=== PATIENT | female | born 1945 | race Caucasian/White ===

== ENCOUNTER 2020-03-26 12:42 | Emergency (ER) | payer OTHER ==
--- OUTSIDE RECORDS SUMMARY | 2020-03-26 12:45 | XMS REPORT | Continuity of Care Document ---
:1945 Author Organization [facility] t Address [address] Morales [address] [place] [address] Care Team Providers Name Role Phone Lawrence LEE, A Attending Clinician Doctor Unassigned, Name Attending Clinician Unavailable Only, Test Attending Clinician Unavailable Pob, Lab Main Attending Clinician Unavailable Lawrence LEE, A Admitting Clinician Payers Payer Name Policy Type Policy Number Effective Date Expiration Date S ource Problems This patient has no known problems. Allergies, Adverse Reactions, Alerts This patient has no known allergies or adverse reactions. Medications This patient has no known medications. Procedures This patient has no known procedures. Encounters Start End Encounter Admission Attending Care Care Encounter Source Date/Time Date/Time Type Type Clinicians Facility Department ID 2019-11-24 2019-11-24 [facility] Lawrence [facility] [id number] 09:50:00 13:50:00 Encounter Barney Thomas [id number] [place] 4.2.7.2.686 Surgical [phone] [place] 071 2019-11-24 2019-11-24 Orders Doctor DOLAN [id number] 00:00:00 00:00:00 Only Unassigned, [place] 350.1.13.10 [facility] 4.2.7.2.686 [id number] [id number] 2019-11-23 2019-11-23 Laboratory Only, [facility] [id number] 09:30:39 09:45:39 Only Test [place] [id number] [place] 4.2.7.2.686 [place] [id number] 353 2019-11-17 2019-11-17 Supervisor Pile Driving Monet, [facility] [id number] 11:59:38 12:14:38 Visit Lab Main [place] [id number] [place] 4.2.7.2.686 Profess [id number] [address] 2019-10-20 2019-10-20 [facility] [id number] 08:07:29 11:20:00 Encounter Barney ySlvia ChoKathleen 350.1.13.10 [place] 4.2.7.2.[address] [place] [id number] [place] 020 2019-10-19 2019-10-19 Laboratory Only, [facility] [id number] 09:57:46 10:12:46 Only Test [place] [id number] [place] 4.2.7.2.686 [place] [id number] 353 Results This patient has no known results.
--- NOTE | 2020-03-26 14:33 | ER ---
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 Ebola Screen: Patient negative for fever greater than or equal to 101.5 degrees Fahrenheit, and additional compatible Ebola Virus Disease symptoms Patient denies exposure to infectious person. Patient denies travel to an Ebola-affected area in the 21 days before illness onset. No symptoms or risks identified at this time. Initial Sepsis Screen: Does the patient meet any 2 criteria? No. Patient's initial sepsis screen is negative. Does the patient have a suspected source of infection? No. Patient's initial sepsis screen is negative. Risk Assessment: Do you want to hurt yourself or someone else? Patient reports no desire to harm self or others. Onset of symptoms was March 25, 2020. 13:25 Method Of Arrival: Ambulatory iw 13:25 Acuity: KIM 3 iw 13:28 Coronavirus screen: nausea, vomiting. Client presents with at least one sign or symptom iw that may indicate coronavirus-19. Standard/surgical mask placed on the client. Provider contacted for isolation considerations. Historical: - Allergies: 13:30 No Known Allergies; iw - Home Meds: 13:30 Diazepam Oral [Active]; iw - PMHx: 13:30 Hypertension; Hyperlipidemia; Anxiety; iw - PSHx: 13:30 Hysterectomy; iw - Immunization history:: Adult Immunizations up to date. - Social history:: Smoking status: Patient denies any tobacco usage or history of. Screenin:08 Abuse screen: Denies threats or abuse. Nutritional screening: No deficits noted. tw2 Tuberculosis screening: No symptoms or risk factors identified. Fall Risk None identified. Assessment: 14:07 Reassessment: provider at bedside at this time. tw2 14:25 General: Appears in no apparent distress. slender, well groomed, Behavior is calm, tw2 cooperative, appropriate for age. Pain: Denies pain. Neuro: Level of Consciousness is awake, alert, obeys commands, Oriented to person, place, time, situation. Cardiovascular: Heart tones S1 S2 Patient's skin is warm and dry. Respiratory: Airway is patent Respiratory effort is even, unlabored, Respiratory pattern is regular, symmetrical, Breath sounds are clear bilaterally. GI: No signs and/or symptoms were reported involving the gastrointestinal system. Abdomen is flat, Bowel sounds present X 4 quads. : No signs and/or symptoms were reported regarding the genitourinary system. EENT: No signs and/or symptoms were reported regarding the EENT system. Derm: No signs and/or symptoms reported regarding the dermatologic system. Musculoskeletal: Range of motion: intact in all extremities. 14:27 Reassessment: pt states "yes i just want the ekg done today and to be discharged, i tw2 have an appointment with dr. douglas office tomorrow for blood work", provider notified. Vital Signs: 13:25 BP 114 / 71; Pulse 80; Resp 16; Temp 97.6; Pulse Ox 100% on R/A; Weight 72.57 kg; iw Height 5 ft. 6 in. (167.64 cm); Pain 0/10; 14:38 BP 102 / 65; Pulse 73; Resp 17; Pulse Ox 99% on R/A; tw2 13:25 Body Mass Index 25.82 (72.57 kg, 167.64 cm) iw ED Course: 12:44 Patient arrived in ED. bg2 13:28 Triage completed. iw 13:30 Arm band placed on. iw 14:03 Anibal Araya PA is PHCP. jmm 14:03 Satya Alejo MD is Attending Physician. jmm 14:04 Anibal Araya PA is PHCP. jmm 14:04 Satya Alejo MD is Attending Physician. jmm 14:04 Bed in low position. Call light in reach. Pulse ox on. NIBP on. tw2 14:07 Romana Roper, COLLETTE is Primary Nurse. tw2 14:38 No provider procedures requiring assistance completed. Patient did not have IV access tw2 during this emergency room visit. Administered Medications: No medications were administered Outcome: 14:33 Discharge ordered by . shiela 14:40 Discharged to home ambulatory. tw2 14:40 Condition: stable 14:40 Discharge instructions given to patient, Instructed on discharge instructions, follow up and referral plans. Demonstrated understanding of instructions, follow-up care. 14:40 Patient left the ED. tw2 Signatures: Anibal Araya PA PA jmm Williams, Irene, RN RN Reva Dumas [facility] Romana Roper RN RN tw2 Corrections: (The following items were deleted from the chart) 13:28 13:25 Chief complaint: Patient states: vomited last night, and about an hour got very iw nauseated , denies abd pain, no fever or diarrhea, is feeling light headed and confused, didn't turn down the right road to come to hospital, is feeling light dizziness , denies headache iw 13:29 13:25 Chief complaint: Patient states: vomited last night, and about an hour got very iw nauseated , denies abd pain, no fever or diarrhea, is feeling light headed and confused, didn't turn down the right road to come to hospital, is feeling light dizziness , denies headache, is also having tingling in her hands iw 13:31 13:25 BP 114 / 71; Pulse 80bpm; Resp 16bpm; Pulse Ox 100% RA; Temp 97.6F; iw iw
--- NOTE | 2020-03-26 14:33 | EDPHYS ---
Physician Documentation [facility] Name: Mia Salinas Age: 74 yrs Sex: Female : 1945 Arrival Date: 03/26/2020 Time: 12:44 Bed 2 Private MD: ED Physician Satya Alejo HPI: 03/26 14:10 This 74 yrs old Female presents to ER via Ambulatory with complaints of jmm Confused, upset stomache. 14:10 The patient has experienced near-syncope. Onset: The symptoms/episode began/occurred jmm acutely, yesterday. Duration: The patient has had multiple episodes. Associated injury: The patient did not suffer any apparent associated injury. Associated signs and symptoms: Pertinent positives: confusion, Pertinent negatives: chest pain. This is a 74 year old female with a history of anxiety, htn, hlp that presents to the ED with complaints of near syncope on two occassions, one yesterday and one today while using the restroom. Patient states she became acutely weak and sweaty. Denies chest pain on shortness of breath. Denies cough. Patient had some concerns she may be covid positive. . Historical: - Allergies: 13:30 No Known Allergies; iw - Home Meds: 13:30 Diazepam Oral [Active]; iw - PMHx: 13:30 Hypertension; Hyperlipidemia; Anxiety; iw - PSHx: 13:30 Hysterectomy; iw - Immunization history:: Adult Immunizations up to date. - Social history:: Smoking status: Patient denies any tobacco usage or history of. ROS: 14:10 Constitutional: Positive for fatigue. jmm 14:10 Respiratory: Negative for shortness of breath. 14:10 Abdomen/GI: Negative for nausea, vomiting. 14:10 Neuro: Positive for near syncope. 14:10 All other systems are negative. Exam: 14:10 Constitutional: This is a well developed, well nourished patient who is awake, alert, jmm and in no acute distress. Head/Face: atraumatic. Eyes: EOMI, no conjunctival erythema appreciated ENT: Moist Mucus Membranes Neck: Trachea midline, Supple Chest/axilla: Normal chest wall appearance and motion. Cardiovascular: Regular rate and rhythm. No edema appreciated Respiratory: Normal respirations, no respiratory distress appreciated Abdomen/GI: Non distended, soft Back: Normal ROM Skin: General appearance color normal MS/ Extremity: Moves all extremities, no obvious deformities appreciated, no edema noted to the lower extremities Neuro: Awake and alert, normal gait Psych: Behavior is normal, Mood is normal, Patient is cooperative and pleasant Vital Signs: 13:25 BP 114 / 71; Pulse 80; Resp 16; Temp 97.6; Pulse Ox 100% on R/A; Weight 72.57 kg; iw Height 5 ft. 6 in. (167.64 cm); Pain 0/10; 14:38 BP 102 / 65; Pulse 73; Resp 17; Pulse Ox 99% on R/A; tw2 13:25 Body Mass Index 25.82 (72.57 kg, 167.64 cm) iw MDM: 14:10 Patient medically screened. [facility] 14:32 Data reviewed: vital signs, nurses notes. Data reviewed: EKG. Counseling: I had a m detailed discussion with the patient and/or guardian regarding: the historical points, exam findings, and any diagnostic results supporting the discharge/admit diagnosis, the need for outpatient follow up, to return to the emergency department if symptoms worsen or persist or if there are any questions or concerns that arise at home. Refusal of service: The patient/guardian displays adequate decision making capability and despite a detailed discussion of alternatives, benefits, risks, and consequences refuses: CT Scan, all lab tests. 03/26 14:10 Order name: EKG - Nurse/Tech; Complete Time: 14:26 [facility] Administered Medications: No medications were administered Disposition: 15:42 Co-signature as Attending Physician, Satya Alejo MD. rn Disposition: 03/26/20 14:33 Discharged to Home. Impression: Syncope and collapse. - Condition is Stable. - Discharge Instructions: Syncope. - Medication Reconciliation Form, Thank You Letter, Antibiotic Education, Prescription Opioid Use form. - Follow up: Private Physician; When: 2 - 3 days; Reason: Recheck today's complaints, Continuance of care, Re-evaluation by your physician. Signatures: Anibal Araya PA PA Ritika Cox, RN COLLETTE Satya Alejo MD MD rn Wise, Tara, RN RN tw2 Corrections: (The following items were deleted from the chart) 14:40 14:33 03/26/2020 14:33 Discharged to Home. Impression: Syncope and collapse. Condition tw2 is Stable. Forms are Medication Reconciliation Form, Thank You Letter, Antibiotic Education, Prescription Opioid Use. Follow up: Private Physician; When: 2 - 3 days; Reason: Recheck today's complaints, Continuance of care, Re-evaluation by your physician. shiela
[2020-03-26 17:34] VITALS: TEMP 97.6
[2020-03-26 17:35] VITALS: BP 102/65; O2SAT 99
== END 2020-03-26 14:40 | disposition home or self-care (01) ==
LOC: ER 12:42
DX: R55 Syncope and collapse (principal); R41.0 Disorientation, unspecified; I10 Essential (primary) hypertension; E78.5 Hyperlipidemia, unspecified; F41.9 Anxiety disorder, unspecified
CPT/HCPCS: 93005; 99283

== ENCOUNTER 2020-04-08 13:33 | Emergency (ER) | payer SELFPAY ==
--- OUTSIDE RECORDS SUMMARY | 2020-04-08 13:36 | XMS REPORT | Continuity of Care Document ---
:1945 Author Organization [facility] t Address [address] Morales [address] [place] [address] Care Team Providers Name Role Phone Lawrence [...] Type Clinicians Facility Department ID 2019-11-24 2019-11-24 [facility] Lawrence [facility] [id number] 09:50:00 13:50:00 Encounter Barney Thomas [id number] [place] 4.2.7.2.686 Surgical [id number] [place] 071 2019-11-24 2019-11-24 Orders Doctor DOLAN [id number] 00:00:00 00:00:00 Only Unassigned, [place] 350.1.13.10 [facility] 4.2.7.2.686 [id number] 2019-11-23 2019-11-23 Laboratory Only, [facility] 1.2.840.114 [id number] 09:30:39 09:45:39 Only Test [place] 350.1.13.10 [place] 4.2.7.2.686 [place] [id number] 353 2019-11-17 2019-11-17 Tonal Regulator Monet, [facility] 1.2.840.114 [id number] 11:59:38 12:14:38 Visit Lab Main [place] 350.1.13.10 [place] 4.2.7.2.686 Profess [phone] [address] 2019-10-20 2019-10-20 [facility] [id number] 08:07:29 11:20:00 Encounter Barney Sylvia [place] 350.1.13.10 [place] 4.2.7.2.686 [facility] [id number] [place] 020 2019-10-19 2019-10-19 Laboratory Only, [facility] 1.2.840.114 [id number] 09:57:46 10:12:46 Only Test [place] [id number] [place] 4.2.7.2.686 [place] [id number] 353 Results This patient has no known results.
--- NOTE | 2020-04-08 16:43 | ER ---
Nurse's Notes [facility] Name: Mia Salinas Age: 74 yrs Sex: Female : 1945 Arrival Date: 04/08/2020 Time: 13:34 Bed Waiting Private MD: Oumar Mahan Diagnosis: Presentation: 04/08 14:37 Chief complaint: Patient states: Bilateral hands and bilateral feet tingling and nausea jl7 since 1100 today, denies chest pain, reports difficulty breathing when he picked her up. Coronavirus screen: Client denies travel out of the [place] in the last 14 days. At this time, the client does not indicate any symptoms associated with coronavirus-19. Ebola Screen: No symptoms or risks identified at this time. Initial Sepsis Screen: Does the patient meet any 2 criteria? No. Patient's initial sepsis screen is negative. Does the patient have a suspected source of infection? No. Patient's initial sepsis screen is negative. Risk Assessment: Do you want to hurt yourself or someone else? Patient reports no desire to harm self or others. Onset of symptoms was April 08, 2020 at 11:00. Care prior to arrival: None. 14:37 Method Of Arrival: Wheelchair jl7 14:37 Acuity: KIM 3 jl7 Triage Assessment: 14:41 General: Appears in no apparent distress. uncomfortable, Behavior is cooperative, jl7 anxious. Pain: Denies pain. Respiratory: Reports Airway is patent Respiratory effort is even, unlabored, Respiratory pattern is regular, symmetrical, Onset: The symptoms/episode began/occurred today, the patient has mild shortness of breath. Historical: - Allergies: 14:41 Morphine; jl7 - PMHx: 14:41 Anxiety; Hyperlipidemia; Hypertension; jl7 - PSHx: 14:41 Hysterectomy; jl7 - Immunization history:: Adult Immunizations up to date. - Social history:: Smoking status: Patient denies any tobacco usage or history of. Vital Signs: 14:37 BP 100 / 63; Pulse 82; Resp 19; Temp 98.1; Pulse Ox 99% ; Weight 72.57 kg; Height 5 ft. jl7 6 in. (167.64 cm); Pain 0/10; 14:37 Body Mass Index 25.82 (72.57 kg, 167.64 cm) jl7 ED Course: 13:34 Patient arrived in ED. ag5 13:36 Oumar Mahan MD is Private Physician. ag5 14:40 Triage completed. jl7 14:41 Arm band placed on right wrist. jl7 16:41 Renetta Tenorio, RN is Primary Nurse. zb 16:43 Modesto Renteria MD is Attending Physician. aa5 Administered Medications: No medications were administered Outcome: 16:43 Patient left the ED. aa5 Signatures: Saba Cornelius, RN RN aa5 Marissa Rubin RN RN jl7 [place] ag5 Renetta Tenorio, COLLETTE RN zb
[2020-04-12 17:25] VITALS: BP 100/63; TEMP 98.1; O2SAT 99
== END 2020-04-08 16:43 | disposition left against medical advice (07) ==
LOC: ER 13:33
DX: Z53.21 Procedure and treatment not carried out due to patient leaving prior to being seen by health care provider (principal)
CPT/HCPCS: 99281

== ENCOUNTER 2020-05-29 09:42 | Emergency (ER) | payer OTHER ==
--- OUTSIDE RECORDS SUMMARY | 2020-05-29 10:17 | XMS REPORT | Continuity of Care Document ---
:1945 Author Organization [facility] t Address [address] Morales [address] [place] [address] Care Team Providers Name Role Phone Tyler MURDOCK, Ayaka Attending Clinician Unavailable Lab, Fam Pob I Attending Clinician Unavailable Doctor Unassigned, Name Attending Clinician Unavailable Lawrence LEE, A Attending Clinician Only, Test Attending Clinician Unavailable Pob, Lab [...] Date/Time Type Type Clinicians Facility Department ID 2020-05-27 2020-05-27 Nurse MAGDALENO [place] [id number] [id number] 00:00:00 00:00:00 Triage Whitney VARELA [id number] [facility] 4.2.7.2.686 [id number] [id number] 2020-05-25 2020-05-25 Laboratory Lab, [facility] 1.2.840.114 [id number] 18:25:25 18:45:25 Only Fam Pob I Health 350.1.13.10 [place] 4.2.7.2.686 Professio [phone] nal [address] 2020-05-25 2020-05-25 Letter Doctor MAGDALENO 1.2.840.114 [id number] 00:00:00 00:00:00 (Out) Unassigned, [place] 350.1.13.10 [place] [facility] 4.2.7.2.686 [id number] 2019-11-24 2019-11-24 [facility] [id number] 09:50:00 13:50:00 Encounter Barney Thomas 350.1.13.10 [place] 4.2.7.2.686 Surgical [id number] [place] [address] 2019-11-24 2019-11-24 Orders Doctor MAGDALENO [id number] [id number] 00:00:00 00:00:00 Only Unassigned, [place] 350.1.13.10 [place] [facility] 4.2.7.2.686 [id number] 009 2019-11-23 2019-11-23 Laboratory Only, [facility] 1.2.840.114 [id number] 09:30:39 09:45:39 Only Test [place] 350.1.13.10 [place] 4.2.7.2.686 [place] [id number] 353 2019-11-17 2019-11-17 Rn First Assistant Monet, [facility] 1.2.840.114 [id number] 11:59:38 12:14:38 Visit Lab Main [place] 350.1.13.10 [place] 4.2.7.2.686 Professio [phone] [facility] 2019-10-20 2019-10-20 [facility] [id number] 08:07:29 11:20:00 Encounter Barney [place] 350.1.13.10 [place] 4.2.7.2.686 Surgical [id number] [place] 020 2019-10-19 2019-10-19 Laboratory Only, [facility] 1.2.840.114 [id number] 09:57:46 10:12:46 Only Test [place] 350.1.13.10 [place] 4.2.7.2.686 [place] [id number] 353 Results This patient has no known results.
--- OUTSIDE RECORDS SUMMARY | 2020-05-29 10:17 | XMS REPORT | Summary of Care ---
:1945 Author Organization [facility] [employer] [facility] Address [address] [place] [address] Care Team Providers Name Role Phone Dilan Mahan Primary Care Provider Reason for Visit Reason Comments LAB covid Encounter Details Date Type Department Care Team Description 05/25/2020 Laboratory Only [facility] Family Kimberli Loja odalys J, COSTUME SPECIALIST [address] [place] [address] Exposure to Medicine - [facility], Adc Fam Pob I SARS-associated [address] [facility] coronaviru s ([address] Dx) [place] [address] Allergies Active Allergy Reactions Severity Noted Date Comments Morphine Hallucinations 10/18/2019 documented as of this encounter (statuses as of 05/25/2020) Medications Medication Sig Dispensed Refills Start Date End Date Status zolpidem 10 mg tablet Take 10 mg by 0 Active mouth at bedtime as needed for Insomnia. ramipril (ALTACE) 5 mg Take 5 mg by 0 Active capsule mouth 2 (two) times daily. rosuvastatin (CRESTOR) Take 10 mg by 0 Active 10 mg tablet mouth at bedtime. levomefolate-algal oil Take 1 capsule 0 Active (DEPLIN, ALGAL OIL,) by mouth daily. 15-90.314 mg Cap levothyroxine 50 mcg Take 0.05 mg by 0 Active tablet mouth every morning. oxybutynin chloride 5 mg Take 5 mg by 0 Active tablet mouth daily. FLUoxetine (PROZAC) 20 Take 20 mg by 0 Active mg capsule mouth 3 (three) times daily. raloxifene (EVISTA) 60 Take 60 mg by 0 Active mg tablet mouth daily. alendronate 70 mg tablet Take 70 mg by 0 Active mouth weekly. levocetirizine (XYZAL) 5 Take 5 mg by 0 Active mg tablet mouth every evening. documented as of this encounter (statuses as of 05/25/2020) Active Problems Not on filedocumented as of this encounter (statuses as of 05/25/2020) Social History Tobacco Use Types Packs/Day Years Used Date Never Smoker Smokeless Tobacco: Never Used Sex Assigned at Date Recorded Not on file documented as of this encounter Last Filed Vital Signs Not on filedocumented in this encounter Nursing Notes Prerna Rico RN - 05/25/2020 7:00 PM CSTMia Salinas is a 74 year old female here for COVID Screening with a Nasopharyngeal Swab All droplet and contact precautions taken with appropriate PPE worn while interacting with patient. ? Goggles ? N95 Mask ? Gloves ? Gown RR 17 Pulse Ox 95% Patient educated on plan of care for visit, swabbing technique, risks and benefits of test and length of time to receive results. Verbal consent obtained to perform test. CDC Fact Sheet for Patients nCoV Diagnostic Panel dated 07/11/2019 and Factsheet What to Do if Sick with COVID 19 06/21/19 provided. Patient swabbed per appropriate nasopharyngeal technique, and patient tolerated well. Patient was discharged from the testing clinic in stable condition. Prerna Rico RN 05/25/2020 6:31 PM documented in this encounter Plan of Treatment Name Type Priority Associated Diagnoses Date/Ti me COVID-19 (MOLECULAR LAB Routine Exposure to 05/25/19 21 6:27 PM TERMITE CONTROL SERVICER TESTING SARS-associated NUCLEIC ACID coronavirus AMPLIFICATION) Name Type Priority Associated Diagnoses Order S chedule COVID-19 (MOLECULAR LAB Routine Exposure to Expected : 05/25/2020, TESTING SARS-associated Expires: 022 NUCLEIC ACID coronavirus AMPLIFICATION) Health Maintenance Due Date Last Done Comments HEPATITIS C (HCV) SCREEN 1945 SARS-CoV-2 (COVID-19) Vaccine (1 of 2) 1963 DTaP,Tdap,and Td Vaccines (1 - Tdap) 12/13/1966 Breast Cancer Screening (MAMMOGRAM) 1987 COLON CANCER SCREENING ANNUAL FIT/FOBT 12/13/1997 COLON CANCER SCREENING FIT DNA EVERY 3 YEARS 12/13/1997 COLON CANCER SCREENING SIGMOIDOSCOPY EVERY 5 YEARS 12/13/1997 COLONOSCOPY 12/13/1997 Colorectal Cancer Screening 12/13/1997 Zoster Recombinant Vaccine (SHINGRIX) (1 of 2) 12/13/1997 Medicare Wellness Visit 12/13/2012 Osteoporosis Screening 12/13/2012 PNEUMOCOCCAL VACCINES 65+ (1 of 1 - PPSV23) 12/13/2012 INFLUENZA VACCINE (#1) 2019 Depression Screening 11/23/2020 11/24/2019 documented as of this encounter Implants Implanted Type Area Bowling Teacher Device Shelf Model / Identifier Expiration Date Ser ial / Lot Lens, [place] #[id number] - [id number] LENS Right: [place] 02/26/2024 [id number] / Implanted: Qty: 1 on 10/20/2019 by Barney Bray MD at [facility] Eye 1 [id number] / N/A Lens, [place] #[id number] - [id number] LENS Left: Eye [place] 01/26/2024 [id number] / Implanted: Qty: 1 on 11/24/2019 by Barney Bray MD at [facility] [id number] / N/A documented as of this encounter Results Not on filedocumented in this encounter Visit Diagnoses Diagnosis Exposure to SARS-associated coronavirus - Primary documented in this encounter Additional Health Concerns Infection Onset Date Last Indicated Resolved Time COVID-19 Rule Out 05/25/2020 05/25/2020 documented as of this encounter Insurance Payer Benefit Plan Subscriber ID Effective Phone Address Typ e / Group Dates AETNA - AETNA [id number] 2019-Pre[address] Me dicare Adv [place] [id number] [place] [address] documented as of this encounter
--- OUTSIDE RECORDS SUMMARY | 2020-05-29 10:18 | XMS REPORT | Summary of Care ---
:1945 Author Organization [facility] Address [address] [place] [id number] Care Team Providers Name Role Phone Dilan Mahan Primary Care Provider Reason for Visit Reason Onset Date Comments Shortness of Breath 05/27/2020 Diarrhea 05/27/2020 Abdominal Pain 05/27/2020 Encounter Details Date Type Department Care Team Description 05/27/2020 Nurse Triage [facility] Whitney Scott RN Shortness of Breath; [address] [place] [address] Diarrhea; A bdominal [place] [id number] Allergies Active Allergy Reactions Severity Noted Date Comments Morphine Hallucinations 10/18/2019 documented as of this encounter (statuses as of 05/27/2020) Medications Medication Sig Dispensed Refills Start Date [...] as of this encounter (statuses as of 05/27/2020) Active Problems Not on filedocumented as of this encounter (statuses as of 05/27/2020) Social History Tobacco Use Types Packs/Day Years Used Date Never Smoker Smokeless Tobacco: Never Used Sex Assigned at Date Recorded Not on file documented as of this encounter Last Filed Vital Signs Not on filedocumented in this encounter Miscellaneous Notes Telephone Encounter - Whitney Scott RN - 05/27/2020 11:37 AM SENIOR APPLICATIONS ARCHITECT Reason for Disposition MILD difficulty breathing (e.g., minimal/no SOB at rest, SOB with walking, pulse <100) Protocols used: CORONAVIRUS (COVID-19) - DIAGNOSED OR [id number] OR APPLICATIONS ARCHITECT Telephone Encounter - Whitney Scott RN - 05/27/2020 11:37 AM CSTNurse's Note: "breathing problem" per patient. 1138 "I am having problems breathing. My feet are tingling. My stomach is killing me. I'm trying to drink water. Is there any way they can deliver oxygen and pulse oximeter." Patient informed oxygen delivery would require an order from physician. Patient stated she tried to contact her PCP but he's unavailable right now. After assessment and triage, patient advised to be taken to the ER for immediate evaluation. Patient states she's not going to the ER because it's overcrowded and she'll just call her niece to come over. Adult Triage Assessment Last Clinic Visit: 11/24/2019 for cataract surgery Primary Symptom: difficulty breathing Onset / Duration: today a few minutes ago Location / Description: at rest Pain / Severity: stomach, 9/10, constant Associated Symptoms: diarrhea x 1 today Fever / Method: doesn't know but sweating Hydration: no changes to usual self Treatment so far: none Effect on ADL's: when asked about any changes to activity level patient states "I don't know, I haven't gotten up" LMP: n/a Pre-existing condition / Immunocompromised: COVID +, cataract surgery [facility] Access Center Whitney Scott, MSN, RN-BC OR APPLICATIONS ARCHITECT Telephone Encounter - Whitney Scott RN - 05/27/2020 11:37 AM CSTRegarding: Trouble breathing, Covid positive, diarrhea. ----- Message from Cherie Rio sent at 05/27/2020 11:32 AM SENIOR APPLICATIONS ARCHITECT ----- Mia Salinas is a 74 year old female who is stating she is having trouble breathing that just started. Patient Covid is positive and has diarrhea. OR APPLICATIONS ARCHITECT documented in this encounter Plan of Treatment Health Maintenance Due Date Last Done Comments [...] of this encounter Implants Implanted Type Area Biodiesel Processing Technician Device Shelf Model / Identifier Expiration Date Ser ial / Lot Lens, Montez #[id number] - [id number] LENS Right: Montez 02/26/2024 [id number] / Implanted: Qty: 1 on 10/20/2019 by Barney Bray MD at [facility] Eye [id number] / N/A Lens, Montez #[id number] - [id number] LENS Left: Eye Montez 01/26/2024 [id number] / Implanted: Qty: 1 on 11/24/2019 by Barney Bray MD at [facility] [id number] / N/A documented as of this encounter Results Not on filedocumented in this encounter Additional Health Concerns Infection Onset Date Last Indicated Resolved Time COVID-19 Confirmed 05/25/2020 05/25/2020 documented as of this encounter Insurance Payer Benefit Plan Subscriber ID Effective Phone Address Typ e / Group Dates AETNA - AETNA [id number] 2019-Prese [address] Me dicare Adv [place]NAGED MEDICARE [place]V [place] [id number] [place] [address] documented as of this encounter
--- OUTSIDE RECORDS SUMMARY | 2020-05-29 10:18 | XMS REPORT | Summary of Care ---
:1945 Author Organization [facility] - Health Address [address] [place] [address] Care Team Providers Name Role Phone Oanhanjana Dilan Primary Care Provider Encounter Details Date Type Department Care Team Description 05/25/2020 Letter (Out) [facility] Burst[employer]it Message s Doctor Unassigned, No [address] [facility] [place] [phone] [place] [address] [place] [address] Allergies Active Allergy Reactions Severity Noted Date [...] Signs Not on filedocumented in this encounter Plan of Treatment Date Type Specialty Care Team Description 05/25/2020 Laboratory Only Family Medicine Daniela Loja, FIRE PROTECTION INSPECTOR [address] [place] [address] [phone] Exposure to Lab, Adc Fam Pob I SARS-associated coronavirus (Pr imary Dx) Health Maintenance Due Date Last Done Comments [...] of this encounter Implants Implanted Type Area Pipe Smoker Machine Operator Device Shelf Model / Identifier Expiration Date Ser ial / Lot Lens, Montez #[id number] - [id number] LENS Right: Montez 02/26/2024 SN60WF / Implanted: Qty: 1 on 10/20/2019 by Barney Bray MD at [facility] Eye 1 [id number] / N/A Lens, Montez #[id number] - [id number] LENS Left: Eye Montez 01/26/2024 [id number] / Implanted: Qty: 1 on 11/24/2019 by Barney Bray MD at [facility] [id number] / N/A documented as of this encounter Results Not on filedocumented in this encounter Additional Health Concerns Infection Onset Date Last Indicated Resolved Time COVID-19 Rule Out 05/25/2020 05/25/2020 documented as of this encounter Insurance Payer Benefit Plan Subscriber ID Effective Phone Address Typ e / Group Dates AETNA - AETNA [id number] 2019-Isidro P Michele BOX Me dicare Adv MANAGED MEDICARE ADV [place] [id number] [place] [address] documented as of this encounter
[2020-05-29] MEDS ORDERED: MEPERIDINE HCL 25 MG/ML SYR ONE (11:49)
[2020-05-29] MEDS ORDERED: ONDANSETRON 4 MG/2 ML VIAL ONE (11:49)
[2020-05-29] MEDS ORDERED: MAGNES/ALUMIN/SIMET 30ML UCUP ONE (11:49)
[2020-05-29] MEDS ORDERED: LIDOCAINE VISCOUS 2% SOLN 15 ML UDC ONE (11:49)
[2020-05-29] MEDS ORDERED: NA CHLORIDE 0.9% 1,000 ML ONE (11:49)
[2020-05-29] MEDS ORDERED: FAMOTIDINE 20 MG/2 ML VIAL IV ONE (11:50)
[2020-05-29 12:01] LABS: Absolute Lymphocytes (CBC) 1.7 K/uL (0.7-4.9); Basophils % 0.7 % (0-1.3); Hematocrit 42.8 % (36.0-45.0); Lymphocytes % 20.8 % (15.3-44.8); MPV 8.4 fL (7.6-11.3); RBC Red Blood Cell Count 4.68 M/uL (3.86-4.86)
[2020-05-29 12:57] LABS: Albumin 3.8 g/dL (3.4-5.0); Bilirubin Direct 0.2 mg/dL (0-0.2); Potassium 3.4 mmol/L (3.5-5.1); Protein, Total 7.7 g/dL (6.4-8.2)
--- NOTE | 2020-05-29 12:58 | RAD REPORT ---
EXAM DESCRIPTION: CT - Abdomen Pelvis W Contrast - 05/29/2020 12:16 pm CLINICAL HISTORY: Abdominal pain COMPARISON: none. TECHNIQUE: Computed axial tomography of the abdomen pelvis was obtained. 100 cc Isovue-300 was admin istered intravenously. Oral contrast was not requested which limits evaluation of bowel. All CT scans are performed using dose optimization technique as appropriate and may include automated exposure control or mA/KV adjustment according to patient size. FINDINGS: A gastric band is present. The esophagus is not dilated A 12 millimeter left adrenal nodule. Right adrenal gland are unremarkable The liver, spleen, pancreas, adrenals and left kidney unremarkable. Small right renal cyst. There is no evidence of diverticulitis. Hysterectomy Borderline dilatation of the gallbladder IMPRESSION: 12 millimeter left adrenal nodule nonspecific but probably an adenoma. This can be monit ored on subsequent imaging. Gastric band present. Esophagus is not dilated Borderline dilatation of the gallbladder
--- NOTE | 2020-05-29 13:09 | EDPHYS ---
Physician Documentation [facility] Name: Mia Salinas Age: 74 yrs Sex: Female : 1945 Arrival Date: 05/29/2020 Time: 09:44 Bed 3 Private MD: Oumar Mahan ED Physician Erin Whalen HPI: 05/29 11:20 This 74 yrs old Female presents to ER via Wheelchair with complaints of ma2 COVID+, Lap Band Problem. 11:20 The patient presents with abdominal pain in the epigastric area. Onset: The ma2 symptoms/episode began/occurred gradually, 3 day(s) ago. Associated signs and symptoms: Pertinent negatives: blood in stools, chest pain, diarrhea, dysuria, fever. Severity of pain: At its worst the pain was moderate in the emergency department the pain is unchanged. The patient has not experienced similar symptoms in the past. Historical: - Allergies: 10:54 Morphine; ca1 - PMHx: 10:54 Anxiety; Hyperlipidemia; Hypertension; ca1 - PSHx: 10:54 Hysterectomy; lap Band; ca1 - Immunization history:: Pneumococcal vaccine is up to date, Flu vaccine is up to date. - Social history:: Smoking status: Patient denies any tobacco usage or history of. Patient/guardian denies using alcohol, street drugs, The patient lives with family. - Family history:: not pertinent. ROS: 11:20 Constitutional: Negative for fever, chills, and weight loss. ma2 11:20 All other systems are negative. Exam: 11:20 Constitutional: This is a well developed, well nourished patient who is awake, alert, ma2 and in no acute distress. Neck: Trachea midline, no thyromegaly or masses palpated, and no cervical lymphadenopathy. Supple, full range of motion without nuchal rigidity, or vertebral point tenderness. No Meningismus. Chest/axilla: Normal chest wall appearance and motion. Nontender with no deformity. No lesions are appreciated. Cardiovascular: Regular rate and rhythm with a normal S1 and S2. No gallops, murmurs, or rubs. Normal PMI, no JVD. No pulse deficits. Respiratory: Lungs have equal breath sounds bilaterally, clear to auscultation and percussion. No rales, rhonchi or wheezes noted. No increased work of breathing, no retractions or nasal flaring. Abdomen/GI: Soft, non-tender, abdominal band is felt under skin and non tender, with normal bowel sounds. No distension or tympany. No guarding or rebound. No evidence of tenderness throughout. Back: No spinal tenderness. No costovertebral tenderness. Full range of motion. Skin: Warm, dry with normal turgor. Normal color with no rashes, no lesions, and no evidence of cellulitis. MS/ Extremity: Pulses equal, no cyanosis. Neurovascular intact. Full, normal range of motion. Neuro: Awake and alert, GCS 15, oriented to person, place, time, and situation. Cranial nerves II-XII grossly intact. Motor strength 5/5 in all extremities. Sensory grossly intact. Cerebellar exam normal. Normal gait. Vital Signs: 10:51 BP 111 / 84; Pulse 75; Resp 16 S; Temp 97.1(TE); Pulse Ox 100% on R/A; Weight 68.04 kg ca1 (R); Height 5 ft. 6 in. (167.64 cm) (R); Pain 10/10; 12:03 BP 106 / 78; Pulse 79; Resp 15; Pulse Ox 100% ; Pain 4/10; jl7 14:00 BP 131 / 86; Pulse 77; Resp 18 S; Pulse Ox 100% on R/A; aa5 10:51 Body Mass Index 24.21 (68.04 kg, 167.64 cm) ca1 MDM: 11:01 Patient medically screened. [facility] 11:20 Differential diagnosis: diverticulitis, gastritis, gastroesophageal reflux disease, ma2 Hepatitis. 13:08 Data reviewed: vital signs, nurses notes. Counseling: I had a detailed discussion with [facility] the patient and/or guardian regarding: the historical points, exam findings, and any diagnostic results supporting the discharge/admit diagnosis, the presence of at least one elevated blood pressure reading (>120/80) during this emergency department visit, the need for outpatient follow up. Response to treatment: the patient's symptoms have markedly improved after treatment. 05/29 11:19 Order name: Basic Metabolic Panel [facility] 05/29 11:19 Order name: CBC with Diff; Complete Time: 12:58 [facility] 05/29 11:19 Order name: Hepatic Function [facility] 05/29 11:19 Order name: Lipase [facility] 05/29 12:44 Order name: CREATININE WHOLE BLOOD; Complete Time: 12:58 EDMS 05/29 13:24 Order name: Urine Dipstick--Ancillary (enter results) bd 05/29 11:19 Order name: IV Saline Lock; Complete Time: 11:54 ia2 05/29 11:19 Order name: CT Abd/Pelvis - IV Contrast Only; Complete Time: 13:04 ma2 05/29 11:19 Order name: NPO; Complete Time: 11:26 ia2 05/29 11:19 Order name: Urine Dipstick-Ancillary (obtain specimen); Complete Time: 13:18 ma2 Administered Medications: 11:43 Drug: NS 0.9% 1000 ml Route: IV; Rate: 1000 ml; Site: right antecubital; jl7 11:45 Drug: Pepcid 20 mg Route: IVP; Site: right antecubital; jl7 12:03 Follow up: Response: No adverse reaction jl7 11:46 Drug: Demerol 25 mg Route: IVP; Site: right antecubital; jl7 12:03 Follow up: Response: No adverse reaction; Pain is decreased jl7 11:47 Drug: Zofran (Ondansetron) 4 mg Route: IVP; Site: right antecubital; jl7 12:04 Follow up: Response: No adverse reaction jl7 13:56 Drug: Klor-Con Effervescent Tablet 50 mEq Route: PO; aa5 14:27 Not Given (Patient Refused): GI Cocktail without - (Maalox Suspension 30 ml, aa5 Lidocaine Liquid 2 % 15 ml) PO once Disposition: 05/29/20 13:08 Discharged to Home. Impression: Hypokalemia, Upper abdominal pain, unspecified. - Condition is Stable. - Discharge Instructions: Abdominal Pain, Adult. - Prescriptions for Zofran 4 mg Oral Tablet - take 1 tablet by ORAL route every 12 hours As needed; 20 tablet. Pepcid 20 mg Oral Tablet - take 1 tablet by ORAL route once daily for 10 days; 10 tablet. Potassium Chloride 10 mEq Oral Tablet - take 1 tablet by ORAL route every 12 hours; 30 tablet. - Medication Reconciliation Form, Thank You Letter, Antibiotic Education, Prescription Opioid Use form. - Follow up: Private Physician; When: Tomorrow; Reason: If symptoms return. Signatures: Dispatcher [employer] EDNV Saba Cornelius RN RN aa5 Marissa Rubin RN RN jl7 Erin Whalen MD MD ma2 Elisabet Beth RN RN ca1 Corrections: (The following items were deleted from the chart) 14:28 13:08 05/29/2020 13:08 Discharged to Home. Impression: Hypokalemia; Upper abdominal aa5 pain, unspecified. Condition is Stable. Prescriptions for Zofran 4 mg Oral Tablet - take 1 tablet by ORAL route every 12 hours As needed; 20 tablet, Pepcid 20 mg Oral Tablet - take 1 tablet by ORAL route once daily for 10 days; 10 tablet. and Forms are Medication Reconciliation Form, Thank You Letter, Antibiotic Education, Prescription Opioid Use. Follow up: Private Physician; When: Tomorrow; Reason: If symptoms return. ma2
--- NOTE | 2020-05-29 13:09 | ER ---
Nurse's Notes [facility] Name: Mia Salinas Age: 74 yrs Sex: Female : 1945 Arrival Date: 05/29/2020 Time: 09:44 Bed 3 Private MD: Oumar Mahan Diagnosis: Hypokalemia;Upper abdominal pain, unspecified Presentation: 05/29 10:51 Chief complaint: Patient states: Got a lap band 15 years ago. It's blocked, I can't ca1 throw up, I defecated on myself, I can't drink any water. Reports severe abdominal pain all over. All these started last week. Coronavirus screen: Client reports previous positive COVID test result. Date of collection: May 25, 2020. Ebola Screen: Patient negative for fever greater than or equal to 101.5 degrees Fahrenheit, and additional compatible Ebola Virus Disease symptoms Patient denies exposure to infectious person. Patient denies travel to an Ebola-affected area in the 21 days before illness onset. No symptoms or risks identified at this time. Initial Sepsis Screen: Does the patient meet any 2 criteria? No. Patient's initial sepsis screen is negative. Does the patient have a suspected source of infection? No. Patient's initial sepsis screen is negative. Risk Assessment: Do you want to hurt yourself or someone else? Patient reports no desire to harm self or others. Onset of symptoms was May 29, 2020. 10:51 Acuity: KIM 2 ca1 10:51 Method Of Arrival: Wheelchair ca1 Historical: - Allergies: 10:54 Morphine; ca1 - PMHx: 10:54 Anxiety; Hyperlipidemia; Hypertension; ca1 - PSHx: 10:54 Hysterectomy; lap Band; ca1 - Immunization history:: Pneumococcal vaccine is up to date, Flu vaccine is up to date. - Social history:: Smoking status: Patient denies any tobacco usage or history of. Patient/guardian denies using alcohol, street drugs, The patient lives with family. - Family history:: not pertinent. Screenin:03 Abuse screen: Denies threats or abuse. Denies injuries from another. Nutritional jl7 screening: No deficits noted. Tuberculosis screening: No symptoms or risk factors identified. Fall Risk IV access (20 points). Total Lockett Fall Scale indicates No Risk (0-24 pts). Assessment: 11:10 General: Appears in no apparent distress. uncomfortable, Behavior is cooperative, jl7 anxious. Pain: Complains of pain in abdomen diffusely Pain currently is 10 out of 10 on a pain scale. Neuro: Level of Consciousness is awake, alert, obeys commands, Oriented to person, place, time, situation. Cardiovascular: Patient's skin is warm and dry. Respiratory: Airway is patent Respiratory effort is even, unlabored, Respiratory pattern is regular, symmetrical. GI: Abdomen is round non-distended, Bowel sounds present X 4 quads. Abd is soft and non tender X 4 quads. Abdomen is tender to palpation in umbilical area. : Reports Unable to void due to inability to drink water. Derm: Skin is pink, warm \T\ dry. 13:56 Reassessment: Awaiting Dr. Whalen to speak to pt before d/c home. . aa5 14:25 Reassessment: Patient is alert, oriented x 3, equal unlabored respirations, skin aa5 warm/dry/pink. Patient states feeling better. Patient states symptoms have improved. Vital Signs: 10:51 BP 111 / 84; Pulse 75; Resp 16 S; Temp 97.1(TE); Pulse Ox 100% on R/A; Weight 68.04 kg ca1 (R); Height 5 ft. 6 in. (167.64 cm) (R); Pain 10/10; 12:03 BP 106 / 78; Pulse 79; Resp 15; Pulse Ox 100% ; Pain 4/10; jl7 14:00 BP 131 / 86; Pulse 77; Resp 18 S; Pulse Ox 100% on R/A; aa5 10:51 Body Mass Index 24.21 (68.04 kg, 167.64 cm) ca1 ED Course: 09:44 Patient arrived in ED. ag5 09:45 Oumar Mahan MD is Private Physician. ag5 10:54 Triage completed. ca1 10:54 Arm band placed on right wrist. ca1 10:56 Marissa Rubin RN is Primary Nurse. jl7 11:01 Erin Whalen MD is Attending Physician. ma2 11:40 Initial lab(s) drawn, by ED staff, sent to lab. Inserted saline lock: 20 gauge in right jl7 antecubital area, using aseptic technique. ,using aseptic technique. inserted by COLLETTE Gonzalez Traveler. 12:03 Patient has correct armband on for positive identification. Bed in low position. Call jl7 light in reach. Side rails up X2. Pulse ox on. NIBP on. Warm blanket given. 12:17 CT Abd/Pelvis - IV Contrast Only In Process Unspecified. EDMS 14:18 IV discontinued, Pressure dressing applied. 5 14:25 No provider procedures requiring assistance completed. aa5 Administered Medications: 11:43 Drug: NS 0.9% 1000 ml Route: IV; Rate: 1000 ml; Site: right antecubital; jl7 11:45 Drug: Pepcid 20 mg Route: IVP; Site: right antecubital; jl7 12:03 Follow up: Response: No adverse reaction jl7 11:46 Drug: Demerol 25 mg Route: IVP; Site: right antecubital; jl7 12:03 Follow up: Response: No adverse reaction; Pain is decreased jl7 11:47 Drug: Zofran (Ondansetron) 4 mg Route: IVP; Site: right antecubital; jl7 12:04 Follow up: Response: No adverse reaction jl7 13:56 Drug: Klor-Con Effervescent Tablet 50 mEq Route: PO; aa5 14:27 Not Given (Patient Refused): GI Cocktail without - (Maalox Suspension 30 ml, aa5 Lidocaine Liquid 2 % 15 ml) PO once Outcome: 13:08 Discharge ordered by . ma2 14:25 Discharged to home ambulatory, with family. aa5 14:25 Condition: improved 14:25 Discharge instructions given to patient, Instructed on discharge instructions, follow up and referral plans. medication usage, Demonstrated understanding of instructions, follow-up care, medications, Prescriptions given X 3. 14:28 Patient left the ED. aa5 Signatures: Dispatcher [employer] EDMS Saba Cornelius RN RN aa5 Tonya Schulte Marissa Walker RN RN jl7 Erin Whalen MD MD ma2 Elisabet Beth RN RN ca1 Shaw Sanchez ag5
[2020-05-29 13:37] LABS: Bilirubin Total 0.7 mg/dL (0.2-1.0)
[2020-05-29] MEDS ORDERED: POTASSIUM 25 MEQ EFFERV TAB ONE (13:50)
[2020-05-29 14:01] LABS: Urine Blood NEGATIVE (NEG); Urine Glucose NEGATIVE (NEG); Urine Protein NEGATIVE (NEG); Urine Specific Gravity <1.005 (1.005-1.030)
[2020-05-29 17:55] VITALS: TEMP 97.1; O2SAT 100
[2020-05-29 17:57] VITALS: BP 131/86
== END 2020-05-29 14:28 | disposition home or self-care (01) ==
LOC: ER 09:42
DX: R10.13 Epigastric pain (principal); E87.6 Hypokalemia; U07.1 COVID-19; Z88.6 Allergy status to analgesic agent; Z98.84 Bariatric surgery status
CPT/HCPCS: 85025; 80048; 36415; 82565; 80076; 81003; 83690; 74177; Q9967; J2175; J7030; J2405; 96374; 96375; 99284

== ENCOUNTER 2021-05-02 04:23 | Emergency (ER) | payer OTHER ==
--- OUTSIDE RECORDS SUMMARY | 2021-05-02 04:26 | XMS REPORT | Continuity of Care Document ---
:1945 Author Organization [facility] t Address [address] [place] [address] Care Team Providers Name Role Phone Sylvia BRAVO Attending Clinician Unavailable Mavis Huynh Attending Clinician Unavailable BRENDA Attending Clinician Unavailable [employer], J Attending Clinician Tyler RN, D Attending Clinician Unavailable Dilan LOJA Attending Clinician Unavailable Lab, Fam Pob I Attending Clinician Unavailable Doctor Unassigned, Name Attending Clinician Unavailable Lawrence LEE, Sylvia Attending Clinician Only, Test Attending Clinician Unavailable Pob, Lab Main Attending Clinician Unavailable Sylvia BRAVO Admitting Clinician Unavailable Mavis Huynh Admitting Clinician Unavailable Physician, Primary or Family Admitting Clinician Unavailralf Bravo MD, A Admitting Clinician Payers Payer Name Policy Type Policy Number Effective Date Expiration Date S jalyn [employer] MED[employer]ARE ADV [id number] 2019 00:00:00 Problems This patient has no known problems. Allergies, Adverse Reactions, Alerts Allergy Allergy Status Severity Reaction(s) Onset Inactive Treating Comm ents Source Name Type Date Date Clinician MORPHINE DRUG Active Hallucinates 2019-0 Un svetlana INGREDI 10-17 ity of 00:00: [address] Morphine Propensi Active Hallucinatio 2019-0 Univers ty to ns 6-22 ity of adverse 00:00: [place] reaction 00 Medical s Branch NO KNOWN Drug Active Univers ALLERGIE Class ity of [facility] [place] [facility] [place] Social History Social Habit Start Date Stop Date Quantity Comments Source Sex Assigned At [facility] Medical Branch Exposure to [facility] sure [facility] SARS-CoV-2 (event) Medica l Branch Tobacco use and 2019-11-25 2019-11-25 Never used [facility] exposure 00:00:00 00:00:00 Medical Branch Smoking Status Start Date Stop Date Source Never smoker [facility] Medications Ordered Filled Start Stop Current Ordering Indication Dosage Frequency Signature Comments Components Source Medication Medication Date Date Medication? Clinician (SIG) Name Name zolpidem 10 2019- Yes 10mg Take 10 mg Univers mg tablet - by mouth ity of 18:58: at bedtime [place] [address] as needed Medical for Branch Insomnia. ramipril 2020-0 Yes 5mg Take 5 mg Univ ers (ALTACE) 5 7- by mouth 2 ity of mg capsule 18:58: (two) [place] 33 times Medical daily. Branch rosuvastati 2019-0 Yes 10mg Take 10 mg Univers n (CRESTOR) 7- by mouth ity of 10 mg 18:58: at [place] tablet 33 bedtime. Medical Branch levomefolat 2019-0 Yes 1{capsu Take 1 U nivers e-algal oil - le} capsule by it y of (DEPLIN, 18:58: mouth [place] ALGAL OIL,) 33 daily. Medica l 15-90.314 Branch mg Cap levothyroxi 2019-0 Yes .05mg Take 0.05 Univers ne 50 mcg 7-29 mg by ity of tablet 18:58: mouth [place] 33 every Medical morning. Branch oxybutynin 2019-0 Yes 5mg Take 5 mg Un svetlana chloride 5 7-29 by mouth ity o f mg tablet 18:58: daily. [place] [address] Medical Branch FLUoxetine 2019-0 Yes 20mg Take 20 mg U nivers (PROZAC) 20 7-29 by mouth 3 it y of mg capsule 18:58: (three) [place] times Medical daily. Branch raloxifene 2019-0 Yes 60mg Take 60 mg U nivers (EVISTA) 60 7- by mouth ity of mg tablet 18:58: daily. [place] [address] Medical Branch alendronate 2020-0 Yes 70mg Take 70 mg Univers 70 mg 7-29 by mouth ity of tablet 18:58: weekly. [place] [address] Medical Branch levocetiriz 2020-0 Yes 5mg Take 5 mg U nivers ine (XYZAL) 7-29 by mouth ity of 5 mg tablet 18:58: every [place] [address] evening. Medical Branch zolpidem 10 2020-0 Yes 10mg Take 10 mg Univers mg tablet 7-29 by mouth ity of 18:58: at bedtime [place] [address] as needed Medical for Branch Insomnia. ramipril 2020-0 Yes 5mg Take 5 mg Univ ers (ALTACE) 5 7-29 by mouth 2 ity of mg capsule 18:58: (two) [place] 33 times Medical daily. Branch rosuvastati 2020-0 Yes 10mg Take 10 mg Univers n (CRESTOR) 7- by mouth ity of 10 mg 18:58: at [place] [facility] 33 bedtime. Medical Branch levomefolat 2020-0 Yes 1{capsu Take 1 U nivers e-algal oil 11-23 le} capsule by it y of (DEPLIN, 18:58: mouth [place] ALGAL OIL,) 33 daily. Medica l 15-90.314 Branch mg Cap levothyroxi 2020-0 Yes .05mg Take 0.05 Univers ne 50 mcg 7-29 mg by ity of tablet 18:58: mouth [place] every Medical morning. Branch oxybutynin 2020-0 Yes 5mg Take 5 mg Un svetlana chloride 5 7- by mouth ity o f mg tablet 18:58: daily. [place] [address] Medical Branch FLUoxetine 2020-0 Yes 20mg Take 20 mg U nivers (PROZAC) 20 7-29 by mouth 3 it y of mg capsule 18:58: (three) [place] 33 times Medical daily. Branch raloxifene 2020-0 Yes 60mg Take 60 mg U nivers (EVISTA) 60 7-29 by mouth ity of mg tablet 18:58: daily. [place] [address] Medical Branch alendronate 2020-0 Yes 70mg Take 70 mg Univers 70 mg 7-29 by mouth ity of tablet 18:58: weekly. [place] [address] Medical Branch levocetiriz 2020-0 Yes 5mg Take 5 mg U nivers ine (XYZAL) 7-29 by mouth ity of 5 mg tablet 18:58: every [place] 33 evening. Medical Branch zolpidem 10 2020-0 Yes 10mg Take 10 mg Univers mg tablet 7-29 by mouth ity of 18:58: at bedtime [place] [address] as needed Medical for Branch Insomnia. ramipril 2020-0 Yes 5mg Take 5 mg Univ ers (ALTACE) 5 7-29 by mouth 2 ity of mg capsule 18:58: (two) [place] 33 times Medical daily. Branch rosuvastati 2020-0 Yes 10mg Take 10 mg Univers n (CRESTOR) 7-29 by mouth ity of 10 mg 18:58: at [place] tablet 33 bedtime. Medical Branch levomefolat 2020-0 Yes 1{capsu Take 1 U nivers e-algal oil 11-23 le} capsule by it y of (DEPLIN, 18:58: mouth [place] ALGAL OIL,) 33 daily. Medica l 15.314 Branch mg Cap levothyroxi 2020-0 Yes .05mg Take 0.05 Univers ne 50 mcg 7-29 mg by ity of tablet 18:58: mouth [place] 33 every Medical morning. Branch oxybutynin 2020-0 Yes 5mg Take 5 mg Un svetlana chloride 5 7-29 by mouth ity o f mg tablet 18:58: daily. [place] [address] Medical Branch FLUoxetine 2020-0 Yes 20mg Take 20 mg U nivers (PROZAC) 20 7-29 by mouth 3 it y of mg capsule 18:58: (three) [place] 33 times Medical daily. Branch raloxifene 2020-0 Yes 60mg Take 60 mg U nivers (EVISTA) 60 7-29 by mouth ity of mg tablet 18:58: daily. [place] [address] Medical Branch alendronate 2020-0 Yes 70mg Take 70 mg Univers 70 mg 7-29 by mouth ity of tablet 18:58: weekly. [place] [address] Medical Branch levocetiriz 2020-0 Yes 5mg Take 5 mg U nivers ine (XYZAL) 7-29 by mouth ity of 5 mg tablet 18:58: every [place] 33 evening. Medical Branch zolpidem 10 2020-0 Yes 10mg Take 10 mg Univers mg tablet 7-29 by mouth ity of 18:58: at bedtime [place] [address] as needed Medical for Branch Insomnia. ramipril 2020-0 Yes 5mg Take 5 mg Univ ers (ALTACE) 5 7-29 by mouth 2 ity of mg capsule 18:58: (two) [place] 33 times Medical daily. Branch rosuvastati 2020-0 Yes 10mg Take 10 mg Univers n (CRESTOR) 7-29 by mouth ity of 10 mg 18:58: at [place] tablet 33 bedtime. Medical Branch levomefolat 2020-0 Yes 1{capsu Take 1 U nivers e-algal oil 7- le} capsule by it y of (DEPLIN, 18:58: mouth [place] ALGAL OIL,) 33 daily. Medica l 15-.314 Branch mg Cap levothyroxi 2020-0 Yes .05mg Take 0.05 Univers ne 50 mcg 7-29 mg by ity of tablet 18:58: mouth [place] 33 every Medical morning. Branch oxybutynin 2020-0 Yes 5mg Take 5 mg Un svetlana chloride 5 7-29 by mouth ity o f mg tablet 18:58: daily. [place] [address] Medical Branch FLUoxetine 2020-0 Yes 20mg Take 20 mg U nivers (PROZAC) 20 7-29 by mouth 3 it y of mg capsule 18:58: (three) [place] 33 times Medical daily. Branch raloxifene 2020-0 Yes 60mg Take 60 mg U nivers (EVISTA) 60 7-29 by mouth ity of mg tablet 18:58: daily. [place] [address] Medical Branch alendronate 2020-0 Yes 70mg Take 70 mg Univers 70 mg 7-29 by mouth ity of tablet 18:58: weekly. [place] [address] Medical Branch levocetiriz 2020-0 Yes 5mg Take 5 mg U nivers ine (XYZAL) 7-29 by mouth ity of 5 mg tablet 18:58: every [place] [address] evening. Medical Branch zolpidem 10 2020-0 Yes 10mg Take 10 mg Univers mg tablet 7-29 by mouth ity of 18:58: at bedtime [place] [address] as needed Medical for Branch Insomnia. ramipril 2020-0 Yes 5mg Take 5 mg Univ ers (ALTACE) 5 7-29 by mouth 2 ity of mg capsule 18:58: (two) [place] 33 times Medical daily. Branch rosuvastati 2020-0 Yes 10mg Take 10 mg Univers n (CRESTOR) 7-29 by mouth ity of 10 mg 18:58: at [place] tablet 33 bedtime. Medical Branch levomefolat 2020-0 Yes 1{capsu Take 1 U nivers e-algal oil 7-29 le} capsule by it y of (DEPLIN, 18:58: mouth [place] ALGAL OIL,) 33 daily. Medica l .314 Branch mg Cap levothyroxi 2020-0 Yes .05mg Take 0.05 Univers ne 50 mcg 7-29 mg by ity of tablet 18:58: mouth [place] 33 every Medical morning. Branch oxybutynin 2020-0 Yes 5mg Take 5 mg Un svetlana chloride 5 7-29 by mouth ity o f mg tablet 18:58: daily. [place] [address] Medical Branch FLUoxetine 2020-0 Yes 20mg Take 20 mg U nivers (PROZAC) 20 7-29 by mouth 3 it y of mg capsule 18:58: (three) [place] 33 times Medical daily. Branch raloxifene 2020-0 Yes 60mg Take 60 mg U nivers (EVISTA) 60 7-29 by mouth ity of mg tablet 18:58: daily. [place] [address] Medical Branch alendronate 2020-0 Yes 70mg Take 70 mg Univers 70 mg 7-29 by mouth ity of tablet 18:58: weekly. [place] [address] Medical Branch levocetiriz 2020-0 Yes 5mg Take 5 mg U nivers ine (XYZAL) 7-29 by mouth ity of 5 mg tablet 18:58: every [place] evening. Medical Branch zolpidem 10 2020-0 Yes 10mg Take 10 mg Univers mg tablet 7-29 by mouth ity of 18:58: at bedtime [place] [address] as needed Medical for Branch Insomnia. ramipril 2020-0 Yes 5mg Take 5 mg Univ ers (ALTACE) 5 7-29 by mouth 2 ity of mg capsule 18:58: (two) [place] 33 times Medical daily. Branch rosuvastati 2020-0 Yes 10mg Take 10 mg Univers n (CRESTOR) 7-29 by mouth ity of 10 mg 18:58: at [place] tablet 33 bedtime. Medical Branch levomefolat 2020-0 Yes 1{capsu Take 1 U nivers e-algal oil 7-29 le} capsule by it y of (DEPLIN, 18:58: mouth [place] ALGAL OIL,) 33 daily. Medica l 15.314 Branch mg Cap levothyroxi 2020-0 Yes .05mg Take 0.05 Univers ne 50 mcg 7-29 mg by ity of tablet 18:58: mouth [place] [address] every Medical morning. Branch oxybutynin 2020-0 Yes 5mg Take 5 mg Un svetlana chloride 5 11-23 by mouth ity o f mg tablet 18:58: daily. [place] [address] Medical Branch FLUoxetine 2020-0 Yes 20mg Take 20 mg U nivers (PROZAC) 20 11-23 by mouth 3 it y of mg capsule 18:58: (three) [place] 33 times Medical daily. Branch raloxifene 2020-0 Yes 60mg Take 60 mg U nivers (EVISTA) 60 11-23 by mouth ity of mg tablet 18:58: daily. [address] Branch alendronate 2020-0 Yes 70mg Take 70 mg Univers 70 mg 11-23 by mouth ity of tablet 18:58: weekly. [address] Branch levocetiriz 2020-0 Yes 5mg Take 5 mg U nivers ine (XYZAL) 11-23 by mouth ity of 5 mg tablet 18:58: every [place] [address] evening. Medical Branch lactated 2020-0 Yes 1000[facility]-23 mL/hr, ity of infusion 18:45: 1,000 mL, [place] 1,000 [place] 00 IV Medical Infusion, Branch CONTINUOUS , Starting Fri11/24/19 at 1345, Until Discontinu ed, Routine, PACU sodium 2020-0 Yes PRN, Univers chloride 11-23 Starting ity of (NS) 18:04: Fri [place] injection 11/24/19 at Medi kike 1304, Branch Until Discontinu ed, Routine, Intra-op neomycin-po 2020-0 Yes PRN, [facility] l[facility] 11-23 Starting ity of amethasone 18:04: Fri [place] (MAXITROL) 11/24/19 at Med ical 3.5 1304, [place] mg/g-10,000 Until unit/g-0.1 Discontinu % ed, ophthalmic Routine, ointment Intra-op water for 2019-0 Yes PRN, Univers irrigation 11-23 Starting ity o f irrigation 17:58: Fri [place] solution 11/24/19 at Medic al 1258, Branch Until Discontinu ed, Routine, Intra-op Hyaluronida 2020-0 Yes PRN, Univer s se, Human 11-23 Starting ity of Recomb. 16:57: Fri (HYLENEX) 11/24/19 at [facility] kike injection 1157, Branch Until Discontinu ed, Routine, Intra-op gentamicin 2020-0 Yes PRN, Univers injection 11-23 Starting ity of 16:56: Fri11/24/19 at [facility] 1156, Branch Until Discontinu ed, MAKENNA, Intra-op eye block 2020-0 Yes PRN, Univers syringe 11 11-23 Starting ity o f mL 16:55: Fri11/24/19 at [facility] 1155, Branch Until Discontinu ed, Intra-op EPINEPHrine 2020-0 Yes PRN, Univer s 1:1,000 (1 11-23 Starting ity o f mg/mL) 16:54: Fri (ADRENALIN) 11/24/19 at Ak dical injection 1154, Branch Until Discontinu ed, Routine, Intra-op DUOVISC 2020-0 Yes PRN, Univers (DUOVISC 11-23 Starting ity of VISCO 16:54: Fri ELASTIC) 3 11/24/19 at [facility] ical %-4 %(0.5 115, Branch mL) 1 % Until (0.55 mL) Discontinu intraocular ed, injection Routine, Intra-op dexamethaso 2020-0 Yes PRN, Univer s ne 11-23 Starting ity of (DECADRON 16:54: Fri PHOSPHATE) 11/24/19 at [facility] ical injection 1154, Branch Until Discontinu ed, Routine, Intra-op ceFAZolin 2020-0 Yes PRN, Univers (ANCEF) 11-23 Starting ity of injection 16:54: Fri11/24/19 at [facility] 1154, Branch Until Discontinu ed, MAKENNA, Intra-op carbachoL 2020-0 Yes PRN, Univers (MIOSTAT) 11-23 Starting ity of 0.01 % 16:54: Fri intraocular 11/24/19 at Ak dical injection 1154, Branch Until Discontinu ed, Routine, Intra-op balanced 2020-0 Yes PRN, Univers salt irrig 11-23 Starting ity o f soln comb1 16:53: Fri (BSS PLUS) 11/24/19 at [facility] ical ophthalmic 1153, Branch solution Until 500 mL bag Discontinu ed, Routine, Intra-op mydriatic 2020-0 2020- No .5mL 0.5 mL, Univ ers #5 11-23 Left Eye, ity of ophthalmic 15:15: 15:26 ONCE, 1 Bharat as solution 00 :00 dose, Fri Medica l 0.5 mL 11/24/19 at Branch syringe 1015, Routine lactated 2020-0 2020- No 1000mL at 20 Unive rs ringers IV 11-23 07-29 mL/hr, ity of infusion 15:15: 15:26 1,000 mL, Bharat as 1,000 mL 00 :00 IV Medical Infusion, Branch ONCE, 1 dose, 11/24/19 at 1015, Routine, DSU Pre-op zolpidem 10 2019-0 Yes 10mg Take 10 mg Univers mg tablet 7-27 by mouth ity of 22:38: at bedtime [place] 50 as needed Medical for Branch Insomnia. ramipril 2020-0 Yes 5mg Take 5 mg Univ ers (ALTACE) 5 7-27 by mouth 2 ity of mg capsule 22:38: (two) [place] 50 times Medical daily. Branch rosuvastati 2019-0 Yes 10mg Take 10 mg Univers n (CRESTOR) 7-27 by mouth ity of 10 mg 22:38: at [place] tablet 50 bedtime. Medical Branch levomefolat 2019-0 Yes 1{capsu Take 1 U nivers e-algal oil 7- le} capsule by it y of (DEPLIN, 22:38: mouth [place] ALGAL OIL,) 50 daily. Medica l 15-.314 Branch mg Cap levothyroxi 2019-0 Yes .05mg Take 0.05 Univers ne 50 mcg 7-27 mg by ity of tablet 22:38: mouth [place] 50 every Medical morning. Branch oxybutynin 2019-0 Yes 5mg Take 5 mg Un svetlana chloride 5 7-27 by mouth ity o f mg tablet 22:38: daily. [place] [address] Medical Branch FLUoxetine 2019-0 Yes 20mg Take 20 mg U nivers (PROZAC) 20 7-27 by mouth 3 it y of mg capsule 22:38: (three) [place] 50 times Medical daily. Branch raloxifene 2019-0 Yes 60mg Take 60 mg U nivers (EVISTA) 60 7-27 by mouth ity of mg tablet 22:38: daily. [place] [address] Medical Branch alendronate 2020-0 Yes 70mg Take 70 mg Univers 70 mg 7-27 by mouth ity of tablet 22:38: weekly. [place] [address] Medical Branch levocetiriz 2020-0 Yes 5mg Take 5 mg U nivers ine (XYZAL) 7-27 by mouth ity of 5 mg tablet 22:38: every [place] 50 evening. Medical Branch zolpidem 10 2020-0 Yes 10mg Take 10 mg Univers mg tablet 6-25 by mouth ity of 14:43: at bedtime [place] 08 as needed Medical for Branch Insomnia. ramipril 2020-0 Yes 5mg Take 5 mg Univ ers (ALTACE) 5 6-25 by mouth 2 ity of mg capsule 14:43: (two) [place] 08 times Medical daily. Branch rosuvastati 2020-0 Yes 10mg Take 10 mg Univers n (CRESTOR) 6-25 by mouth ity of 10 mg 14:43: at [place] tablet 08 bedtime. Medical Branch levomefolat 2020-0 Yes 1{capsu Take 1 U nivers e-algal oil 6-25 le} capsule by it y of (DEPLIN, 14:43: mouth [place] ALGAL OIL,) 08 daily. Medica l 15-90.314 Branch mg Cap levothyroxi 2020-0 Yes .05mg Take 0.05 Univers ne 50 mcg 6-25 mg by ity of tablet 14:43: mouth [place] 08 every Medical morning. Branch oxybutynin 2020-0 Yes 5mg Take 5 mg Un svetlana chloride 5 6-25 by mouth ity o f mg tablet 14:43: daily. [place] [address] Medical Branch FLUoxetine 2020-0 Yes 20mg Take 20 mg U nivers (PROZAC) 20 6-25 by mouth 3 it y of mg capsule 14:43: (three) [place] 08 times Medical daily. Branch raloxifene 2020-0 Yes 60mg Take 60 mg U nivers (EVISTA) 60 6-25 by mouth ity of mg tablet 14:43: daily. [place] [address] Medical Branch alendronate 2020-0 Yes 70mg Take 70 mg Univers 70 mg 6-25 by mouth ity of tablet 14:43: weekly. [place] [address] Medical Branch levocetiriz 2020-0 Yes 5mg Take 5 mg U nivers ine (XYZAL) 6-25 by mouth ity of 5 mg tablet 14:43: every [place] 08 evening. Medical Branch zolpidem 10 2020-0 Yes 10mg Take 10 mg Univers mg tablet 6-25 by mouth ity of 14:43: at bedtime [place] 08 as needed Medical for Branch Insomnia. ramipril 2020-0 Yes 5mg Take 5 mg Univ ers (ALTACE) 5 6-25 by mouth 2 ity of mg capsule 14:43: (two) [place] 08 times Medical daily. Branch rosuvastati 2020-0 Yes 10mg Take 10 mg Univers n (CRESTOR) 6-25 by mouth ity of 10 mg 14:43: at [place] tablet 08 bedtime. Medical Branch levomefolat 2020-0 Yes 1{capsu Take 1 U nivers e-algal oil 6-25 le} capsule by it y of (DEPLIN, 14:43: mouth [place] ALGAL OIL,) 08 daily. Medica l 15-90.314 Branch mg Cap levothyroxi 2020-0 Yes .05mg Take 0.05 Univers ne 50 mcg 6-25 mg by ity of tablet 14:43: mouth [place] 08 every Medical morning. Branch oxybutynin 2020-0 Yes 5mg Take 5 mg Un svetlana chloride 5 6-25 by mouth ity o f mg tablet 14:43: daily. [place] [address] Medical Branch FLUoxetine 2020-0 Yes 20mg Take 20 mg U nivers (PROZAC) 20 6-25 by mouth 3 it y of mg capsule 14:43: (three) [place] 08 times Medical daily. Branch raloxifene 2020-0 Yes 60mg Take 60 mg U nivers (EVISTA) 60 6-25 by mouth ity of mg tablet 14:43: daily. [place] [address] Medical Branch alendronate 2020-0 Yes 70mg Take 70 mg Univers 70 mg 6-25 by mouth ity of tablet 14:43: weekly. [place] [address] Medical Branch levocetiriz 2020-0 Yes 5mg Take 5 mg U nivers ine (XYZAL) 6-25 by mouth ity of 5 mg tablet 14:43: every [place] 08 evening. Medical Branch lactated 2020-0 Yes 1000mL at 75 Univer s ringers IV 6-24 mL/hr, ity of infusion 15:45: 1,000 mL, [place] 1,000 mL 00 IV Medical Infusion, Branch CONTINUOUS , Starting Fri10/20/19 at 1045, Until Discontinu ed, Routine, PACU lactated 2020-0 Yes 1000mL at 50 Univer s ringers IV 6-24 mL/hr, ity of infusion 14:30: 1,000 mL, [place] 1,000 mL 00 IV Medical Infusion, Branch CONTINUOUS , Starting Fri10/20/19 at 0930, Until Discontinu ed, Routine, DSU Pre-op water for 2020-0 Yes PRN, Univers irrigation -24 Starting ity o f irrigation 13:36: Fri [place] solution 10/20/19 at Medic al 0836, Branch Until Discontinu ed, Routine, Intra-op sodium 2020-0 Yes PRN, Univers chloride 10-19 Starting ity of (NS) 13:35: Fri [place] injection 10/20/19 at [facility] 08, Branch Until Discontinu ed, Routine, Intra-op neomycin-po 2020-0 Yes PRN, Univ s lymyxin-dex 10-19 Starting ity of amethasone 13:35: Fri [place] (MAXITROL) 10/20/19 at [facility] ical 3.5 08, [place] mg/g-10,000 Until unit/g-0.1 Discontinu % ed, ophthalmic Routine, ointment Intra-op Hyaluronida 2020-0 Yes PRN, Univ s se, Human 10-19 Starting ity of Recomb. 13:35: Fri [place] (HYLENEX) 10/20/19 at [facility] injection 08, Branch Until Discontinu ed, Routine, Intra-op gentamicin 2020-0 Yes PRN, Univers injection 10-19 Starting ity of 13:35: Fri10/20/19 at [place] [address], Branch Until Discontinu ed, MAKENNA, Intra-op eye block 2020-0 Yes PRN, Univers syringe 11 10-19 Starting ity o f mL 13:35: Fri [place] 10/20/19 at [place] [address], Branch Until Discontinu ed, Intra-op EPINEPHrine 2020-0 Yes PRN, Univer s 1:1,000 (1 10-19 Starting ity o f mg/mL) 13:34: Fri [place] (ADRENALIN) 10/20/19 at Ak dical injection 0834, Branch Until Discontinu ed, Routine, Intra-op DUOVISC 2020-0 Yes PRN, Univers (DUOVISC 10-19 Starting ity of VISCO 13:34: Wed [place] ELASTIC) 3 00 10/20/19 at [facility] ical %-4 %(0.5 0834, Branch mL) 1 % Until (0.55 mL) Discontinu intraocular ed, injection Routine, Intra-op dexamethaso 2020-0 Yes PRN, Univer s ne 10-19 Starting ity of (DECADRON 13:33: Wed [place] PHOSPHATE) 00 10/20/19 at [facility] ical injection 0833, [place] Until Discontinu ed, Routine, Intra-op ceFAZolin 2020-0 Yes PRN, Univers (ANCEF) 10-19 Starting ity of injection 13:33: Wed [place] 00 10/20/19 at [facility] 0833, [place] Until Discontinu ed, MAKENNA, Intra-op carbachoL 2020-0 Yes PRN, Univers (MIOSTAT) 10-19 Starting ity of 0.01 % 13:33: Wed [place] intraocular 00 10/20/19 at Ak dical injection 0833, [place] Until Discontinu ed, Routine, Intra-op balanced 2020-0 Yes PRN, Univers salt irrig 10-19 Starting ity o f soln comb1 13:32: Wed [place] (BSS PLUS) 00 10/20/19 at [facility] ica ophthalmic 0832, [place] solution Until 500 mL bag Discontinu ed, Routine, Intra-op mydriatic 2020-0 2020- No .5mL 0.5 mL, Univ ers #5 10-19 Right Eye, ity of ophthalmic 13:30: 13:22 ONCE, 1 Bharat as solution 00 :00 dose, Fri Medica l 0.5 mL 10/20/19 at [place] syringe 0830, Routine alendronate 2020-0 Yes 70mg Take 70 mg Univers 70 mg 6-22 by mouth ity of tablet 15:58: weekly. [place] 10 Medical Branch levocetiriz 2020-0 Yes 5mg Take 5 mg U nivers ine (XYZAL) 6-22 by mouth ity of 5 mg tablet 15:58: every [place] 10 evening. Medical Branch ramipril 2020-0 Yes 5mg Take 5 mg Univ ers (ALTACE) 5 -22 by mouth 2 ity of mg capsule 15:58: (two) [place] 09 times Medical daily. Branch rosuvastati 2020-0 Yes 10mg Take 10 mg Univers n (CRESTOR) 6-22 by mouth ity of 10 mg 15:58: at [place] tablet 09 bedtime. Medical Branch levomefolat 2019- Yes 1{capsu Take 1 U nivers e-algal oil 6- le} capsule by it y of (DEPLIN, 15:58: mouth [place] ALGAL OIL,) 09 daily. Medica l 15-90.314 Branch mg Cap levothyroxi 2019- Yes .05mg Take 0.05 Univers ne 50 mcg 6-22 mg by ity of tablet 15:58: mouth [place] 09 every Medical morning. Branch oxybutynin Yes 5mg Take 5 mg Un svetlana chloride 5 6-22 by mouth ity o f mg tablet 15:58: daily. [place] [address] Medical Branch FLUoxetine 2019- Yes 20mg Take 20 mg U nivers (PROZAC) 20 6-22 by mouth 3 it y of mg capsule 15:58: (three) [place] 09 times Medical daily. Branch raloxifene Yes 60mg Take 60 mg U nivers (EVISTA) 60 6-22 by mouth ity of mg tablet 15:58: daily. [address] Branch zolpidem 10 Yes 10mg Take 10 mg Univers mg tablet 6-22 by mouth ity of 15:58: at bedtime [place] 08 as needed Medical for Branch Insomnia. Vital Signs Vital Name Observation Time Observation Value Comments Source Systolic blood 2019-11-24 18:35:00 136 mm[Hg] Univer sity of pressure [facility] Diastolic blood 2019-11-24 18:35:00 67 mm[Hg] Unive [facility] Heart rate 2019-11-24 18:35:00 71 /min [facility] Respiratory rate 2019-11-24 18:35:00 19 /min [facility] Oxygen saturation in 2019-11-24 18:35:00 98 /min [facility] Arterial blood by [facility] Pulse oximetry Branch Body temperature 2019-11-24 18:25:00 36.17 Bere [facility] Body height 2019-11-22 22:30:00 167.6 cm [facility] Body weight 2019-11-22 22:30:00 72.576 kg [facility] BMI 2019-11-22 22:30:00 25.82 kg/m2 [facility] [place] [facility] Systolic blood 2019-11-24 18:35:00 136 mm[Hg] Univer sity of pressure [place] [facility] Diastolic blood 2019-11-24 18:35:00 67 mm[Hg] Unive rsity of pressure [place] [facility] Heart rate 2019-11-24 18:35:00 71 /min [facility] [place] [facility] Respiratory rate 2019-11-24 18:35:00 19 /min [facility] [place] [facility] Oxygen saturation in 2019-11-24 18:35:00 98 /min University of Arterial blood by [facility] kike Pulse oximetry Branch Body temperature 2019-11-24 18:25:00 36.17 Bere [facility] [place] [facility] Body height 2019-11-22 22:30:00 167.6 cm [facility] [place] [facility] Body weight 2019-11-22 22:30:00 72.576 kg [facility] [place] [facility] BMI 2019-11-22 22:30:00 25.82 kg/m2 [facility] Systolic blood 2019-10-20 15:41:00 121 mm[Hg] [facility] Diastolic blood 2019-10-20 15:41:00 66 mm[Hg] [facility] Body temperature 2019-10-20 15:41:00 37.06 Bere [facility] Respiratory rate 2019-10-20 15:41:00 20 /min [facility] Oxygen saturation in 2019-10-20 15:41:00 100 /min [facility] Arterial blood by [facility] kike Pulse oximetry Branch Heart rate 2019-10-20 15:22:00 66 /min [facility] Body height 2019-10-18 15:45:00 167.6 cm [facility] Body weight 2019-10-18 15:45:00 72.576 kg [facility] BMI 2019-10-18 15:45:00 25.82 kg/m2 [facility] Systolic blood 2019-10-20 15:41:00 121 mm[Hg] [facility] Diastolic blood 2019-10-20 15:41:00 66 mm[Hg] [facility] [place] Body temperature 2019-10-20 15:41:00 37.06 [facility] [address] [place] Respiratory rate 2019-10-20 15:41:00 20 /min [facility] Oxygen saturation in 2019-10-20 15:41:00 100 /min [facility] Arterial blood by [facility] Pulse oximetry Branch Heart rate 2019-10-20 15:22:00 66 /min [facility] Body height 2019-10-18 15:45:00 167.6 cm [facility] [address] [place] Body weight 2019-10-18 15:45:00 72.576 kg [facility] BMI 2019-10-18 15:45:00 25.82 kg/m2 [facility] Procedures Procedure Date / Time Performing Source Performed Clinician DAY SURGERY - [facility] 2019-11-24 [facility] 05:01:00 [facility] CONSENT/REFUSAL FOR DIAGNOSIS 2019-11-23 [facility] AND TREATMENT 14:30:27 [facility] ASSIGNMENT OF BENEFITS 2019-11-23 Doctor Unassigned, [facility] 14:29:17 [facility] CONSENT/REFUSAL FOR DIAGNOSIS 2019-11-17 [facility] 16:52:25 [facility] ASSIGNMENT OF BENEFITS 2019-11-17 Doctor Unassigned, [facility] 16:51:57 [facility] CONSENT/REFUSAL FOR DIAGNOSIS 2019-11-17 [facility] 16:51:24 [facility] ASSIGNMENT OF BENEFITS 2019-11-17 Doctor Unassigned, [facility] 16:50:57 [facility] PHYSICIAN ORDERS 2019-11-17 Doctor Unassigned, [facility] 05:01:00 [facility] PHACOEMULSIFICATION OF 2019-10-20 Barney Bravo [facility] CATARACT WITH INTRAOCULAR 14:58:00 Medica l Branch LENS IMPLANT PATIENT QUESTIONNAIRE 2019-10-20 Doctor Unassigned, [facility] 05:01:00 [facility] DAY SURGERY - [facility] 2019-10-20 [facility] 05:01:00 [facility] COVID-19 (ID NOW RAPID 2019-10-19 Barney Bravo [facility] TESTING) 15:10:00 Medical Branch NOTICE OF BILLING PRACTICES 2019-10-15 Doctor Unassigned, [facility] FOR MEDICARE PATIENTS 17:37:32 [facility] PATIENT FINANCIAL POLICY 2019-10-15 [facility] 17:05:49 [facility] NO SHOW OR MISSED APPOINTMENT 2019-10-15 [facility] POLICY ACKNOWLEDGEMENT 17:05:23 [facility] ranch NOTICE OF PRIVACY PRACTICES 2019-10-15 Doctor Unassigned, [facility] 17:05:08 [facility] CONSENT/REFUSAL FOR DIAGNOSIS 2019-10-15 [facility] 17:04:51 [facility] CONSENT/REFUSAL FOR DIAGNOSIS 2019-10-15 Doctor [facility] 17:04:33 [facility] ASSIGNMENT OF BENEFITS 2019-10-15 Doctor Unassigned, [facility] 17:04:18 [facility] ASSIGNMENT OF BENEFITS 2019-10-15 Doctor Unassigned, [facility] 17:04:02 [facility] Encounters Start End Encounter Admission Attending Care Care Encounter Source Date/Time Date/Time Type Type Clinicians Facility Department ID 2021-02-23 Outpatient Nabeel BRAVO [facility] STEPHY [id number] Univers 07:58:51 BARNEY laura [facility] 2021-02-23 Outpatient Nabeel BRAVO [facility] STEPHY [id number] Univers 01:51:41 BARNEY laura [facility] 2021-03-28 2021-03-28 Outpatient ZOLTAN Kiser [facility] [id number] [facility] 12:00:00 12:00:00 Yady [id number] [facility] 2020-06-20 2020-06-[address] [facility] [id number] Univers 14:30:00 14:30:00 YAMIL [id number] tana grijalva [facility] 2020-06-20 2020-06-[address] [facility] [id number] Univers 14:30:00 14:30:00 YAMIL grijalva [facility] 2020-05-30 2020-05-30 [facility] [id number] Univers 00:00:00 00:00:00 Vanda Thomas [id number] [facility] [place] [phone] Ak dical nal 044 [facility] 2020-05-27 2020-05-27 MAGDALENO Myrick [id number] 00:00:00 00:00:00 Triage Whitney VARELA [id number] [facility] 4.2.7.2.686 [id number] 2020-05-27 2020-05-27 MAGDALENO Myrick [id number] Univers 00:00:00 00:00:00 Triage Whitney VARELA [id number] i ty [facility] 4.2.7.2.686 Bharat as [phone] [address] 2020-05-26 2020-05-[address] [facility] [id number] Univers 10:20:00 10:20:00 [id number] ity [facility] 2020-05-26 2020-05-[address] [facility] [id number] Univers 10:20:00 10:20[facility] 2020-05-25 [facility] [id number] Univers 19:00:00 19:00:00 VANDA fajardo o f [facility] 2020-05-25 2020-05-[address] [facility] [id number] Univers 19:00:00 19:00:00 [id number] ity [facility] 2020-05-25 2020-05-25 Laboratory Lab, Adc Fam Pob I [facility] [id number] Univers 18:25:25 18:45:25 Only Vanda Loja [facility] [id number] [facility]y of [place] 4.2.7.2.686 Bharat as Professio [phone] Ak dicri nal [address] [place] [address] Office [address] 2020-05-25 2020-05-25 Laboratory Lab, [facility] [id number] 18:25:25 18:45:25 Only Fam Pob I Health 350.1.13.10 [place] 4.2.7.2.686 Professio [phone] nal 044 [address] [facility] 2020-05-25 2020-05-25 Letter Doctor MAGDALENO 1.2.840.114 [id number] Univers 00:00:00 00:00:00 (Out) Unassigned, NICHOLE [id number] [facility] 4.2.7.2.686 Bahrat as [phone] [facility] [address] 2020-05-25 2020-05-25 Letter Doctor MAGDALENO [id number] 00:00:00 00:00:00 (Out) Unassigned, NICHOLE [id number] [facility] 4.2.7.2.686 [id number] [facility] 2020-01-07 2020-01-07 Outpatient CLARISSE Huynh [facility] [id number] [facility] 12:00:00 12:00:00 Yady [id number] [facility] 2019-11-24 2019-11-24 [facility] [id number] [facility] 09:50:00 13:50:00 Encounter Barney Thomas [id number] [facility] [id number] Med ica[address] 2019-11-24 2019-11-24 [facility] [id number] 09:50:00 13:50:00 Encounter Barney Thomas [id number] [place] 4.2.7.2.686 Surgical [phone] [place] [address] 2019-11-24 2019-11-24 Orders Doctor DOLAN 1.2.840.114 [id number] Univers 00:00:00 00:00:00 Only Unassigned, NICHOLE 350.1.13.10 [facility] [place] [facility] 4.2.7.2.686 Bharat as [phone] [facility] 009 Branch 2019-11-24 2019-11-24 Orders Doctor MAGDALENO 1.2.840.114 [id number] 00:00:00 00:00:00 Only UnassignedNICHOLE 350.1.13.10 [place] [facility] 4.2.7.2.686 [id number] [facility] 2019-11-23 2019-11-[address] [facility] [id number] Univers 10:00:00 10:00:00 [id number] ity [facility] 2019-11-23 2019-11-23 [facility] [id number] [facility] 10:00:00 10:00:00 BARNEY ity [facility] 2019-11-23 2019-11-23 Laboratory Only, [facility] Test [facility] 1.2.840. 114 [id number] Univers 09:30:39 09:45:39 Only Barney Bravo 350.1.13.1 0 [facility] [place] 4.2.7.2.686 [facility] [phone] [address] 2019-11-23 2019-11-23 Laboratory Only, [facility] 1.2.840.114 [id number] 09:30:39 09:45:39 Only Test William [id number] [place] 4.2.7.2.686 [place] [phone] [facility] 2019-11-17 2019-11-[address] [facility] [id number] Univers 12:15:00 12:15:00 [id number] ity [facility] 2019-11-17 2019-11-[address] [facility] [id number] Univers 12:15:00 12:15:00 ity of [facility] 2019-11-17 2019-11-17 Resource Recovery Specialist Chelsey Healy Lab Main [facility] 1.2.8 40.114 [id number] Univers 11:59:38 12:14:38 Visit Barney Bravo 350.1.13.1 0 [facility] 4.2.7.2.686 [facility] [phone] Ak dic[address] 2019-11-17 2019-11-17 Resource Recovery Specialist Chelsey Healy [facility] 1.2.840.114 [id number] 11:59:38 12:14:38 Visit Lab Main William [id number] [place] 4.2.7.2.686 Professio [phone] [address] 2019-10-20 2019-10-20 [facility] [id number] [facility] 08:07:29 11:20:00 Encounter Barney Thomas [id number] [facility] 4.2.7.2.686 [facility] Surgical [phone] Med ical [address] 2019-10-20 2019-10-20 [facility] [id number] 08:07:29 11:20:00 Encounter Barney Thomas [id number] [place] 4.2.7.2.686 Surgical [id number] [place] [address] 2019-10-19 2019-10-[address] [facility] [id number] Univers 10:15:00 10:15:[address] [place] [address] 2019-10-19 2019-10-19 [facility] [id number] Univers 10:15:00 10:15:00 [facility] 2019-10-19 2019-10-19 Laboratory Only, [facility] Test [facility] 1.2.840. 114 [id number] Univers 09:57:46 10:12:46 Only Barney Bravo 350.1.13.1 0 [facility] [place] 4.2.7.2.686 [facility] [phone] [address] 2019-10-19 2019-10-19 Laboratory Only, [facility] 1.2.840.114 [id number] 09:57:46 10:12:46 Only Test [place] [id number] [place] 4.2.7.2.686 [place] [id number] [facility] 2019-10-15 2019-10-15 [facility] [id number] Univers 12:00:00 12:00:00 [facility] Results Test Description Test Time Test Comments Results Result Comments Source COVID-19 (ID NOW RAPID TESTING) 2019-10-19 15:39:00 Test Item Value Reference Range Interpretation Comme nts SARS-CoV-2 Rapid ID NOW (test code Not Detected Not Detected = 65340-0) BELEN (test code = BELEN) ID NOW COVID-19 Assay is an isothermal nucleic acid amplification test intended for the qualitative detection of nucleic acid from SARS-CoV-2 viral RNA in nasopharyngeal (IT INSTRUCTOR) specimens. It is used under Emergency Use Authorization (EUA) by FDA. The limit of detection (LOD) of the assay is 125 Genome Equivalents/mL. A positive result is indicative of the presence of SARS-CoV-2 RNA. ?Clinical correlation with patient history and other diagnostic information is necessary to determine patient infection status. A negative (Not Detected) result does not preclude SARS-CoV-2 infection. In patients with clinical symptoms and other tests that are consistent with SARS-CoV-2 infection, negative results should be treated as presumptive negative and a new specimen should be tested with alternative PCR molecular test. Invalid: Please collect a new specimen for repeat patient testing if clinically indicated. Lab Interpretation (test code = Normal 08284-2) [facility]
[2021-05-02] MEDS ORDERED: ACETAMINOPHEN 500 MG TAB ONE (05:22)
--- NOTE | 2021-05-02 07:50 | RAD REPORT ---
EXAM DESCRIPTION: RAD - Chest Single View - 05/02/2021 5:36 am CLINICAL HISTORY: Blunt chest trauma;Rib Pain - Right COMPARISON: CHEST PA AND LAT 2 VIEW dated 04/01/2010; Ribs Right dated 05/02/2021 FINDINGS: Lines: None. Lungs: No evidence of edema or pneumonia. Pleural: No significant pleural effusions or pneumothorax. Cardiac: The heart size is within normal limits. Bones: No acute fractures. Other: IMPRESSION: No acute cardiopulmonary disease.
--- NOTE | 2021-05-02 08:27 | RAD REPORT ---
EXAM DESCRIPTION: RAD - Ribs Right - 05/02/2021 5:59 am CLINICAL HISTORY: trauma COMPARISON: Chest Single View dated 05/02/2021 FINDINGS: Gastric banding. Chronic appearing right third, fourth, and sixth rib fractures. . No acut e displaced rib fractures are identified. No pneumothorax . IMPRESSION: Chronic appearing right third, fourth, and sixth rib fractures. No acute displaced rib f ractures identified. Note that nondisplaced or minimally displaced rib fractures may not be apparent on initial radiography until the healing process begins.
--- NOTE | 2021-05-02 08:31 | EDPHYS ---
Physician Documentation [facility] Name: Mia Richard Age: 75 yrs Sex: Female : 1945 Arrival Date: 05/02/2021 Time: 04:27 Bed 13 Private MD: ED Physician Gurdeep Hunt HPI: 05/02 05:11 This 75 yrs old Female presents to ER via Ambulatory with complaints of Fall Injury. mh7 05:11 Details of fall: The patient fell from an upright position, while walking. Onset: The mh7 symptoms/episode began/occurred 3 day(s) ago. Associated injuries: The patient sustained injury to the chest, specifically the right lateral anterior chest, contusion, pain with movement, tenderness. Severity of symptoms: At their worst the symptoms were moderate, 2 day(s) ago, in the emergency department the symptoms have improved, moderately. Patient states that she tripped and fell in her backyard injuring her right lower chest area. She denies any symptoms prior to falling including headache, chest pain, abdominal pain, shortness of breath, fever, cough, nausea, vomiting, dizziness, numbness/tingling, or weakness.. Historical: - Allergies: 04:47 Morphine; tw5 - Home Meds: 04:47 lxyal 5mg [Active]; Altace 5 mg Oral tab [Active]; rosuvastatin 20 mg oral cpSP 1 cap tw5 once daily [Active]; Deplin (algal oil) 15-90.314 mg oral cap [Active]; oxbutynin 10 mg [Active]; Myrbetriq 25 mg oral Tb24 1 tab once daily [Active]; Prozac 20 mg Oral cap 1 cap once daily [Active]; - Immunization history: Last tetanus immunization: unknown. - Social history:: Smoking status: Patient denies any tobacco usage or history of. ROS: 05:11 Constitutional: Negative for fever, chills, and weight loss, Eyes: Negative for injury, mh7 pain, redness, and discharge, ENT: Negative for injury, pain, and discharge, Neck: Negative for injury, pain, and swelling, Respiratory: Negative for shortness of breath, cough, wheezing, and pleuritic chest pain, Abdomen/GI: Negative for abdominal pain, nausea, vomiting, diarrhea, and constipation, Back: Negative for injury and pain, : Negative for injury, bleeding, discharge, and swelling, MS/Extremity: Negative for injury and deformity, Skin: Negative for injury, rash, and discoloration, Neuro: Negative for headache, weakness, numbness, tingling, and seizure, Psych: Negative for depression, anxiety, suicide ideation, homicidal ideation, and hallucinations, Allergy/Immunology: Negative for hives, rash, and allergies, Endocrine: Negative for neck swelling, polydipsia, polyuria, polyphagia, and marked weight changes, Hematologic/Lymphatic: Negative for swollen nodes, abnormal bleeding, and unusual bruising. Exam: 05:11 Constitutional: This is a well developed, well nourished patient who is awake, alert, mh7 and in no acute distress. Head/Face: Normocephalic, atraumatic. Eyes: Pupils equal round and reactive to light, extra-ocular motions intact. Lids and lashes normal. Conjunctiva and sclera are non-icteric and not injected. Cornea within normal limits. Periorbital areas with no swelling, redness, or edema. Neck: Trachea midline, no thyromegaly or masses palpated, and no cervical lymphadenopathy. Supple, full range of motion without nuchal rigidity, or vertebral point tenderness. No Meningismus. 05:11 Cardiovascular: Regular rate and rhythm with a normal S1 and S2. No gallops, murmurs, or rubs. Normal PMI, no JVD. No pulse deficits. Respiratory: Lungs have equal breath sounds bilaterally, clear to auscultation and percussion. No rales, rhonchi or wheezes noted. No increased work of breathing, no retractions or nasal flaring. Abdomen/GI: Soft, non-tender, with normal bowel sounds. No distension or tympany. No guarding or rebound. No evidence of tenderness throughout. Back: No spinal tenderness. No costovertebral tenderness. Full range of motion. Skin: Warm, dry with normal turgor. Normal color with no rashes, no lesions, and no evidence of cellulitis. MS/ Extremity: Pulses equal, no cyanosis. Neurovascular intact. Full, normal range of motion. Neuro: Awake and alert, GCS 15, oriented to person, place, time, and situation. Cranial nerves II-XII grossly intact. Motor strength 5/5 in all extremities. Sensory grossly intact. Cerebellar exam normal. Normal gait. Psych: Awake, alert, with orientation to person, place and time. Behavior, mood, and affect are within normal limits. 05:11 Chest/axilla: Inspection: normal, Palpation: tenderness, that is moderate, of the right lateral anterior chest, that totally reproduces the patient's complaints, Axilla: are normal, Lymph nodes: lymphadenopathy is not appreciated. Vital Signs: 04:45 BP 119 / 67; Pulse 75; Resp 14; Temp 97.8; Pulse Ox 98% on R/A; Weight 63.5 kg; Height tw5 5 ft. 6 in. (167.64 cm); Pain 10/10; 06:04 BP 131 / 81; Pulse 66; Resp 16; Pulse Ox 98% ; ic1 07:45 BP 133 / 78; Pulse 71; Resp 18; Pulse Ox 97% on R/A; jg9 04:45 Body Mass Index 22.60 (63.50 kg, 167.64 cm) tw5 [place] Coma Score: 04:45 Eye Response: spontaneous(4). Verbal Response: oriented(5). Motor Response: obeys tw5 commands(6). Total: 15. Trauma Score (Adult): 04:45 Eye Response: spontaneous(1); Verbal Response: oriented(1); Motor Response: obeys tw5 commands(2); Systolic BP: > 89 mm Hg(4); Respiratory Rate: 10 to 29 per min(4); Tanna Score: 15; Trauma Score: 12 MDM: 07:01 Patient medically screened. kb 08:29 Data reviewed: vital signs, nurses notes. Data interpreted: Pulse oximetry: on room air kb is 98 %. Interpretation: normal. Counseling: I had a detailed discussion with the patient and/or guardian regarding: the historical points, exam findings, and any diagnostic results supporting the discharge/admit diagnosis, radiology results, the need for outpatient follow up, a family practitioner, to return to the emergency department if symptoms worsen or persist or if there are any questions or concerns that arise at home. 05/02 05:10 Order name: Ribs Right XRAY; Complete Time: 08:28 mh7 05/02 05:10 Order name: Chest Single View XRAY; Complete Time: 07:51 mh7 Administered Medications: 05:23 Drug: Tylenol 1000 mg Route: PO; ic1 07:00 Follow up: Response: No adverse reaction jg9 Disposition Summary: 05/02/21 08:30 Discharge Ordered Location: Home kb Condition: Stable kb Diagnosis - Fall on same level from slipping, tripping and stumbling without subsequent kb striking against object - Chest pain, unspecified - chest wall pain kb Followup: kb - With: Emergency Department - When: As needed - Reason: Worsening of condition Followup: kb - With: Private Physician - When: 2 - 3 days - Reason: Recheck today's complaints, Continuance of care, Re-evaluation by your physician Discharge Instructions: - Discharge Summary Sheet kb - Rib Fracture, [id number] kb Forms: - Medication Reconciliation Form kb - Thank You Letter kb - Antibiotic Education kb - Prescription Opioid Use kb Signatures: Dispatcher [employer] EDFrancine Galarza, ROLL PICKER-C ROLL PICKER-Gurdeep Callahan MD MD [facility] Aggie Ortiz [facility] Angle Ramirez RN RN ic1 Renetta Umaña jg9 Corrections: (The following items were deleted from the chart) 04:50 04:47 PMHx: Hypertension; 04:50 04:47 PMHx: Hyperlipidemia; 04:50 04:47 PMHx: Anxiety;
--- NOTE | 2021-05-02 08:31 | ER ---
Nurse's Notes [facility] Name: Mia Richard Age: 75 yrs Sex: Female : 1945 Arrival Date: 05/02/2021 Time: 04:27 Bed 13 Private MD: Diagnosis: Fall on same level from slipping, tripping and stumbling without subsequent striking against object;Chest pain, unspecified-chest wall pain Presentation: 05/02 04:44 Chief complaint: Patient states: " I fell Friday, I think I have some cracked ribs.". tw5 Care prior to arrival: None. Mechanism of Injury: Fall from standing position. Trauma event details: Injury occurred in the [facility], Injury occurred: at home. Injury occurred: April 29, 2020 Injury occurred at: 11:00. 04:44 Acuity: KIM 3 tw5 04:44 Method Of Arrival: Ambulatory tw5 04:47 Coronavirus screen: Vaccine status: Patient reports receiving the 2nd dose of the covid tw5 vaccine. moderna. Ebola Screen: Patient negative for fever greater than or equal to 101.5 degrees Fahrenheit, and additional compatible Ebola Virus Disease symptoms Patient denies exposure to infectious person. Patient denies travel to an Ebola-affected area in the 21 days before illness onset. Initial Sepsis Screen: Does the patient meet any 2 criteria? No. Patient's initial sepsis screen is negative. Does the patient have a suspected source of infection? No. Patient's initial sepsis screen is negative. Risk Assessment: Do you want to hurt yourself or someone else? Patient reports no desire to harm self or others. Onset of symptoms was April 29, 2021. Trauma Activation: Not Applicable Physician: ED Physician; Name: ; Notified At: ; Arrived At: Physician: General Surgeon; Name: ; Notified At: ; Arrived At: Physician: Radiology; Name: ; Notified At: ; Arrived At: Physician: Respiratory; Name: ; Notified At: ; Arrived At: Physician: Lab; Name: ; Notified At: ; Arrived At: Historical: - Allergies: 04:47 Morphine; tw5 - Home Meds: 04:47 lxyal 5mg [Active]; Altace 5 mg Oral tab [Active]; rosuvastatin 20 mg oral cpSP 1 cap tw5 once daily [Active]; Deplin (algal oil) 15-90.314 mg oral cap [Active]; oxbutynin 10 mg [Active]; Myrbetriq 25 mg oral Tb24 1 tab once daily [Active]; Prozac 20 mg Oral cap 1 cap once daily [Active]; - Immunization history: Last tetanus immunization: unknown. - Social history:: Smoking status: Patient denies any tobacco usage or history of. Screenin:47 Abuse screen: Denies threats or abuse. Denies injuries from another. Tuberculosis tw5 screening: No symptoms or risk factors identified. 08:30 Fall Risk Fall in past 12 months (25 points). jg9 08:30 Nutritional screening: No deficits noted. jg9 Primary Survey: 04:45 NO uncontrolled hemorrhage observed. A: The patient is alert. Airway: patent. tw5 Breathing/Chest: Respiratory pattern: regular, Respiratory effort: spontaneous. Circulation: Skin color: pink. Disability Alert. Exposure/Environment: There is no evidence of uncontrolled external bleeding. Reassessment Airway Airway Breathing/Chest Respiratory pattern Regular Circulation Color [place] Disability Alert. Secondary Survey: 04:59 HEENT: No deficits noted. Gastrointestinal: No deficits noted. : No deficits noted. ic1 Musculoskeletal: Reports pain in abdomen since Fall on Friday . Pt reports tripping while in her front yard and falling. States she landed on her R elbow. Denies pos LOC or hitting her head. Pt not on any blood thinners. C/o R side rib pain. Denies pain in other areas. AAOx4. GCS 15. Amb w steady gait. Assessment: 04:44 General: Appears uncomfortable, Behavior is calm, cooperative, appropriate for age. tw5 Pain: Complains of pain in right lateral anterior chest Pain currently is 10 out of 10 on a pain scale. 06:07 Reassessment: Patient appears in no apparent distress at this time. Patient states ic1 feeling better. Vital Signs: 04:45 BP 119 / 67; Pulse 75; Resp 14; Temp 97.8; Pulse Ox 98% on R/A; Weight 63.5 kg; Height tw5 5 ft. 6 in. (167.64 cm); Pain 10/10; 06:04 BP 131 / 81; Pulse 66; Resp 16; Pulse Ox 98% ; ic1 07:45 BP 133 / 78; Pulse 71; Resp 18; Pulse Ox 97% on R/A; jg9 04:45 Body Mass Index 22.60 (63.50 kg, 167.64 cm) tw5 Warthen Coma Score: 04:45 Eye Response: spontaneous(4). Verbal Response: oriented(5). Motor Response: obeys tw5 commands(6). Total: 15. Trauma Score (Adult): 04:45 Eye Response: spontaneous(1); Verbal Response: oriented(1); Motor Response: obeys tw5 commands(2); Systolic BP: > 89 mm Hg(4); Respiratory Rate: 10 to 29 per min(4); Warthen Score: 15; Trauma Score: 12 ED Course: 04:27 Patient arrived in ED. 04:45 Triage completed. tw5 04:47 Patient has correct armband on for positive identification. tw5 04:47 Arm band placed on left wrist. tw5 05:03 Gurdeep Hunt MD is Attending Physician. [facility] 05:36 Chest Single View XRAY In Process Unspecified. EDMS 06:00 Ribs Right XRAY In Process Unspecified. EDMS 06:52 Patient maintains SpO2 saturation greater than 95% on room air. ic1 06:53 Thermoregulation: warm blanket given to patient. ic1 07:00 Francine Montoya FNP-C [facility]. kb 07:24 Leonie Reardon, RN is Primary Nurse. cb5 08:48 No provider procedures requiring assistance completed. jg9 08:49 Patient did not have IV access during this emergency room visit. jg9 Administered Medications: 05:23 Drug: Tylenol 1000 mg Route: PO; ic1 07:00 Follow up: Response: No adverse reaction jg9 Intake: 04:45 PO: 0ml; Total: 0ml. tw5 Output: 04:45 Urine: 0ml; Total: 0ml. tw5 Outcome: 08:30 Discharge ordered by . kb 08:30 Patient's length of stay was not longer than 2 hours. jg9 08:30 [place] [facility] [place] 08:30 Condition: stable 08:50 Patient left the ED. j9 Signatures: Dispatcher [employer] EDKY Francine Montoya FNP-C LINUX ADMINISTRATOR-CkGurdeep Padgett MD MD [facility] Miguelina Coto Angel Aggie Leeroy Renetta jg9 Angle Ramirez RN RN ic1 Leonie Reardon RN RN cb5 Corrections: (The following items were deleted from the chart) 04:50 04:47 PMHx: Hypertension; 04:50 04:47 PMHx: Hyperlipidemia; 04:50 04:47 PMHx: Anxiety;
[2021-05-02 09:01] VITALS: TEMP 97.8
[2021-05-02 09:04] VITALS: BP 133/78; O2SAT 97
== END 2021-05-02 08:50 | disposition home or self-care (01) ==
LOC: ER 04:23
DX: R07.89 Other chest pain (principal); W01.0XXA Fall on same level from slipping, tripping and stumbling without subsequent striking against object, initial encounter; Y93.9 Activity, unspecified; Y92.9 Unspecified place or not applicable; Z88.6 Allergy status to analgesic agent
CPT/HCPCS: 71045; 99285

== ENCOUNTER 2022-04-26 11:54 | Emergency (ER) | payer OTHER ==
--- OUTSIDE RECORDS SUMMARY | 2022-04-26 11:57 | XMS REPORT | Continuity of Care Document ---
:1945 Author Organization [facility] t Address [address] [place] [address] Care Team Providers Name Role Phone Torres Layo Diamond Attending Clinician Unavailable BARNEY BRAVO Attending Clinician Unavailable Yady Huynh Attending Clinician Unavailable YAMIL GUTIERREZ Attending Clinician Unavailable Vanda Golden Attending Clinician Tyler MURDOCK, Whitney Marley Attending Clinician Unavailable VANDA LOJA Attending Clinician Unavailable Lab, Adc Fam Pob I Attending Clinician Unavailable Doctor Unassigned, [place] Attending Clinician Unavailable Barney Bravo MD Attending Clinician Only, Adc Test Attending Clinician Unavailable Pob, Adc Lab Main Attending Clinician Unavailable BARNEY BRAVO Admitting Clinician Unavailable Yady Huynh Admitting Clinician Unavailable Physician, No Primary or Family Admitting Clinician UnavailBarney Velarde MD Admitting Clinician Payers Payer Name Policy Type Policy Number Effective Date Expiration Date S jalyn [employer] MED[employer]ARE ADV [id number] 2019 00:00:00 Problems This patient has no known problems. Allergies, Adverse Reactions, Alerts Allergy Allergy Status Severity Reaction(s) Onset Inactive Treating Comm ents Source Name Type Date Date Clinician MORPHINE DRUG Active Hallucinates 2020-0 Un svetlana INGREDI 6- ity of 00:00: [place] 00 Medical Branch Morphine Propensi Active Hallucinatio 2019-0 Univers ty to ns 6- ity of adverse 00:00: [place] reaction 00 Medical s Branch NO KNOWN Drug Active Univers ALLERGIE Class ity of S [place] [facility] [place] Social History Social Habit Start Date Stop Date Quantity Comments Source Sex Assigned At [facility] Medical Branch Exposure to Not sure [facility] SARS-CoV-2 (event) Medica l Branch Tobacco use and 2019-11-25 2019-11-25 Never used [facility] exposure 00:00:00 00:00:00 Medical Branch Smoking Status Start Date Stop Date Source Never smoker [facility] Medications Ordered Filled Start Stop Current Ordering Indication Dosage Frequency Signature Comments Components Source Medication Medication Date Date Medication? Clinician (SIG) Name Name zolpidem 10 2019-0 Yes 10mg Take 10 mg Univers mg tablet 7-29 by mouth ity of 18:58: at bedtime [place] as needed Medical for Branch Insomnia. ramipril 2020-0 Yes 5mg Take 5 mg Univ ers (ALTACE) 5 7-29 by mouth 2 ity of mg capsule 18:58: (two) [place] 33 times Medical daily. Branch rosuvastati 2019-0 [...] ity o f mg tablet 18:58: daily. [place] [address] Medical Branch FLUoxetine 2019-0 Yes 20mg Take 20 mg U nivers (PROZAC) 20 7-29 by mouth 3 it y of mg capsule 18:58: (three[place] Medical daily. Branch raloxifene 2019-0 Yes 60mg Take 60 mg U nivers (EVISTA) 60 7-29 by mouth ity of mg tablet 18:58: daily. [place] [address] Medical Branch alendronate 2020-0 Yes 70mg Take 70 mg Univers 70 mg 7-29 by mouth ity of tablet 18:58: weekly. [place] [address] Medical Branch levocetiriz 2020-0 Yes 5mg Take 5 mg U nivers ine (XYZAL) 7- by mouth ity of 5 mg tablet 18:58: every [place] [address] evening. Medical Branch zolpidem 10 2020-0 Yes 10mg Take 10 mg Univers mg tablet 7-29 by mouth ity of 18:58: at bedtime [place] [address] as needed Medical for Branch Insomnia. ramipril 2020-0 Yes 5mg Take 5 mg Univ ers (ALTACE) 5 7- by mouth 2 ity of mg capsule 18:58: (two) [place] [address] times Medical daily. Branch rosuvastati 2020-0 Yes 10mg Take 10 mg Univers n (CRESTOR) 7- by mouth ity of 10 mg 18:58: at [place] [address] bedtime. Medical Branch levomefolat 2020-0 Yes 1{capsu Take 1 U nivers e-algal oil 11-23 le} capsule by it y of (DEPLIN, 18:58: mouth [place] ALGAL OIL,) 33 daily. Medica l 15-90.314 Branch mg Cap levothyroxi 2020-0 Yes .05mg Take 0.05 Univers ne 50 mcg 7-29 mg by ity of tablet 18:58: mouth [place] [address] every Medical morning. Branch oxybutynin 2020-0 Yes 5mg Take 5 mg Un svetlana chloride 5 7-29 by mouth ity o f mg tablet 18:58: daily. [place] [address] Medical Branch FLUoxetine 2020-0 Yes 20mg Take 20 mg U nivers (PROZAC) 20 7-29 by mouth 3 it y of mg capsule 18:58: [facility]three[facility] Medical daily. Branch raloxifene 2020-0 Yes 60mg Take 60 mg U nivers (EVISTA) 60 7-29 by mouth ity of mg tablet 18:58: daily. [place] [address] Medical Branch alendronate 2020-0 Yes 70mg Take 70 mg Univers 70 mg 7-29 by mouth ity of tablet 18:58: weekly. [place] [address] Medical Branch levocetiriz 2020-0 Yes 5mg Take 5 mg U nivers ine (XYZAL) 7-29 by mouth ity of 5 mg tablet 18:58: every [place] [address] evening. Medical Branch zolpidem 10 2020-0 Yes 10mg Take 10 mg Univers mg tablet 7-29 by mouth ity of 18:58: at bedtime [place] [address] as needed Medical for Branch Insomnia. ramipril 2020-0 Yes 5mg Take 5 mg Univ ers (ALTACE) 5 7- by mouth 2 ity of mg capsule 18:58: (two) [place] times Medical daily. Branch rosuvastati 2020-0 Yes 10mg Take 10 mg Univers n (CRESTOR) 7-29 by mouth ity of 10 mg 18:58: at [place] [facility] bedtime. Medical Branch levomefolat 2020-0 Yes 1{capsu Take 1 U nivers e-algal oil 11-23 le} capsule by it y of (DEPLIN, 18:58: mouth [place] ALGAL OIL,) 33 daily. Medica l .314 Branch mg Cap levothyroxi 2019-0 Yes .05mg Take 0.05 Univers ne 50 mcg 7-29 mg by ity of tablet 18:58: mouth [place] every Medical morning. Branch oxybutynin 2020-0 Yes 5mg Take 5 mg Un svetlana chloride 5 7-29 by mouth ity o f mg tablet 18:58: daily. [place] [address] Medical Branch FLUoxetine 2020-0 Yes 20mg Take 20 mg U nivers (PROZAC) 20 7-29 by mouth 3 it y of mg capsule 18:58: (three) [facility] daily. Branch raloxifene 2020-0 Yes 60mg Take 60 mg U nivers (EVISTA) 60 7-29 by mouth ity of mg tablet 18:58: daily. [place] [address] Medical Branch alendronate 2020-0 Yes 70mg Take 70 mg Univers 70 mg 7-29 by mouth ity of tablet 18:58: weekly. [place] [address] Medical Branch levocetiriz 2020-0 Yes 5mg Take 5 mg U nivers ine (XYZAL) 7-29 by mouth ity of 5 mg tablet 18:58: every [place] [address] evening. Medical Branch zolpidem 10 2020-0 Yes 10mg Take 10 mg Univers mg tablet 7-29 by mouth ity of 18:58: at bedtime [place] [address] as needed Medical for Branch Insomnia. ramipril [...] 1{capsu Take 1 U nivers e-algal oil 7 le} capsule by it y of (DEPLIN, [...] ity o f mg tablet 18:58: daily. [place] [address] Medical Branch FLUoxetine 2020-0 Yes 20mg Take 20 mg U nivers (PROZAC) 20 7-29 by mouth 3 it y of mg capsule 18:58: (three[place] Medical daily. Branch raloxifene 2020-0 Yes 60mg Take 60 mg U nivers (EVISTA) 60 7-29 by mouth ity of mg tablet 18:58: daily. [place] [address] Medical Branch alendronate 2020-0 Yes 70mg Take 70 mg Univers 70 mg 7-29 by mouth ity of tablet 18:58: weekly. [place] [address] Medical Branch levocetiriz 2020-0 Yes 5mg Take 5 mg U nivers ine (XYZAL) 7-29 by mouth ity of 5 mg tablet 18:58: every [place] evening. Medical Branch zolpidem 10 2020-0 Yes 10mg Take 10 mg Univers mg tablet 7-29 by mouth ity of 18:58: at bedtime [place] as needed Medical for Branch Insomnia. ramipril 2020-0 Yes 5mg Take 5 mg Univ ers (ALTACE) 5 7-29 by mouth 2 ity of mg capsule 18:58: (two) [place] [address] times Medical daily. Branch rosuvastati 2020-0 Yes [...] ity o f mg tablet 18:58: daily. [place] [address] Medical Branch FLUoxetine 2020-0 Yes 20mg Take 20 mg U nivers (PROZAC) 20 7-29 by mouth 3 it y of mg capsule 18:58: (three) [place] Medical daily. Branch raloxifene 2020-0 Yes 60mg Take 60 mg U nivers (EVISTA) 60 7-29 by mouth ity of mg tablet 18:58: daily. [place] [address] Medical Branch alendronate 2020-0 Yes 70mg Take 70 mg Univers 70 mg 7-29 by mouth ity of tablet 18:58: weekly. [place] [address] Medical Branch levocetiriz 2020-0 Yes 5mg Take 5 mg U nivers ine (XYZAL) 7-29 by mouth ity of 5 mg tablet 18:58: every [place] 33 evening. Medical Branch zolpidem 10 2020-0 Yes 10mg Take 10 mg Univers mg tablet 7-29 by mouth ity of 18:58: at bedtime [place] as needed Medical for Branch Insomnia. ramipril [...] mg by ity of tablet 18:58: mouth [place] 33 every Medical morning. Branch oxybutynin 2020-0 Yes 5mg Take 5 mg Un svetlana chloride 5 7-29 by mouth ity o f mg tablet 18:58: daily. [place] [address] Medical Branch FLUoxetine 2020-0 Yes 20mg Take 20 mg U nivers (PROZAC) 20 7 by mouth 3 it y of mg capsule 18:58: (three) [place] times Medical daily. Branch raloxifene 2020-0 Yes 60mg Take 60 mg U nivers (EVISTA) 60 7 by mouth ity of mg tablet 18:58: daily. [place] [address] Medical Branch alendronate 2020-0 Yes 70mg Take 70 mg Univers 70 mg 7- by mouth ity of tablet 18:58: weekly. [address] Branch levocetiriz 2020-0 Yes 5mg Take 5 mg U nivers ine (XYZAL) 11-23 by mouth ity of 5 mg tablet 18:58: every [place] [address] evening. Medical Branch lactated 2020-0 Yes [facility]- [facility]/hr, ity of infusion 18:45: 1,000 [place] 1[place]000 [place] 00 IV Medical Infusion, Branch CONTINUOUS , Starting Fri11/24/19 at 1345, Until Discontinu ed, Routine, PACU sodium 2020-0 Yes PRN, Univers chloride 11-23 Starting ity of (NS) 18:04: Fri [place] injection 11/24/19 at [facility] kike 1304, Branch Until Discontinu ed, Routine, Intra-op neomycin-po 2020-0 Yes PRN, [facility] l[facility]-dex 11-23 Starting ity of amethasone 18:04: Fri [place] (MAXITROL) 11/24/19 at Med ical 3.5 1304, [place] mg/g-10,000 Until unit/g-0.1 Discontinu % ed, ophthalmic Routine, ointment Intra-op water for 2020-0 Yes PRN, Univers irrigation 11-23 Starting ity o f irrigation 17:58: Fri [place] solution 11/24/19 at Medic al 1258, Branch Until Discontinu ed, Routine, Intra-op Hyaluronida 2020-0 Yes PRN, Univer s se, Human 11-23 Starting ity of Recomb. 16:57: Fri (HYLENEX) 11/24/19 at [facility] kike injection 1157, Branch Until Discontinu ed, Routine, Intra-op gentamicin 2020-0 Yes PRN, Univers injection 11-23 Starting ity of 16:56: Fri11/24/19 at [facility] 1156, Branch Until Discontinu ed, MAKENNA, Intra-op eye block 2020-0 Yes PRN, Univers syringe 11 11-23 Starting ity o f mL 16:55: Fri11/24/19 at [facility] 1155, Branch Until Discontinu ed, Intra-op EPINEPHrine 2020-0 Yes PRN, Univer s 1:1,000 (1 11-23 Starting ity o f mg/mL) 16:54: Fri (ADRENALIN) 11/24/19 at [place] dical injection 1154, Branch Until Discontinu ed, Routine, Intra-op DUOVISC 2020-0 Yes PRN, Univers (DUOVISC 11-23 Starting ity of VISCO 16:54: Fri ELASTIC) 3 11/24/19 at [facility] ical %-4 %(0.5 1154, Branch mL) 1 % Until (0.55 mL) Discontinu intraocular ed, injection Routine, Intra-op dexamethaso 2020-0 Yes PRN, Univer s ne 11-23 Starting ity of (DECADRON 16:54: Fri [place] PHOSPHATE) 11/24/19 at [facility] ical injection 1154, Branch Until Discontinu ed, Routine, Intra-op ceFAZolin 2020-0 Yes PRN, Univers (ANCEF) 11-23 Starting ity of injection 16:54: Fri11/24/19 at Medical 1154, Branch Until Discontinu ed, MAKENNA, Intra-op carbachoL 2020-0 Yes PRN, Univers (MIOSTAT) 11-23 Starting ity of 0.01 % 16:54: Wed [place] intraocular 00 11/24/19 at [place] dical injection 1154, Branch Until Discontinu ed, Routine, Intra-op balanced 2020-0 Yes PRN, Univers salt irrig 11-23 Starting ity o f soln comb1 16:53: Wed [place] (BSS PLUS) 00 11/24/19 at [facility] ical ophthalmic 1153, Branch solution Until 500 mL bag Discontinu ed, Routine, Intra-op mydriatic 2019-0 2020- No .5mL 0.5 mL, Univ ers #5 11-23 Left Eye, ity of ophthalmic 15:15: 15:26 ONCE, 1 Bharat as solution 00 :00 dose, Wed Medica l 0.5 mL 11/24/19 at Branch syringe 1015, Routine lactated 2020-0 2020- No 1000mL at 20 Unive rs ringers IV 11-23 mL/hr, ity of infusion 15:15: 15:26 1,000 mL, Bharat as 1,000 mL 00 :00 IV Medical Infusion, Branch ONCE, 1 dose, Fri11/24/19 at 1015, Routine, DSU Pre-op zolpidem 10 2020-0 Yes 10mg Take 10 mg Univers mg tablet 7-27 by mouth ity of 22:38: at bedtime [place] 50 as needed Medical for Branch Insomnia. ramipril 2020-0 Yes 5mg Take 5 mg Univ ers (ALTACE) 5 7-27 by mouth 2 ity of mg capsule 22:38: (two) [place] 50 times Medical daily. Branch rosuvastati 2020-0 Yes 10mg Take 10 mg Univers n (CRESTOR) 7-27 by mouth ity of 10 mg 22:38: at [place] tablet 50 bedtime. Medical Branch levomefolat 2020-0 Yes 1{capsu Take 1 U nivers e-algal oil 7-27 le} capsule by it y of (DEPLIN, 22:38: mouth [place] ALGAL OIL,) 50 daily. Medica l 15-90.314 Branch mg Cap levothyroxi 2020-0 Yes .05mg Take 0.05 Univers ne 50 mcg 7-27 mg by ity of tablet 22:38: mouth [place] 50 every Medical morning. Branch oxybutynin 2020-0 Yes 5mg Take 5 mg Un svetlana chloride 5 7-27 by mouth ity o f mg tablet 22:38: daily. [place] 50 Medical Branch FLUoxetine 2020-0 Yes 20mg Take 20 mg U nivers (PROZAC) 20 7-27 by mouth 3 it y of mg capsule 22:38: (three) [place] 50 times Medical daily. Branch raloxifene 2020-0 Yes 60mg Take 60 mg U nivers (EVISTA) 60 7-27 by mouth ity of mg tablet 22:38: daily. [place] [address] Medical Branch alendronate 2020-0 Yes 70mg Take 70 mg Univers 70 mg 7-27 by mouth ity of tablet 22:38: weekly. [place] [address] Medical Branch levocetiriz 2020-0 Yes 5mg Take 5 mg U nivers ine (XYZAL) 7-27 by mouth ity of 5 mg tablet 22:38: every [place] [address] evening. Medical Branch zolpidem 10 2020-0 Yes 10mg Take 10 mg Univers mg tablet 6-25 by mouth ity of 14:43: at bedtime [place] 08 as needed Medical for Branch Insomnia. ramipril 2020-0 Yes 5mg Take 5 mg Univ ers (ALTACE) 5 6-25 by mouth 2 ity of mg capsule 14:43: (two) [place] 08 times Medical daily. Branch rosuvastati 2020-0 [...] ity o f mg tablet 14:43: daily. [place] [address] Medical Branch FLUoxetine 2020-0 Yes 20mg Take 20 mg U nivers (PROZAC) 20 6-25 by mouth 3 it y of mg capsule 14:43: (three) [place] 08 times Medical daily. Branch raloxifene 2020-0 Yes 60mg Take 60 mg U nivers (EVISTA) 60 6-25 by mouth ity of mg tablet 14:43: daily. [place] [address] Medical Branch alendronate 2020-0 Yes 70mg Take 70 mg Univers 70 mg 6-25 by mouth ity of tablet 14:43: weekly. [place] [facility] Branch levocetiriz 2020-0 Yes 5mg Take 5 mg U nivers ine (XYZAL) 6-25 by mouth ity of 5 mg tablet 14:43: every 08 evening. Medical Branch zolpidem 10 2020-0 Yes 10mg Take 10 mg Univers mg tablet 6-25 by mouth ity of 14:43: at bedtime 08 as needed Medical for Branch Insomnia. ramipril 2020-0 Yes 5mg Take 5 mg Univ ers (ALTACE) 5 6-25 by mouth 2 ity of mg capsule 14:43: (two) [place] 08 times Medical daily. Branch rosuvastati 2020-0 Yes 10mg Take 10 mg Univers n (CRESTOR) 6-25 by mouth ity of 10 mg 14:43: at [place] [facility] bedtime. Medical Branch levomefolat 2020-0 Yes 1{capsu Take 1 U nivers e-algal oil 6-25 le} capsule by it y of (DEPLIN, 14:43: mouth [place] ALGAL OIL,) 08 daily. Medica l 15-.314 Branch mg Cap levothyroxi 2020-0 Yes .05mg Take 0.05 Univers ne 50 mcg 6-25 mg by ity of tablet 14:43: mouth [place] 08 every Medical morning. Branch oxybutynin 2020-0 Yes 5mg Take 5 mg Un svetlana chloride 5 6-25 by mouth ity o f mg tablet 14:43: daily. Medical Branch FLUoxetine 2020-0 Yes 20mg Take 20 mg U nivers (PROZAC) 20 6-25 by mouth 3 it y of mg capsule 14:43: (three) [place] 08 times Medical daily. Branch raloxifene 2020-0 Yes 60mg Take 60 mg U nivers (EVISTA) 60 6-25 by mouth ity of mg tablet 14:43: daily. Medical Branch alendronate 2020-0 Yes 70mg Take 70 mg Univers 70 mg 6-25 by mouth ity of tablet 14:43: weekly. Medical Branch levocetiriz 2020-0 Yes 5mg Take 5 mg U nivers ine (XYZAL) 6-25 by mouth ity of 5 mg tablet 14:43: every [place] 08 evening. Medical Branch lactated 2020-0 Yes [...] water for 2020-0 Yes PRN, Univers irrigation 10-19 Starting ity o f irrigation 13:36: Fri [place] solution 10/20/19 at [facility] 08, [place] Until Discontinu ed, Routine, Intra-op sodium 2020-0 Yes PRN, Univers chloride 10-19 Starting ity of (NS) 13:35: Fri [place] injection 10/20/19 at [place] [address], [place] Until Discontinu ed, Routine, Intra-op neomycin-po 2020-0 Yes PRN, Univ s lymyxin-dex 10-19 Starting ity of amethasone 13:35: Fri (MAXITROL) 10/20/19 at [facility] ical [address] [place] [address] mg/g-10,000 Until unit/g-0.1 Discontinu % ed, ophthalmic Routine, ointment Intra-op Hyaluronida 2020-0 Yes PRN, Univ s se, Human 24 Starting ity of Recomb. 13:35: Fri (HYLENEX) 10/20/19 at [facility] injection [facility], [place] Until Discontinu ed, Routine, Intra-op gentamicin 2020-0 Yes PRN, Univers injection 10-19 Starting ity of 13:35: Fri [place] 10/20/19 at [place] [address], [place] Until Discontinu ed, MAKENNA, Intra-op eye block 2020-0 Yes PRN, Univers syringe 11 10-19 Starting ity o f mL 13:35: Fri [place] 10/20/19 at [place] [address], [place] Until Discontinu ed, Intra-op EPINEPHrine 2020-0 Yes PRN, Univer s 1:1,000 (1 10-19 Starting ity o f mg/mL) 13:34: Fri (ADRENALIN) 00 10/20/19 at Mn dical injection 0834, [place] Until Discontinu ed, Routine, Intra-op DUOVISC 2020-0 Yes PRN, Univers (DUOVISC 10-19 Starting ity of VISCO 13:34: Fri ELASTIC) 3 00 10/20/19 at [facility] ica %-4 %(0.5 0834, Branch mL) 1 % Until (0.55 mL) Discontinu intraocular ed, injection Routine, Intra-op dexamethaso 2020-0 Yes PRN, Univer s ne 10-19 Starting ity of (DECADRON 13:33: Fri PHOSPHATE) 00 10/20/19 at [facility] ical injection 0833, [place] Until Discontinu ed, Routine, Intra-op ceFAZolin 2020-0 Yes PRN, Univers (ANCEF) 10-19 Starting ity of injection 13:33: Fri 00 10/20/19 at [facility] 0833, [place] Until Discontinu ed, MAKENNA, Intra-op carbachoL 2020-0 Yes PRN, Univers (MIOSTAT) 10-19 Starting ity of 0.01 % 13:33: Fri intraocular 00 10/20/19 at Mn dical injection 0833, [place] Until Discontinu ed, Routine, Intra-op balanced 2020-0 Yes PRN, Univers salt irrig 10-19 Starting ity o f soln comb1 13:32: Fri (BSS PLUS) 00 10/20/19 at [facility] ophthalmic 0832, [place] solution Until 500 mL bag Discontinu ed, Routine, Intra-op mydriatic 2020-0 2020- No .5mL 0.5 mL, [facility] ers #5 10-19 Right Eye, ity of ophthalmic 13:30: 13:22 ONCE, 1 [place]har[place] as solution 00 :00 dose, Fri Medica l 0.5 mL 10/20/19 at [place] syringe 0830, Routine alendronate 2020-0 Yes 70mg Take 70 mg Univers 70 mg 10-17 by mouth ity of tablet 15:58: weekly. [place] 10 Medical Branch levocetiriz 2020-0 Yes 5mg Take 5 mg U nivers ine (XYZAL) 10-17 by mouth ity of 5 mg tablet 15:58: every [place] 10 evening. Medical Branch ramipril 2020-0 Yes 5mg Take 5 mg [facility] ers (ALTACE) 5 6-22 by mouth 2 ity of mg capsule 15:58: (two) [place] 09 times Medical daily. Branch rosuvastati 2019-0 Yes 10mg Take 10 mg Univers n (CRESTOR) 6-22 by mouth ity of 10 mg 15:58: at [place] tablet 09 bedtime. Medical Branch levomefolat 2019-0 Yes 1{capsu Take 1 U nivers e-algal oil 6-22 le} capsule by it y of (DEPLIN, 15:58: mouth [place] ALGAL OIL,) 09 daily. Medica l .314 Branch mg Cap levothyroxi Yes .05mg Take 0.05 Univers ne 50 mcg 6-22 mg by ity of tablet 15:58: mouth [place] 09 every Medical morning. Branch oxybutynin Yes 5mg Take 5 mg Un svetlana chloride 5 6-22 by mouth ity o f mg tablet 15:58: daily. [place] [address] Medical Branch FLUoxetine Yes 20mg Take 20 mg U nivers (PROZAC) 20 6-22 by mouth 3 it y of mg capsule 15:58: (three) [place] 09 times Medical daily. Branch raloxifene Yes 60mg Take 60 mg U nivers (EVISTA) 60 6-22 by mouth ity of mg tablet 15:58: daily. [place] [address] Medical Branch zolpidem 10 Yes 10mg Take 10 mg Univers mg tablet 6-22 by mouth ity of 15:58: at bedtime 08 as needed Medical for Branch Insomnia. Vital Signs Vital Name Observation Time Observation Value Comments Source Systolic blood 2019-11-24 18:35:00 136 mm[Hg] Univer sity of pressure [facility] Diastolic blood 2019-11-24 18:35:00 67 mm[Hg] [facility] Heart rate 2019-11-24 18:35:00 71 /min [facility] Respiratory rate 2019-11-24 18:35:00 19 /min [facility] Oxygen saturation in 2019-11-24 18:35:00 98 /min [facility] Arterial blood by [facility] Pulse oximetry Branch Body temperature 2019-11-24 18:25:00 36.17 Bere [facility] Body height 2019-11-22 22:30:00 167.6 cm [facility] [place] [facility] Body weight 2019-11-22 22:30:00 72.576 kg [facility] [place] [facility] BMI 2019-11-22 22:30:00 25.82 kg/m2 [facility] [place] [facility] Systolic blood 2019-11-24 18:35:00 136 mm[Hg] Univer sity of pressure [place] [facility] Diastolic blood 2019-11-24 18:35:00 67 mm[Hg] Unive rsity of pressure [place] [facility] Heart rate 2019-11-24 18:35:00 71 /min [facility] [place] [facility] Respiratory rate 2019-11-24 18:35:00 19 /min Univ ersity of [place] [facility] Oxygen saturation in 2019-11-24 18:35:00 98 /min University of Arterial blood by [facility] kike Pulse oximetry Branch Body temperature 2019-11-24 18:25:00 36.17 Bere Univ ersity of [place] [facility] Body height 2019-11-22 22:30:00 167.6 cm [facility] [place] [facility] Body weight 2019-11-22 22:30:00 72.576 kg [facility] [place] [facility] BMI 2019-11-22 22:30:00 25.82 kg/m2 [facility] [place] [facility] Systolic blood 2019-10-20 15:41:00 121 mm[Hg] Univer sity of pressure [place] [facility] Diastolic blood 2019-10-20 15:41:00 66 mm[Hg] Unive rsity of pressure [place] [facility] Body temperature 2019-10-20 15:41:00 37.06 Bere Univ ersity of [place] [facility] Respiratory rate 2019-10-20 15:41:00 20 /min Univ ersity of [place] [facility] Oxygen saturation in 2019-10-20 15:41:00 100 /min University of Arterial blood by [place] [email or web address] kike Pulse oximetry Branch Heart rate 2019-10-20 15:22:00 66 /min [facility] [place] [facility] Body height 2019-10-18 15:45:00 167.6 cm [facility] [place] [facility] Body weight 2019-10-18 15:45:00 72.576 kg [facility] [place] [facility] BMI 2019-10-18 15:45:00 25.82 kg/m2 [facility] [place] [facility] Systolic blood 2019-10-20 15:41:00 121 mm[Hg] Univer sity of pressure [facility] Diastolic blood 2019-10-20 15:41:00 66 mm[Hg] Unive rsity of pressure [facility] Body temperature 2019-10-20 15:41:00 37.06 Bere [facility] 2019-10-20 15:41:00 20 /min [facility] in 2019-10-20 15:41:00 100 /min [facility] Arterial blood by [facility] Pulse oximetry Branch Heart rate 2019-10-20 15:22:00 66 /min [facility] Body height 2019-10-18 15:45:00 167.6 cm [facility] Body weight 2019-10-18 15:45:00 72.576 kg [facility] BMI 2019-10-18 15:45:00 25.82 kg/m2 [facility] Procedures Procedure Date / Time Performing Source Performed Clinician DAY SURGERY - [facility] 2019-11-24 Doctor Unassigned, [facility] 05:01:00 [facility] [facility] CONSENT/REFUSAL FOR DIAGNOSIS 2019-11-23 Doctor Unassigned, [facility] AND TREATMENT 14:30:27 [facility] ASSIGNMENT OF BENEFITS 2019-11-23 Doctor Unassigned, [facility] 14:29:17 [place] CONSENT/REFUSAL FOR DIAGNOSIS 2019-11-17 Doctor Unassigned, [facility] AND TREATMENT 16:52:25 [facility] ASSIGNMENT OF BENEFITS 2019-11-17 Doctor Unassigned, [facility] 16:51:57 [facility] CONSENT/REFUSAL FOR DIAGNOSIS 2019-11-17 Doctor Unassigned, [facility] AND TREATMENT 16:51:24 [facility] ASSIGNMENT OF BENEFITS 2019-11-17 Doctor Unassigned, [facility] 16:50:57 [facility] PHYSICIAN ORDERS 2019-11-17 Doctor Unassigned, [facility] 05:01:00 [facility] PHACOEMULSIFICATION OF 2019-10-[address] [facility] CATARACT WITH INTRAOCULAR 14:58:00 Medica l [place] LENS IMPLANT PATIENT QUESTIONNAIRE 2019-10-20 Doctor Unassigned, [facility] 05:01:00 [facility] DAY SURGERY - ADC 2019-10-20 Doctor Unassigned, [facility] 05:01:00 [facility] COVID-19 (ID NOW RAPID 2019-10-[address] [facility] TESTING) 15:10:00 Medical Branch NOTICE OF BILLING PRACTICES 2019-10-15 Doctor Unassigned, [facility] FOR MEDICARE PATIENTS 17:37:32 [facility] PATIENT FINANCIAL POLICY 2019-10-15 Doctor Unassigned, [facility] 17:05:49 [facility] NO SHOW OR MISSED APPOINTMENT 2019-10-15 Doctor Unassigned, [facility] POLICY ACKNOWLEDGEMENT 17:05:23 [facility] ranch NOTICE OF PRIVACY PRACTICES 2019-10-15 Doctor Unassigned, [facility] 17:05:08 [facility] CONSENT/REFUSAL FOR DIAGNOSIS 2019-10-15 Doctor Unassigned, [facility] AND TREATMENT 17:04:51 [facility] CONSENT/REFUSAL FOR DIAGNOSIS 2019-10-15 Doctor Unassigned, [facility] AND TREATMENT 17:04:33 [facility] ASSIGNMENT OF BENEFITS 2019-10-15 Doctor Unassigned, [facility] 17:04:18 [facility] ASSIGNMENT OF BENEFITS 2019-10-15 Doctor Unassigned, [facility] 17:04:02 [facility] Encounters Start End Encounter Admission Attending Care Care Encounter Source Date/Time Date/Time Type Type Clinicians Facility Department ID 2022-04-12 Outpatient Macdonald, [facility]LMLC [facility] [id number] Common 09:08:02 [facility] [id number] [facility] 2022-01-31 Outpatient Macdonald, STLMLC [facility] [id number] Common 11:26:02 Layo [facility] 2022-01-25 Outpatient Macdonald, STLMLC [facility] [id number] Common 09:46:01 Layo [facility] 2021-08-22 [facility] [id number] Common 10:19:02 Layo [facility] 2021-05-31 [facility] Common 09:49:01 Layo [facility] 2021-05-23 Outpatient Macdonald, STLMLC [facility] Common 14:11:54 Layo [facility] 2021-05-23 Outpatient Macdonald, [facility] Common 13:55:47 Layo [facility] 2021-05-23 Outpatient Macdonald, [facility] Common 13:20:25 Layo [id number] [facility] 2021-05-23 Outpatient Macdonald, [facility] Common 13:19:55 Layo [address]71 [facility] 2021-05-23 Outpatient Macdonald, STLC [facility] Common 13:19:14 Layo [id number] [facility] 2021-05-23 [facility] Common 12:41:44 Layo [id number] [facility] 2021-05-23 [facility] Common 12:31:34 Layo [address]114 [facility] 2021-02-23 Outpatient Nabeel BRAVO [facility] STEPHY [id number] Univers 07:58:51 BARNEY [facility] 2021-02-23 Outpatient Nabeel BRAVO [facility] [id number] Univers 01:51:41 BARNEY [facility] 2022-04-01 2022-04-01 Outpatient ZOLTAN Kiser [id number] [facility] 12:00:00 12:00:00 Yady 22 [facility] [place] 2021-03-28 2021-03-28 Outpatient ZOLTAN Kiser [id number] [facility] 12:00:00 12:00:00 Yady 52 [facility] [place] 2020-06-20 2020-06-20 Outpatient Nabeel GUTIERREZ [facility] [id number] [facility] 14:30:00 14:30:00 YAMIL grijalva [facility] 2020-05-30 2020-05-30 [facility]phone [facility] [id number] Univers 00:00:00 00:00:00 Vanda Thomas [id number] ity [facility] [place]2.7.2.[place] [phone] [place] dic[address] 2020-05-27 2020-05-27 MAGDALENO Myrick [id number] [facility] 00:00:00 00:00:00 Triage Whitney REILLYY [id number] i [facility] 4.2.7.2.686 Bharat as [phone] [address] 2020-05-27 2020-05-27 MAGDALENO Myrick [id number] 00:00:00 00:00:00 Triage Whitney VARELA [id number] [facility] 4.2.7.2.686 [id number] [facility] 2020-05-26 2020-05-26 Outpatient R [facility] [id number] Univers 10:20:00 10:20:00 ity of [facility] 2020-05-25 2020-05-25 Outpatient R FREEDOM [facility] [id number] Univers 19:00:00 19:00:00 VANDA itlaura o f [facility] 2020-05-25 2020-05-25 Laboratory Lab, [facility] [id number]. [id number] Univers 18:25:25 18:45:25 Only Vanda Loja [facility] [id number] ity of [place] 4.2.7.2.686 Bharat as Professio [phone] [address] Office [facility] 2020-05-25 2020-05-25 Laboratory Lab, [facility] [id number] 18:25:25 18:45:25 Only Fam [facility] 350.1.13.10 [place] 4.2.7.2.686 Professio [phone] nal [facility] Office Building One 2020-05-25 2020-05-25 Letter Doctor MAGDALENO [id number] Univers 00:00:00 00:00:00 (Out) Unassigned, NICHOLE [id number] ity of [facility] 4.2.7.2.686 Bharat as [id number] [facility] 044 Branch 2020-05-25 2020-05-25 Letter Doctor MAGDALENO [id number] 00:00:00 00:00:00 (Out) Unassigned, NICHOLE [id number] [facility] 4.2.7.2.686 [id number] 2020-01-07 2020-01-07 Outpatient CLARISSE Huynh [facility] [id number] [facility] 12:00:00 12:00:[address] [place] [address] 2019-11-24 2019-11-24 [facility] [id number] Univers 09:50:00 13:50:00 Encounter Barney Thomas [id number] ity [place].2.[place] [phone] [facility] 071 Branch 2019-11-24 2019-11-24 [facility] [id number] 09:50:00 13:50:00 Encounter Barney Thomas [id number] [place] 4.2.7.2.686 Surgical [id number] [place] [address] 2019-11-24 2019-11-24 Orders Doctor DOLAN [id number] Univers 00:00:00 00:00:00 Only Unassigned, NICHOLE [id number] ity of [facility] 4.2.7.2.686 Bharat as [id number] [facility] 009 Branch 2019-11-24 2019-11-24 Orders Doctor DOLAN 1.2.840.114 [id number] 00:00:00 00:00:00 Only Unassigned, N[place]LE 350.1.13.10 [facility] 4.2.7.2.686 [id number] 2019-11-23 2019-11-23 Outpatient Nabeel [facility] [id number] Univers 10:00:00 10:00:00 BARNEY ity of [facility] 2019-11-23 2019-11-23 Laboratory Only, [facility] Test [facility] 1.2.840. 114 [id number] Univers 09:30:39 09:45:39 Only Barney Bravo 350.1.13.1 0 ity of [place]2.7.2.[place] [phone] [address] 2019-11-23 2019-11-23 Laboratory Only, [facility] 1.2.840.114 [id number] 09:30:39 09:45:39 Only Test [place] 350.1.13.10 [place] 4.2.7.2.686 [place] [id number] [facility] 2019-11-17 2019-11-17 Outpatient R [facility] [id number] Univers 12:15:00 12:15:00 ity of [facility] 2019-11-17 2019-11-17 Physiotherapy Practice Manager [place], [facility] Lab Main [facility] [id number] Univers 11:59:38 12:14:38 Visit Barney Bravo 350.1.13.1 0 ity of [place].7.2.[place] [phone] Mn dical [address] 2019-11-17 2019-11-17 Physiotherapy Practice Manager [place], [facility] 1.2.840.114 [id number] 11:59:38 12:14:38 Visit Lab Main [place] 350.1.13.10 [place] 4.2.7.2.686 Professio [id number] [address] 2019-10-20 2019-10-20 [facility] [id number] Univers 08:07:29 11:20:00 Encounter Barney Ward [place] [id number] ity of [place]2.7.2.[place] [phone] [address] 2019-10-20 2019-10-20 [facility] [id number] 08:07:29 11:20:00 Encounter Barney Ward [place] 350.1.13.10 [place] 4.2.7.2.686 [facility] [id number] [place] 020 2019-10-19 2019-10-19 [facility] [id number] [facility] 10:15:00 10:15:00 BARNEY [facility] 2019-10-19 2019-10-19 Laboratory Only, [facility] Test [facility] 1.2.840. [id number] [facility] 09:57:46 10:12:46 Only Barney Bravo 350.1.13.[address] [facility] 4.2.7.2.686 [facility] [id number] [address] 2019-10-19 2019-10-19 Laboratory Only, [facility] 1.2.840.114 [id number] 09:57:46 10:12:46 Only Test William 350.1.13.10 [place] 4.2.7.2.686 [place] [id number] [facility] 2019-10-15 2019-10-15 Outpatient Nabeel BRAVO [facility] [id number] [facility] 12:00:00 12:00:00 [facility] Results Test Description Test Time Test Comments Results Result Comments Source COVID-19 (ID NOW RAPID TESTING) 2019-10-19 15:39:00 Test Item Value Reference Range Interpretation Comme nts SARS-CoV-2 Rapid ID NOW (test code Not Detected Not Detected = 91062-8) BELEN (test code = BELEN) ID NOW COVID-19 Assay is an isothermal nucleic acid amplification test intended for the qualitative detection of nucleic acid from SARS-CoV-2 viral RNA in nasopharyngeal (MEDICAL DOSIMETRIST) specimens. It is used under Emergency Use [...] indicated. Lab Interpretation (test code = Normal 41777-0) [facility]
--- NOTE | 2022-04-26 12:48 | ER ---
Nurse's Notes [facility] Name: Mia Mayer Age: 76 yrs Sex: Female : 1945 Arrival Date: 04/26/2022 Time: 11:55 Bed DIS1 Private MD: Layo Macdonald Diagnosis: Multiple fractures of ribs Presentation: 04/26 12:26 Chief complaint: Patient states: pt fell on Friday, she slipped in bathtub and has 3 iw broken ribs, she was seen at urgent care and they prescribed her pain medicine but it isn;t helping , is here for pain control , is taking diclofenac, tramadol, diazepam. Coronavirus screen: At this time, the client does not indicate any symptoms associated with coronavirus-19. Ebola Screen: Patient negative for fever greater than or equal to 101.5 degrees Fahrenheit, and additional compatible Ebola Virus Disease symptoms Patient denies exposure to infectious person. Patient denies travel to an Ebola-affected area in the 21 days before illness onset. No symptoms or risks identified at this time. Onset of symptoms was April 22, 2022. 12:26 Method Of Arrival: Ambulatory iw 12:26 Acuity: KIM 4 iw Historical: - Allergies: 12:27 Morphine; iw - Home Meds: 12:27 Altace 5 mg Oral tab [Active]; Deplin (algal oil) 15-90.314 mg Oral cap [Active]; lxyal iw 5mg [Active]; Myrbetriq 25 mg Oral Tb24 1 tab once daily [Active]; oxbutynin 10 mg [Active]; Prozac 20 mg Oral cap 1 cap once daily [Active]; rosuvastatin 20 mg Oral cpSP 1 cap once daily [Active]; ED Course: 11:55 Patient arrived in ED. mr 11:55 Layo Macdonald, is Private Physician. mr 12:27 Triage completed. iw 12:30 Francine Montoya FNP-C is PHCP. kb 12:30 Satya Alejo MD is Attending Physician. kb 12:51 Ritika Romeo, COLLETTE is Primary Nurse. iw Administered Medications: No medications were administered Outcome: 12:48 Discharge ordered by . kb 12:53 Patient left the ED. iw Signatures: Francine Montoya FNP-C FNP-Karey Anderson Homa mr Ousmane, Ritika, RN RN iw
--- NOTE | 2022-04-26 12:48 | EDPHYS ---
Physician Documentation [facility] Name: Mia Mayer Age: 76 yrs Sex: Female : 1945 Arrival Date: 04/26/2022 Time: 11:55 Bed DIS1 Private MD: Layo Macdonald ED Physician Satya Alejo HPI: 04/26 17:50 This 76 yrs old Female presents to ER via Ambulatory with complaints of Fall Injury. kb 17:50 Details of fall: The patient fell from an upright position, while standing. Onset: The kb symptoms/episode began/occurred 3 day(s) ago. Associated injuries: The patient sustained injury to the chest, pain with breathing, pain with movement. Severity of symptoms: At their worst the symptoms were moderate, in the emergency department the symptoms are unchanged. The patient has not experienced similar symptoms in the past. The patient has been recently seen by a physician:. Pt reports she fell a few days ago, had CT scan at a different ER and was diagnosed with three rib fractures. Pt was prescribed tramadol and valium but reports those are not working. Came here for stronger pain medication. Pt informed that we could not prescribe anything stronger, but I would gladly give her something to treat her pain here. Pt states she has to drive so she cannot take anything here. States she will go home and follow up with PCP. Historical: - Allergies: 12:27 Morphine; iw - Home Meds: 12:27 Altace 5 mg Oral tab [Active]; Deplin (algal oil) 15-90.314 mg Oral cap [Active]; lxyal iw 5mg [Active]; Myrbetriq 25 mg Oral Tb24 1 tab once daily [Active]; oxbutynin 10 mg [Active]; Prozac 20 mg Oral cap 1 cap once daily [Active]; rosuvastatin 20 mg Oral cpSP 1 cap once daily [Active]; ROS: 17:52 Constitutional: Negative for fever, chills, and weight loss. kb 17:52 Cardiovascular: Positive for rib pain. 17:52 All other systems are negative. Exam: 17:52 Constitutional: This is a well developed, well nourished patient who is awake, alert, kb and in no acute distress. Head/Face: Normocephalic, atraumatic. ENT: Moist Mucous membranes Cardiovascular: Regular rate and rhythm with a normal S1 and S2. No gallops, murmurs, or rubs. No pulse deficits. Respiratory: Respirations even and unlabored. No increased work of breathing. Talking in full sentences Abdomen/GI: Soft, non-tender. No distention Skin: Warm, dry with normal turgor. Normal color. MS/ Extremity: Pulses equal, no cyanosis. Neurovascular intact. Full, normal range of motion. Neuro: Awake and alert, GCS 15, oriented to person, place, time, and situation. Moves all extremities. Normal gait. Psych: Awake, alert, with orientation to person, place and time. Behavior, mood, and affect are within normal limits. MDM: 12:30 Patient medically screened. kb 17:50 Data reviewed: vital signs, nurses notes. Data interpreted: Pulse oximetry: on room air kb is 100 %. Interpretation: normal. Counseling: I had a detailed discussion with the patient and/or guardian regarding: the historical points, exam findings, and any diagnostic results supporting the discharge/admit diagnosis, the need for outpatient follow up, a family practitioner, to return to the emergency department if symptoms worsen or persist or if there are any questions or concerns that arise at home. Administered Medications: No medications were administered Disposition: 18:42 Co-signature as Attending Physician, Satya Alejo MD. rn Disposition Summary: 04/26/22 12:48 Discharge Ordered Location: Home kb Condition: Stable kb Diagnosis - Multiple fractures of ribs kb Followup: kb - With: Emergency Department - When: As needed - Reason: Worsening of condition Followup: kb - With: Private Physician - When: 2 - 3 days - Reason: Recheck today's complaints, Continuance of care, Re-evaluation by your physician Discharge Instructions: - Discharge Summary Sheet kb - Rib Fracture, [id number] kb Forms: - Medication Reconciliation Form kb - Thank You Letter kb - Antibiotic Education kb - Prescription Opioid Use kb Signatures: Francine Montoya FNP-C FNP-Ritika Cast RN Satya Che MD MD rn
== END 2022-04-26 12:53 | disposition home or self-care (01) ==
LOC: ER 11:54
DX: S22.49XA Multiple fractures of ribs, unspecified side, initial encounter for closed fracture (principal)
CPT/HCPCS: 99281

== ENCOUNTER 2022-10-09 10:25 | Emergency (ER) | payer OTHER ==
--- OUTSIDE RECORDS SUMMARY | 2022-10-09 10:38 | XMS REPORT | Continuity of Care Document ---
:1945 Author Organization [facility] t Address [address] [place] [address] [place] [address] Care Team Providers Name Role Phone Torres Layo Diamond Attending Clinician Unavailable BARNEY BRAVO Attending Clinician Unavailable Yady Huynh Attending Clinician Unavailable YAMIL GUTIERREZ Attending Clinician Unavailable Vanda Golden Attending Clinician Tyler MURDOCK, Whitney Marley Attending Clinician Unavailable VANDA LOJA Attending Clinician Unavailable Lab, Adc Fam Pob I Attending Clinician Unavailable Doctor Unassigned, Wann Attending Clinician Unavailable Barney Bravo MD Attending Clinician Only, Adc Test Attending Clinician Unavailable Pob, Adc Lab Main Attending Clinician Unavailable BARNEY BRAVO Admitting Clinician Unavailable Yady Huynh Admitting Clinician Unavailable Physician, No Primary or Family Admitting Clinician UnavailBarney Velarde MD Admitting Clinician Payers Payer Name Policy Type Policy Number Effective Date Expiration Date S jalyn [employer] MEDICARE ADV [id number] 2019 00:00:00 Problems This patient has no [...] Active Univers [facility]ERGIE Class ity of [facility] [place] [facility] [place] Social History Social Habit Start Date Stop Date Quantity Comments Source Sex Assigned At [facility] Medical Branch Exposure to Not sure [facility] SARS-CoV-2 (event) Medica l Branch Tobacco use and 2019-11-25 2019-11-25 Never used [facility] exposure 00:00:00 00:00:00 Medical Branch Smoking Status Start Date Stop Date Source Never smoker [facility] Medications Ordered Filled Start Stop Current [...] ity o f mg tablet 18:58: daily. [place] [address] Medical Branch FLUoxetine 2019-0 Yes 20mg Take 20 mg U nivers (PROZAC) 20 7-29 by mouth 3 [place] of mg capsule 18:58: [place]three[place] daily. Branch raloxifene 2019-0 Yes 60mg Take 60 mg U nivers (EVISTA) 60 7-29 by mouth ity of mg tablet 18:58: daily. [place] [address] Medical Branch alendronate 2020-0 Yes 70mg Take 70 mg Univers 70 mg 7-29 by mouth ity of tablet 18:58: weekly. [place] [address] Medical Branch levocetiriz 2020-0 Yes 5mg Take 5 mg U nivers ine (XYZAL) 7- by mouth ity of 5 mg tablet 18:58: every [place] [address] evening. Medical Branch zolpidem 10 2020-0 Yes 10mg Take 10 mg Univers mg tablet 7-29 by mouth ity of 18:58: at bedtime [place] [address] as needed Medical for Branch Insomnia. ramipril 2020-0 Yes 5mg Take 5 mg Univ ers (ALTACE) 5 7- by mouth 2 ity of mg capsule 18:58: (two) [place] [address] times Medical daily. Branch rosuvastati 2020-0 Yes 10mg Take 10 mg Univers n (CRESTOR) 7- by mouth ity of 10 mg 18:58: at [place] [address] bedtime. Medical Branch levomefolat 2020-0 Yes 1{capsu Take 1 U nivers e-algal oil 11-23 le} capsule by it y of (DEPLIN, 18:58: mouth [place] ALGAL OIL,) 33 daily. Medica l [id number] Branch mg Cap levothyroxi 2020-0 Yes .05mg Take 0.05 Univers ne 50 mcg 7-29 mg by ity of tablet 18:58: mouth [place] [address] every Medical morning. Branch oxybutynin 2020-0 Yes 5mg Take 5 mg Un svetlana chloride 5 7-29 by mouth ity o f mg tablet 18:58: daily. [place] [address] Medical Branch FLUoxetine 2020-0 Yes 20mg Take 20 mg U nivers (PROZAC) 20 7-29 by mouth 3 it y of mg capsule 18:58: (three) [facility] Medical daily. Branch raloxifene 2020-0 Yes 60mg Take 60 mg U nivers (EVISTA) 60 7-29 by mouth ity of mg tablet 18:58: daily. [place] [address] Medical Branch alendronate 2020-0 Yes 70mg Take 70 mg Univers 70 mg 7-29 by mouth ity of tablet 18:58: weekly. [place] [address] Medical Branch levocetiriz 2020-0 Yes 5mg Take 5 mg U nivers ine (XYZAL) 7-29 by mouth ity of 5 mg tablet 18:58: every [place] [address] evening. Medical Branch zolpidem 10 2020-0 Yes 10mg Take 10 mg Univers mg tablet 7-29 by mouth ity of 18:58: at bedtime [place] [address] as needed Medical for Branch Insomnia. ramipril 2020-0 Yes 5mg Take 5 mg Univ ers (ALTACE) 5 7- by mouth 2 ity of mg capsule 18:58: (two) [place] times Medical daily. Branch rosuvastati 2020-0 Yes 10mg Take 10 mg Univers n (CRESTOR) 7-29 by mouth ity of 10 mg 18:58: at [place] [facility] 33 bedtime. Medical Branch levomefolat 2020-0 Yes [...] ity o f mg tablet 18:58: daily. [place] [address] Medical Branch FLUoxetine 2020-0 Yes 20mg Take 20 mg U nivers (PROZAC) 20 7-29 by mouth 3 it y of mg capsule 18:58: (three) [facility] Medical daily. Branch raloxifene 2020-0 Yes 60mg Take 60 mg U nivers (EVISTA) 60 7-29 by mouth ity of mg tablet 18:58: daily. [place] [address] Medical Branch alendronate 2020-0 Yes 70mg Take 70 mg Univers 70 mg 7-29 by mouth ity of tablet 18:58: weekly. [place] [address] Medical Branch levocetiriz 2020-0 Yes 5mg Take 5 mg U nivers ine (XYZAL) 7-29 by mouth ity of 5 mg tablet 18:58: every [place] [address] evening. Medical Branch zolpidem 10 2020-0 Yes 10mg Take 10 mg Univers mg tablet 7-29 by mouth ity of 18:58: at bedtime [place] [address] as needed Medical for Branch Insomnia. ramipril [...] ity o f mg tablet 18:58: daily. [place] [address] Medical Branch FLUoxetine 2020-0 Yes 20mg Take 20 mg U nivers (PROZAC) 20 7-29 by mouth 3 it y of mg capsule 18:58: (three[place] Medical daily. Branch raloxifene 2020-0 Yes 60mg Take 60 mg U nivers (EVISTA) 60 7-29 by mouth ity of mg tablet 18:58: daily. [place] [address] Medical Branch alendronate 2020-0 Yes 70mg Take 70 mg Univers 70 mg 7-29 by mouth ity of tablet 18:58: weekly. [place] [address] Medical Branch levocetiriz 2020-0 Yes 5mg Take [...] 2 ity of mg capsule 18:58: (two) [place] [address] times Medical daily. Branch rosuvastati 2020-0 Yes [...] ity o f mg tablet 18:58: daily. [place] [address] Medical Branch FLUoxetine 2020-0 Yes 20mg Take 20 mg U nivers (PROZAC) 20 7-29 by mouth 3 it y of mg capsule 18:58: (three) [place] Medical daily. Branch raloxifene 2020-0 Yes 60mg Take 60 mg U nivers (EVISTA) 60 7-29 by mouth ity of mg tablet 18:58: daily. [place] [address] Medical Branch alendronate 2020-0 Yes 70mg Take 70 mg Univers 70 mg 7-29 by mouth ity of tablet 18:58: weekly. [place] [address] Medical Branch levocetiriz 2020-0 Yes 5mg Take [...] mg by ity of tablet 18:58: mouth [place] 33 every Medical morning. Branch oxybutynin 2020-0 Yes 5mg Take 5 mg Un svetlana chloride 5 7-29 by mouth ity o f mg tablet 18:58: daily. [place] [address] Medical Branch FLUoxetine 2020-0 Yes 20mg Take 20 mg U nivers (PROZAC) 20 7 by mouth 3 it y of mg capsule 18:58: (three) [place] Medical daily. Branch raloxifene 2020-0 Yes 60mg Take 60 mg U nivers (EVISTA) 60 7 by mouth ity of mg tablet 18:58: daily. [place] [address] Medical Branch alendronate 2020-0 Yes 70mg Take 70 mg Univers 70 mg 7- by mouth ity of tablet 18:58: weekly. [address] Branch levocetiriz 2020-0 Yes 5mg Take 5 mg U nivers ine (XYZAL) 11-23 by mouth ity of 5 mg tablet 18:58: every [place] [address] evening. Medical Branch lactated 2020-0 Yes 1000[facility]- mL/hr, ity of infusion 18:45: 1,000 [place], [place] 1[place]000 [place] 00 IV Medical Infusion, Branch CONTINUOUS , Starting Fri11/24/19 at 1345, Until Discontinu ed, Routine, PACU sodium 2020-0 Yes PRN, Univers chloride 11-23 Starting ity of (NS) 18:04: Fri [place] injection 11/24/19 at [facility] kike 1304, Branch Until Discontinu ed, Routine, Intra-op neomycin-po 2020-0 Yes PRN, [facility] lymyxin-dex 11-23 Starting ity of amethasone 18:04: Fri [place] (MAXITROL) 11/24/19 at Med ical 3.5 1304, [place] mg/g-10,000 Until unit/g-0.1 Discontinu % ed, ophthalmic Routine, ointment Intra-op water for 2020-0 Yes PRN, Univers irrigation 11-23 Starting ity o f irrigation 17:58: Fri [place] solution 11/24/19 at Medic al 1258, Branch Until Discontinu ed, Routine, Intra-op Hyaluronida 2020-0 Yes PRN, Univer s se, Human 11-23 Starting ity of Recomb. 16:57: Fri (HYLENEX) 11/24/19 at [facility] kike injection 1157, Branch Until Discontinu ed, Routine, Intra-op gentamicin 2020-0 Yes PRN, Univers injection 11-23 Starting ity of 16:56: Fri11/24/19 at [facility] 1156, Branch Until Discontinu ed, MAKENNA, Intra-op eye block 2020-0 Yes PRN, Univers syringe 11 11-23 Starting ity o f mL 16:55: Fri11/24/19 at [facility] 1155, Branch Until Discontinu ed, Intra-op EPINEPHrine 2020-0 Yes PRN, Univer s 1:1,000 (1 11-23 Starting ity o f mg/mL) 16:54: Fri (ADRENALIN) 11/24/19 at [place] dical injection 1154, Branch Until Discontinu ed, Routine, Intra-op DUOVISC 2020-0 Yes PRN, Univers (DUOVISC 11-23 Starting ity of VISCO 16:54: Fri ELASTIC) 3 11/24/19 at [facility] ical %-4 %(0.5 1154, Branch mL) 1 % Until (0.55 mL) Discontinu intraocular ed, injection Routine, Intra-op dexamethaso 2020-0 Yes PRN, Univer s ne 11-23 Starting ity of (DECADRON 16:54: Fri [place] PHOSPHATE) 11/24/19 at [facility] ical injection 1154, Branch Until Discontinu ed, Routine, Intra-op ceFAZolin 2020-0 Yes PRN, Univers (ANCEF) 11-23 Starting ity of injection 16:54: Fri11/24/19 at Medical 1154, Branch Until Discontinu ed, MAKENNA, Intra-op carbachoL 2020-0 Yes PRN, Univers (MIOSTAT) 11-23 Starting ity of 0.01 % 16:54: Wed [place] intraocular 00 11/24/19 at Vt dical injection 1154, Branch Until Discontinu ed, Routine, Intra-op balanced 2020-0 Yes PRN, Univers salt irrig 11-23 Starting ity o f soln comb1 16:53: Wed [place] (BSS PLUS) 00 11/24/19 at [facility] ical ophthalmic 1153, Branch solution [...] mouth ity of mg tablet 22:38: daily. [place] [address] Medical Branch alendronate 2020-0 Yes 70mg Take 70 mg Univers 70 mg 7-27 by mouth ity of tablet 22:38: weekly. [place] [address] Medical Branch levocetiriz 2020-0 Yes 5mg Take 5 mg U nivers ine (XYZAL) 7-27 by mouth ity of 5 mg tablet 22:38: every [place] [address] evening. Medical Branch zolpidem 10 2020-0 Yes 10mg Take 10 mg Univers mg tablet 6-25 by mouth ity of 14:43: at bedtime [place] 08 as needed Medical for Branch Insomnia. ramipril 2020-0 Yes 5mg Take 5 mg Univ ers (ALTACE) 5 6-25 by mouth 2 ity of mg capsule 14:43: (two) [place] 08 times Medical daily. Branch rosuvastati 2020-0 [...] ity o f mg tablet 14:43: daily. [place] [address] Medical Branch FLUoxetine 2020-0 Yes 20mg Take 20 mg U nivers (PROZAC) 20 6-25 by mouth 3 it y of mg capsule 14:43: (three) [place] times Medical daily. Branch raloxifene 2020-0 Yes 60mg Take 60 mg U nivers (EVISTA) 60 6-25 by mouth ity of mg tablet 14:43: daily. [place] [address] Medical Branch alendronate 2020-0 Yes 70mg Take 70 mg Univers 70 mg 6-25 by mouth ity of tablet 14:43: weekly. [place] [facility] Branch levocetiriz 2020-0 Yes 5mg Take [...] ity of 10 mg 14:43: at [place] [facility] 08 bedtime. Medical Branch levomefolat 2020-0 Yes [...] ity of 5 mg tablet 14:43: every [place] 08 evening. Medical Branch lactated 2020-0 Yes [...] Starting ity o f irrigation 13:36: Fri [place] solution 10/20/19 at [facility] 08, [place] Until Discontinu ed, Routine, Intra-op sodium 2020-0 Yes PRN, Univers chloride 10-19 Starting ity of (NS) 13:35: Fri [place] injection 10/20/19 at [place] [address], [place] Until Discontinu ed, Routine, Intra-op neomycin-po 2020-0 Yes PRN, Univ s lymyxin-dex 10-19 Starting ity of amethasone 13:35: Fri (MAXITROL) 10/20/19 at [facility] ical [address] [place] [address] mg/g-10,000 Until unit/g-0.1 Discontinu % ed, ophthalmic Routine, ointment Intra-op Hyaluronida 2020-0 Yes PRN, Univ s se, Human 24 Starting ity of Recomb. 13:35: Fri (HYLENEX) 10/20/19 at [facility] injection [facility], [place] Until Discontinu ed, Routine, Intra-op gentamicin 2020-0 Yes PRN, Univers injection 10-19 Starting ity of 13:35: Fri [place] 10/20/19 at [place] [address], [place] Until Discontinu ed, MAKENNA, Intra-op eye block 2020-0 Yes PRN, Univers syringe 11 10-19 Starting ity o f mL 13:35: Fri [place] 10/20/19 at [place] [address], [place] Until Discontinu ed, Intra-op EPINEPHrine 2020-0 Yes PRN, Univer s 1:1,000 (1 10-19 Starting ity o f mg/mL) 13:34: Fri (ADRENALIN) 00 10/20/19 at Vt dical injection 0834, [place] Until Discontinu ed, Routine, Intra-op DUOVISC 2020-0 Yes PRN, Univers (DUOVISC 10-19 Starting ity of VISCO 13:34: Fri ELASTIC) 3 00 10/20/19 at [facility] ica %-4 %(0.5 0834, Branch mL) 1 % Until (0.55 mL) Discontinu intraocular ed, injection Routine, Intra-op dexamethaso 2020-0 Yes PRN, Univer s ne 10-19 Starting ity of (DECADRON 13:33: Fri PHOSPHATE) 00 10/20/19 at [facility] ical injection 0833, [place] Until Discontinu ed, Routine, Intra-op ceFAZolin 2020-0 Yes PRN, Univers (ANCEF) 10-19 Starting ity of injection 13:33: Fri 00 10/20/19 at [facility] 0833, [place] Until Discontinu ed, MAKENNA, Intra-op carbachoL 2020-0 Yes PRN, Univers (MIOSTAT) 10-19 Starting ity of 0.01 % 13:33: Fri intraocular 00 10/20/19 at [place] dical injection 0833, [place] Until Discontinu ed, Routine, Intra-op balanced 2020-0 Yes PRN, Univers salt irrig 10-19 Starting ity o f soln comb1 13:32: Fri (BSS PLUS) 00 10/20/19 at [facility] ophthalmic 0832, [place] solution Until 500 mL bag Discontinu ed, Routine, Intra-op mydriatic 2020-0 2020- No .5mL 0.5 mL, [facility] ers #5 10-19 Right Eye, ity of ophthalmic 13:30: 13:22 ONCE, 1 Bharat as solution 00 :00 dose, Fri Medica l 0.5 mL 10/20/19 at [place] syringe 0830, Routine alendronate 2020-0 Yes 70mg Take 70 mg Univers 70 mg 10-17 by mouth ity of tablet 15:58: weekly. [place] 10 Medical Branch levocetiriz 2020-0 Yes 5mg Take 5 mg U nivers ine (XYZAL) 10-17 by mouth ity of 5 mg tablet 15:58: every [place] 10 evening. Medical Branch ramipril 2020-0 Yes 5mg Take 5 mg [facility] ers (ALTACE) 5 6-22 by mouth 2 [...] ity o f mg tablet 15:58: daily. [place] [address] Medical Branch FLUoxetine Yes 20mg Take 20 mg U nivers (PROZAC) 20 6-22 by mouth 3 it y of mg capsule 15:58: (three) [place] times Medical daily. Branch raloxifene Yes 60mg Take 60 mg U nivers (EVISTA) 60 6-22 by mouth ity of mg tablet 15:58: daily. [place] [address] Medical Branch zolpidem 10 Yes 10mg Take 10 mg Univers mg tablet 6-22 by mouth ity of 15:58: at bedtime 08 as needed Medical for Branch Insomnia. Vital Signs Vital Name Observation Time Observation Value Comments Source Systolic blood 2019-11-24 18:35:00 136 mm[Hg] Univer sity of pressure [facility] Diastolic blood 2019-11-24 18:35:00 67 mm[Hg] [facility] Heart rate 2019-11-24 18:35:00 71 /min [facility] Respiratory rate 2019-11-24 18:35:00 19 /min [facility] Oxygen saturation in 2019-11-24 18:35:00 98 /min [facility] Arterial blood by [facility] Pulse oximetry Branch Body temperature 2019-11-24 18:25:00 36.17 Bere [facility] Body height 2019-11-22 22:30:00 167.6 cm [facility] [place] [facility] Body weight 2019-11-22 22:30:00 72.576 kg [facility] [place] [facility] BMI 2019-11-22 22:30:00 25.82 kg/m2 [facility] [place] [facility] Systolic blood 2019-11-24 18:35:00 136 mm[Hg] Univer sity of pressure [place] [facility] Diastolic blood 2019-11-24 18:35:00 67 mm[Hg] Unive rsity of pressure [place] [facility] Heart rate 2019-11-24 18:35:00 71 /min [facility] [place] [facility] Respiratory rate 2019-11-24 18:35:00 19 /min Univ ersity of [place] [facility] Oxygen saturation in 2019-11-24 18:35:00 98 /min University of Arterial blood by [facility] kike Pulse oximetry Branch Body temperature 2019-11-24 18:25:00 36.17 Bere Univ ersity [facility] [place] [facility] Body height 2019-11-22 22:30:00 167.6 cm [facility] [place] [facility] Body weight 2019-11-22 22:30:00 72.576 kg [facility] [place] [facility] BMI 2019-11-22 22:30:00 25.82 kg/m2 [facility] [place] [facility] Systolic blood 2019-10-20 15:41:00 121 mm[Hg] Univer sity of pressure [place] [facility] Diastolic blood 2019-10-20 15:41:00 66 mm[Hg] Unive rsity of pressure [place] [facility] Body temperature 2019-10-20 15:41:00 37.06 Bere Univ ersity of [place] [facility] Respiratory rate 2019-10-20 15:41:00 20 /min Univ ersity of [place] [facility] Oxygen saturation in 2019-10-20 15:41:00 100 /min University of Arterial blood by [place] [facility] kike Pulse oximetry Branch Heart rate 2019-10-20 15:22:00 66 /min [facility] [place] [facility] Body height 2019-10-18 15:45:00 167.6 cm [facility] [place] [facility] Body weight 2019-10-18 15:45:00 72.576 kg [facility] [place] [facility] BMI 2019-10-18 15:45:00 25.82 kg/m2 [facility] [place] [facility] Systolic blood 2019-10-20 15:41:00 121 mm[Hg] Univer sity of pressure [facility] Diastolic blood 2019-10-20 15:41:00 66 mm[Hg] Unive rsity of pressure [facility] Body temperature 2019-10-20 15:41:00 37.06 Bere [facility] rate 2019-10-20 15:41:00 20 /min [facility] Oxygen saturation in 2019-10-20 15:41:00 100 /min [facility] Arterial blood by [facility] Pulse oximetry Branch Heart rate 2019-10-20 15:22:00 66 /min [facility] Body height 2019-10-18 15:45:00 167.6 cm [facility] Body weight 2019-10-18 15:45:00 72.576 kg [facility] BMI 2019-10-18 15:45:00 25.82 kg/m2 [facility] Procedures Procedure Date / Time Performing Source Performed Clinician DAY SURGERY - [facility] 2019-11-24 Doctor Unassigned, [facility] 05:01:00 [place] [facility] CONSENT/REFUSAL FOR DIAGNOSIS 2019-11-23 Doctor Unassigned, [facility] AND TREATMENT 14:30:27 [place] [facility] ASSIGNMENT OF BENEFITS 2019-11-23 Doctor Unassigned, [facility] 14:29:17 [place] [facility] CONSENT/REFUSAL FOR DIAGNOSIS 2019-11-17 Doctor Unassigned, [facility] AND TREATMENT 16:52:25 [place] [facility] ASSIGNMENT OF BENEFITS 2019-11-17 Doctor Unassigned, [facility] 16:51:57 [place] [facility] CONSENT/REFUSAL FOR DIAGNOSIS 2019-11-17 Doctor Unassigned, [facility] AND TREATMENT 16:51:24 [place] [facility] ASSIGNMENT OF BENEFITS 2019-11-17 Doctor Unassigned, [facility] 16:50:57 [place] [facility] PHYSICIAN ORDERS 2019-11-17 Doctor Unassigned, [facility] 05:01:00 [place] [facility] PHACOEMULSIFICATION OF 2019-10-20 Barney Bravo [facility] CATARACT WITH INTRAOCULAR 14:58:00 Medica l [place] LENS IMPLANT PATIENT QUESTIONNAIRE 2019-10-20 Doctor Unassigned, [facility] 05:01:00 [place] [facility] DAY SURGERY - [facility] 2019-10-20 Doctor Unassigned, [facility] 05:01:00 [place] [facility] COVID-19 (ID NOW RAPID 2019-10-19 Barney Bravo [facility] TESTING) 15:10:00 Medical Branch NOTICE OF BILLING PRACTICES 2019-10-15 Doctor Unassigned, [facility] FOR MEDICARE PATIENTS 17:37:32 [place] Medical Br anch [facility] PATIENT FINANCIAL POLICY 2019-10-15 Doctor Unassigned, [facility] 17:05:49 [place] [facility] NO SHOW OR MISSED APPOINTMENT 2019-10-15 Doctor Unassigned, [facility] POLICY ACKNOWLEDGEMENT 17:05:23 [facility] Medical B ranch NOTICE OF PRIVACY PRACTICES 2019-10-15 Doctor Unassigned, [facility] 17:05:08 [place] [facility] CONSENT/REFUSAL FOR DIAGNOSIS 2019-10-15 Doctor Unassigned, [facility] AND TREATMENT 17:04:51 [place] [facility] CONSENT/REFUSAL FOR DIAGNOSIS 2019-10-15 Doctor Unassigned, [facility] AND TREATMENT 17:04:33 [place] [facility] ASSIGNMENT OF BENEFITS 2019-10-15 Doctor Unassigned, [facility] 17:04:18 [place] [facility] ASSIGNMENT OF BENEFITS 2019-10-15 Doctor Unassigned, [facility] 17:04:02 [place] [facility] Encounters Start End Encounter Admission Attending Care Care Encounter Source Date/Time Date/Time Type Type Clinicians Facility Department ID 2022-05-08 Outpatient Macdonald, STLMLC [facility] [id number] Common 10:57:02 [facility] [address] [facility] 2022-04-12 Outpatient Macdonald, STLMLC [facility] [id number] Common 09:08:02 [facility] [address] [facility] 2022-01-31 [facility] [id number] Common 11:26:02 Layo [facility] 2022-01-25 [facility]onald[facility] [id number] Common 09:46:01 [facility] 2021-08-22 [facility] 10:19:02 [facility] 2021-05-31 Outpatient Macdonald, STLMLC [facility] [id number] Common 09:49:01 [facility] 2021-05-23 Outpatient Macdonald, STLMLC [facility] [id number] Common 14:11:54 [facility] 2021-05-23 [facility]onald[facility] [id number] Common 13:55:47 [facility] 2021-05-23 Outpatient Macdonald, [facility] [id number] Common 13:20:25 Layo [id number] [facility] 2021-05-23 Outpatient Macdonald, [facility] Common 13:19:55 Layo [id number] [facility] 2021-05-23 Outpatient Macdonald, STLC [facility] Common 13:19:14 Layo [address] [facility] 2021-05-23 Outpatient Macdonald, STLC [facility] Common 12:41:44 Layo [address] [facility] 2021-05-23 [facility] Common 12:31:34 Layo [id number] [facility] 2021-02-23 [facility] [id number] Univers 07:58:51 BARNEY [facility] 2021-02-23 Outpatient Nabeel BRAVO [facility] [id number] Univers 01:51:41 BARNEY [facility] 2022-04-01 2022-04-01 Outpatient ZOLTAN Kiser [id number] [facility] 12:00:00 12:00:00 Yady 22 [facility] 2021-03-28 2021-03-28 Outpatient ZOLTAN Kiser [id number] [facility] 12:00:00 12:00:00 Yady 52 [facility] 2020-06-20 2020-06-20 Outpatient Nabeel GUTIERREZ [facility] [id number] Univers 14:30:00 14:30:00 YAMIL grijalva [facility] 2020-05-30 2020-05-30 Telephone Freedom [facility] [id number] Univers 00:00:00 00:00:00 Vanda Thomas [id number] ity [place] [id number] [place] Profess[place] [phone] [address] 2020-05-27 2020-05-27 Nurse MAGDALENO Scott [id number] Univers 00:00:00 00:00:00 Triage Whitney Marley NICHOLE [id number] i ty [facility] [id number] Bharat as [phone] [address] 2020-05-27 2020-05-27 MAGDALENO Myrick [id number] 00:00:00 00:00:00 Triage Whitney Marley NICHOLE [id number] [facility] [id number] [facility] 2020-05-26 2020-05-26 Outpatient R [facility] [id number] Univers 10:20:00 10:20:00 ity of [facility] 2020-05-25 2020-05-25 Outpatient R FREEDOM [facility] [id number] Univers 19:00:00 19:00:00 VANDA grijalva [facility] 2020-05-25 2020-05-25 Laboratory Lab, [facility] Fam [facility] I [facility] [id number] Univers 18:25:25 18:45:25 Only Vanda [facility] [id number] ity of [place] [id number] Bharat as Professio [phone] [address] 2020-05-25 2020-05-25 Laboratory Lab, [facility] [id number] 18:25:25 18:45:25 Only Rob [facility] [id number] [place] 4.2.7.2.686 Professio [phone] [facility] 044 Office [address] One 2020-05-25 2020-05-25 Letter Doctor MAGDALENO [id number] Univers 00:00:00 00:00:00 (Out) Unassigned, NICHOLE 350.1.13.10 [facility] [place] [facility] 4.2.7.2.686 Bharat as [phone] [facility] 044 [place] 2020-05-25 2020-05-25 Letter Doctor MAGDALENO [id number] 00:00:00 00:00:00 (Out) Unassigned, [place] 350.1.13.10 [facility] 4.2.7.2.686 [phone] [facility] 2020-01-07 2020-01-07 Outpatient CLARISSE Huynh [facility] [id number] [facility] 12:00:00 12:00:[address] [place] [address] 2019-11-24 2019-11-24 [facility] [id number] [facility] 09:50:00 13:50:00 Encounter Barney Thomas [id number] ity [place].2.[place] [id number] [address] 2019-11-24 2019-11-24 [facility] [id number] 09:50:00 13:50:00 Encounter Barney Thomas 350.1.13.10 [place] 4.2.7.2.686 Surgical [id number] [place] [address] 2019-11-24 2019-11-24 Orders Doctor MAGDALENO 1.2.840.114 [id number] Univers 00:00:00 00:00:00 Only Unassigned, NICHOLE 350.1.13.10 [facility] [place] [facility] 4.2.7.2.686 Bharat as [phone] [facility] 009 [place] 2019-11-24 2019-11-24 Orders Doctor DOLAN 1.2.840.114 [id number] 00:00:00 00:00:00 Only Unassigned, [place] 350.1.13.10 [place] 4.2.7.2.686 [id number] 2019-11-23 2019-11-23 [facility] [id number] Univers 10:00:00 10:00:00 BARNEY ity [facility] 2019-11-23 2019-11-23 Laboratory Only, [facility] Test [facility] 1.2.840. 114 [id number] Univers 09:30:39 09:45:39 Only Barney Bravo [place] 350.1.13.1 0 [place] [id number] [address] 2019-11-23 2019-11-23 Laboratory Only, [facility] 1.2.840.114 [id number] 09:30:39 09:45:39 Only Test [place] 350.1.13.10 [place] 4.2.7.2.686 [place] [id number] [facility] 2019-11-17 2019-11-17 Outpatient R [facility] [id number] Univers 12:15:00 12:15:00 ity [facility] 2019-11-17 2019-11-17 Senior Systems Analyst [place], [facility] Lab Main [facility] 1.2.8 40.114 [id number] Univers 11:59:38 12:14:38 Visit Barney Bravo [place] 350.1.13.1 0 [place]2.[place].2.[place] [phone] Vt dical [address] 2019-11-17 2019-11-17 Senior Systems Analyst [place], [facility] 1.2.840.114 [id number] 11:59:38 12:14:38 Visit Lab Main [place] 350.1.13.10 [place] 4.2.7.2.686 Professio [id number] [address] 2019-10-20 2019-10-20 [facility] [id number] Univers 08:07:29 11:20:00 Encounter Barney Sylvia [place] 350.1.13.10 it[place].2.[place] [id number] [address] 2019-10-20 2019-10-20 [facility] [id number] 08:07:29 11:20:00 Encounter Barney Thomas 350.1.13.10 [place] 4.2.7.2.686 [facility] [phone] [place] 020 2019-10-19 2019-10-19 Outpatient Nabeel BRAVO [facility] [id number] Univers 10:15:00 10:15:00 [facility] 2019-10-19 2019-10-19 Laboratory Only, [facility] Test [facility] 1.2.840. 114 [id number] [facility] 09:57:46 10:12:46 Only Barney Bravo 350.1.13.1 0 [facility] 4.2.7.2.686 [facility] [id number] [address] 2019-10-19 2019-10-19 Laboratory Only, [facility] 1.2.840.114 [id number] 09:57:46 10:12:46 Only Test [place] 350.1.13.10 [place] 4.2.7.2.686 [place] [id number] [facility] 2019-10-15 2019-10-15 Outpatient Nabeel BRAVO [facility] [id number] [facility] 12:00:00 12:00:00 [facility] Results Test Description Test Time Test Comments Results Result Comments Source COVID-19 (ID NOW RAPID TESTING) 2019-10-19 15:39:00 Test Item Value Reference Range Interpretation Comme nts SARS-CoV-2 Rapid ID NOW (test code Not Detected Not Detected = 16893-1) BELEN (test code = BELEN) ID NOW COVID-19 Assay is an isothermal nucleic acid amplification test intended for the qualitative detection of nucleic acid from SARS-CoV-2 viral RNA in nasopharyngeal (PUBLICITY PERSON) specimens. It is used under Emergency Use [...] indicated. Lab Interpretation (test code = Normal 90394-9) [facility]
[2022-10-09 11:15] LABS: Absolute Lymphocytes (CBC) 1.3 K/uL (0.7-4.9); Hematocrit 39.7 % (36.0-45.0); Lymphocytes % 16.8 % (15.3-44.8); MCV 94.2 fL (80-100); MPV 7.4 fL (7.6-11.3); RBC Red Blood Cell Count 4.21 M/uL (3.86-4.86)
[2022-10-09 11:16] LABS: Protime INR 0.94
--- NOTE | 2022-10-09 11:21 | RAD REPORT ---
EXAM DESCRIPTION: Samia Single View10/09/2022 11:02 am CLINICAL HISTORY: Dizziness COMPARISON: 2021 FINDINGS: The lungs appear clear of acute infiltrate. The heart is normal size IMPRESSION: No acute abnormalities displayed
[2022-10-09 11:32] LABS: Albumin 3.4 g/dL (3.4-5.0); Bilirubin Direct 0.1 mg/dL (0-0.2); Bilirubin Indirect, Calculated 0.4 mg/dL (0.2-0.8); Bilirubin Total 0.5 mg/dL (0.2-1.0); Potassium 3.6 mEq/L (3.5-5.1); Protein, Total 6.6 g/dL (6.4-8.2); Troponin High Sensitivity 7.2 pg/mL (<58.9)
--- NOTE | 2022-10-09 12:09 | RAD REPORT ---
EXAM DESCRIPTION: CT - Head Brain Wo Cont - 10/09/2022 12:00 pm CLINICAL HISTORY: Dizziness COMPARISON: None TECHNIQUE: Computed axial tomography of the head was obtained. IV contrast was not requested. All CT scans are performed using dose optimization technique as appropriate and may include automated exposure control or mA/KV adjustment according to patient size. FINDINGS: An intracranial bleed is not seen The ventricles are normal in caliber No extra-axial fluid collection is noted. No significant hypodensity within the brain is seen Fluid within the sinuses/ mastoids is not seen. IMPRESSION: No acute intracranial abnormality is seen If patient's symptoms persist MRI of the brain would be recommended
--- NOTE | 2022-10-09 12:12 | RAD REPORT ---
EXAM DESCRIPTION: Janiya Angio10/09/2022 12:03 pm CLINICAL HISTORY: Dizziness COMPARISON: None TECHNIQUE: 100 cc Isovue 370 was administered intravenously. 3D MIP reconstruction performed All CT scans are performed using dose optimization technique as appropriate and may include automated exposure control or mA/KV adjustment according to patient size. FINDINGS: Mild plaque within the carotid bulb and internal carotid arteries bilaterally Common and external carotid arteries unremarkable The vertebral arteries are codominant. No significant stenosis seen. No dissection noted IMPRESSION: Mild plaque within the carotid bulb and internal carotid arteries bilaterally NASCET criteria used. Mild 0-49% stenosis Moderate 50-69% stenosis Severe 70-99% stenosis
--- NOTE | 2022-10-09 12:14 | RAD REPORT ---
EXAM DESCRIPTION: CTHead angio10/09/2022 12:03 pm CLINICAL HISTORY: Slurred speech COMPARISON: None TECHNIQUE: 100 cc Isovue [address] angiogram of the head was obtained. 3D MIPS reconstruction performed. All CT scans are performed using dose optimization technique as appropriate and may include automated exposure control or mA/KV adjustment according to patient size. FINDINGS: The basilar, anterior cerebral, middle cerebral and posterior cerebral arteries do not dem onstrate a large vessel occlusion origin posterior cerebral arteries An aneurysm is not seen A significant stenosis is not noted. IMPRESSION: No significant abnormality is displayed
--- NOTE | 2022-10-09 12:21 | EDPHYS ---
Physician Documentation [facility] Name: Mia Mayer Age: 76 yrs Sex: Female : 1945 Arrival Date: 10/09/2022 Time: 10:25 Bed 14 Private MD: ED Physician Lola Macdonald HPI: 10/09 10:36 This 76 yrs old Female presents to ER via Ambulatory with complaints of Dizziness. snw 10:36 The patient presents with lightheadedness, a sense of confusion, sense of spinning. snw Onset: The symptoms/episode began/occurred 1 week(s) ago, and became worse this morning, and became persistent. Context: occurred while the patient was getting up in the night to urinate. just prior to the episode the patient experienced lightheadedness. Associated signs and symptoms: Pertinent positives:. Patient's baseline: Neuro: alert and fully oriented, Motor: no deficits, Ambulation: walks without assistance, Speech: normal, The patient has a previous history of vertigo. The patient has experienced similar episodes in the past. appt with PCP, Dr. Macdonald, scheduled for tomorrow. Labs 6mo ago and again last week. Historical: - Allergies: 10:31 Morphine; db - Immunization history:: Adult Immunizations unknown, Client reports receiving the 2nd dose of the Covid vaccine. - Social history:: Smoking status: Patient denies any tobacco usage or history of. ROS: 10:35 Eyes: Negative for injury, pain, redness, and discharge, ENT: Negative for injury, snw pain, and discharge, Neck: Negative for injury, pain, and swelling. 10:35 Respiratory: Negative for shortness of breath, cough, wheezing, and pleuritic chest pain, Abdomen/GI: Negative for abdominal pain, nausea, vomiting, diarrhea, and constipation, Back: Negative for injury and pain, : Negative for injury, bleeding, discharge, and swelling, MS/Extremity: Negative for injury and deformity, Skin: Negative for injury, rash, and discoloration, Psych: Negative for depression, anxiety, suicide ideation, homicidal ideation, and hallucinations. 10:35 Constitutional: Positive for malaise. 10:35 Cardiovascular: Positive for broke out in a sweat today taking the trash out. 10:35 Neuro: Positive for "confusion" over the past week, awoke this am with some vertigo. Pt states three vertiginous mornings this week. Exam: 10:34 Constitutional: This is a well developed, well nourished patient who is awake, alert, snw and in no acute distress. Head/Face: Normocephalic, atraumatic. Eyes: Pupils equal round and reactive to light, extra-ocular motions intact. Lids and lashes normal. Conjunctiva and sclera are non-icteric and not injected. Cornea within normal limits. Periorbital areas with no swelling, redness, or edema. ENT: Nares patent. No nasal discharge, no septal abnormalities noted. Tympanic membranes are normal and external auditory canals are clear. Oropharynx with no redness, swelling, or masses, exudates, or evidence of obstruction, uvula midline. Mucous membranes moist. Neck: Trachea midline, no thyromegaly or masses palpated, and no cervical lymphadenopathy. Supple, full range of motion without nuchal rigidity, or vertebral point tenderness. No Meningismus. Chest/axilla: Normal chest wall appearance and motion. Nontender with no deformity. No lesions are appreciated. Cardiovascular: Regular rate and rhythm with a normal S1 and S2. No gallops, murmurs, or rubs. Normal PMI, no JVD. No pulse deficits. Respiratory: Lungs have equal breath sounds bilaterally, clear to auscultation and percussion. No rales, rhonchi or wheezes noted. No increased work of breathing, no retractions or nasal flaring. Abdomen/GI: Soft, non-tender, with normal bowel sounds. No distension or tympany. No guarding or rebound. No evidence of tenderness throughout. Back: No spinal tenderness. No costovertebral tenderness. Full range of motion. Skin: Warm, dry with normal turgor. Normal color with no rashes, no lesions, and no evidence of cellulitis. MS/ Extremity: Pulses equal, no cyanosis. Neurovascular intact. Full, normal range of motion. Neuro: Awake and alert, GCS 15, oriented to person, place, time, and situation. Cranial nerves II-XII grossly intact. Motor strength 5/5 in all extremities. Sensory grossly intact. Cerebellar exam normal. Normal gait. Psych: Awake, alert, with orientation to person, place and time. Behavior, mood, and affect are within normal limits. Vital Signs: 10:29 BP 108 / 80; Pulse 73; Resp 18; Temp 98.3; Pulse Ox 99% ; Weight 69.4 kg; Height 5 ft. db 6 in. ; 11:00 BP 146 / 75; Pulse 71; Resp 18; Pulse Ox 100% on R/A; db 11:30 BP 149 / 80; Pulse 71; Resp 16 S; Pulse Ox 99% ; db 12:30 BP 151 / 79; Pulse 67; Resp 16; Pulse Ox 100% on R/A; db 10:29 Body Mass Index 24.69 (69.40 kg, 167.64 cm) db MDM: 10:29 Patient medically screened. snw 12:17 Differential diagnosis: cardiac arrhythmia, generalized weakness. Data reviewed: vital snw signs, nurses notes. Counseling: I had a detailed discussion with the patient and/or guardian regarding: the historical points, exam findings, and any diagnostic results supporting the discharge/admit diagnosis, the presence of at least one elevated blood pressure reading (>120/80) during this emergency department visit, lab results, radiology results, the need for outpatient follow up, for definitive care, to return to the emergency department if symptoms worsen or persist or if there are any questions or concerns that arise at home. Special discussion: Based on the history and exam findings, there is no indication for further emergent testing or inpatient evaluation. I discussed with the patient/guardian the need to see the primary care provider for further evaluation of the symptoms. 10/09 10:32 Order name: Basic Metabolic Panel; Complete Time: 11:35 snw 10/09 10:32 Order name: CBC with Diff; Complete Time: 11:35 w 10/09 10:32 Order name: LFT's; Complete Time: 11:35 snw 10/09 10:32 Order name: Magnesium; Complete Time: 11:35 snw 10/09 10:32 Order name: NT PRO-BNP; Complete Time: 11:35 snw 10/09 10:32 Order name: PT-INR; Complete Time: 11:35 snw 10/09 10:32 Order name: Troponin HS; Complete Time: 11:35 snw 10/09 10:32 Order name: XRAY Chest (1 view); Complete Time: 11:35 snw 10/09 10:32 Order name: CT Head Brain wo Cont; Complete Time: 12:16 snw 10/09 10:32 Order name: CT Head Angio; Complete Time: 12:16 snw 10/09 10:32 Order name: CT Neck Angio; Complete Time: 12:16 snw 10/09 10:32 Order name: EKG; Complete Time: 10:32 snw 10/09 10:32 Order name: Cardiac monitoring; Complete Time: 12:41 snw 10/09 10:32 Order name: EKG - Nurse/Tech; Complete Time: 12:41 snw 10/09 10:32 Order name: IV Saline Lock; Complete Time: 12:41 snw 10/09 10:32 Order name: Labs collected and sent; Complete Time: 12:41 snw 10/09 10:32 Order name: O2 Per Protocol; Complete Time: 12:41 snw 10/09 10:32 Order name: O2 Sat Monitoring; Complete Time: 12:41 snw EC:50 Rate is 67 beats/min. Rhythm is regular. QRS [place] is Normal. QRS interval is normal. QT snw interval is normal. Clinical impression: Normal ECG. Administered Medications: 12:35 Drug: Meclizine PO 50 mg Route: PO; db 13:11 Follow up: Response: No adverse reaction db Disposition Summary: 10/09/22 12:20 Discharge Ordered Location: Home snw Condition: Stable snw Diagnosis - Dizziness and giddiness snw - Other peripheral vertigo snw Followup: snw - With: Emergency Department - When: As needed - Reason: Worsening of condition Followup: snw - With: Private Physician - When: 2 - 3 days - Reason: Recheck today's complaints, Continuance of care, Re-evaluation by your physician Discharge Instructions: - Discharge Summary Sheet snw - Dizziness snw - Vertigo snw - How to Perform the Janna Maneuver snw Forms: - Medication Reconciliation Form snw - Thank You Letter snw - Antibiotic Education snw - Prescription Opioid Use snw Prescriptions: - Meclizine 25 mg Oral Tablet - take 1 tablet by ORAL route every 8 hours As needed; 30 tablet; Refills: 0, snw Product Selection Permitted Signatures: Dispatcher [employer] Jodie Elise, ALIZA-C XRAY TECH-Csnw Maxine Heredia RN RN db
--- NOTE | 2022-10-09 12:21 | ER ---
Nurse's Notes [facility] Name: Mia Mayer Age: 76 yrs Sex: Female : 1945 Arrival Date: 10/09/2022 Time: 10:25 Bed 14 Private MD: Diagnosis: Dizziness and giddiness;Other peripheral vertigo Presentation: 10/09 10:29 Chief complaint: Patient states: complains of dizziness started this AM. Coronavirus db screen: Vaccine status: Patient reports receiving the 2nd dose of the covid vaccine. Client denies travel out of the [place] in the last 14 days. At this time, the client does not indicate any symptoms associated with coronavirus-19. Ebola Screen: Patient negative for fever greater than or equal to 101.5 degrees Fahrenheit, and additional compatible Ebola Virus Disease symptoms Patient denies exposure to infectious person. Patient denies travel to an Ebola-affected area in the 21 days before illness onset. No symptoms or risks identified at this time. Initial Sepsis Screen: Does the patient meet any 2 criteria? No. Patient's initial sepsis screen is negative. Does the patient have a suspected source of infection? No. Patient's initial sepsis screen is negative. Risk Assessment: Do you want to hurt yourself or someone else? Patient reports no desire to harm self or others. Onset of symptoms was October 09, 2022. 10:29 Method Of Arrival: Ambulatory db 10:29 Acuity: KIM 2 db Triage Assessment: 10:31 General: Appears in no apparent distress. comfortable, Behavior is calm, cooperative. db Pain: Denies pain. Historical: - Allergies: 10:31 Morphine; db - Immunization history:: Adult Immunizations unknown, Client reports receiving the 2nd dose of the Covid vaccine. - Social history:: Smoking status: Patient denies any tobacco usage or history of. Screenin:00 [facility] ED Fall Risk Assessment (Adult) History of falling in the last 3 months, db including since admission No falls in past 3 months (0 pts) Confusion or Disorientation No (0 pts) Intoxicated or Sedated No (0 pts) Impaired Gait No (0 pts) Mobility Assist Device Used No (0 pt) Altered Elimination No (0 pt) Score/Fall Risk Level 0 - 2 = Low Risk Oriented to surroundings, Maintained a safe environment. Abuse screen: Denies threats or abuse. Denies injuries from another. Nutritional screening: No deficits noted. Tuberculosis screening: No symptoms or risk factors identified. Assessment: 11:08 Reassessment: Patient appears in no apparent distress at this time. Patient and/or db family updated on plan of care and expected duration. Pain level reassessed. Patient is alert, oriented x 3, equal unlabored respirations, skin warm/dry/pink. dizziness. General: Appears in no apparent distress. comfortable, Behavior is calm, cooperative. 12:07 Reassessment: patient returned to room from CT. db 12:07 Reassessment: Patient appears in no apparent distress at this time. Patient and/or db family updated on plan of care and expected duration. Pain level reassessed. Patient is alert, oriented x 3, equal unlabored respirations, skin warm/dry/pink. 12:40 Reassessment: Patient appears in no apparent distress at this time. Patient and/or db family updated on plan of care and expected duration. Pain level reassessed. Patient is alert, oriented x 3, equal unlabored respirations, skin warm/dry/pink. General: Appears in no apparent distress. comfortable. Vital Signs: 10:29 BP 108 / 80; Pulse 73; Resp 18; Temp 98.3; Pulse Ox 99% ; Weight 69.4 kg; Height 5 ft. db 6 in. ; 11:00 BP 146 / 75; Pulse 71; Resp 18; Pulse Ox 100% on R/A; db 11:30 BP 149 / 80; Pulse 71; Resp 16 S; Pulse Ox 99% ; db 12:30 BP 151 / 79; Pulse 67; Resp 16; Pulse Ox 100% on R/A; db 10:29 Body Mass Index 24.69 (69.40 kg, 167.64 cm) db ED Course: 10:27 Patient arrived in ED. db 10:27 Lola Macdonald MD is Attending Physician. sp3 10:29 Jodie Troy FNP-C [facility]. snw 10:31 Triage completed. db 10:31 Arm band placed on Patient placed in an exam room. db 10:40 aMxine Heredia, COLLETTE is Primary Nurse. db 11:03 Inserted saline lock: 20 gauge in right antecubital area, using aseptic technique. db Blood collected. 11:04 XRAY Chest (1 view) In Process Unspecified. EDMS 12:02 CT Head Brain wo Cont In Process Unspecified. EDMS 12:04 CT Head Angio In Process Unspecified. EDMS 12:04 CT Neck Angio In Process Unspecified. EDMS 12:30 IV discontinued, intact, bleeding controlled, No redness/swelling at site. db 13:13 Patient has correct armband on for positive identification. Bed in low position. Call db light in reach. Side rails up X 1. Client placed on continuous cardiac and pulse oximetry monitoring. NIBP monitoring applied. Warm blanket given. 13:13 No provider procedures requiring assistance completed. db Administered Medications: 12:35 Drug: Meclizine PO 50 mg Route: PO; db 13:11 Follow up: Response: No adverse reaction db Medication: 13:13 VIS not applicable for this client. db Outcome: 12:20 Discharge ordered by . snw 12:30 Discharged to home ambulatory. db 12:30 Condition: stable 12:45 Discharge instructions given to patient, Instructed on discharge instructions, follow db up and referral plans. Prescriptions given X 1. 13:14 Patient left the ED. db Signatures: Dispatcher [employer] EDJodie Singh, CUSTOMER SERVICE CASHIER-C CUSTOMER SERVICE CASHIER-Csnw Lola Macdonald MD MD sp3 Maxine Heredia, RN RN db
[2022-10-09] MEDS ORDERED: MECLIZINE HCL 12.5 MG TAB ONE (12:43)
[2022-10-09 13:29] VITALS: TEMP 98.3
[2022-10-09 13:41] VITALS: BP 151/79; O2SAT 100
--- NOTE | 2022-10-10 13:57 | EKG ---
Test Date: 2022-10-09 Test Time: 10:48:27 Hands Assembler: TESSA MEASUREMENT RESULTS: Intervals: Rate: 67 IL: 156 QRSD: 82 QT: 392 QTc: 414 [place]: P: 49 IL: 156 QRS: 47 T: 59 INTERPRETIVE STATEMENTS: Normal sinus rhythm Normal ECG No previous ECG available for comparison Electronically Signed On 10-10-22 13:55:24 CDT by Lucian Reyes
== END 2022-10-09 13:14 | disposition home or self-care (01) ==
LOC: ER 10:25
DX: H81.399 Other peripheral vertigo, unspecified ear (principal); Z88.5 Allergy status to narcotic agent
CPT/HCPCS: 93005; 85025; 80048; 36415; 83735; 85610; 80076; 84484; 83880; 70450; 70496; 70498; 71045; 99284; Q9967; J8597

== ENCOUNTER 2023-03-10 07:19 | Emergency (ER) | payer OTHER ==
--- OUTSIDE RECORDS SUMMARY | 2023-03-10 07:23 | XMS REPORT | Continuity of Care Document ---
:1945 Author Organization [facility] t Address [address] [place] [address] [place] [id number] Care Team Providers Name Role Phone Torres Layo Diamond Attending Clinician Unavailable BARNEY BRAVO Attending Clinician Unavailable Yady Huynh Attending Clinician Unavailable YAMIL GUTIERREZ Attending Clinician Unavailable Vanda Golden Attending Clinician Whitney Scott RN Attending Clinician Unavailable VANDA LOJA Attending Clinician Unavailable Lab, Adc Fam Pob I Attending Clinician Unavailable Doctor Unassigned, [place] Attending Clinician Unavailable Barney Bravo MD Attending Clinician Only, Adc Test Attending Clinician Unavailable Pob, Adc Lab Main Attending Clinician Unavailable BARNEY BRAVO Admitting Clinician Unavailable Yady Huynh Admitting Clinician Unavailable Physician, No Primary or Family Admitting Clinician Barney Jones MD Admitting Clinician Payers Payer Name Policy Type Policy Number Effective Date Expiration Date S jalyn [employer] MEDICARE ADV [id number] 2019 00:00:00 Problems This patient has no known problems. Allergies, Adverse Reactions, Alerts Allergy Allergy Status Severity Reaction(s) Onset Inactive Treating Comm ents Source Name Type Date Date Clinician MORPHINE DRUG Active Hallucinates 2019-0 Un svetlana INGREDI 6- ity of 00:00: [place] 00 Medical Branch Morphine Propensi Active Hallucinatio 2019-0 Univers ty to ns 6- ity of adverse 00:00: [place] reaction 00 Medical s Branch NO KNOWN Drug Active Univers ALLERGIE Class ity of S [facility] Social History Social Habit Start Date Stop Date Quantity Comments Source Sex Assigned At [facility] Medical Branch Exposure to [facility] sure [facility] SARS-CoV-2 (event) Medica l Branch Tobacco use and 2019-11-25 2019-11-25 Never used [facility] exposure 00:00:00 00:00:00 Medical Branch Smoking Status Start Date Stop Date Source Never smoker [facility] Medications Ordered Filled Start Stop Current Ordering Indication Dosage Frequency Signature Comments Components Source Medication Medication Date Date Medication? Clinician (SIG) Name Name zolpidem 10 2019- Yes 10mg Take 10 mg Univers mg tablet 7-29 by mouth ity of 18:58: at bedtime [place] [address] as needed Medical for Branch Insomnia. ramipril 2019-0 Yes 5mg Take 5 mg Univ ers (ALTACE) 5 7-29 by mouth 2 ity of mg capsule 18:58: (two) [place] [address] times Medical daily. Branch rosuvastati 2019-0 Yes [...] ity o f mg tablet 18:58: daily. [place] [address] Medical Branch FLUoxetine 2019-0 Yes 20mg Take 20 mg U nivers (PROZAC) 20 7-29 by mouth 3 [place] of mg capsule 18:58: (three[place] daily. Branch raloxifene 2020-0 Yes 60mg Take 60 mg U nivers (EVISTA) 60 7- by mouth ity of mg tablet 18:58: daily. [place] [address] Medical Branch alendronate 2020-0 Yes 70mg Take 70 mg Univers 70 mg 7-29 by mouth ity of tablet 18:58: weekly. [place] [address] Medical Branch levocetiriz 2020-0 Yes 5mg Take 5 mg U nivers ine (XYZAL) 7- by mouth ity of 5 mg tablet 18:58: every [place] [address] evening. Medical Branch zolpidem 10 2020-0 Yes 10mg Take 10 mg Univers mg tablet 7- by mouth ity of 18:58: at bedtime [place] [address] as needed Medical for Branch Insomnia. ramipril 2020-0 Yes 5mg Take 5 mg Univ ers (ALTACE) 5 - by mouth 2 ity of mg capsule 18:58: (two) [place] [address] times Medical daily. Branch rosuvastati 2020-0 Yes 10mg Take 10 mg Univers n (CRESTOR) 11-23 by mouth ity of 10 mg 18:58: [...] ity o f mg tablet 18:58: daily. [place] [address] Medical Branch FLUoxetine 2020-0 Yes 20mg Take 20 mg U nivers (PROZAC) 20 7-29 by mouth 3 it y of mg capsule 18:58: (three[place] Medical daily. Branch raloxifene 2020-0 Yes 60mg Take 60 mg U nivers (EVISTA) 60 7-29 by mouth ity of mg tablet 18:58: daily. [place] [address] Medical Branch alendronate 2020-0 Yes 70mg Take 70 mg Univers 70 mg 7-29 by mouth ity of tablet 18:58: weekly. [place] [address] Medical Branch levocetiriz 2020-0 Yes 5mg Take 5 mg U nivers ine (XYZAL) 7-29 by mouth ity of 5 mg tablet 18:58: every [place] evening. Medical Branch zolpidem 10 2020-0 Yes 10mg Take 10 mg Univers mg tablet 7-29 by mouth ity of 18:58: at bedtime [place] [address] as needed Medical for Branch Insomnia. ramipril [...] [place] ALGAL OIL,) 33 daily. Medica l -.314 Branch mg Cap levothyroxi 2020-0 Yes .05mg Take 0.05 Univers ne 50 mcg 7-29 mg by ity of tablet 18:58: mouth [place] every Medical morning. Branch oxybutynin 2020-0 Yes 5mg Take 5 mg Un svetlana chloride 5 7- by mouth ity o f mg tablet 18:58: daily. [place] [address] Medical Branch FLUoxetine 2020-0 Yes 20mg Take 20 mg U nivers (PROZAC) 20 7-29 by mouth 3 it y of mg capsule 18:58: (three) [place] times Medical daily. Branch raloxifene 2020-0 Yes 60mg Take 60 mg U nivers (EVISTA) 60 7-29 by mouth ity of mg tablet 18:58: daily. [place] [address] Medical Branch alendronate 2020-0 Yes 70mg Take 70 mg Univers 70 mg 7-29 by mouth ity of tablet 18:58: weekly. [place] [address] Medical Branch levocetiriz 2020-0 Yes 5mg Take 5 mg U nivers ine (XYZAL) 7-29 by mouth ity of 5 mg tablet 18:58: every [place] 33 evening. Medical Branch zolpidem 10 2019-0 Yes 10mg Take 10 mg Univers mg tablet 7-29 by mouth ity of 18:58: at bedtime [place] [address] as needed Medical for Branch Insomnia. ramipril [...] ity o f mg tablet 18:58: daily. [place] [address] Medical Branch FLUoxetine 2020-0 Yes 20mg Take 20 mg U nivers (PROZAC) 20 7-29 by mouth 3 it y of mg capsule 18:58: (three) [place] times Medical daily. Branch raloxifene 2019-0 Yes 60mg Take 60 mg U nivers (EVISTA) 60 7-29 by mouth ity of mg tablet 18:58: daily. [place] [address] Medical Branch alendronate 2020-0 Yes 70mg Take 70 mg Univers 70 mg 7-29 by mouth ity of tablet 18:58: weekly. [place] [address] Medical Branch levocetiriz 2020-0 Yes 5mg Take 5 mg U nivers ine (XYZAL) 7-29 by mouth ity of 5 mg tablet 18:58: every [place] evening. Medical Branch zolpidem 10 2019-0 Yes 10mg Take 10 mg Univers mg tablet 7-29 by mouth ity of 18:58: at bedtime [place] [address] as needed Medical for Branch Insomnia. ramipril [...] ity o f mg tablet 18:58: daily. [place] [address] Medical Branch FLUoxetine 2020-0 Yes 20mg Take 20 mg U nivers (PROZAC) 20 7-29 by mouth 3 it y of mg capsule 18:58: (three) [place] times Medical daily. Branch raloxifene 2020-0 Yes 60mg Take 60 mg U nivers (EVISTA) 60 7-29 by mouth ity of mg tablet 18:58: daily. [place] [address] Medical Branch alendronate 2020-0 Yes 70mg Take 70 mg Univers 70 mg 7-29 by mouth ity of tablet 18:58: weekly. [place] [address] Medical Branch levocetiriz 2020-0 Yes 5mg Take 5 mg U nivers ine (XYZAL) 7-29 by mouth ity of 5 mg tablet 18:58: every [place] [address] evening. Medical Branch zolpidem 10 2020-0 Yes 10mg Take 10 mg Univers mg tablet 7-29 by mouth ity of 18:58: at bedtime [place] [address] as needed Medical for Branch Insomnia. ramipril [...] ity o f mg tablet 18:58: daily. [address] Branch FLUoxetine 2020-0 Yes 20mg Take 20 mg U nivers (PROZAC) 20 7- by mouth 3 it y of mg capsule 18:58: (three) [place] times Medical daily. Branch raloxifene 2020-0 Yes 60mg Take 60 mg U nivers (EVISTA) 60 7- by mouth ity of mg tablet 18:58: daily. [address] Branch alendronate 2020-0 Yes 70mg Take 70 mg Univers 70 mg 7- by mouth ity of tablet 18:58: weekly. [address] Branch levocetiriz 2020-0 Yes 5mg Take 5 mg U nivers ine (XYZAL) 11-23 by mouth ity of 5 mg tablet 18:58: every [place] [address] evening. Medical Branch lactated 2020-0 Yes 1000mL at 75 Univer s ringers IV 7-29 mL/hr, ity of infusion 18:45: 1,000 [place], [place] 1[place]000 [place] 00 IV Medical Infusion, Branch CONTINUOUS , Starting Fri11/24/19 at 1345, Until Discontinu ed, Routine, PACU sodium 2020-0 Yes PRN, Univers chloride 11-23 Starting ity of (NS) 18:04: Fri [place] injection 11/24/19 at Medi kike 1304, Branch Until Discontinu ed, Routine, Intra-op neomycin-po 2020-0 Yes PRN, Univer s lymyxin-dex 11-23 Starting ity of amethasone 18:04: Fri [place] (MAXITROL) 11/24/19 at Med ical 3.5 1304, Branch mg/g-10,000 Until unit/g-0.1 Discontinu % ed, ophthalmic Routine, ointment Intra-op water for 2020-0 Yes PRN, Univers irrigation 11-23 Starting ity o f irrigation 17:58: Fri solution 11/24/19 at Medic al 1258, Branch Until Discontinu ed, Routine, Intra-op Hyaluronida 2020-0 Yes PRN, Univer s se, Human 11-23 Starting ity of Recomb. 16:57: Fri (HYLENEX) 11/24/19 at [facility] kike injection 1157, Branch Until Discontinu ed, Routine, Intra-op gentamicin 2020-0 Yes PRN, Univers injection 11-23 Starting ity of 16:56: Fri11/24/19 at [facility] 1156, Branch Until Discontinu ed, MAKENNA, Intra-op eye block 2020-0 Yes PRN, Univers syringe 11 11-23 Starting ity o f mL 16:55: Fri11/24/19 at [facility] 1155, Branch Until Discontinu ed, Intra-op EPINEPHrine 2020-0 Yes PRN, Univer s 1:1,000 (1 11-23 Starting ity o f mg/mL) 16:54: Fri (ADRENALIN) 11/24/19 at [place] injection 1154, Branch Until Discontinu ed, Routine, Intra-op DUOVISC 2020-0 Yes PRN, Univers (DUOVISC 11-23 Starting ity of VISCO 16:54: Fri ELASTIC) 3 11/24/19 at [facility] ical %-4 %(0.5 1154, Branch mL) 1 % Until (0.55 mL) Discontinu intraocular ed, injection Routine, Intra-op dexamethaso 2020-0 Yes PRN, Univer s ne 11-23 Starting ity of (DECADRON 16:54: Fri PHOSPHATE) 11/24/19 at [facility] ical injection 1154, Branch Until Discontinu ed, Routine, Intra-op ceFAZolin 2020-0 Yes PRN, Univers (ANCEF) 11-23 Starting ity of injection 16:54: Fri11/24/19 at [facility] 1154, Branch Until Discontinu ed, MAKENNA, Intra-op carbachoL 2020-0 Yes PRN, Univers (MIOSTAT) 11-23 Starting ity of 0.01 % 16:54: Fri intraocular 00 11/24/19 at [place] injection 1154, Branch Until Discontinu ed, Routine, Intra-op balanced 2020-0 Yes PRN, Univers salt irrig 11-23 Starting ity o f soln comb1 16:53: Wed [place] (BSS PLUS) 00 11/24/19 at [facility] ica ophthalmic 1153, Branch solution Until 500 mL bag Discontinu ed, Routine, Intra-op mydriatic 2019-0 2020- No .5mL 0.5 mL, Univ ers #5 11-23 Left Eye, ity of ophthalmic 15:15: 15:26 ONCE, 1 Bharat as solution 00 :00 dose, Wed Medica l 0.5 mL 11/24/19 at [place] syringe 1015, Routine lactated 2020-0 2020- No 1000mL at 20 Unive rs ringers IV 11-23 mL/hr, ity of infusion 15:15: 15:26 1,000 mL, Bharat as 1,000 mL 00 :00 IV Medical Infusion, [place] ONCE, 1 dose, Fri11/24/19 at 1015, Routine, [...] mouth ity of mg tablet 22:38: daily. [place] [address] Medical Branch alendronate 2020-0 Yes 70mg Take 70 mg Univers 70 mg 7-27 by mouth ity of tablet 22:38: weekly. [place] [address] Medical Branch levocetiriz 2020-0 Yes 5mg Take 5 mg U nivers ine (XYZAL) 7-27 by mouth ity of 5 mg tablet 22:38: every [place] 50 evening. Medical Branch zolpidem 10 2020-0 [...] ity o f mg tablet 14:43: daily. [place] [address] Medical Branch FLUoxetine 2020-0 Yes 20mg Take 20 mg U nivers (PROZAC) 20 6-25 by mouth 3 it y of mg capsule 14:43: (three) [place] times Medical daily. Branch raloxifene 2020-0 Yes 60mg Take 60 mg U nivers (EVISTA) 60 6-25 by mouth ity of mg tablet 14:43: daily. [place] [address] Medical Branch alendronate 2020-0 Yes 70mg Take [...] ity o f mg tablet 14:43: daily. [place] [address] Medical Branch FLUoxetine 2020-0 Yes 20mg Take 20 mg U nivers (PROZAC) 20 6-25 by mouth 3 it y of mg capsule 14:43: (three) [place] 08 times Medical daily. Branch raloxifene 2020-0 Yes 60mg Take 60 mg U nivers (EVISTA) 60 6-25 by mouth ity of mg tablet 14:43: daily. [place] [address] Medical Branch alendronate 2020-0 Yes 70mg Take 70 mg Univers 70 mg 6-25 by mouth ity of tablet 14:43: weekly. Medical Branch levocetiriz 2020-0 Yes 5mg Take 5 mg U nivers ine (XYZAL) 6-25 by mouth ity of 5 mg tablet 14:43: every [place] 08 evening. [facility] lactated 2020-0 Yes 1000mL at 75 Univer [...] Starting ity o f irrigation 13:36: Fri solution 10/20/[address] Until Discontinu ed, Routine, Intra-op sodium 2020-0 Yes PRN, Univers chloride 10-19 Starting ity of (NS) 13:35: Fri injection 10/20/[address] Until Discontinu ed, Routine, Intra-op neomycin-po 2020-0 Yes PRN, [facility] s lymyxin-dex 10-19 Starting ity of amethasone 13:35: Fri (MAXITROL) 10/20/19 at [facility] ical [address] [place] [address] mg/g-10,000 Until unit/g-0.1 Discontinu % ed, ophthalmic Routine, ointment Intra-op Hyaluronida 2020-0 Yes PRN, Univ s se, Human 10-19 Starting ity of Recomb. 13:35: Fri (HYLENEX) 10/20/19 at [facility] injection [address] [place] [address] Until Discontinu ed, Routine, Intra-op gentamicin 2020-0 Yes PRN, Univers injection 10-19 Starting ity of 13:35: Fri [place] 10/20/[address] Until Discontinu ed, MAKENNA, Intra-op eye block 2020-0 Yes PRN, Univers syringe 11 10-19 Starting ity o f mL 13:35: Fri10/20/[address] Until Discontinu ed, Intra-op EPINEPHrine 2020-0 Yes PRN, Univer s 1:1,000 (1 10-19 Starting ity o f mg/mL) 13:34: Fri (ADRENALIN) 10/20/19 at [place] dical injection 0834, [place] Until Discontinu ed, Routine, Intra-op DUOVISC 2020-0 Yes PRN, Univers (DUOVISC 10-19 Starting ity of VISCO 13:34: Fri ELASTIC) 3 10/20/19 at [facility] %-4 %(0.5 0834, [place] mL) 1 % Until (0.55 mL) Discontinu intraocular ed, injection Routine, Intra-op dexamethaso 2020-0 Yes PRN, Univer s ne 10-19 Starting ity of (DECADRON 13:33: Fri PHOSPHATE) 10/20/19 at [facility] ical injection 0833[facility] Until Discontinu ed, Routine, Intra-op ceFAZolin 2020-0 Yes PRN, Univers (ANCEF) 10-19 Starting ity of injection 13:33: Fri [place] 10/20/[address] Until Discontinu ed, MAKENNA, Intra-op carbachoL 2020-0 Yes PRN, Univers (MIOSTAT) 10-19 Starting ity of 0.01 % 13:33: Fri intraocular 00 10/20/19 at [place] dical injection 0833[facility] Until Discontinu ed, Routine, Intra-op balanced 2020-0 Yes PRN, Univers salt irrig 10-19 Starting ity o f soln comb1 13:32: Fri (BSS PLUS) 10/20/19 at [facility] ica ophthalmic 0832, [place] solution Until 500 mL bag Discontinu ed, Routine, Intra-op mydriatic 2020-0 2020- No .5mL 0.5 mL, [facility] ers #5 10-19 Right Eye, ity of ophthalmic 13:30: 13:22 ONCE, 1 Bharat as solution 00 :00 dose, Fri Medica l 0.5 mL 10/20/19 at [place] syringe 0830, Routine alendronate 2020-0 Yes 70mg Take 70 mg Univers 70 mg 10-17 by mouth ity of tablet 15:58: weekly. [address] levocetiriz 2020-0 Yes 5mg Take 5 mg U nivers ine (XYZAL) 10-17 by mouth ity of 5 mg tablet 15:58: every [place] 10 evening. Medical Branch ramipril 2020-0 Yes 5mg Take 5 mg Univ ers (ALTACE) 5 6-22 by mouth 2 ity of mg capsule 15:58: (two) [place] 09 times Medical daily. Branch rosuvastati 2020-0 Yes 10mg Take 10 mg Univers n (CRESTOR) 6-22 by mouth ity of 10 mg 15:58: at [place] tablet 09 bedtime. Medical Branch levomefolat 2020-0 Yes 1{capsu Take 1 U nivers e-algal oil 6-22 le} capsule by it y of (DEPLIN, 15:58: mouth [place] ALGAL OIL,) 09 daily. Medica l .314 Branch mg Cap levothyroxi 2019-0 Yes .05mg Take 0.05 Univers ne 50 mcg 6-22 mg by ity of tablet 15:58: mouth [place] 09 every Medical morning. Branch oxybutynin 2019-0 Yes 5mg Take 5 mg Un svetlana chloride 5 6-22 by mouth ity o f mg tablet 15:58: daily. [place] [address] Medical Branch FLUoxetine 2019-0 Yes 20mg Take 20 mg U nivers (PROZAC) 20 6-22 by mouth 3 it y of mg capsule 15:58: (three) [place] 09 times Medical daily. Branch raloxifene 2019-0 Yes 60mg Take 60 mg U nivers (EVISTA) 60 6-22 by mouth ity of mg tablet 15:58: daily. [place] [address] Medical Branch zolpidem 10 2019- Yes 10mg Take 10 mg Univers mg tablet 6-22 by mouth ity of 15:58: at bedtime [place] 08 as needed Medical for Branch Insomnia. Vital Signs Vital Name Observation Time Observation Value Comments Source Systolic blood 2019-11-24 18:35:00 136 mm[Hg] Univer sity of pressure [facility] Diastolic blood 2019-11-24 18:35:00 67 mm[Hg] Unive rsity of pressure [facility] Heart rate 2019-11-24 18:35:00 71 /min Universi ty of [facility] Respiratory rate 2019-11-24 18:35:00 19 /min Univ ersity of [facility] Oxygen saturation in 2019-11-24 18:35:00 98 /min [facility] Arterial blood by [facility] Pulse oximetry Branch Body temperature 2019-11-24 18:25:00 36.17 Bere Univ ersity of [place] [facility] Body height 2019-11-22 22:30:00 167.6 cm Universi ty of [place] [facility] Body weight 2019-11-22 22:30:00 72.576 kg Universi ty of [place] [facility] BMI 2019-11-22 22:30:00 25.82 kg/m2 [facility]i ty of [place] [facility] Systolic blood 2019-11-24 18:35:00 136 mm[Hg] Univer sity of pressure [place] [facility] Diastolic blood 2019-11-24 18:35:00 67 mm[Hg] Unive rsity of pressure [place] [facility] Heart rate 2019-11-24 18:35:00 71 /min Universi ty of [place] [facility] Respiratory rate 2019-11-24 18:35:00 19 /min Univ ersity of [place] [facility] Oxygen saturation in 2019-11-24 18:35:00 98 /min University of Arterial blood by [place] [employer] k[facility] Pulse oximetry Branch Body temperature 2019-11-24 18:25:00 36.17 Bere Univ ersity of [place] [facility] Body height 2019-11-22 22:30:00 167.6 cm Universi ty of [place] [facility] Body weight 2019-11-22 22:30:00 72.576 kg Universi ty of [place] [facility] BMI 2019-11-22 22:30:00 25.82 kg/m2 [facility]i ty [facility] [place] [facility] Systolic blood 2019-10-20 15:41:00 121 mm[Hg] Univer sity of pressure [place] [facility] Diastolic blood 2019-10-20 15:41:00 66 mm[Hg] Unive rsity of pressure [place] [facility] Body temperature 2019-10-20 15:41:00 37.06 Bere Univ ersity of [place] [facility] Respiratory rate 2019-10-20 15:41:00 20 /min Univ ersity of [place] [facility] Oxygen saturation in 2019-10-20 15:41:00 100 /min University of Arterial blood by [place] [employer] [facility] Pulse oximetry Branch Heart rate 2019-10-20 15:22:00 66 /min [facility]i ty of [place] [facility] Body height 2019-10-18 15:45:00 167.6 cm [facility]i ty of [place] [facility] Body weight 2019-10-18 15:45:00 72.576 kg Universi ty of [place] [facility] BMI 2019-10-18 15:45:00 25.82 kg/m2 [facility] Systolic blood 2019-10-20 15:41:00 121 mm[Hg] Univer sity of pressure [facility] Diastolic blood 2019-10-20 15:41:00 66 mm[Hg] Unive rsity of pressure [facility] Body temperature 2019-10-20 15:41:00 37.06 Bere [facility] 2019-10-20 15:41:00 20 /min [facility] Oxygen saturation in 2019-10-20 15:41:00 100 /min [facility] Arterial blood by [facility] Pulse oximetry Branch Heart rate 2019-10-20 15:22:00 66 /min [facility] Body height 2019-10-18 15:45:00 167.6 cm [facility] Body weight 2019-10-18 15:45:00 72.576 kg [facility] BMI 2019-10-18 15:45:00 25.82 kg/m2 [facility] Procedures Procedure Date / Time Performing Source Performed Clinician DAY SURGERY - ADC 2019-11-24 [facility] 05:01:00 [place] [facility] CONSENT/REFUSAL FOR DIAGNOSIS 2019-11-23 Doctor [facility]igned[facility] AND TREATMENT 14:30:27 [place] [facility] ASSIGNMENT OF BENEFITS 2019-11-23 Doctor Unassigned, [facility] 14:29:17 [place] [facility] CONSENT/REFUSAL FOR DIAGNOSIS 2019-11-17 Doctor Unassigned, [facility] AND TREATMENT 16:52:25 [place] [facility] ASSIGNMENT OF BENEFITS 2019-11-17 Doctor Unassigned, [facility] 16:51:57 [place] [facility] CONSENT/REFUSAL FOR DIAGNOSIS 2019-11-17 Doctor Unassigned[facility] AND TREATMENT 16:51:24 [place] [facility] ASSIGNMENT OF BENEFITS 2019-11-17 Doctor Unassigned, [facility] 16:50:57 [place] [facility] PHYSICIAN ORDERS 2019-11-17 Doctor Unassigned, [facility] 05:01:00 [place] [facility] PHACOEMULSIFICATION OF 2019-10-20 Barney Bravo [facility] CATARACT WITH INTRAOCULAR 14:58:00 Medica l Branch LENS IMPLANT PATIENT QUESTIONNAIRE 2019-10-20 Doctor Unassigned, [facility] 05:01:00 [place] [facility] DAY SURGERY - ADC 2019-10-20 [facility] 05:01:00 [place] [facility] COVID-19 (ID NOW RAPID 2019-10-19 Barney Bravo [facility] TESTING) 15:10:00 Medical Branch NOTICE OF BILLING PRACTICES 2019-10-15 Doctor Unassigned, [facility] FOR MEDICARE PATIENTS 17:37:32 [place] [facility] Br anch [facility] PATIENT FINANCIAL POLICY 2019-10-15 Doctor Un[facility] 17:05:49 [place] [facility] NO SHOW OR MISSED APPOINTMENT 2019-10-15 Doctor Unassigned, [facility] POLICY ACKNOWLEDGEMENT 17:05:23 [place] Medical B ranch NOTICE OF PRIVACY PRACTICES 2019-10-15 Doctor Unassigned, [facility] 17:05:08 [place] [facility] CONSENT/REFUSAL FOR DIAGNOSIS 2019-10-15 Doctor Unassigned, [facility] AND TREATMENT 17:04:51 [place] [facility] CONSENT/REFUSAL FOR DIAGNOSIS 2019-10-15 Doctor [facility]assigned[facility] AND [facility]ATMENT 17:04:33 [place] [facility] ASSIGNMENT OF BENEFITS 2019-10-15 Doctor Unassigned, [facility] 17:04:18 [place] [facility] ASSIGNMENT OF BENEFITS 2019-10-15 Doctor Unassigned, [facility] 17:04:02 [place] [facility] Encounters Start End Encounter Admission Attending Care Care Encounter Source Date/Time Date/Time Type Type Clinicians Facility Department ID 2023-01-12 Outpatient Macdonald, [facility] [id number] Common 15:10:00 [place] [id number] [facility] 2023-01-08 Outpatient Macdonald, [facility] [id number] Common 12:15:00 [place] [id number] [facility] 2022-12-06 Outpatient Macdonald, [facility] [id number] Common 11:05:00 [place] [id number] [facility] 2022-05-08 Outpatient Macdonald, [facility] [id number] Common 10:57:02 [place] [id number] [facility] 2022-04-12 Outpatient Macdonald, [facility] [id number] Common 09:08:02 Layo [facility] 2022-01-31 Outpatient Macdonald, [facility] [id number] Common 11:26:02 Layo [facility] 2022-01-25 Outpatient Macdonald, [facility] [id number] Common 09:46:01 Layo [facility] 2021-08-22 Outpatient Macdonald, [facility] [id number] Common 10:19:02 Layo [facility] 2021-05-31 Outpatient Macdonald, [facility] Common 09:49:01 Layo [facility] 2021-05-23 Outpatient Macdonald, [facility] Common 14:11:54 [place] [id number] [facility] 2021-05-23 Outpatient Macdonald, [facility] Common 13:55:47 [place] [id number] [facility] 2021-05-23 Outpatient Macdonald, [facility] Common 13:20:25 [place] [id number] [facility] 2021-05-23 Outpatient Macdonald, [facility] [id number] Common 13:19:55 [place] [id number] [facility] 2021-05-23 Outpatient Macdonald, [facility] Common 13:19:14 [place] [id number] [facility] 2021-05-23 Outpatient Macdonald, [facility] [id number] Common 12:41:44 [place] 27443 [facility] 2021-05-23 Outpatient Macdonald, [facility] [id number] Common 12:31:34 [place] 55154 [facility] 2021-02-23 Outpatient MERCED LAWRENCE STEPHY [id number] Univers 07:58:51 BARNEY [facility] 2021-02-23 Outpatient R LAWRENCE [facility] STEPHY [id number] Univers 01:51:41 BARNEY laura [facility] 2022-04-01 2022-04-01 Outpatient CLARISSE Huynh [facility] [id number] [facility] 12:00:00 12:00:00 Yady 22 [facility] 2021-03-28 2021-03-28 Outpatient CLARISSE Huynh [facility] [id number] [facility] 12:00:00 12:00:00 Yady 52 [facility] 2020-06-20 2020-06-20 Outpatient R BRENDA [facility] [id number] Univers 14:30:00 14:30:00 YAMIL grijalva [facility] 2020-05-30 2020-05-30 Telephone [facility] [id number] [facility] 00:00:00 00:00:00 Vanda Thomas [id number] [facility] [place] [phone] Ar dical [address] 2020-05-27 2020-05-27 MAGDALENO Myrick [id number] [facility] 00:00:00 00:00:00 Triage Whitney VARELA [id number] i [facility] [id number] [place]har[place] as [phone] [address] 2020-05-27 2020-05-27 MAGDALENO Myrick 1.2.840.114 [id number] 00:00:00 00:00:00 Triage Whitney VARELA 350.1.13.10 [facility] 4.2.7.2.686 [id number] 2020-05-26 2020-05-26 Outpatient R [facility] [id number] Univers 10:20:00 10:20:00 [facility] 2020-05-25 2020-05-25 [facility] [id number] Univers 19:00:00 19:00:00 VANDA grijalva [facility] 2020-05-25 2020-05-25 Laboratory Lab, [facility] Fam Pob I [facility] 1.2. [id number] Univers 18:25:25 18:45:25 Only Vanda [facility] [id number] [facility] [place] 4.2.7.2.686 Bharat as Professio [phone] Ar dical [address] Office Building One 2020-05-25 2020-05-25 Laboratory Lab, [facility] 1.2.840.114 [id number] 18:25:25 18:45:25 Only Fam Pob I Health 350.1.13.10 [place] 4.2.7.2.686 Professio [phone] [place] [address] Office [facility] One 2020-05-25 2020-05-25 Letter Doctor MAGDALENO 1.2.840.114 [id number] [facility] 00:00:00 00:00:00 (Out) Unassigned, NICHOLE 350.1.13.10 [place] [facility] 4.2.7.2.686 Bharat as [phone] [address] 2020-05-25 2020-05-25 Letter Doctor MAGDALENO 1.2.840.114 [id number] 00:00:00 00:00:00 (Out) Unassigned, [place] 350.1.13.10 [place] [facility] 4.2.7.2.686 [id number] [facility] 2020-01-07 2020-01-07 Outpatient CLARISSE Huynh, [facility] [id number] [facility] 12:00:00 12:00:[address] [place] [address] 2019-11-24 2019-11-24 [facility] [id number] Univers 09:50:00 13:50:00 Encounter Barney Thomas [id number] [facility] [place].2.[place] [phone] [facility] [address] 2019-11-24 2019-11-24 [facility] [id number] 09:50:00 13:50:00 Encounter Barney Thomas 350.1.13.10 [place] 4.2.7.2.686 Surgical [phone] [place] 071 2019-11-24 2019-11-24 Orders Doctor MAGDALENO 1.2.840.114 [id number] Univers 00:00:00 00:00:00 Only Unassigned, NICHOLE 350.1.13.10 [place] [facility] 4.2.7.2.686 Bharat as [phone] [address] 2019-11-24 2019-11-24 Orders Doctor MAGDALENO 1.2.840.114 [id number] 00:00:00 00:00:00 Only Unassigned, [place] 350.1.13.10 [place] [facility] 4.2.7.2.686 [id number] [id number] 2019-11-23 2019-11-23 [facility]patient [facility] [id number] Univers 10:00:00 10:00:00 BARNEY ity [facility] 2019-11-23 2019-11-23 Laboratory Only, [facility] Test [facility] 1.2.840. 114 [id number] Univers 09:30:39 09:45:39 Only Barney Bravo 350.1.13.1 0 [facility]2.7.2.[place] [phone] [address] 2019-11-23 2019-11-23 Laboratory Only, [facility] 1.2.840.114 [id number] 09:30:39 09:45:39 Only Test [place] 350.1.13.10 [place] 4.2.7.2.686 [place] [id number] 353 2019-11-17 2019-11-17 Outpatient R [facility] [id number] Univers 12:15:00 12:15:00 ity [facility] 2019-11-17 2019-11-17 Caustic Preparer Monet, [facility] Lab Main [facility] [id number] [id number] Univers 11:59:38 12:14:38 Visit Barney Bravo 350.1.13.1 0 [facility]2.7.2.[place] [facility] [phone] [address] 2019-11-17 2019-11-17 Caustic Preparer Monet, [facility] 1.2.840.114 [id number] 11:59:38 12:14:38 Visit Lab Main William 350.1.13.10 [place] 4.2.7.2.686 Professio [phone] [address] 2019-10-20 2019-10-20 [facility] [id number] [facility] 08:07:29 11:20:00 Encounter Barney Thomas 350.1.13.10 [facility] [place] 4.2.7.2.686 [facility] [phone] [address] 2019-10-20 2019-10-20 [facility] [id number] 08:07:29 11:20:00 Encounter Barney Thomas 350.1.13.10 [place] 4.2.7.2.686 Surgical [phone] [place] [address] 2019-10-19 2019-10-19 Outpatient [facility] [id number] [facility] 10:15:00 10:15:00 BARNEY [facility] 2019-10-19 2019-10-19 Laboratory Only, [facility] Test [facility] 1.2.840. 114 [id number] [facility] 09:57:46 10:12:46 Only Barney Bravo 350.1.13.1 0 [facility] [place] 4.2.7.2.686 [facility] [phone] [address] 2019-10-19 2019-10-19 Laboratory Only, [facility] 1.2.840.114 [id number] 09:57:46 10:12:46 Only Test [place] 350.1.13.10 [place] 4.2.7.2.686 [place] [phone] [facility] 2019-10-15 2019-10-15 Outpatient R [facility] [id number] Univers 12:00:00 12:00:00 [facility] Results Test Description Test Time Test Comments Results Result Comments Source COVID-19 (ID NOW RAPID TESTING) 2019-10-19 15:39:00 Test Item Value Reference Range Interpretation Comme nts SARS-CoV-2 Rapid ID NOW (test code Not Detected Not Detected = 71477-2) BELNE (test code = BELEN) ID NOW COVID-19 Assay is an isothermal nucleic acid amplification test intended for the qualitative detection of nucleic acid from SARS-CoV-2 viral RNA in nasopharyngeal (RN PERIOPERATIVE) specimens. It is used under Emergency Use [...] indicated. Lab Interpretation (test code = Normal 25506-4) [facility]
[2023-03-10] MEDS ORDERED: HYDROCODONE/APAP 5/325 MG TAB ONE (07:55)
[2023-03-10] MEDS ORDERED: DIAZEPAM 5 MG TABLET ONE (07:55)
[2023-03-10] MEDS ORDERED: KETOROLAC 30 MG/ML INJ ONE (09:00)
--- NOTE | 2023-03-10 09:05 | RAD REPORT ---
EXAM DESCRIPTION: RAD - Lumbar Spine 3 Views - 03/10/2023 8:29 am CLINICAL HISTORY: PAIN COMPARISON: Sacroiliac Jts 3/+ Views dated 07/10/2018; Lumbar Spine 3 Views dated 07/10/2018; SACROILI AC JTS 3 VIE dated 09/21/2014 TECHNIQUE: Lumbar spine, 3 views. FINDINGS: Lumbar vertebral bodies are normal in height and alignment. No fracture or acute bony proc ess seen. Multilevel degenerative changes including mild endplate spurring and up to moderate lower l umbar facet arthropathy. Mild disc height loss at L5-S1. No other significant findings. IMPRESSION: Multilevel stable degenerative changes, without acute osseous abnormality.
[2023-03-10 10:02] LABS: Specific Gravity 1.009 (1.005-1.030); Urine Bacteria None Seen /HPF (<20); Urine Bilirubin NEGATIVE (Negative); Urine Blood Negative (Negative); Urine Clarity Clear (Clear); Urine Color Light-Yellow (Yellow); Urine Glucose NEGATIVE (Negative); Urine Protein NEGATIVE (Negative); Urine RBC <5 /HPF (None Seen); Urine Urobilinogen Normal (Normal)
--- NOTE | 2023-03-10 10:24 | EDPHYS ---
Physician Documentation [facility] Name: Mia Mayer Age: 77 yrs Sex: Female : 1945 Arrival Date: 03/10/2023 Time: 07:19 Bed 6 Private MD: Layo Macdonald ED Physician Ronnie Freire HPI: 03/10 07:39 This 77 yrs old Female presents to ER via Wheelchair with complaints of Low Back Pain. ms3 07:39 77-year-old female with past medical history of hypertension, hypercholesterolemia, ms3 hypothyroidism, depression presents to the emergency department for right-sided low back pain status post falling at [facility] after tripping over a case of water. Patient states she fell on and the pain has gradually become worse. Patient has tried ice, heat, Advil, Tylenol, meloxicam without relief. Patient's pain is currently 9/10 and located on her right lower back. Historical: - Allergies: 07:34 Morphine; mb9 - Home Meds: 07:34 Altace 10 mg oral capsule [Active]; rosuvastatin 40 mg oral tablet [Active]; lxyal 5mg mb9 [Active]; Myrbetriq 25 mg Oral Tb24 1 tab once daily [Active]; Prozac 20 mg Oral cap 1 cap once daily [Active]; oxbutynin 5 mg [Active]; Deplin (algal oil) 15-90.314 mg Oral cap [Active]; levothyroxine 50 mcg oral capsule [Active]; - PMHx: 07:34 Hypertensive disorder; Hypercholesterolemia; Hypothyroidism; Depressive disorder; mb9 - PSHx: 07:34 Toe surgery; mb9 - Immunization history:: Adult Immunizations up to date. - Social history:: Smoking status: Patient denies any tobacco usage or history of. ROS: 07:39 Constitutional: Negative for fever, and chills. Neck: Negative for injury, pain, and ms3 swelling, Cardiovascular: Negative for chest pain, and palpitations. Respiratory: Negative for shortness of breath, cough, wheezing, and pleuritic chest pain, Abdomen/GI: Negative for abdominal pain, nausea, vomiting, diarrhea, and constipation, 07:39 MS/extremity: Positive for pain, 07:39 All other systems are negative, Exam: 07:39 Constitutional: This is a well developed, well nourished patient who is awake, alert, ms3 and in no acute distress. Head/Face: Normocephalic, atraumatic. Neck: Trachea midline, no cervical lymphadenopathy. Supple, full range of motion without nuchal rigidity, or vertebral point tenderness. No Meningismus. Chest/axilla: Normal chest wall appearance and motion. Nontender with no deformity. Cardiovascular: Regular rate and rhythm with a normal S1 and S2. No gallops, murmurs, or rubs. Normal PMI, no JVD. No pulse deficits. Respiratory: Lungs have equal breath sounds bilaterally, clear to auscultation and percussion. No rales, rhonchi or wheezes noted. No increased work of breathing, no retractions or nasal flaring. Abdomen/GI: Soft, non-tender, with normal bowel sounds. No distension or tympany. No guarding or rebound. No evidence of tenderness throughout. 07:39 Back: pain, that is mild, ROM is normal spinal alignment noted, CVA tenderness, is absent, vertebral tenderness, is not appreciated, muscle spasm, is appreciated in the right low back, Vital Signs: 07:31 BP 151 / 96; Pulse 78; Resp 18; Temp 98; Pulse Ox 100% on R/A; Weight 70.31 kg; Height mb9 5 ft. 6 in. ; Pain 10/10; 08:07 BP 133 / 77; Pulse 81; Resp 16; Pulse Ox 98% on R/A; mb9 08:47 BP 137 / 96; Pulse 76; Pulse Ox 93% ; tm6 09:28 BP 143 / 77; Pulse 77; Pulse Ox 93% on R/A; tm6 10:01 BP 138 / 81; Pulse 74; Pulse Ox 97% ; tm6 07:31 Body Mass Index 25.02 (70.31 kg, 167.64 cm) mb9 07:31 Pain Scale: Adult mb9 MDM: 07:38 Patient medically screened. ms3 07:39 Differential diagnosis: strain, sciatica, contusion, Herniated disc. ms3 10:23 Data reviewed: vital signs, nurses notes, lab test result(s), radiologic studies, and ms3 as a result, I will discharge patient. Care significantly affected by the following chronic conditions: Hypertension. Counseling: I had a detailed discussion with the patient and/or guardian regarding the historical points, exam findings, and any diagnostic results supporting the discharge/admit diagnosis, lab results, radiology results, the need for outpatient follow up, to return to the emergency department if symptoms worsen or persist or if there are any questions or concerns that arise at home. Special discussion: I discussed with the patient/guardian in detail that at this point there is no indication for admission to the hospital. It is understood, however, that if the symptoms persist or worsen the patient needs to return immediately for re-evaluation. ED course: Discussed x-ray and urinalysis results with patient. Patient to follow-up with primary care physician in 2 to 3 days. Patient understands and agrees with plan. All questions were answered. Return precautions discussed include worsening symptoms, or any other concerns. On reevaluation patient is ambulatory in emergency department, speaking full sentences, in no apparent distress. 03/10 09:40 Order name: Urinalysis w/ reflexes; Complete Time: 10:18 ms3 03/10 07:42 Order name: Lumbar Spine (3 Views) XRAY; Complete Time: 09:07 ms3 Administered Medications: 07:44 Drug: HYDROcodone-acetaminophen PO 5 mg-325 mg 1 tabs PO once Route: PO; mb9 08:07 Follow up: Response: No adverse reaction mb9 07:44 Drug: Diazepam PO 5 mg PO once Route: PO; mb9 08:07 Follow up: Response: No adverse reaction mb9 08:50 Drug: Ketorolac IM 15 mg IM once Route: IM; Site: right deltoid; ld1 Disposition Summary: 03/10/23 10:23 Discharge Ordered Notes: Location: Home ms3 Condition: Stable ms3 Diagnosis - Low back pain ms3 - Fall on same level, unspecified ms3 - Essential (primary) hypertension ms3 Followup: ms3 - With: Layo Macdonald, - When: 2 - 3 days - Reason: Recheck today's complaints Discharge Instructions: - Discharge Summary Sheet ms3 - Acute Back Pain, Adult ms3 Forms: - Medication Reconciliation Form ms3 - Thank You Letter ms3 - Antibiotic Education ms3 - Prescription Opioid Use ms3 - Patient Portal Instructions ms3 - Leadership Thank You Letter ms3 Prescriptions: - Cyclobenzaprine 10 mg Oral Tablet - take 1 tablet ORAL route every 8 hours As needed; 30 tablet; Refills: 0, ms3 Product Selection Permitted Signatures: Dispatcher [employer] EDMS Ronnie Freire, DO DO ms3 Neris Freire RN RN ld1 Homa Driscoll RN RN mb9
--- NOTE | 2023-03-10 10:24 | ER ---
Nurse's Notes [facility] Name: Mia Mayer Age: 77 yrs Sex: Female : 1945 Arrival Date: 03/10/2023 Time: 07:19 Bed 6 Private MD: Layo Macdonald Diagnosis: Low back pain;Fall on same level, unspecified;Essential (primary) hypertension Presentation: 03/10 07:31 Chief complaint: Patient states: "On , I tripped over a pack of water bottles mb9 and landed on my right side and back. I didn't hit my head or lose consciousness. But my right side of back has stabbing/shooting/spasms that isn't relieved with ice, heat, or Tylenol." Pt denies taking blood thinners. Coronavirus screen: Vaccine status: Patient reports receiving the 2nd dose of the covid vaccine. Ebola Screen: No symptoms or risks identified at this time. Initial Sepsis Screen: Does the patient meet any 2 criteria? No. Patient's initial sepsis screen is negative. Does the patient have a suspected source of infection? No. Patient's initial sepsis screen is negative. Risk Assessment: Do you want to hurt yourself or someone else? Patient reports no desire to harm self or others. Onset of symptoms was 2022. 07:31 Method Of Arrival: Wheelchair mb9 07:31 Acuity: KIM 4 mb9 Triage Assessment: 07:38 General: Appears in no apparent distress. Behavior is calm, cooperative. Pain: mb9 Complains of pain in back Pain does not radiate. Pain currently is 10 out of 10 on a pain scale. Quality of pain is described as sharp, shooting, Pain began 2-3 days ago. Is continuous, Aggravated by increased activity, repositioning. EENT: No signs and/or symptoms were reported regarding the EENT system. Neuro: Irwin Agitation-Sedation Scale (RASS): 0 - Alert and Calm Level of Consciousness is awake, alert, obeys commands, Oriented to person, place, time, situation, Appropriate for age. Cardiovascular: Patient's skin is warm and dry. Respiratory: Airway is patent Respiratory effort is even, unlabored, Respiratory pattern is regular, symmetrical. GI: Abdomen is round non-distended. : No signs and/or symptoms were reported regarding the genitourinary system. Derm: Skin is pink, warm \\T\\ dry. Musculoskeletal: Range of motion: intact in all extremities. Historical: - Allergies: :34 Morphine; mb9 - Home Meds: :34 Altace 10 mg oral capsule [Active]; rosuvastatin 40 mg oral tablet [Active]; lxyal 5mg mb9 [Active]; Myrbetriq 25 mg Oral Tb24 1 tab once daily [Active]; Prozac 20 mg Oral cap 1 cap once daily [Active]; oxbutynin 5 mg [Active]; Deplin (algal oil) 15-90.314 mg Oral cap [Active]; levothyroxine 50 mcg oral capsule [Active]; - PMHx: :34 Hypertensive disorder; Hypercholesterolemia; Hypothyroidism; Depressive disorder; mb9 - PSHx: :34 Toe surgery; mb9 - Immunization history:: Adult Immunizations up to date. - Social history:: Smoking status: Patient denies any tobacco usage or history of. Screenin:39 [facility] ED Fall Risk Assessment (Adult) History of falling in the last 3 months, mb9 including since admission Yes- single mechanical fall (1 pt) Confusion or Disorientation No (0 pts) Intoxicated or Sedated No (0 pts) Impaired Gait No (0 pts) Mobility Assist Device Used No (0 pt) Altered Elimination No (0 pt) Score/Fall Risk Level 0 - 2 = Low Risk Oriented to surroundings, Maintained a safe environment, Educated pt \\T\\ family on fall prevention, incl call for assistance when getting out of bed. Abuse screen: Denies threats or abuse. Nutritional screening: No deficits noted. Tuberculosis screening: No symptoms or risk factors identified. Assessment: 07:39 Reassessment: see triage assessment. mb9 08:08 Reassessment: pt taken to XRAY via wheelchair. mb9 08:49 Reassessment: Patient and/or family updated on plan of care and expected duration. Pain mb9 level reassessed. Patient is alert, oriented x 3, equal unlabored respirations, skin warm/dry/pink. Patient states feeling better. Patient states symptoms have improved. 09:28 Reassessment: Patient appears in no apparent distress at this time. Patient and/or tm6 family updated on plan of care and expected duration. Pain level reassessed. Patient is alert, oriented x 3, equal unlabored respirations, skin warm/dry/pink. Vital Signs: 07:31 BP 151 / 96; Pulse 78; Resp 18; Temp 98; Pulse Ox 100% on R/A; Weight 70.31 kg; Height mb9 5 ft. 6 in. ; Pain 10/10; 08:07 BP 133 / 77; Pulse 81; Resp 16; Pulse Ox 98% on R/A; mb9 08:47 BP 137 / 96; Pulse 76; Pulse Ox 93% ; tm6 09:28 BP 143 / 77; Pulse 77; Pulse Ox 93% on R/A; tm6 10:01 BP 138 / 81; Pulse 74; Pulse Ox 97% ; tm6 07:31 Body Mass Index 25.02 (70.31 kg, 167.64 cm) mb9 07:31 Pain Scale: Adult mb9 ED Course: 07:21 Patient arrived in ED. rg4 07:21 Layo Macdonald DO is Private Physician. rg4 07:24 Ronnie Freire DO is Attending Physician. ms3 07:25 Homa Driscoll, RN is Primary Nurse. mb9 07:34 Triage completed. mb9 07:38 Arm band placed on. mb9 07:39 Bed in low position. Call light in reach. Side rails up X 1. Client placed on mb9 continuous cardiac and pulse oximetry monitoring. NIBP monitoring applied. 07:39 No provider procedures requiring assistance completed. mb9 08:31 Lumbar Spine (3 Views) XRAY In Process Unspecified. EDMS 10:22 Layo Macdonald DO is Referral Physician. ms3 10:27 Provided Education on: prescription . tm6 10:29 Patient did not have IV access during this emergency room visit. tm6 Administered Medications: 07:44 Drug: HYDROcodone-acetaminophen PO 5 mg-325 mg 1 tabs PO once Route: PO; mb9 08:07 Follow up: Response: No adverse reaction mb9 07:44 Drug: Diazepam PO 5 mg PO once Route: PO; mb9 08:07 Follow up: Response: No adverse reaction mb9 08:50 Drug: Ketorolac IM 15 mg IM once Route: IM; Site: right deltoid; ld1 Medication: 07:39 VIS not applicable for this client. mb9 Outcome: 10:23 Discharge ordered by . ms3 10:29 Discharged to home ambulatory, tm6 10:29 Condition: stable 10:29 Discharge instructions given to patient, Instructed on discharge instructions, follow up and referral plans. medication usage, Demonstrated understanding of instructions, follow-up care, medications, Prescriptions given X 1, 10:32 Patient left the ED. tm6 Signatures: Dispatcher [employer] EDMS Mary Scott rg4 Ronnie Freire, DO ms3 Neris Freire RN RN ld1 Homa Driscoll RN RN mb9 Edis Drew RN RN tm6
[2023-03-10 10:39] VITALS: TEMP 98
[2023-03-10 10:46] VITALS: BP 138/81; O2SAT 97
== END 2023-03-10 10:32 | disposition home or self-care (01) ==
LOC: ER 07:19
DX: M54.50 Low back pain, unspecified (principal); I10 Essential (primary) hypertension; W18.30XA Fall on same level, unspecified, initial encounter; Z88.5 Allergy status to narcotic agent
CPT/HCPCS: 72100; 81001; 96372; 99284

== ENCOUNTER 2023-03-23 15:54 | Emergency (ER) | payer OTHER ==
--- OUTSIDE RECORDS SUMMARY | 2023-03-23 15:58 | XMS REPORT | Continuity of Care Document ---
:1945 Author Organization [facility] t Address [address] [place] [address] [place] [id number] Care Team Providers Name Role Phone Torres Layo Diamond Attending Clinician Unavailable BARNEY BRAVO Attending Clinician Unavailable Yady Huynh Attending Clinician Unavailable YAMIL GUTIERREZ Attending Clinician Unavailable Vanda Golden Attending Clinician Whitney Scott RN Attending Clinician Unavailable VANDA LOJA Attending Clinician Unavailable Lab, Adc Fam Pob I Attending Clinician Unavailable Doctor Unassigned, [place] Attending Clinician Unavailable Barney Bravo MD Attending Clinician Only, Adc Test Attending Clinician Unavailable Pob, Adc Lab Main Attending Clinician Unavailable BARNEY BRAVO Admitting Clinician Unavailable Yady Huynh Admitting Clinician Unavailable Physician, No Primary or Family Admitting Clinician Barney Jones MD Admitting Clinician Payers Payer Name Policy Type Policy Number Effective Date Expiration Date S jalyn [employer] MEDICARE ADV [id number] 2019 00:00:00 Problems This patient has no [...] Active Univers ALLERGIE Class ity of S [facility] Social History Social Habit Start Date Stop Date Quantity Comments Source Sex Assigned At [facility] Medical Branch Exposure to Not sure [facility] SARS-CoV-2 (event) Medica l Branch Tobacco use and 2019-11-25 2019-11-25 Never used [facility] exposure 00:00:00 00:00:00 Medical Branch Smoking Status Start Date Stop Date Source Never smoker [facility] Medications Ordered Filled Start Stop Current Ordering Indication Dosage Frequency Signature Comments Components Source Medication Medication Date Date Medication? Clinician (SIG) Name Name zolpidem 10 2019- Yes 10mg Take 10 mg Univers mg tablet 7-29 by mouth ity of 18:58: at bedtime [place] [address] as needed Medical for Branch Insomnia. ramipril 2019-0 Yes 5mg Take 5 mg Univ ers (ALTACE) 5 7-29 by mouth 2 ity of mg capsule 18:58: (two) [place] [address] times Medical daily. Branch rosuvastati 2019-0 Yes [...] ity o f mg tablet 18:58: daily. [place] [address] Medical Branch FLUoxetine 2019-0 Yes 20mg Take 20 mg U nivers (PROZAC) 20 7-29 by mouth 3 it y of mg capsule 18:58: [place] Medical daily. Branch raloxifene 2020-0 Yes 60mg Take 60 mg U nivers (EVISTA) 60 7- by mouth ity of mg tablet 18:58: daily. [place] [address] Medical Branch alendronate 2020-0 Yes 70mg Take 70 mg Univers 70 mg 7-29 by mouth ity of tablet 18:58: weekly. [place] [address] Medical Branch levocetiriz 2020-0 Yes 5mg Take 5 mg U nivers ine (XYZAL) 7- by mouth ity of 5 mg tablet 18:58: every [place] [address] evening. Medical Branch zolpidem 10 2020-0 Yes 10mg Take 10 mg Univers mg tablet 7- by mouth ity of 18:58: at bedtime [place] [address] as needed Medical for Branch Insomnia. ramipril 2020-0 Yes 5mg Take 5 mg Univ ers (ALTACE) 5 - by mouth 2 ity of mg capsule 18:58: (two) [place] [address] times Medical daily. Branch rosuvastati 2020-0 Yes [...] ity o f mg tablet 18:58: daily. [place] [address] Medical Branch FLUoxetine 2020-0 Yes 20mg Take 20 mg U nivers (PROZAC) 20 7-29 by mouth 3 it y of mg capsule 18:58: [place] Medical daily. Branch raloxifene 2020-0 Yes 60mg Take 60 mg U nivers (EVISTA) 60 7-29 by mouth ity of mg tablet 18:58: daily. [place] [address] Medical Branch alendronate 2020-0 Yes 70mg Take 70 mg Univers 70 mg 7-29 by mouth ity of tablet 18:58: weekly. [place] [address] Medical Branch levocetiriz 2020-0 Yes 5mg Take 5 mg U nivers ine (XYZAL) 7-29 by mouth ity of 5 mg tablet 18:58: every [place] evening. Medical Branch zolpidem 10 2020-0 Yes 10mg Take 10 mg Univers mg tablet 7-29 by mouth ity of 18:58: at bedtime [place] [address] as needed Medical for Branch Insomnia. ramipril [...] ity o f mg tablet 18:58: daily. [place] [address] Medical Branch FLUoxetine 2020-0 Yes 20mg Take 20 mg U nivers (PROZAC) 20 7-29 by mouth 3 it y of mg capsule 18:58: (three[place] Medical daily. Branch raloxifene 2020-0 Yes 60mg Take 60 mg U nivers (EVISTA) 60 7-29 by mouth ity of mg tablet 18:58: daily. [place] [address] Medical Branch alendronate 2020-0 Yes 70mg Take 70 mg Univers 70 mg 7-29 by mouth ity of tablet 18:58: weekly. [place] [address] Medical Branch levocetiriz 2020-0 Yes 5mg Take 5 mg U nivers ine (XYZAL) 7-29 by mouth ity of 5 mg tablet 18:58: every [place] 33 evening. Medical Branch zolpidem 10 2019-0 Yes 10mg Take 10 mg Univers mg tablet 7-29 by mouth ity of 18:58: at bedtime [place] [address] as needed Medical for Branch Insomnia. ramipril [...] ity o f mg tablet 18:58: daily. [place] [address] Medical Branch FLUoxetine 2020-0 Yes 20mg Take 20 mg U nivers (PROZAC) 20 7-29 by mouth 3 it y of mg capsule 18:58: (three[place] Medical daily. Branch raloxifene 2019-0 Yes 60mg Take 60 mg U nivers (EVISTA) 60 7-29 by mouth ity of mg tablet 18:58: daily. [place] [address] Medical Branch alendronate 2020-0 Yes 70mg Take 70 mg Univers 70 mg 7-29 by mouth ity of tablet 18:58: weekly. [place] [address] Medical Branch levocetiriz 2020-0 Yes 5mg Take 5 mg U nivers ine (XYZAL) 7-29 by mouth ity of 5 mg tablet 18:58: every [place] evening. Medical Branch zolpidem 10 2019-0 Yes 10mg Take 10 mg Univers mg tablet 7-29 by mouth ity of 18:58: at bedtime [place] [address] as needed Medical for Branch Insomnia. ramipril [...] ity o f mg tablet 18:58: daily. [place] [address] Medical Branch FLUoxetine 2020-0 Yes 20mg Take 20 mg U nivers (PROZAC) 20 7-29 by mouth 3 it y of mg capsule 18:58: (three[place] Medical daily. Branch raloxifene 2020-0 Yes 60mg Take 60 mg U nivers (EVISTA) 60 7-29 by mouth ity of mg tablet 18:58: daily. [place] [address] Medical Branch alendronate 2020-0 Yes 70mg Take 70 mg Univers 70 mg 7-29 by mouth ity of tablet 18:58: weekly. [place] [address] Medical Branch levocetiriz 2020-0 Yes 5mg Take 5 mg U nivers ine (XYZAL) 7-29 by mouth ity of 5 mg tablet 18:58: every [place] [address] evening. Medical Branch zolpidem 10 2020-0 Yes 10mg Take 10 mg Univers mg tablet 7-29 by mouth ity of 18:58: at bedtime [place] [address] as needed Medical for Branch Insomnia. ramipril [...] ity o f mg tablet 18:58: daily. [address] Branch FLUoxetine 2020-0 Yes 20mg Take 20 mg U nivers (PROZAC) 20 7- by mouth 3 it y of mg capsule 18:58: (three[place] Medical daily. Branch raloxifene 2020-0 Yes 60mg Take 60 mg U nivers (EVISTA) 60 7- by mouth ity of mg tablet 18:58: daily. [address] Branch alendronate 2020-0 Yes 70mg Take 70 mg Univers 70 mg 7- by mouth ity of tablet 18:58: weekly. [address] Branch levocetiriz 2020-0 Yes 5mg Take 5 mg U nivers ine (XYZAL) 11-23 by mouth ity of 5 mg tablet 18:58: every [place] [address] evening. Medical Branch lactated 2020-0 Yes 1000mL [...] of Recomb. 16:57: Fri (HYLENEX) 11/24/19 at [facility] kike injection 1157, Branch Until Discontinu ed, Routine, Intra-op gentamicin 2020-0 Yes PRN, Univers injection 11-23 Starting ity of 16:56: Fri11/24/19 at [facility] 1156, Branch Until Discontinu ed, MAKENNA, Intra-op eye block 2020-0 Yes PRN, Univers syringe 11 11-23 Starting ity o f mL 16:55: Fri11/24/19 at [facility] 1155, Branch Until Discontinu ed, Intra-op EPINEPHrine 2020-0 Yes PRN, Univer s 1:1,000 (1 11-23 Starting ity o f mg/mL) 16:54: Fri (ADRENALIN) 11/24/19 at Mi dical injection 1154, Branch Until Discontinu ed, Routine, Intra-op DUOVISC 2020-0 Yes PRN, Univers (DUOVISC 11-23 Starting ity of VISCO 16:54: Fri ELASTIC) 3 11/24/19 at [facility] ical %-4 %(0.5 1154, Branch mL) 1 % Until (0.55 mL) Discontinu intraocular ed, injection Routine, Intra-op dexamethaso 2020-0 Yes PRN, Univer s ne 11-23 Starting ity of (DECADRON 16:54: Fri PHOSPHATE) 11/24/19 at [facility] ical injection 1154, Branch Until Discontinu ed, Routine, Intra-op ceFAZolin 2020-0 Yes PRN, Univers (ANCEF) 11-23 Starting ity of injection 16:54: Fri11/24/19 at [facility] 1154, Branch Until Discontinu ed, MAKENNA, Intra-op carbachoL 2020-0 Yes PRN, Univers (MIOSTAT) 11-23 Starting ity of 0.01 % 16:54: Fri intraocular 00 11/24/19 at Mi dical injection 1154, Branch Until Discontinu ed, Routine, Intra-op balanced 2020-0 Yes PRN, Univers salt irrig 11-23 Starting ity o f soln comb1 16:53: Wed [place] (BSS PLUS) 00 11/24/19 at [facility] ica ophthalmic 1153, Branch solution Until 500 mL bag Discontinu ed, Routine, Intra-op mydriatic 2019-0 2020- No .5mL 0.5 mL, Univ ers #5 11-23 Left Eye, ity of ophthalmic 15:15: 15:26 ONCE, 1 Bharat as solution 00 :00 dose, Wed Medica l 0.5 mL 11/24/19 at [place] syringe 1015, Routine lactated 2020-0 2020- No 1000mL at 20 Unive rs ringers IV 11-23 mL/hr, ity of infusion 15:15: 15:26 1,000 mL, Bharat as 1,000 mL 00 :00 IV Medical Infusion, [place] ONCE, 1 dose, Fri11/24/19 at 1015, Routine, [...] mouth ity of mg tablet 22:38: daily. [place] [address] Medical Branch alendronate 2020-0 Yes 70mg Take 70 mg Univers 70 mg 7-27 by mouth ity of tablet 22:38: weekly. [place] [address] Medical Branch levocetiriz 2020-0 Yes 5mg Take 5 mg U nivers ine (XYZAL) 7-27 by mouth ity of 5 mg tablet 22:38: every [place] 50 evening. Medical Branch zolpidem 10 2020-0 [...] ity o f mg tablet 14:43: daily. [place] [address] Medical Branch FLUoxetine 2020-0 Yes 20mg Take 20 mg U nivers (PROZAC) 20 6-25 by mouth 3 it y of mg capsule 14:43: (three[place] Medical daily. Branch raloxifene 2020-0 Yes 60mg Take 60 mg U nivers (EVISTA) 60 6-25 by mouth ity of mg tablet 14:43: daily. [place] [address] Medical Branch alendronate 2020-0 Yes 70mg Take [...] ity o f mg tablet 14:43: daily. [place] [address] Medical Branch FLUoxetine 2020-0 Yes 20mg Take 20 mg U nivers (PROZAC) 20 6-25 by mouth 3 it y of mg capsule 14:43: (three[place] Medical daily. Branch raloxifene 2020-0 Yes 60mg Take 60 mg U nivers (EVISTA) 60 6-25 by mouth ity of mg tablet 14:43: daily. [place] [address] Medical Branch alendronate 2020-0 Yes 70mg Take 70 mg Univers 70 mg 6-25 by mouth ity of tablet 14:43: weekly. Medical Branch levocetiriz 2020-0 Yes 5mg Take 5 mg U nivers ine (XYZAL) 6-25 by mouth ity of 5 mg tablet 14:43: every [place] 08 evening. [facility] lactated 2020-0 Yes 1000mL at 75 [...] f irrigation 13:36: Fri solution 10/20/[address] Until Discontinu ed, Routine, Intra-op sodium 2020-0 Yes PRN, Univers chloride 10-19 Starting ity of (NS) 13:35: Fri injection 10/20/[address] Until Discontinu ed, Routine, Intra-op neomycin-po 2020-0 Yes PRN, [facility] s lymyxin-dex 10-19 Starting ity of amethasone 13:35: Fri (MAXITROL) 10/20/19 at [facility] ical [address] [place] [address] mg/g-10,000 Until unit/g-0.1 Discontinu % ed, ophthalmic Routine, ointment Intra-op Hyaluronida 2020-0 Yes PRN, Univ s se, Human 10-19 Starting ity of Recomb. 13:35: Fri (HYLENEX) 10/20/19 at [facility] injection [address] [place] [address] Until Discontinu ed, Routine, Intra-op gentamicin 2020-0 Yes PRN, Univers injection 10-19 Starting ity of 13:35: Fri [place] 10/20/[address] Until Discontinu ed, MAKENNA, Intra-op eye block 2020-0 Yes PRN, Univers syringe 11 10-19 Starting ity o f mL 13:35: Fri10/20/[address] Until Discontinu ed, Intra-op EPINEPHrine 2020-0 Yes PRN, Univer s 1:1,000 (1 10-19 Starting ity o f mg/mL) 13:34: Fri (ADRENALIN) 10/20/19 at Mi dical injection 0834, [place] Until Discontinu ed, Routine, Intra-op DUOVISC 2020-0 Yes PRN, Univers (DUOVISC 10-19 Starting ity of VISCO 13:34: Fri ELASTIC) 3 10/20/[address] [facility] %-4 %(0.5 0834, [place] mL) 1 % Until (0.55 mL) Discontinu intraocular ed, injection Routine, Intra-op dexamethaso 2020-0 Yes PRN, Univer s ne 10-19 Starting ity of (DECADRON 13:33: Fri PHOSPHATE) 10/20/19 at [facility] ical injection 0833[facility] Until Discontinu ed, Routine, Intra-op ceFAZolin 2020-0 Yes PRN, Univers (ANCEF) 10-19 Starting ity of injection 13:33: Fri [place] 10/20/[address] Until Discontinu ed, MAKENNA, Intra-op carbachoL 2020-0 Yes PRN, Univers (MIOSTAT) 10-19 Starting ity of 0.01 % 13:33: Fri intraocular 00 10/20/19 at Mi dical injection 0833[facility] Until Discontinu ed, Routine, Intra-op balanced 2020-0 Yes PRN, Univers salt irrig 10-19 Starting ity o f soln comb1 13:32: Fri (BSS PLUS) 10/20/19 at [facility] ica ophthalmic 0832, [place] solution Until 500 mL bag Discontinu ed, Routine, Intra-op mydriatic 2020-0 2020- No .5mL 0.5 mL, [facility] ers #5 10-19 Right Eye, ity of ophthalmic 13:30: 13:22 ONCE, 1 Bharat as solution 00 :00 dose, Fri Medica l 0.5 mL 10/20/19 at [place] syringe 0830, Routine alendronate 2020-0 Yes 70mg Take 70 mg Univers 70 mg 10-17 by mouth ity of tablet 15:58: weekly. [address] levocetiriz 2020-0 Yes 5mg Take 5 [...] ity o f mg tablet 15:58: daily. [place] [address] Medical Branch FLUoxetine 2019-0 Yes 20mg Take 20 mg U nivers (PROZAC) 20 6-22 by mouth 3 it y of mg capsule 15:58: (three[place] Medical daily. Branch raloxifene 2019-0 Yes 60mg Take 60 mg U nivers (EVISTA) 60 6-22 by mouth ity of mg tablet 15:58: daily. [place] [address] Medical Branch zolpidem 10 2019- Yes 10mg Take 10 mg Univers mg tablet 6-22 by mouth ity of 15:58: at bedtime [place] 08 as needed Medical for Branch Insomnia. Vital Signs Vital Name Observation Time Observation Value Comments Source Systolic blood 2019-11-24 18:35:00 136 mm[Hg] Univer sity of pressure [facility] Diastolic blood 2019-11-24 18:35:00 67 mm[Hg] Unive rsity of pressure [facility] Heart rate 2019-11-24 18:35:00 71 /min Universi ty of [facility] Respiratory rate 2019-11-24 18:35:00 19 /min Univ ersity of [facility] Oxygen saturation in 2019-11-24 18:35:00 98 /min [facility] Arterial blood by [facility] Pulse oximetry Branch Body temperature 2019-11-24 18:25:00 [...] /min University of Arterial blood by [place] [employer] Pulse oximetry Branch Body temperature 2019-11-24 [...] /min University of Arterial blood by [place] [employer] Pulse oximetry Branch Heart rate 2019-10-20 15:22:00 66 /min Universi ty of [place] [facility] Body height 2019-10-18 15:45:00 167.6 cm [facility]i ty of [place] [facility] Body weight 2019-10-18 15:45:00 72.576 kg [facility]i ty of [place] [facility] BMI 2019-10-18 15:45:00 25.82 kg/m2 [facility] Systolic blood 2019-10-20 15:41:00 121 mm[Hg] Univer sity of pressure [facility] Diastolic blood 2019-10-20 15:41:00 66 mm[Hg] Unive rsity of pressure [facility] Body temperature 2019-10-20 15:41:00 37.06 Bere [facility] [place] [facility] Respiratory rate 2019-10-20 15:41:00 20 /min [facility] [place] [facility] Oxygen saturation in 2019-10-20 15:41:00 100 /min [facility] Arterial blood by [facility] Pulse oximetry Branch Heart rate 2019-10-20 15:22:00 66 /min [facility] Body height 2019-10-18 15:45:00 167.6 cm [facility] Body weight 2019-10-18 15:45:00 72.576 kg [facility] BMI 2019-10-18 15:45:00 25.82 kg/m2 [facility] Procedures Procedure Date / Time Performing Source Performed Clinician DAY SURGERY - ADC 2019-11-24 Doctor Unassigned, [facility] 05:01:00 [place] [facility] CONSENT/REFUSAL FOR DIAGNOSIS 2019-11-23 Doctor Unassigned, [facility] AND TREATMENT 14:30:27 [place] [facility] ASSIGNMENT OF BENEFITS 2019-11-23 Doctor Unassigned, [facility] 14:29:17 [place] [facility] CONSENT/REFUSAL FOR DIAGNOSIS 2019-11-17 Doctor Unassigned, [facility] AND TREATMENT 16:52:25 [place] [facility] ASSIGNMENT OF BENEFITS 2019-11-17 Doctor Unassigned, [facility] 16:51:57 [place] [facility] CONSENT/REFUSAL FOR DIAGNOSIS 2019-11-17 Doctor Unassigned, [facility] AND TREATMENT 16:51:24 [place] [facility] ASSIGNMENT OF BENEFITS 2019-11-17 Doctor Unassigned, [facility] 16:50:57 [place] [facility] PHYSICIAN ORDERS 2019-11-17 Doctor Unassigned, [facility] 05:01:00 [place] [facility] PHACOEMULSIFICATION OF 2019-10-20 Barney Bravo [facility] CATARACT WITH INTRAOCULAR 14:58:00 Medica l Branch LENS IMPLANT PATIENT QUESTIONNAIRE 2019-10-20 Doctor Unassigned, [facility] 05:01:00 [place] [facility] DAY SURGERY - ADC 2019-10-20 Doctor Unassigned, [facility] 05:01:00 [place] [facility] COVID-19 (ID NOW RAPID 2019-10-19 Barney Bravo [facility] TESTING) 15:10:00 Medical Branch NOTICE OF BILLING PRACTICES 2019-10-15 Doctor Unassigned, [facility] FOR MEDICARE PATIENTS 17:37:32 [place] [facility] Br anch [facility] PATIENT FINANCIAL POLICY 2019-10-15 Doctor Unassigned, [facility] 17:05:49 [place] [facility] NO SHOW OR MISSED APPOINTMENT 2019-10-15 Doctor Unassigned, [facility] POLICY ACKNOWLEDGEMENT 17:05:23 [place] Medical B ranch NOTICE OF PRIVACY PRACTICES 2019-10-15 Doctor Unassigned, [facility] 17:05:08 [place] [facility] CONSENT/REFUSAL FOR DIAGNOSIS 2019-10-15 Doctor Unassigned, [facility] AND TREATMENT 17:04:51 [place] [facility] CONSENT/REFUSAL FOR DIAGNOSIS 2019-10-15 Doctor Unassigned, [facility] AND TREATMENT 17:04:33 [place] [facility] ASSIGNMENT OF BENEFITS 2019-10-15 Doctor Unassigned, [facility] 17:04:18 [place] [facility] ASSIGNMENT OF BENEFITS 2019-10-15 Doctor Unassigned, [facility] 17:04:02 [place] [facility] Encounters Start End Encounter Admission Attending Care Care Encounter Source Date/Time Date/Time Type Type Clinicians Facility Department ID 2023-01-12 Outpatient Macdonald, [facility] [id number] Common 15:10:00 Layo [id number] [facility] 2023-01-08 Outpatient Macdonald, [facility] [id number] Common 12:15:00 Layo [id number] [facility] 2022-12-06 Outpatient Macdonald, [facility] [id number] Common 11:05:00 Layo [id number] [facility] 2022-05-08 Outpatient Macdonald, [facility] [id number] Common 10:57:02 Layo [id number] [facility] 2022-04-12 Outpatient Macdonald, [facility] [id number] Common 09:08:02 Layo [facility] 2022-01-31 Outpatient Macdonald, [facility] [id number] Common 11:26:02 Layo [facility] 2022-01-25 Outpatient Macdonald, [facility] [id number] Common 09:46:01 Layo [facility] 2021-08-22 Outpatient Macdonald, [facility] [id number] Common 10:19:02 Layo [facility] 2021-05-31 Outpatient Macdonald, [facility] Common 09:49:01 Layo [facility] 2021-05-23 Outpatient Macdonald, [facility] Common 14:11:54 Layo [id number] [facility] 2021-05-23 Outpatient Macdonald, [facility] Common 13:55:47 Layo [id number] [facility] 2021-05-23 Outpatient Macdonald, [facility] Common 13:20:25 Layo [id number] [facility] 2021-05-23 Outpatient Macdonald, [facility] [id number] Common 13:19:55 Layo [id number] [facility] 2021-05-23 Outpatient Macdonald, [facility] Common 13:19:14 Layo 45018 [facility] 2021-05-23 Outpatient Macdonald, [facility] [id number] Common 12:41:44 Layo [id number] [facility] 2021-05-23 Outpatient Macdonald, [facility] [id number] Common 12:31:34 Layo 83536 [facility] 2021-02-23 Outpatient MERCED LAWRENCE STEPHY [id number] Univers 07:58:51 BARNEY [facility] [place] [facility] 2021-02-23 Outpatient R LAWRENCE [facility] STEPHY [id number] Univers 01:51:41 BARNEY laura [facility] 2022-04-01 2022-04-01 Outpatient CLARISSE Huynh [facility] [id number] [facility] 12:00:00 12:00:00 Yady 22 [facility] 2021-03-28 2021-03-28 Outpatient CLARISSE Huynh [facility] [id number] [facility] 12:00:00 12:00:00 Yady 52 [facility] 2020-06-20 2020-06-20 Outpatient R BRENDA [facility] [id number] Univers 14:30:00 14:30:00 YAMIL grijalva [facility] 2020-05-30 2020-05-30 Telephone [facility] [id number] Univers 00:00:00 00:00:[id number] [facility] [id number] [place] [phone] Mi dical [address] 2020-05-27 2020-05-27 MAGDALENO Myrick [id number] [facility] 00:00:00 00:00:00 Triage Whitney VARELA [id number] i [facility] [id number] Bharat as [phone] [address] 2020-05-27 2020-05-27 MAGDALENO Myrick [id number] 00:00:00 00:00:00 Triage Whitney VARELA [id number] [facility] [id number] 2020-05-26 2020-05-26 Outpatient R [facility] [id number] Univers 10:20:00 10:20[facility] 2020-05-25 2020-05-25 [facility] [id number] Univers 19:00:00 19:00:00 VANDA grijalva [facility] 2020-05-25 2020-05-25 Laboratory Lab, [facility] Fam Pob I [facility] [id number] Univers 18:25:25 18:45:25 Only Vanda [facility] [id number] ity of [place] [id number] Bharat as Professio [phone] Mi dical [address] Office Building One 2020-05-25 2020-05-25 Laboratory Lab, [facility] [id number] 18:25:25 18:45:25 Only Fam Pob I Health [id number] [place] [id number] Professio [phone] [place] [address] Office [facility] [address] One 2020-05-25 2020-05-25 Letter Doctor MAGDALENO [id number] [facility] 00:00:00 00:00:00 (Out) Unassigned, [place] [id number] ity of [place] [facility] [id number] Bharat as [phone] [address] 2020-05-25 2020-05-25 Letter Doctor MAGDALENO [id number] 00:00:00 00:00:00 (Out) Unassigned, [place] [id number] [place] [facility] [id number] [id number] [facility] 2020-01-07 2020-01-07 Outpatient CLARISSE Huynh, [facility] [id number] [facility] 12:00:00 12:00:[address] [place] [address] 2019-11-24 2019-11-24 [facility] [id number] Univers 09:50:00 13:50:00 Encounter Barney Thomas [id number] ity [place] [id number] [place] [id number] [facility] 071 Branch 2019-11-24 2019-11-24 [facility] [id number] 09:50:00 13:50:00 Encounter Barney Thomas [id number] [place] [id number] Surgical [id number] [place] 071 2019-11-24 2019-11-24 Orders Doctor MAGDALENO [id number] Univers 00:00:00 00:00:00 Only Unassigned, [place] [id number] ity of [place] [facility] [id number] Bharat as [id number] [address] 2019-11-24 2019-11-24 Orders Doctor MAGDALENO [id number] 00:00:00 00:00:00 Only Unassigned, [place] [id number] [place] [facility] [id number] [id number] 2019-11-23 2019-11-23 [facility] [id number] Univers 10:00:00 10:00:00 BARNEY ity [facility] 2019-11-23 2019-11-23 Laboratory Only, [facility] Test [facility] 1.2.840. 114 [id number] Univers 09:30:39 09:45:39 Only Barney Bravo [id number] 0 ity of [place] [address].[phone] 2019-11-23 2019-11-23 Laboratory Only, [facility] [id number] 09:30:39 09:45:39 Only Test [place] [id number] [place] [id number] [id number] 2019-11-17 2019-11-17 Outpatient R [facility] [id number] Univers 12:15:00 12:15:00 ity [facility] 2019-11-17 2019-11-17 Employee Benefits Specialist Monet, [facility] Lab Main [facility] 1.2.8 40.114 [id number] Univers 11:59:38 12:14:38 Visit Barney Bravo 350.1.13.1 0 [place].2.[place] [facility] [id number] [address] 2019-11-17 2019-11-17 Employee Benefits Specialist Monet, [facility] 1.2.840.114 [id number] 11:59:38 12:14:38 Visit Lab Main [place] [id number] [place] 4.2.7.2.686 Professio [phone] [address] 2019-10-20 2019-10-20 [facility] [id number] [facility] 08:07:29 11:20:00 Encounter Barney Thomas [id number] ity of [place] 4.2.7.2.686 [facility] [id number] [address] 2019-10-20 2019-10-20 [facility] [id number] 08:07:29 11:20:00 Encounter Barney Thomas [id number] [place] 4.2.7.2.686 Surgical [id number] [place] [address] 2019-10-19 2019-10-19 [facility] [id number] [facility] 10:15:00 10:15:00 BARNEY [facility] 2019-10-19 2019-10-19 Laboratory Only, [facility] Test [facility] 1.2.840. 114 [id number] [facility] 09:57:46 10:12:46 Only Barney Bravo 350.1.13.1 0 ity of [place] 4.2.7.2.686 [facility] [id number] [address] 2019-10-19 2019-10-19 Laboratory Only, [facility] 1.2.840.114 [id number] 09:57:46 10:12:46 Only Test [place] [id number] [place] [address] [id number] [facility] 2019-10-15 2019-10-15 [facility] [id number] Univers 12:00:00 12:00:00 [facility] Results Test Description Test Time Test Comments Results Result Comments Source COVID-19 (ID NOW RAPID TESTING) 2019-10-19 15:39:00 Test Item Value Reference Range Interpretation Comme nts SARS-CoV-2 Rapid ID NOW (test code Not Detected Not Detected = 63673-8) BELEN (test code = BELEN) ID NOW COVID-19 Assay is an isothermal nucleic acid amplification test intended for the qualitative detection of nucleic acid from SARS-CoV-2 viral RNA in nasopharyngeal (LIME MIXER TENDER) specimens. It is used under Emergency Use [...] indicated. Lab Interpretation (test code = Normal 02614-8) [facility]
--- NOTE | 2023-03-23 18:01 | RAD REPORT ---
EXAM DESCRIPTION: CT - Spine Lumbar Wo Con - 03/23/2023 5:18 pm CLINICAL HISTORY: Pain;Lower back pain COMPARISON: Lumbar Spine 3 Views dated 03/10/2023 TECHNIQUE: Axial noncontrast CT imaging of the lumbar spine was performed with coronal and sagittal re-formatted images. All CT scans are performed using dose optimization technique as appropriate and may include automated exposure control or mA/KV adjustment according to patient size. FINDINGS: Severe wedge compression fracture deformity at T10, with adjacent prevertebral soft swelli ng. Mild buckling along the posterior vertebral body cortex. The degree of vertebral body height loss measures at least 60%, as best evaluated. This appears new since the lumbar spine radiographs of . No acute lumbar spine fracture seen. Schmorl's node formation along the superior endplate of L3 with focal superior endplate deformity on the right, appears chronic. No aggressive marrow pattern or virgilio lignment. Paraspinal tissues are unremarkable along the lumbar levels. No paraspinal abscess or hematoma seen. Intervertebral disc disease assessment is inherently limited by CT. Within these limitations, no high -grade canal stenosis suspected. IMPRESSION: Acute to subacute appearing marked wedge compression fracture deformity at T10. This deejay ears to be new since the lumbar spine radiographs 03/10/2023 No evidence of acute lumbar spine fracture or subluxation.
[2023-03-23] MEDS ORDERED: DIAZEPAM 5 MG TABLET ONE (18:13)
[2023-03-23] MEDS ORDERED: HYDROMORPHONE HCL 1 MG/ML INJ ONE ×2 (18:13→21:20)
[2023-03-23] MEDS ORDERED: dexAMETHasone 10 MG/ML VIAL ONE (18:13)
[2023-03-23] MEDS ORDERED: NA CHLORIDE 0.9% 1,000 ML ONE (18:14)
[2023-03-23] MEDS ORDERED: KETOROLAC 30 MG/ML INJ ONE (18:14)
[2023-03-23] MEDS ORDERED: NA CHLORIDE 0.9% 500 ML ONE (18:14)
[2023-03-23] MEDS ORDERED: ONDANSETRON 4 MG/2 ML VIAL ONE (18:14)
[2023-03-23 18:33] LABS: Absolute Lymphocytes (CBC) 0.6 K/uL (0.7-4.9); Hematocrit 41.9 % (36.0-45.0); Lymphocytes % 4.9 % (15.3-44.8); MCV 95.8 fL (80-100); Platelets 295 thou/uL (152-406); RBC Red Blood Cell Count 4.37 M/uL (3.86-4.86)
[2023-03-23 18:49] LABS: Albumin 3.4 g/dL (3.4-5.0); Bilirubin Total 0.5 mg/dL (0.2-1.0); Potassium 4.4 mEq/L (3.5-5.1); Protein, Total 7.7 g/dL (6.4-8.2)
--- NOTE | 2023-03-23 19:05 | EDPHYS ---
Physician Documentation [facility] Name: Mia Mayer Age: 77 yrs Sex: Female : 1945 Arrival Date: 03/23/2023 Time: 15:54 Bed 14 Private MD: ED Physician Modesto Renteria HPI: 03/23 18:46 This 77 yrs old Female presents to ER via Wheelchair with complaints of Back nicholas Pain. Historical: - Allergies: 16:20 Morphine; db - PMHx: 16:20 depressive disorder; Hypertensive disorder; Hypothyroidism; Hypercholesterolemia; db - PSHx: 16:20 toe surgery; db - Immunization history:: Adult Immunizations unknown. - Social history:: Smoking status: Patient denies any tobacco usage or history of. ROS: 18:50 Constitutional: Negative for fever, chills, and weight loss, Eyes: Negative for injury, nicholas pain, redness, and discharge, ENT: Negative for injury, pain, and discharge, Neck: Negative for injury, pain, and swelling, Cardiovascular: Negative for chest pain, palpitations, and edema, Respiratory: Negative for shortness of breath, cough, wheezing, and pleuritic chest pain, Abdomen/GI: Negative for abdominal pain, nausea, vomiting, diarrhea, and constipation, : Negative for injury, bleeding, discharge, and swelling, Skin: Negative for injury, rash, and discoloration, Neuro: Negative for headache, weakness, numbness, tingling, and seizure, Psych: Negative for depression, anxiety, suicide ideation, homicidal ideation, and hallucinations, Allergy/Immunology: Negative for hives, rash, and allergies, Endocrine: Negative for neck swelling, polydipsia, polyuria, polyphagia, and marked weight changes, Hematologic/Lymphatic: Negative for swollen nodes, abnormal bleeding, and unusual bruising, 18:50 Back: Positive for injury or acute deformity, pain at rest, pain with movement, of the lumbar area, 18:50 MS/extremity: Positive for pain, swelling, tenderness, of the right hip, Exam: 18:50 Constitutional: This is a well developed, well nourished patient who is awake, alert, nicholas and in no acute distress. Head/Face: Normocephalic, atraumatic. Eyes: Pupils equal round and reactive to light, extra-ocular motions intact. Lids and lashes normal. Conjunctiva and sclera are non-icteric and not injected. Cornea within normal limits. Periorbital areas with no swelling, redness, or edema. ENT: Nares patent. No nasal discharge, no septal abnormalities noted. Tympanic membranes are normal and external auditory canals are clear. Oropharynx with no redness, swelling, or masses, exudates, or evidence of obstruction, uvula midline. Mucous membranes moist. Neck: Trachea midline, no thyromegaly or masses palpated, and no cervical lymphadenopathy. Supple, full range of motion without nuchal rigidity, or vertebral point tenderness. No Meningismus. Chest/axilla: Normal chest wall appearance and motion. Nontender with no deformity. No lesions are appreciated. Cardiovascular: Regular rate and rhythm with a normal S1 and S2. No gallops, murmurs, or rubs. Normal PMI, no JVD. No pulse deficits. Respiratory: Lungs have equal breath sounds bilaterally, clear to auscultation and percussion. No rales, rhonchi or wheezes noted. No increased work of breathing, no retractions or nasal flaring. Abdomen/GI: Soft, non-tender, with normal bowel sounds. No distension or tympany. No guarding or rebound. No evidence of tenderness throughout. Female : Normal external genitalia. Skin: Warm, dry with normal turgor. Normal color with no rashes, no lesions, and no evidence of cellulitis. Neuro: Awake and alert, GCS 15, oriented to person, place, time, and situation. Cranial nerves II-XII grossly intact. Motor strength 5/5 in all extremities. Sensory grossly intact. Cerebellar exam normal. Normal gait. Psych: Awake, alert, with orientation to person, place and time. Behavior, mood, and affect are within normal limits. 18:50 Back: pain, that is moderate, that is severe, of the lumbar area, ROM is painful, with rotation to the right, with rotation to the left, with flexion, with extension, normal spinal alignment noted, CVA tenderness, is absent, vertebral tenderness, is appreciated at T10, T11 and T12, muscle spasm, is appreciated in the left low back, left mid back, right mid back and right low back, Vital Signs: 16:18 BP 144 / 98; Pulse 96; Resp 18; Temp 98.4(O); Pulse Ox 98% ; Weight 68.04 kg; Height 5 db ft. 6 in. ; 18:00 BP 160 / 87; Pulse 92; Resp 18; Pulse Ox 98% on R/A; eh3 19:00 BP 151 / 88; Pulse 90; Resp 18; Pulse Ox 98% on R/A; eh3 20:00 BP 162 / 84; Pulse 88; Resp 16; Pulse Ox 97% on R/A; eh3 21:00 BP 157 / 92; Pulse 82; Resp 16; Pulse Ox 98% on R/A; eh3 16:18 Body Mass Index 24.21 (68.04 kg, 167.64 cm) db MDM: 16:42 Patient medically screened. [facility] 18:50 Differential diagnosis: chronic back pain, Epidural or Perispinal Bleed Fatigue nicholas Fracture Ligament Injury Osteoporosis ruptured disc, spinal injury, sprain, Ureterolithiasis. Data reviewed: vital signs, nurses notes, lab test result(s), radiologic studies, CT scan, plain films. Consideration of Admission/Observation Escalation of care including admission/observation considered. I considered the following discharge prescriptions or medication management in the emergency department Medications were administered in the Emergency Department. See MAR. Independent interpretation of the following test(s) in the Emergency Department CT Scan: My interpretation is ct t 10 fracture. Test considered but Not performed: EKG: no ekg. Historians other than the Patient: pt well informed. Care significantly affected by the following chronic conditions: Hypertension, depression, hypothyroid, high cholesterol. Counseling: I had a detailed discussion with the patient and/or guardian regarding the historical points, exam findings, and any diagnostic results supporting the discharge/admit diagnosis, lab results, radiology results, the need to transfer to another facility, for higher level of care, [facility] does not immediately have the required specialist. 03/23 16:46 Order name: CBC with Diff [facility] 03/23 16:46 Order name: Comprehensive Metabolic Panel; Complete Time: 19:21 [facility] 03/23 16:46 Order name: Urinalysis w/ reflexes [facility] 03/23 16:46 Order name: CT Lumbar Spine Wo Con; Complete Time: 18:36 [facility] 03/23 18:45 Order name: Hip Right 2 View XRAY [facility] Administered Medications: 18:00 Drug: Diazepam PO 5 mg PO once Route: PO; eh3 19:00 Follow up: Response: No adverse reaction 3 18:10 Drug: HYDROmorphone IVP 1 mg IVP once Route: IVP; Site: right antecubital; 3 19:00 Follow up: Response: No adverse reaction; Pain is decreased; RASS: Alert and Calm (0) 3 18:10 Drug: Ondansetron IVP 4 mg IVP once; over 2 minutes Route: IVP; Site: right antecubital;3 19:00 Follow up: Response: No adverse reaction 3 18:50 Drug: NS 0.9% IV 500 ml IV at bolus once Route: IV; Rate: bolus; Site: right [facility] antecubital; 20:00 Follow up: IV Status: Completed infusion; IV Intake: 500ml 3 18:50 Drug: NS 0.9% IV 1000 ml IV at 125 ml/hr continuous Route: IV; Rate: 125 ml/hr; Site: [facility] right antecubital; 21:23 Follow up: IV Status: Completed infusion; IV Intake: 280ml 3 18:50 Drug: Ketorolac IVP 15 mg IVP once Route: IVP; Site: right antecubital; 3 20:00 Follow up: Response: No adverse reaction 3 18:50 Drug: Decadron - Dexamethasone IVP 10 mg IVP once Route: IVP; Site: right antecubital; 3 20:00 Follow up: Response: No adverse reaction 3 21:10 Drug: HYDROmorphone IVP 1 mg IVP once Route: IVP; Site: right antecubital; 3 21:23 Follow up: Response: No adverse reaction; Pain is decreased; RASS: Alert and Calm (0) [facility] Disposition Summary: 03/23/23 19:04 Transfer Ordered Notes: Transfer Location: [facility] nicholas Reason: Higher level of care nicholas Condition: Stable nicholas Problem: new nicholas Symptoms: have worsened nicholas Accepting Physician: to shawndante hayes md(03/23/23 21:21) 3 Diagnosis - Fall on same level, unspecified nicholas - Contusion of right hip - hematoma nicholas - Fracture of thoracic vertebra - ACUTE T10, SEVERE COMPRESSION, MILD BUCKLING nicholas POSTERIOR WALL, PREVETEBRAL SOFT TISSUE SWELLING Forms: - Medication Reconciliation Form nicholas - SBAR form nicholas Signatures: Dispatcher [employer] Modesto Alston MD MD cha Page, Corey, PA Loni Sethi cp RN RN eh3 Maxine Heredia RN RN db Corrections: (The following items were deleted from the chart) : 19:04 to dante iyer md, cha 3
--- NOTE | 2023-03-23 19:05 | ER ---
Nurse's Notes [facility] Name: Mia Mayer Age: 77 yrs Sex: Female : 1945 Arrival Date: 03/23/2023 Time: 15:54 Bed 14 Private MD: Diagnosis: Fall on same level, unspecified;Contusion of right hip-hematoma;Fracture of thoracic vertebra-ACUTE T10, SEVERE COMPRESSION, MILD BUCKLING POSTERIOR WALL, PREVETEBRAL SOFT TISSUE SWELLING Presentation: 03/23 16:17 Chief complaint: Patient states: LOWER BACK PAIN X 2 DAYS. STATES TRIPPED AND FELL AT db [facility] ON 03/17. RECENT MRI OF BACK. 16:18 Coronavirus screen: Client denies travel out of the [place] in the last 14 days. At this db time, the client does not indicate any symptoms associated with coronavirus-19. Ebola Screen: Patient negative for fever greater than or equal to 101.5 degrees Fahrenheit, and additional compatible Ebola Virus Disease symptoms Patient denies exposure to infectious person. Patient denies travel to an Ebola-affected area in the 21 days before illness onset. No symptoms or risks identified at this time. Initial Sepsis Screen: Does the patient meet any 2 criteria? No. Patient's initial sepsis screen is negative. Does the patient have a suspected source of infection? No. Patient's initial sepsis screen is negative. Risk Assessment: Do you want to hurt yourself or someone else? Patient reports no desire to harm self or others. Onset of symptoms was March 17, 2023. 16:18 Method Of Arrival: Wheelchair db 16:18 Acuity: KIM 3 db Triage Assessment: 16:20 General: Appears in no apparent distress. uncomfortable, Behavior is cooperative, db anxious. Pain: Complains of pain in back. Neuro: Level of Consciousness is awake, alert, obeys commands, Oriented to person, place, time, situation. Respiratory: Airway is patent Respiratory effort is even, unlabored, Respiratory pattern is regular, symmetrical. Musculoskeletal: Circulation, motion, and sensation intact. Capillary refill < 3 seconds. Historical: - Allergies: 16:20 Morphine; db - PMHx: 16:20 depressive disorder; Hypertensive disorder; Hypothyroidism; Hypercholesterolemia; db - PSHx: 16:20 toe surgery; db - Immunization history:: Adult Immunizations unknown. - Social history:: Smoking status: Patient denies any tobacco usage or history of. Screenin:00 [facility] ED Fall Risk Assessment (Adult) Score/Fall Risk Level 0 - 2 = Low Risk. Abuse eh3 screen: Denies threats or abuse. Denies injuries from another. Nutritional screening: No deficits noted. Tuberculosis screening: No symptoms or risk factors identified. Assessment: 18:00 General: Appears in no apparent distress. uncomfortable, Behavior is calm, cooperative, eh3 appropriate for age. Pain: Complains of pain in thoracic area. Neuro: Level of Consciousness is awake, alert, obeys commands, Oriented to person, place, time, situation. Cardiovascular: Capillary refill < 3 seconds Patient's skin is warm and dry. Respiratory: Airway is patent Respiratory effort is even, unlabored, Respiratory pattern is regular, symmetrical. GI: Abdomen is round non-distended. Derm: Skin is pink, warm \T\ dry. Musculoskeletal: Circulation, motion, and sensation intact. 19:00 Reassessment: Patient appears in no apparent distress at this time. Patient and/or 3 family updated on plan of care and expected duration. Pain level reassessed. Patient is alert, oriented x 3, equal unlabored respirations, skin warm/dry/pink. 20:00 Reassessment: Patient appears in no apparent distress at this time. Patient and/or 3 family updated on plan of care and expected duration. Pain level reassessed. Patient is alert, oriented x 3, equal unlabored respirations, skin warm/dry/pink. 20:05 Reassessment: Nurse to nurse report received by COLLETTE Childress at [facility]. 3 21:00 Reassessment: Patient appears in no apparent distress at this time. Patient and/or 3 family updated on plan of care and expected duration. Pain level reassessed. Patient is alert, oriented x 3, equal unlabored respirations, skin warm/dry/pink. Vital Signs: 16:18 BP 144 / 98; Pulse 96; Resp 18; Temp 98.4(O); Pulse Ox 98% ; Weight 68.04 kg; Height 5 db ft. 6 in. ; 18:00 BP 160 / 87; Pulse 92; Resp 18; Pulse Ox 98% on R/A; eh3 19:00 BP 151 / 88; Pulse 90; Resp 18; Pulse Ox 98% on R/A; eh3 20:00 BP 162 / 84; Pulse 88; Resp 16; Pulse Ox 97% on R/A; eh3 21:00 BP 157 / 92; Pulse 82; Resp 16; Pulse Ox 98% on R/A; eh3 16:18 Body Mass Index 24.21 (68.04 kg, 167.64 cm) db ED Course: 16:07 Patient arrived in ED. mg5 16:20 Triage completed. db 16:20 Arm band placed on left wrist. db 16:42 Modesto Renteria MD is Attending Physician. nicholas 17:17 CT Lumbar Spine Wo Con In Process Unspecified. EDMS 18:00 Patient has correct armband on for positive identification. Bed in low position. Call eh3 light in reach. Side rails up X2. Provided Education on: use of call jean. Pulse ox on. NIBP on. 18:05 Loni Vides RN is Primary Nurse. eh3 18:05 Inserted saline lock: 22 gauge in right antecubital area, using aseptic technique. 3 Blood collected. 18:50 Initiated transfer with Alia at [facility]. rv1 18:[address] Joseph to [facility] ER. rv1 19:41 Hip Right 2 View XRAY In Process Unspecified. EDMS 21:15 Report given to COLLETTE Blount. 3 21:20 No provider procedures requiring assistance completed. Patient transferred, IV remains eh3 in place. Administered Medications: 18:00 Drug: Diazepam PO 5 mg PO once Route: PO; eh3 19:00 Follow up: Response: No adverse reaction 3 18:10 Drug: HYDROmorphone IVP 1 mg IVP once Route: IVP; Site: right antecubital; 3 19:00 Follow up: Response: No adverse reaction; Pain is decreased; RASS: Alert and Calm (0) 3 18:10 Drug: Ondansetron IVP 4 mg IVP once; over 2 minutes Route: IVP; Site: right antecubital;3 19:00 Follow up: Response: No adverse reaction 3 18:50 Drug: NS 0.9% IV 500 ml IV at bolus once Route: IV; Rate: bolus; Site: right [facility] antecubital; 20:00 Follow up: IV Status: Completed infusion; IV Intake: 500ml 3 18:50 Drug: NS 0.9% IV 1000 ml IV at 125 ml/hr continuous Route: IV; Rate: 125 ml/hr; Site: [facility] right antecubital; 21:23 Follow up: IV Status: Completed infusion; IV Intake: 280ml 3 18:50 Drug: Ketorolac IVP 15 mg IVP once Route: IVP; Site: right antecubital; 3 20:00 Follow up: Response: No adverse reaction 3 18:50 Drug: Decadron - Dexamethasone IVP 10 mg IVP once Route: IVP; Site: right antecubital; eh3 20:00 Follow up: Response: No adverse reaction 3 21:10 Drug: HYDROmorphone IVP 1 mg IVP once Route: IVP; Site: right antecubital; 3 21:23 Follow up: Response: No adverse reaction; Pain is decreased; RASS: Alert and Calm (0) 3 Medication: 21:21 VIS not applicable for this client. 3 Intake: 20:00 IV: 500ml; Total: 500ml. eh3 21:23 IV: 280ml; Total: 780ml. 3 Outcome: 19:04 ER care complete, transfer ordered by MD. peterson 21:20 Transferred by ground EMS to [facility], Transfer form completed. 3 21:20 Condition: stable 21:20 Instructed on the need for transfer, 21:21 Patient left the ED. 3 Signatures: Dispatcher [employer] EDModesto Rodriguez MD MD cha Hall, Erin, RN RN [facility] Maxine Heredia RN RN db Villegas, Rebecca [facility] Dorothy Mullins mg5 Corrections: (The following items were deleted from the chart) 16:20 16:17 Chief complaint: Patient states: LOWER BACK PAIN X 2 DAYS. nikolai menchaca 20:25 20:24 Initiated transfer with Alia at [place] [id number]
[2023-03-23 19:23] LABS: Specific Gravity 1.008 (1.005-1.030); Urine Bilirubin NEGATIVE (Negative); Urine Blood Negative (Negative); Urine Clarity Clear (Clear); Urine Color Colorless (Yellow); Urine Glucose NEGATIVE (Negative); Urine Protein NEGATIVE (Negative); Urine Urobilinogen Normal (Normal)
--- NOTE | 2023-03-23 19:46 | RAD REPORT ---
EXAM DESCRIPTION: RAD - Hip Right 2 View - 03/23/2023 7:39 pm CLINICAL HISTORY: PAIN COMPARISON: No comparisons TECHNIQUE: Right hip, AP and frog-leg views. FINDINGS: There is no fracture or dislocation. [id number] right hip joint degenerative changes . No acute or destructive bony process seen. IMPRESSION: No acute findings of the right hip. [id number] degenerative changes.
[2023-03-23 21:59] VITALS: TEMP 98.4
[2023-03-23 22:03] VITALS: BP 157/92; O2SAT 98
[2023-03-23 22:06] LABS: Blood Morphology Comment NOT SEEN (NOT SEEN); Platelet Estimate ADEQ; White Blood Cell Scan OK (OK)
== END 2023-03-23 21:21 | disposition short-term general hospital (02) ==
LOC: ER 15:54
DX: S22.070A Wedge compression fracture of T9-T10 vertebra, initial encounter for closed fracture (principal); S70.01XA Contusion of right hip, initial encounter; W18.30XA Fall on same level, unspecified, initial encounter; Z88.5 Allergy status to narcotic agent; I10 Essential (primary) hypertension
CPT/HCPCS: 96361; 85025; 36415; 81003; 80053; 72131; 73502; 96375; 96374; 99285; J1100; J1170 ×2; J2405; J7040; J7030

== ENCOUNTER 2023-03-29 09:22 | Emergency (ER) | payer OTHER ==
--- OUTSIDE RECORDS SUMMARY | 2023-03-29 09:27 | XMS REPORT | Continuity of Care Document ---
:1945 Author Organization [facility] t Address [address] [place] [address] [place] [id number] Care Team Providers Name Role Phone DEQUAN MACDONALD Primary Care Physician Unavailable Dequan Macdonald Attending Clinician Unavailable BARNEY BRAVO Attending Clinician Unavailable DAVID MA Attending Clinician Unavailable David Ma DO Attending Clinician Doctor Unassigned, [place] Attending Clinician Unavailable Yady Huynh Attending Clinician Unavailable YAMIL GUTIERREZ Attending Clinician Unavailable Vanda Golden Attending Clinician Whitney Scott RN Attending Clinician Unavailable VANDA LOJA Attending Clinician Unavailable Lab, Adc Fam Pob I Attending Clinician Unavailable Barney Bravo MD Attending Clinician Only, Adc Test Attending Clinician Unavailable Pob, Adc Lab Main Attending Clinician Unavailable BARNEY BRAVO Admitting Clinician Unavailable Yady Huynh Admitting Clinician Unavailable Physician, No Primary or Family Admitting Clinician UnavailBarney Velarde MD Admitting Clinician Payers Payer Name Policy Type Policy Number Effective Date Expiration Date Rachael LOWE MEDICARE ADV [id number] 2019 00:00:00 Problems This patient has no known problems. Allergies, Adverse Reactions, Alerts Allergy Allergy Status Severity Reaction(s) Onset Inactive Treating Comm ents Source Name Type Date Date Clinician MORPHINE DRUG Active Hallucinates 2019- Un svetlana INGREDI 6 ity of 00:00: [place] 00 Medical Branch Morphine Propensi Active Hallucinatio Univers ty to ns 10-17 ity of adverse 00:00: [place] reaction 00 Medical s Branch NO KNOWN Drug Active Univers ALLERGIE Class ity of S [facility] Social History Social Habit Start Date Stop Date Quantity Comments Source Sexual orientation Univer sity of [facility] Exposure to Not sure University of SARS-CoV-2 (event) [facility] History of Social 2019-11-24 2019-11-24 Univers ity of function 00:00:00 00:00:00 [facility] Tobacco use and 2019-10-18 2019-10-18 Smokeless Universit y of exposure 00:00:00 00:00:00 tobacco non-user [facility] Sex Assigned At [birth year] Universit y of 00:00:00 00:00:00 [facility] Smoking Status Start Date Stop Date Source Never smoked tobacco [facility] Medications Ordered Filled Start Stop Current Ordering Indication Dosage Frequency Signature Comments Components Source Medication Medication Date Date Medication? Clinician (SIG) Name Name HYDROcodone 2022-04- No 1{tbl} 1 tablet, Univers -acetaminop 05-25 Oral, ity of hen (NORCO) 18:45: 18:12 [place] 00 :00 dose, On Medica l tablet 1 e Branch tablet 03/25/23 at 1245, Routine zolpidem 10 2019- Yes 10mg Take 10 mg Univers mg tablet - by mouth ity of 18:58: at bedtime [place] 33 as needed Medical for Branch Insomnia. ramipril 2019- Yes 5mg Take 5 mg Univ ers (ALTACE) 5 - by mouth 2 ity of mg capsule 18:58: (two) [place] 33 times Medical daily. Branch rosuvastati 2020-0 [...] ity o f mg tablet 18:58: daily. [place] [address] Medical Branch FLUoxetine 2020-0 Yes 20mg Take 20 mg U nivers (PROZAC) 20 7-29 by mouth 3 it y of mg capsule 18:58: (three[place] Medical daily. Branch raloxifene 2020-0 Yes 60mg Take 60 mg U nivers (EVISTA) 60 7-29 by mouth ity of mg tablet 18:58: daily. [place] [address] Medical Branch alendronate 2020-0 Yes 70mg Take 70 mg Univers 70 mg 7-29 by mouth ity of tablet 18:58: weekly. [place] [address] Medical Branch levocetiriz 2020-0 Yes 5mg Take [...] ity o f mg tablet 18:58: daily. [place] [address] Medical Branch FLUoxetine 2020-0 Yes 20mg Take 20 mg U nivers (PROZAC) 20 7-29 by mouth 3 it y of mg capsule 18:58: (three[place] times Medical daily. Branch raloxifene 2020-0 Yes 60mg Take 60 mg U nivers (EVISTA) 60 7-29 by mouth ity of mg tablet 18:58: daily. [place] [address] Medical Branch alendronate 2020-0 Yes 70mg Take 70 mg Univers 70 mg 7-29 by mouth ity of tablet 18:58: weekly. [place] [address] Medical Branch levocetiriz 2020-0 Yes 5mg Take 5 mg U nivers ine (XYZAL) 7- by mouth ity of 5 mg tablet 18:58: every [place] [address] evening. Medical Branch zolpidem 10 2020-0 Yes [...] ity o f mg tablet 18:58: daily. [place] [address] Medical Branch FLUoxetine 2020-0 Yes 20mg Take 20 mg U nivers (PROZAC) 20 7-29 by mouth 3 it y of mg capsule 18:58: (three[place] times Medical daily. Branch raloxifene 2020-0 Yes 60mg Take 60 mg U nivers (EVISTA) 60 7-29 by mouth ity of mg tablet 18:58: daily. [place] [address] Medical Branch alendronate 2020-0 Yes 70mg Take 70 mg Univers 70 mg 7-29 by mouth ity of tablet 18:58: weekly. [place] [address] Medical Branch levocetiriz 2020-0 Yes 5mg Take 5 mg U nivers ine (XYZAL) 7- by mouth ity of 5 mg tablet 18:58: every [place] [address] evening. Medical Branch zolpidem 10 2020-0 Yes 10mg Take 10 mg Univers mg tablet 7- by mouth ity of 18:58: at bedtime [place] [address] as needed Medical for Branch Insomnia. ramipril 2020-0 Yes 5mg Take 5 mg Univ ers (ALTACE) 5 7- by mouth 2 ity of mg capsule 18:58: (two) [place] times Medical daily. Branch rosuvastati 2020-0 Yes 10mg Take 10 mg Univers n (CRESTOR) 7- by mouth ity of 10 mg 18:58: at [place] tablet bedtime. Medical Branch levomefolat 2020-0 Yes 1{capsu [...] ity o f mg tablet 18:58: daily. [place] [address] Medical Branch FLUoxetine 2020-0 Yes 20mg Take 20 mg U nivers (PROZAC) 20 7-29 by mouth 3 it y of mg capsule 18:58: (three[place] times Medical daily. Branch raloxifene 2020-0 Yes 60mg Take 60 mg U nivers (EVISTA) 60 7-29 by mouth ity of mg tablet 18:58: daily. [place] [address] Medical Branch alendronate 2020-0 Yes 70mg Take 70 mg Univers 70 mg 7-29 by mouth ity of tablet 18:58: weekly. [place] [address] Medical Branch levocetiriz 2020-0 Yes 5mg Take 5 mg U nivers ine (XYZAL) 7-29 by mouth ity of 5 mg tablet 18:58: every [place] [address] evening. Medical Branch zolpidem 10 2020-0 Yes 10mg Take 10 mg Univers mg tablet 7-29 by mouth ity of 18:58: at bedtime [place] [address] as needed Medical for Branch Insomnia. ramipril 2020-0 Yes 5mg Take 5 mg Univ ers (ALTACE) 5 7-29 by mouth 2 ity of mg capsule 18:58: (two) [place] [address] times Medical daily. Branch rosuvastati 2020-0 Yes 10mg Take 10 mg Univers n (CRESTOR) 7- by mouth ity of 10 mg 18:58: at [place] tablet bedtime. Medical Branch levomefolat 2020-0 Yes 1{capsu [...] ity o f mg tablet 18:58: daily. [place] [address] Medical Branch FLUoxetine 2020-0 Yes 20mg Take 20 mg U nivers (PROZAC) 20 7-29 by mouth 3 it y of mg capsule 18:58: (three) [place] times Medical daily. Branch raloxifene 2020-0 Yes 60mg Take 60 mg U nivers (EVISTA) 60 7-29 by mouth ity of mg tablet 18:58: daily. [place] [address] Medical Branch alendronate 2020-0 Yes 70mg Take 70 mg Univers 70 mg 7-29 by mouth ity of tablet 18:58: weekly. [place] [address] Medical Branch levocetiriz 2020-0 Yes 5mg Take 5 mg U nivers ine (XYZAL) - by mouth ity of 5 mg tablet 18:58: every [place] evening. Medical Branch zolpidem 10 2020-0 Yes 10mg Take 10 mg Univers mg tablet - by mouth ity of 18:58: at bedtime [place] [address] as needed Medical for Branch Insomnia. ramipril 2020-0 Yes 5mg Take 5 mg Univ ers (ALTACE) 5 11-23 by mouth 2 ity of mg capsule 18:58: (two) [place] 33 times Medical daily. Branch rosuvastati 2020-0 Yes 10mg Take 10 mg Univers n (CRESTOR) - by mouth ity of 10 mg 18:58: at [place] tablet 33 bedtime. Medical Branch levomefolat 2020-0 Yes 1{capsu Take 1 U nivers e-algal oil 11-23 le} capsule by it y of (DEPLIN, 18:58: mouth [place] ALGAL OIL,) 33 daily. Medica l .314 Branch mg Cap levothyroxi 2020-0 Yes .05mg Take 0.05 Univers ne 50 mcg 7- mg by ity of tablet 18:58: mouth [place] 33 every Medical morning. Branch oxybutynin 2020-0 Yes 5mg Take 5 mg Un svetlana chloride 5 11-23 by mouth ity o f mg tablet 18:58: daily. [place] [address] Medical Branch FLUoxetine 2020-0 Yes 20mg Take 20 mg U nivers (PROZAC) 20 7- by mouth 3 it y of mg capsule 18:58: (three) [place] 33 times Medical daily. Branch raloxifene 2020-0 Yes 60mg Take 60 mg U nivers (EVISTA) 60 7- by mouth ity of mg tablet 18:58: daily. [place] [address] Medical Branch alendronate 2020-0 Yes 70mg Take 70 mg Univers 70 mg 7- by mouth ity of tablet 18:58: weekly. [place] [address] Medical Branch levocetiriz 2020-0 Yes 5mg Take 5 mg U nivers ine (XYZAL) - by mouth ity of 5 mg tablet 18:58: every [place] evening. Medical Branch lactated 2020-0 Yes 1000mL at 75 Univer s ringers IV 7-29 mL/hr, ity of infusion 18:45: 1,000 [place], [place] 1[place]000 [place] 00 IV Medical Infusion, Branch CONTINUOUS , Starting Fri11/24/19 at 1345, Until Discontinu ed, Routine, PACU sodium 2020-0 Yes PRN, Univers chloride 11-23 Starting ity of (NS) 18:04: Fri [place] injection 11/24/19 at [facility] 1304, Branch Until Discontinu ed, Routine, Intra-op neomycin-po 2020-0 Yes PRN, [facility] s lymyxin-dex 11-23 Starting ity of amethasone 18:04: Fri (MAXITROL) 11/24/19 at [facility] ical 3.5 1304, [place] mg/g-10,000 Until unit/g-0.1 Discontinu % ed, ophthalmic Routine, ointment Intra-op water for 2020-0 Yes PRN, Univers irrigation 11-23 Starting ity o f irrigation 17:58: Fri [place] solution 11/24/19 at Medic al 1258, Branch Until Discontinu ed, Routine, Intra-op Hyaluronida 2020-0 Yes PRN, [facility] s se, Human 11-23 Starting ity of Recomb. 16:57: Fri (HYLENEX) 11/24/19 at [facility] injection 1157, Branch Until Discontinu ed, Routine, Intra-op gentamicin 2020-0 Yes PRN, Univers injection 11-23 Starting ity of 16:56: Fri [place] 11/24/[address] [facility] 1156, Branch Until Discontinu ed, MAKENNA, Intra-op eye block 2020-0 Yes PRN, Univers syringe 11 11-23 Starting ity o f mL 16:55: Fri [place] 11/24/[address] [facility] 1155, Branch Until Discontinu ed, Intra-op EPINEPHrine 2020-0 Yes PRN, [facility] s 1:1,000 (1 11-23 Starting ity o f mg/mL) 16:54: Fri (ADRENALIN) 11/24/19 at Id dical injection 1154, Branch Until Discontinu ed, Routine, Intra-op DUOVISC 2020-0 Yes PRN, Univers (DUOVISC 11-23 Starting ity of VISCO 16:54: Fri [place] ELASTIC) 3 11/24/19 at [facility] ical %-4 %(0.5 1154, Branch mL) 1 % Until (0.55 mL) Discontinu intraocular ed, injection Routine, Intra-op dexamethaso 2020-0 Yes PRN, Univer s ne 11-23 Starting ity of (DECADRON 16:54: Wed [place] PHOSPHATE) 11/24/19 at [facility] ica injection 1154, Branch Until Discontinu ed, Routine, Intra-op ceFAZolin 2020-0 Yes PRN, Univers (ANCEF) 11-23 Starting ity of injection 16:54: Wed [place] 00 11/24/19 at Medical 1154, Branch Until Discontinu ed, MAKENNA, Intra-op carbachoL 2020-0 Yes PRN, Univers (MIOSTAT) 11-23 Starting ity of 0.01 % 16:54: Fri [place] intraocular 00 11/24/19 at Id dical injection 1154, Branch Until Discontinu ed, Routine, Intra-op balanced 2020-0 Yes PRN, Univers salt irrig 11-23 Starting ity o f soln comb1 16:53: Fri [place] (BSS PLUS) 11/24/19 at [facility] ica ophthalmic 1153, Branch solution Until 500 mL bag Discontinu ed, Routine, Intra-op mydriatic 2020-0 2020- No .5mL 0.5 mL, Univ ers #5 11-23 Left Eye, ity of ophthalmic 15:15: 15:26 ONCE, 1 [place] as solution 00 :00 dose, Fri Medica l 0.5 mL 11/24/19 at [place] syringe 1015, Routine lactated 2020-0 2020- No 1000mL at 20 Unive rs ringers IV 11-23 mL/hr, ity of infusion 15:15: 15:26 1,000 mL, Bhar[place] as 1,000 mL 00 :00 IV Medical Infusion, [place] ONCE, 1 dose, 11/24/19 at 1015, Routine, DSU Pre-op zolpidem 10 2020-0 Yes 10mg Take 10 mg Univers mg tablet 11-23 by mouth ity of 13:58: at bedtime [place] 33 as needed Medical for [place] Insomnia. ramipril 2020-0 Yes 5mg Take 5 mg Univ ers (ALTACE) 5 11-23 by mouth 2 ity of mg capsule 13:58: (two) [place] 33 times Medical daily. Branch rosuvastati 2020-0 Yes 10mg Take 10 mg Univers n (CRESTOR) 7-29 by mouth ity of 10 mg 13:58: at [place] tablet 33 bedtime. Medical Branch levomefolat 2020-0 Yes 1{capsu Take 1 U nivers e-algal oil 7-29 le} capsule by it y of (DEPLIN, 13:58: mouth [place] ALGAL OIL,) 33 daily. Medica l 15-90.314 Branch mg Cap levothyroxi 2020-0 Yes .05mg Take 0.05 Univers ne 50 mcg 7-29 mg by ity of tablet 13:58: mouth [place] 33 every Medical morning. Branch oxybutynin 2020-0 Yes 5mg Take 5 mg Un svetlana chloride 5 7-29 by mouth ity o f mg tablet 13:58: daily. [place] [address] Medical Branch FLUoxetine 2020-0 Yes 20mg Take 20 mg U nivers (PROZAC) 20 7-29 by mouth 3 it y of mg capsule 13:58: (three) [place] 33 times Medical daily. Branch raloxifene 2020-0 Yes 60mg Take 60 mg U nivers (EVISTA) 60 7-29 by mouth ity of mg tablet 13:58: daily. [place] [address] Medical Branch alendronate 2020-0 Yes 70mg Take 70 mg Univers 70 mg 7-29 by mouth ity of tablet 13:58: weekly. [place] [address] Medical Branch levocetiriz 2020-0 Yes 5mg Take 5 mg U nivers ine (XYZAL) 7-29 by mouth ity of 5 mg tablet 13:58: every [place] evening. Medical Branch zolpidem 10 2020-0 Yes 10mg Take 10 mg Univers mg tablet 7-29 by mouth ity of 13:58: at bedtime [place] as needed Medical for Branch Insomnia. ramipril 2020-0 Yes 5mg Take 5 mg Univ ers (ALTACE) 5 7-29 by mouth 2 ity of mg capsule 13:58: (two) [place] 33 times Medical daily. Branch rosuvastati 2020-0 Yes 10mg Take 10 mg Univers n (CRESTOR) 7-29 by mouth ity of 10 mg 13:58: at [place] tablet 33 bedtime. Medical Branch levomefolat 2020-0 Yes 1{capsu Take 1 U nivers e-algal oil 7-29 le} capsule by it y of (DEPLIN, 13:58: mouth [place] ALGAL OIL,) 33 daily. Medica l 15.314 Branch mg Cap levothyroxi 2020-0 Yes .05mg Take 0.05 Univers ne 50 mcg 7-29 mg by ity of tablet 13:58: mouth [place] 33 every Medical morning. Branch oxybutynin 2020-0 Yes 5mg Take 5 mg Un svetlana chloride 5 7-29 by mouth ity o f mg tablet 13:58: daily. [place] [address] Medical Branch FLUoxetine 2020-0 Yes 20mg Take 20 mg U nivers (PROZAC) 20 7-29 by mouth 3 it y of mg capsule 13:58: (three) [place] 33 times Medical daily. Branch raloxifene 2020-0 Yes 60mg Take 60 mg U nivers (EVISTA) 60 7-29 by mouth ity of mg tablet 13:58: daily. [place] [address] Medical Branch alendronate 2020-0 Yes 70mg Take 70 mg Univers 70 mg 7-29 by mouth ity of tablet 13:58: weekly. [place] [address] Medical Branch levocetiriz 2020-0 Yes 5mg Take 5 mg U nivers ine (XYZAL) 7-29 by mouth ity of 5 mg tablet 13:58: every [place] 33 evening. Medical Branch zolpidem [...] ity o f mg tablet 22:38: daily. [place] [address] Medical Branch FLUoxetine 2020-0 Yes 20mg Take 20 mg U nivers (PROZAC) 20 7-27 by mouth 3 it y of mg capsule 22:38: (three) [place] 50 times Medical daily. Branch raloxifene 2020-0 Yes 60mg Take 60 mg U nivers (EVISTA) 60 7-27 by mouth ity of mg tablet 22:38: daily. [place] [address] Medical Branch alendronate 2020-0 Yes 70mg Take 70 mg Univers 70 mg 7-27 by mouth ity of tablet 22:38: weekly. [place] [address] Medical Branch levocetiriz 2020-0 Yes 5mg Take 5 mg U nivers ine (XYZAL) 7-27 by mouth ity of 5 mg tablet 22:38: every [place] 50 evening. Medical Branch zolpidem 10 2020-0 [...] ity o f mg tablet 14:43: daily. [place] [address] Medical Branch FLUoxetine 2020-0 Yes 20mg Take [...] by mouth ity of tablet 14:43: weekly. [address] Branch levocetiriz 2020-0 Yes 5mg Take 5 mg U nivers ine (XYZAL) 6-25 by mouth ity of 5 mg tablet 14:43: every [place] [address] [facility] Branch lactated 2020-0 Yes 1000mL at 75 Univer s ringers IV 6-24 mL/hr, ity of infusion 15:45: 1,000 mL, [place] 1,000 mL 00 IV Medical Infusion, [place] CONTINUOUS , Starting Fri10/20/19 at 1045, Until Discontinu ed, Routine, PACU lactated 2020-0 Yes 1000mL at 50 Univer s ringers IV 6-24 mL/hr, ity of infusion 14:30: 1,000 mL, [place] 1,000 mL 00 IV Medical Infusion, [place] CONTINUOUS , Starting Fri10/20/19 at 0930, Until Discontinu ed, Routine, DSU Pre-op water for 2020-0 Yes PRN, Univers irrigation 6-24 Starting ity o f irrigation 13:36: Fri [place] solution 10/20/19 at [facility] al [address] [place] [address] Until Discontinu ed, Routine, Intra-op sodium 2020-0 Yes PRN, Univers chloride 6-24 Starting ity of (NS) 13:35: Fri [place] injection 10/20/[address] Until Discontinu ed, Routine, Intra-op neomycin-po 2020-0 Yes PRN, Univer s lymyxin-dex 6-24 Starting ity of amethasone 13:35: Fri (MAXITROL) 10/20/19 at [facility] ical [address] [place] [address] mg/g-10,000 Until unit/g-0.1 Discontinu % ed, ophthalmic Routine, ointment Intra-op Hyaluronida 2020-0 Yes PRN, Univer s se, Human 6-24 Starting ity of Recomb. 13:35: Fri (HYLENEX) 10/20/19 at [facility] injection [address] [place] [address] Until Discontinu ed, Routine, Intra-op gentamicin 2020-0 Yes PRN, Univers injection 6-24 Starting ity of 13:35: Fri [place] 10/20/[address] Until Discontinu ed, MAKENNA, Intra-op eye block 2020-0 Yes PRN, Univers syringe 11 10-19 Starting ity o f mL 13:35: Wed [place] 00 10/20/[address] [facility] [address] Until Discontinu ed, Intra-op EPINEPHrine 2020-0 Yes PRN, Univer s 1:1,000 (1 10-19 Starting ity o f mg/mL) 13:34: Wed [place] (ADRENALIN) 00 10/20/19 at Id dical injection 0834, [place] Until Discontinu ed, Routine, Intra-op DUOVISC 2020-0 Yes PRN, Univers (DUOVISC 10-19 Starting ity of VISCO 13:34: Wed [place] ELASTIC) 3 10/20/19 at [facility] %-4 %(0.5 0834, [place] mL) 1 % Until (0.55 mL) Discontinu intraocular ed, injection Routine, Intra-op dexamethaso 2020-0 Yes PRN, Univer s ne 10-19 Starting ity of (DECADRON 13:33: Fri [place] PHOSPHATE) 10/20/19 at [facility] ical injection 0833, [place] Until Discontinu ed, Routine, Intra-op ceFAZolin 2020-0 Yes PRN, Univers (ANCEF) 10-19 Starting ity of injection 13:33: Fri [place] 10/20/[address] [facility] 0833, [place] Until Discontinu ed, MAKENNA, Intra-op carbachoL 2020-0 Yes PRN, Univers (MIOSTAT) 10-19 Starting ity of 0.01 % 13:33: Fri [place] intraocular 00 10/20/19 at Id dical injection 0833, [place] Until Discontinu ed, Routine, Intra-op balanced 2020-0 Yes PRN, Univers salt irrig 10-19 Starting ity o f soln comb1 13:32: Wed [place] (BSS PLUS) 10/20/19 at [facility] ical ophthalmic 0832, [place] solution Until 500 mL bag Discontinu ed, Routine, Intra-op mydriatic 2020-0 2020- No .5mL 0.5 mL, Univ ers #5 10-19 Right Eye, ity of ophthalmic 13:30: 13:22 ONCE, 1 [place]har[place] as solution 00 :00 dose, Fri Medica l 0.5 mL 10/20/19 at [place] syringe 0830, Routine alendronate 2020-0 Yes 70mg Take 70 mg Univers 70 mg -22 by mouth ity of tablet 15:58: weekly. [place] [address] Medical Branch levocetiriz 2020-0 Yes 5mg Take [...] ity o f mg tablet 15:58: daily. [place] [address] Medical Branch FLUoxetine 2020-0 Yes 20mg Take 20 mg U nivers (PROZAC) 20 6-22 by mouth 3 it y of mg capsule 15:58: (three) [place] 09 times Medical daily. Branch raloxifene 2019-0 Yes 60mg Take 60 mg U nivers (EVISTA) 60 6-22 by mouth ity of mg tablet 15:58: daily. [place] Medical Branch zolpidem 10 2019-0 Yes 10mg Take 10 mg Univers mg tablet 6-22 by mouth ity of 15:58: at bedtime [place] 08 as needed Medical for Branch Insomnia. Vital Signs Vital Name Observation Time Observation Value Comments Source Systolic blood 2023-03-25 17:04:00 95 mm[Hg] Univer sity of pressure [facility] Diastolic blood 2023-03-25 17:04:00 73 mm[Hg] Unive rsity of pressure [facility] Heart rate 2023-03-25 17:04:00 99 /min Universi ty of [place] [facility] Body temperature 2023-03-25 17:04:00 37.28 Bere Univ ersity of [place] [facility] Respiratory rate 2023-03-25 17:04:00 16 /min Univ ersity of [place] [facility] Body height 2023-03-25 17:04:00 167.6 cm Universi ty of [place] [facility] Body weight 2023-03-25 17:04:00 68.04 kg [facility]i ty of [place] [facility] BMI 2023-03-25 17:04:00 24.21 kg/m2 Universi ty of [place] [facility] Oxygen saturation in 2023-03-25 17:04:00 99 /min University of Arterial blood by [place] [employer] Pulse oximetry Branch Systolic blood 2019-11-24 18:35:00 136 mm[Hg] Univer sity of pressure [place] [facility] Diastolic blood 2019-11-24 18:35:00 67 mm[Hg] Unive rsity of pressure [place] [facility] Heart rate 2019-11-24 18:35:00 71 /min Universi ty of [place] [facility] Respiratory rate 2019-11-24 18:35:00 19 /min Univ ersity of [place] [facility] Oxygen saturation in 2019-11-24 18:35:00 98 /min University of Arterial blood by [place] [employer] k[employer] Pulse oximetry Branch Body temperature 2019-11-24 18:25:00 36.17 Bere Univ ersity of [place] [facility] Body height 2019-11-22 22:30:00 167.6 cm Universi ty of [place] [facility] Body weight 2019-11-22 22:30:00 72.576 kg [facility] [place] [facility] BMI 2019-11-22 22:30:00 25.82 kg/m2 [facility] [place] [facility] Systolic blood 2019-11-24 18:35:00 136 mm[Hg] Univer sity of pressure [place] [facility] Diastolic blood 2019-11-24 18:35:00 67 mm[Hg] Unive rsity of pressure [place] [facility] Heart rate 2019-11-24 18:35:00 71 /min [facility]i ty [facility] [place] [facility] Respiratory rate 2019-11-24 18:35:00 19 /min Univ ersity of [place] [facility] Oxygen saturation in 2019-11-24 18:35:00 98 /min University of Arterial blood by [place] [employer] Pulse oximetry Branch Body temperature 2019-11-24 18:25:00 36.17 Bere Univ ersity of [place] [facility] Body height 2019-11-22 22:30:00 167.6 cm [facility]i [facility] [place] [facility] Body weight 2019-11-22 22:30:00 72.576 kg [facility] [place] [facility] BMI 2019-11-22 22:30:00 25.82 kg/m2 [facility] [place] [facility] Systolic blood 2019-10-20 15:41:00 121 mm[Hg] Univer sity of pressure [place] [facility] Diastolic blood 2019-10-20 15:41:00 66 mm[Hg] Unive rsity of pressure [place] [facility] Body temperature 2019-10-20 15:41:00 37.06 Bere Univ ersity of [place] [facility] Respiratory rate 2019-10-20 15:41:00 20 /min Univ ersity of [place] [facility] Oxygen saturation in 2019-10-20 15:41:00 100 /min University of Arterial blood by [place] [employer] k[employer] Pulse oximetry Branch Heart rate 2019-10-20 15:22:00 66 /min [facility] [place] [facility] Body height 2019-10-18 15:45:00 167.6 cm [facility] [place] [facility] Body weight 2019-10-18 15:45:00 72.576 kg [facility] [place] [facility] BMI 2019-10-18 15:45:00 25.82 kg/m2 [facility] [place] [facility] Systolic blood 2019-10-20 15:41:00 121 mm[Hg] Univer sity of pressure [place] [facility] Diastolic blood 2019-10-20 15:41:00 66 mm[Hg] Unive rsity of pressure [place] [facility] Body temperature 2019-10-20 15:41:00 37.06 Bere Univ ersity of [place] [facility] Respiratory rate 2019-10-20 15:41:00 20 /min Univ ersity of [place] [facility] Oxygen saturation in 2019-10-20 15:41:00 100 /min University of Arterial blood by [employer] Pulse oximetry Branch Heart rate 2019-10-20 15:22:00 66 /min [facility] [place] [facility] Body height 2019-10-18 15:45:00 167.6 cm [facility] [place] [facility] Body weight 2019-10-18 15:45:00 72.576 kg [facility] [place] [facility] BMI 2019-10-18 15:45:00 25.82 kg/m2 [facility] Medical [place] Procedures Procedure Date / Time Performing Source Performed Clinician ASSIGNMENT OF BENEFITS 2023-03-25 Doctor Andrés [facility] 19:02:24 [place] [facility] CONSENT/REFUSAL FOR DIAGNOSIS 2023-03-25 Doctor Unassigned, [facility] AND TREATMENT 16:32:13 [place] [facility] 2019-11-24 Doctor Unassigned, [facility] 05:01:00 [place] [facility] CONSENT/REFUSAL FOR DIAGNOSIS 2019-11-23 Doctor Unassigned, [facility] AND TREATMENT 14:30:27 [facility] ASSIGNMENT OF BENEFITS 2019-11-23 Doctor Andrés [facility] 14:29:17 [facility] CONSENT/REFUSAL FOR DIAGNOSIS 2019-11-17 Doctor Unassigned, [facility] AND TREATMENT 16:52:25 [facility] ASSIGNMENT OF BENEFITS 2019-11-17 Doctor Andrés [facility] 16:51:57 [facility] CONSENT/REFUSAL FOR DIAGNOSIS 2019-11-17 Doctor Unassigned [facility] AND TREATMENT 16:51:24 [facility] ASSIGNMENT OF BENEFITS 2019-11-17 Doctor Andrés [facility] 16:50:57 [facility] PHYSICIAN ORDERS 2019-11-17 Doctor Andrés [facility] 05:01:00 [facility] PHACOEMULSIFICATION OF 2019-10-20 Barney Bravo [facility] CATARACT WITH INTRAOCULAR 14:58:00 [facility] LENS IMPLANT PATIENT QUESTIONNAIRE 2019-10-20 Doctor Bowen [facility] 05:01:00 [facility] 2019-10-20 Doctor Unalashawn [facility] 05:01:00 [facility] COVID-19 (ID NOW RAPID 2019-10-19 Barney Bravo [facility] TESTING) 15:10:00 Medical Branch NOTICE OF BILLING PRACTICES 2019-10-15 Doctor Andrés [facility] FOR MEDICARE PATIENTS 17:37:32 [facility] PATIENT FINANCIAL POLICY 2019-10-15 Doctor Christinasselyssa [facility] 17:05:49 [facility] NO SHOW OR MISSED APPOINTMENT 2019-10-15 Doctor Unassigned, [facility] POLICY ACKNOWLEDGEMENT 17:05:23 [facility] NOTICE OF PRIVACY PRACTICES 2019-10-15 Doctor Unassigned, [facility] 17:05:08 [facility] CONSENT/REFUSAL FOR DIAGNOSIS 2019-10-15 Doctor Unassigned, [facility] AND TREATMENT 17:04:51 [facility] CONSENT/REFUSAL FOR DIAGNOSIS 2019-10-15 Doctor Unassigned, [facility] AND TREATMENT 17:04:33 [facility] ASSIGNMENT OF BENEFITS 2019-10-15 Doctor Unassigned [facility] 17:04:18 [facility] ASSIGNMENT OF BENEFITS 2019-10-15 Doctor Unassigned, [facility] 17:04:02 [facility] Encounters Start End Encounter Admission Attending Care Care Encounter Source Date/Time Date/Time Type Type Clinicians Facility Department ID 2023-01-12 Outpatient Macdonald, [facility] [id number] Common 15:10:00 Dequan [id number] [facility] 2023-01-08 Out[facility], [facility] [id number] Common 12:15:00 Dequan [id number] [facility] 2022-12-06 Outpatient Macdonald, [facility] [id number] Common 11:05:00 Dequan [id number] [facility] 2022-05-08 Outpatient Macdonald, [facility] [id number] Common 10:57:02 Dequan [id number] [facility] 2022-04-12 Outpatient Macdonald, [facility] [id number] Common 09:08:02 Dequan [id number] [facility] 2022-01-31 Outpatient Macdonald, [facility] [id number] Common 11:26:02 Dequan [facility] 2022-01-25 Outpatient Macdonald, [facility] [id number] Common 09:46:01 Dequan [facility] 2021-08-22 Outpatient Macdonald, [facility] [id number] Common 10:19:02 Dequan [facility] 2021-05-31 Outpatient Macdonald, [facility] Common 09:49:01 Dequan [facility] 2021-05-23 Outpatient Macdonald, [facility] Common 14:11:54 Dequan [facility] 2021-05-23 Outpatient Macdonald, [facility] [id number] Common 13:55:47 Dequan [id number] [facility] 2021-05-23 Outpatient Macdonald, [facility] Common 13:20:25 Dequan [id number] [facility] 2021-05-23 Outpatient Macdonald, [facility] Common 13:19:55 Dequan [id number] [facility] 2021-05-23 Outpatient Macdonald, [facility] Common 13:19:14 Dequan [id number] [facility] 2021-05-23 Outpatient Macdonald, [facility] Common 12:41:44 Dequan [id number] [facility] 2021-05-23 Outpatient Macdonald, [facility] Common 12:31:34 Dequan [id number] [facility] 2021-02-23 Outpatient Nabeel BRAVO [facility] [id number] Univers 07:58:51 BARNEY [facility] 2021-02-23 Outpatient Nabeel BRAVO [facility] [id number] Univers 01:51:41 BARNEY fajardo [facility] 2023-03-25 2023-03-25 Emergency X SINGER [facility] ERT [id number] Univers 11:06:00 13:31:00 DAVID fajardo [facility] 2023-03-25 2023-03-25 Emergency Singer [facility] [id number] Univers 11:06:00 13:31:00 David ROJAS [id number] i [facility] 4.2.7.2.686 [facility] [id number] [address] 2023-03-25 2023-03-25 Orders Doctor MAGDALENO [id number] Univers 00:00:00 00:00:00 Only Unassigned, [facility] [id number] [facility] 4.2.7.2.686 Bharat as [phone] [facility] 009 Branch 2022-04-01 2022-04-01 Outpatient CLARISSE Huynh [facility] [id number] [facility] 12:00:00 12:00:00 Yady 22 [facility] 2021-03-28 2021-03-28 Outpatient CLARISSE Huynh [facility] [id number] [facility] 12:00:00 12:00:00 Yady 52 [facility] 2020-06-20 2020-06-20 [facility] [id number] Univers 14:30:00 14:30:00 YAMIL sarkar f [facility] 2020-05-30 2020-05-30 Telephone [facility] [id number] Univers 00:00:00 00:00:00 Vanda [id number] [facility] 4[facility]2.7.2.686 [facility] [phone] [facility] 044 [facility] 2020-05-27 2020-05-27 MAGDALENO Myrick 1.2.840.114 [id number] Univers 00:00:00 00:00:00 Triage Whitney VARELA [id number] i ty of [facility] 4.2.7.2.686 Bharat as [id number] [facility] 019 Branch 2020-05-27 2020-05-27 MAGDALENO Myrick 1.2.840.114 [id number] 00:00:00 00:00:00 Triage Whitney VARELA [id number] [facility] 4.2.7.2.686 [id number] 2020-05-26 2020-05-26 Outpatient R [facility] [id number] Univers 10:20:00 10:20:00 ity of [facility] 2020-05-25 2020-05-25 Outpatient R XOCHILT [facility] [id number] Univers 19:00:00 19:00:00 VANDA fajardo o f [facility] 2020-05-25 2020-05-25 Laboratory Lab, [facility] Fam Pob I [facility] 1.2. [id number] Univers 18:25:25 18:45:25 Only Vanda Loja [facility] [id number] ity of [place] 4.2.7.2.686 Bharat as Professio [id number] [address] 2020-05-25 2020-05-25 Laboratory Lab, [facility] 1.2.840.114 [id number] 18:25:25 18:45:25 Only Fam Ezrab I Health 350.1.13.10 [place] 4.2.7.2.686 Professio [id number] [place] [address] [address] 2020-05-25 2020-05-25 Letter Doctor DOLAN 1.2.840.114 [id number] Univers 00:00:00 00:00:00 (Out) Unassigned, NICHOLE [id number] [facility] 4.2.7.2.686 Bharat as [phone] [address] 2020-05-25 2020-05-25 Letter Doctor DOLAN 1.2.840.114 [id number] 00:00:00 00:00:00 (Out) Unassigned, [place] 350.1.13.10 [facility] 4.2.7.2.686 [id number] [facility] 2020-01-07 2020-01-07 Outpatient CLARISSE Huynh, [facility] [id number] [facility] 12:00:00 12:00:00 Yady 84 [facility] 2019-11-24 2019-11-24 [facility] [id number] Univers 09:50:00 13:50:00 Encounter Barney Rojas [id number] it[place].2.[place] [id number] [address] 2019-11-24 2019-11-24 [facility] [id number] 09:50:00 13:50:00 Encounter Barney Rojas 350.1.13.10 [place] 4.2.7.2.686 Surgical [id number] [place] 071 2019-11-24 2019-11-24 Orders Doctor MAGDALENO 1.2.840.114 [id number] Univers 00:00:00 00:00:00 Only Unassigned, [place] 350.1.13.10 [facility] 4.2.7.2.686 Bharat [id number] [facility] 009 [place] 2019-11-24 2019-11-24 Orders Doctor MAGDALENO 1.2.840.114 [id number] 00:00:00 00:00:00 Only Unassigned, [place] 350.1.13.10 [place] [facility] 4.2.7.2.686 [id number] 009 2019-11-23 2019-11-23 [facility] [id number] Univers 10:00:00 10:00:00 BARNEY laura [facility] 2019-11-23 2019-11-23 Laboratory Only, [facility] Test [facility] 1.2.840. 114 [id number] Univers 09:30:39 09:45:39 Only Barney Bravo 350.1.13.1 0 ity of [place] 4.2.7.2.686 [facility] [id number] [facility] 353 [place] 2019-11-23 2019-11-23 Laboratory Only, [facility] 1.2.840.114 [id number] 09:30:39 09:45:39 Only Test [place] 350.1.13.10 [place] 4.2.7.2.686 [place] [id number] 353 2019-11-17 2019-11-17 Outpatient R [facility] [id number] Univers 12:15:00 12:15:00 itlaura [facility] 2019-11-17 2019-11-17 Bitumastic Applier [place], [facility] Lab Main [facility] 1.2.8 40.114 [id number] Univers 11:59:38 12:14:38 Visit Barney Bravo 350.1.13.1 0 [place]2.7.2.[place] [phone] Id dical [address] 2019-11-17 2019-11-17 Bitumastic Applier Mon[place] [facility] 1.2.840.114 [id number] 11:59:38 12:14:38 Visit Lab Main [place] 350.1.13.10 [place] 4.2.7.2.686 Professio [id number] [address] 2019-10-20 2019-10-20 [facility] [id number] [id number] [facility] 08:07:29 11:20:00 Encounter Barney [place] 350.1.13.10 [place].2.[place] [id number] [facility] [address] 2019-10-20 2019-10-20 [facility] [id number] 08:07:29 11:20:00 Encounter Barney Rojas 350.1.13.10 [place] 4.2.7.2.686 Surgical [id number] [place] [address] 2019-10-19 2019-10-19 [facility] [id number] Univers 10:15:00 10:15:00 [facility] 2019-10-19 2019-10-19 Laboratory Only, [facility] Test [facility] 1.2.840. 114 [id number] Univers 09:57:46 10:12:46 Only Barney Bravo 350.1.13.1 0 [place] 4[place].7.2.686 [place] [id number] [address] 2019-10-19 2019-10-19 Laboratory Only, [facility] 1.2.840.114 [id number] 09:57:46 10:12:46 Only Test [place] 350.1.13.10 [place] 4.2.7.2.686 [place] [id number] [facility] 2019-10-15 2019-10-15 [facility] [id number] Univers 12:00:00 12:00:00 [facility] Results Test Description Test Time Test Comments Results Result Comments Source COVID-19 (ID NOW RAPID TESTING) 2019-10-19 15:39:00 Test Item Value Reference Range Interpretation Comme nts SARS-CoV-2 Rapid ID NOW (test code Not Detected Not Detected = 47704-9) BELEN (test code = BELEN) ID NOW COVID-19 Assay is an isothermal nucleic acid amplification test intended for the qualitative detection of nucleic acid from SARS-CoV-2 viral RNA in nasopharyngeal (TIRE BAGGER) specimens. It is used under Emergency Use [...] indicated. Lab Interpretation (test code = Normal [id number]) [facility]
[2023-03-29] MEDS ORDERED: NA CHLORIDE 0.9% 500 ML ONE (10:06)
[2023-03-29] MEDS ORDERED: ONDANSETRON 4 MG/2 ML VIAL ONE (10:06)
[2023-03-29] MEDS ORDERED: FENTANYL CITR 100 MCG/2 ML ONE (10:06)
[2023-03-29 10:15] LABS: Specific Gravity 1.016 (1.005-1.030); Urine Bilirubin NEGATIVE (Negative); Urine Blood Negative (Negative); Urine Clarity Clear (Clear); Urine Color Light-Yellow (Yellow); Urine Glucose NEGATIVE (Negative); Urine Protein NEGATIVE (Negative); Urine Urobilinogen Normal (Normal)
[2023-03-29 10:17] LABS: Absolute Lymphocytes (CBC) 1.5 K/uL (0.7-4.9); Lymphocytes % 13.2 % (15.3-44.8); MCV 95.8 fL (80-100); MPV 7.4 fL (7.6-11.3); Platelets 288 thou/uL (152-406); RBC Red Blood Cell Count 4.27 M/uL (3.86-4.86)
--- NOTE | 2023-03-29 10:27 | RAD REPORT ---
EXAM DESCRIPTION: CT - Thoracic Spine W/o Cont - 03/29/2023 10:11 am CLINICAL HISTORY: Radiculopathy. PAIN COMPARISON: Neck Angio dated 10/09/2022; Spine Lumbar Wo Con dated 03/29/2023; Spine Lumbar Wo Con chelsie ed 03/23/2023; Lumbar Spine 3 Views dated 03/10/2023 TECHNIQUE: Axial CT imaging through the thoracic spine was performed with coronal and sagittal re-fo rmatted images. All CT scans are performed using dose optimization technique as appropriate and may include automated exposure control or mA/KV adjustment according to patient size. FINDINGS: There is a high-grade compression fracture seen with significant loss of vertebral body he ight affecting the T10 vertebral body. Vertebral body height loss is estimated at 90%. Posterior retr opulsion is present resulting in moderate central canal stenosis. There is moderate thickening of the surrounding paraspinal soft tissues. This compression fracture was visualized on comparative study dated 03/23/2023 and appears similar. N onspecific sclerotic lesion is present superior anterior aspect of the T9 vertebral body measuring 8 mm. IMPRESSION: High-grade compression fracture affects T10 vertebral body resulting in moderately sever e central canal stenosis and moderate surrounding paraspinal soft tissue thickening.
--- NOTE | 2023-03-29 10:31 | RAD REPORT ---
EXAM DESCRIPTION: CT - Spine Lumbar Wo Con - 03/29/2023 10:12 am CLINICAL HISTORY: Radiculopathy. PAIN COMPARISON: Spine Lumbar Wo Con dated 03/23/2023 TECHNIQUE: Axial noncontrast CT imaging of the lumbar spine was performed with coronal and sagittal re-formatted images. All CT scans are performed using dose optimization technique as appropriate and may include automated exposure control or mA/KV adjustment according to patient size. FINDINGS: No acute lumbar spine fracture seen. No aggressive marrow pattern or malalignment. Mild ce ntral compression deformity present affecting the L3 vertebral body, unchanged. Paraspinal tissues are normal in thickness. No paraspinal abscess or hematoma seen. Posterior disc bulging is present lower lumbar levels. Nonspecific sclerotic lesion is present superi or left anterior aspect of the L5 vertebral body measuring 10 mm. IMPRESSION: No acute findings seen. Consider MRI follow-up for assessment of disc disease if clinically desired.
[2023-03-29 11:29] LABS: Bilirubin Total 0.3 mg/dL (0.2-1.0); Potassium 3.8 mEq/L (3.5-5.1); Protein, Total 6.4 g/dL (6.4-8.2)
--- NOTE | 2023-03-29 11:44 | EDPHYS ---
Physician Documentation [facility] Name: Mia Mayer Age: 77 yrs Sex: Female : 1945 Arrival Date: 03/29/2023 Time: 09:22 Bed 18 Private MD: SARAH Physician Modesto Renteria HPI: 03/29 11:32 This 77 yrs old Female presents to ER via EMS with complaints of Back Pain. nicholas 11:32 This 77 yrs old Female presents to ER via EMS with complaints of Back Pain. nicholas 11:32 The patient presents with pain that is acute. The symptoms are located in the low back. nicholas Onset: The symptoms/episode began/occurred 100 day(s) ago. The pain does not radiate. Associated signs and symptoms: The patient has no apparent associated signs or symptoms. The problem was sustained during a fall, while standing. Modifying factors: The patient symptoms are alleviated by remaining still, the patient symptoms are aggravated by any movement. Severity of symptoms: At their worst the symptoms were moderate, in the emergency department the symptoms are unchanged. The patient has experienced similar episodes in the past. Historical: - Allergies: 09:24 Morphine; ld1 - PMHx: 09:24 depressive disorder; Hypercholesterolemia; Hypertensive disorder; Hypothyroidism; ld1 - PSHx: 09:24 toe surgery; ld1 - Immunization history:: Adult Immunizations up to date. - Social history:: Smoking status: Patient denies any tobacco usage or history of. Patient/guardian denies using alcohol. - Family history:: not pertinent. ROS: 11:32 Constitutional: Negative for fever, chills, and weight loss, Eyes: Negative for injury, nicholas pain, redness, and discharge, ENT: Negative for injury, pain, and discharge, Neck: Negative for injury, pain, and swelling, Cardiovascular: Negative for chest pain, palpitations, and edema, Respiratory: Negative for shortness of breath, cough, wheezing, and pleuritic chest pain, Abdomen/GI: Negative for abdominal pain, nausea, vomiting, diarrhea, and constipation, : Negative for injury, bleeding, discharge, and swelling, MS/Extremity: Negative for injury and deformity, Skin: Negative for injury, rash, and discoloration, Neuro: Negative for headache, weakness, numbness, tingling, and seizure, Psych: Negative for depression, anxiety, suicide ideation, homicidal ideation, and hallucinations, Allergy/Immunology: Negative for hives, rash, and allergies, Endocrine: Negative for neck swelling, polydipsia, polyuria, polyphagia, and marked weight changes, Hematologic/Lymphatic: Negative for swollen nodes, abnormal bleeding, and unusual bruising, 11:32 Back: Positive for injury or acute deformity, decreased range of motion, pain with movement, of the lumbar area, Exam: 11:32 Constitutional: This is a well developed, well nourished patient who is awake, alert, nicholas and in no acute distress. Head/Face: Normocephalic, atraumatic. Eyes: Pupils equal round and reactive to light, extra-ocular motions intact. Lids and lashes normal. Conjunctiva and sclera are non-icteric and not injected. Cornea within normal limits. Periorbital areas with no swelling, redness, or edema. ENT: Nares patent. No nasal discharge, no septal abnormalities noted. Tympanic membranes are normal and external auditory canals are clear. Oropharynx with no redness, swelling, or masses, exudates, or evidence of obstruction, uvula midline. Mucous membranes moist. Neck: Trachea midline, no thyromegaly or masses palpated, and no cervical lymphadenopathy. Supple, full range of motion without nuchal rigidity, or vertebral point tenderness. No Meningismus. Chest/axilla: Normal chest wall appearance and motion. Nontender with no deformity. No lesions are appreciated. Cardiovascular: Regular rate and rhythm with a normal S1 and S2. No gallops, murmurs, or rubs. Normal PMI, no JVD. No pulse deficits. Respiratory: Lungs have equal breath sounds bilaterally, clear to auscultation and percussion. No rales, rhonchi or wheezes noted. No increased work of breathing, no retractions or nasal flaring. Abdomen/GI: Soft, non-tender, with normal bowel sounds. No distension or tympany. No guarding or rebound. No evidence of tenderness throughout. Female : Normal external genitalia. Skin: Warm, dry with normal turgor. Normal color with no rashes, no lesions, and no evidence of cellulitis. MS/ Extremity: Pulses equal, no cyanosis. Neurovascular intact. Full, normal range of motion. Neuro: Awake and alert, GCS 15, oriented to person, place, time, and situation. Cranial nerves II-XII grossly intact. Motor strength 5/5 in all extremities. Sensory grossly intact. Cerebellar exam normal. Normal gait. Psych: Awake, alert, with orientation to person, place and time. Behavior, mood, and affect are within normal limits. 11:32 Back: pain, that is mild, that is moderate, ROM is painful, with flexion, with extension, normal spinal alignment noted, CVA tenderness, is absent, vertebral tenderness, is appreciated at T10, T11 and T12, muscle spasm, is appreciated in the left low back, left mid back, right mid back and right low back, 11:32 Neuro: Orientation: is normal, appropriate for stated age, no acute changes, Mentation: is normal, appropriate for stated age, no acute changes, Memory: is normal, appropriate for stated age, no acute changes, Cranial nerves: grossly normal, is grossly normal based on the patient's age, no acute changes, Cerebellar function: is grossly normal, is grossly normal based on the patient's age, no acute changes, Motor: moves all fours, strength is normal, strength is 5/5 in all extremities, Sensation: is normal, no obvious gross deficits, appropriate no acute changes, Gait: not tested. Babinski testing is normal, seizure activity, is not displayed by the patient, Vital Signs: 10:01 BP 156 / 82; Pulse 82; Resp 18; Pulse Ox 100% on R/A; Pain 9/10; ld1 10:03 Height 5 ft. 3 in. ; Pain 9/10; ld1 10:03 Temp 97.9(TE); ld1 11:00 BP 157 / 83; Pulse 79; Resp 18; Pulse Ox 100% on R/A; me1 11:00 BP 111 / 99; Pulse 90; Resp 17; Pulse Ox 100% on R/A; me1 10:01 Pain Scale: Adult ld1 10:03 Pain Scale: Adult ld1 MDM: 09:25 Patient medically screened. nicholas 11:39 Differential diagnosis: Fatigue Fracture Obesity Osteoarthritis Osteoporosis ruptured nicholas disc, spinal injury, sprain. Data reviewed: vital signs, nurses notes, lab test result(s), radiologic studies, CT scan. Consideration of Admission/Observation Escalation of care including admission/observation considered. I considered the following discharge prescriptions or medication management in the emergency department Medications were administered in the Emergency Department. See MAR. Independent interpretation of the following test(s) in the Emergency Department CT Scan: My interpretation is ct t/l spine. Test considered but Not performed: MRI: no mri. Historians other than the Patient: EMS: ems well informed. Care significantly affected by the following chronic conditions: Hypertension, depression, high chlesterol. 03/29 09:40 Order name: CBC with Diff; Complete Time: 10:55 [facility] 03/29 09:40 Order name: Comprehensive Metabolic Panel; Complete Time: 11:32 [facility] 03/29 09:40 Order name: Urinalysis w/ reflexes; Complete Time: 10:55 [facility] 03/29 09:40 Order name: CT Lumbar Spine Wo Con; Complete Time: 10:55 [facility] 03/29 09:40 Order name: Thoracic Spine WO Cont CT; Complete Time: 10:55 [facility] 03/29 10:23 Order name: Labs - recollect needed: recollect green top/ hemolyzed; Complete Time: eb 11:09 Administered Medications: 10:00 Drug: NS 0.9% IV 500 ml IV at bolus once Route: IV; Rate: bolus; Site: right ld1 antecubital; 12:17 Follow up: IV Status: Completed infusion me1 10:00 Drug: fentaNYL (PF) IVP 50 mcg IVP once Route: IVP; Site: right antecubital; ld1 12:17 Follow up: Response: No adverse reaction me1 10:00 Drug: Ondansetron IVP 4 mg IVP once; over 2 minutes Route: IVP; Site: right antecubital;ld1 12:17 Follow up: Response: No adverse reaction me1 12:17 Drug: Decadron - Dexamethasone IVP 10 mg IVP once Route: IVP; Site: right antecubital; me1 12:20 Follow up: Response: No adverse reaction me1 Disposition Summary: 03/29/23 11:44 Discharge Ordered Notes: Location: Home nicholas Problem: new nicholas Symptoms: have improved nicholas Condition: Stable nicholas Diagnosis - Wedge compression fracture of unspecified thoracic vertebra, sequela - high grade nicholas compression tpo T10 , MODERATE CANAL STRENOSIS Followup: nicholas - With: Private Physician - When: 2 - 3 days - Reason: Recheck today's complaints, Continuance of care, Re-evaluation by your physician Followup: nicholas - With: Seth Norman MD - When: 2 - 3 days - Reason: Recheck today's complaints, Continuance of care, Re-evaluation by your physician Followup: [facility] - With: Hans Corbin DO - When: 2 - 3 days - Reason: Recheck today's complaints, Continuance of care, Re-evaluation by your physician Discharge Instructions: - Discharge Summary Sheet nicholas - Thoracic Spine Fracture nicholas - Thoracic Strain nicholas - Thoracic Strain, [id number] nicholas - Thoracic Spine Fracture, Guph-er-Flwk [facility] Forms: - Medication Reconciliation Form [facility] - Thank You Letter [facility] - Antibiotic Education [facility] - Prescription Opioid Use [facility] - Patient Portal Instructions [facility] - Leadership Thank You Letter [facility] Prescriptions: - acetaminophen-codeine 300-60 mg Oral tablet - take 1 tablet ORAL route 4 times per day as needed for pain; 20 tablet; nicholas Refills: 0, Product Selection Permitted - methocarbamol 750 mg Oral tablet - take 1 tablet ORAL route every 8 hours; 30 tablet; Refills: 0, Product [facility] Selection Permitted Signatures: Dispatcher [employer] Modesto Alston MD MD cha Botello, Elizabeth eb Sims, Lauren, RN RN ld1 Indira Baker RN RN me1
--- NOTE | 2023-03-29 11:44 | ER ---
Nurse's Notes [facility] Name: Mia Mayer Age: 77 yrs Sex: Female : 1945 Arrival Date: 03/29/2023 Time: 09:22 Bed 18 Private MD: Diagnosis: Wedge compression fracture of unspecified thoracic vertebra, sequela-high grade compression tpo T10 , MODERATE CANAL STRENOSIS Presentation: 03/29 09:27 Chief complaint: EMS states: toned out to patient home for back pain and difficulty ld1 breathing. Coronavirus screen: At this time, the client does not indicate any symptoms associated with coronavirus-19. Ebola Screen: No symptoms or risks identified at this time. Risk Assessment: Do you want to hurt yourself or someone else? Patient reports no desire to harm self or others. Onset of symptoms was March 29, 2023. 09:27 Method Of Arrival: EMS: [facility] ld1 09:27 Acuity: KIM 4 ld1 10:03 Initial Sepsis Screen: Does the patient meet any 2 criteria? No. Patient's initial ld1 sepsis screen is negative. Does the patient have a suspected source of infection? No. Patient's initial sepsis screen is negative. Triage Assessment: 09:27 General: Appears in no apparent distress. uncomfortable, Behavior is cooperative, ld1 anxious. Pain: Complains of pain in low back area Pain does not radiate. Pain currently is 9 out of 10 on a pain scale. Quality of pain is described as throbbing. EENT: No signs and/or symptoms were reported regarding the EENT system. Neuro: Level of Consciousness is awake, alert, obeys commands, Oriented to person, place, time, situation. Cardiovascular: Capillary refill < 3 seconds Patient's skin is warm and dry. Respiratory: Airway is patent Respiratory effort is even, unlabored. GI: Abdomen is flat, non-distended. : No signs and/or symptoms were reported regarding the genitourinary system. Derm: No signs and/or symptoms reported regarding the dermatologic system. Musculoskeletal: Range of motion: intact in all extremities. Historical: - Allergies: 09:24 Morphine; ld1 - PMHx: 09:24 depressive disorder; Hypercholesterolemia; Hypertensive disorder; Hypothyroidism; ld1 - PSHx: 09:24 toe surgery; ld1 - Immunization history:: Adult Immunizations up to date. - Social history:: Smoking status: Patient denies any tobacco usage or history of. Patient/guardian denies using alcohol. - Family history:: not pertinent. Screenin:01 [facility] ED Fall Risk Assessment (Adult) History of falling in the last 3 months, ld1 including since admission Yes- single mechanical fall (1 pt). Abuse screen: Denies threats or abuse. Denies injuries from another. Nutritional screening: No deficits noted. Tuberculosis screening: No symptoms or risk factors identified. Assessment: 09:56 Reassessment: Upon entering patients room to give IV medication. Pt was trying to take ld1 home medication. Asked patient what the medication was and she says "I am not going to tell you, it is my business." Educated pt on possible interactions if unknown med is taking. Pt says "It is hydrocodone, I take 4 a day." Educated patient that she was not allowed to take home medication without nurse knowledge. Pt agreed to not take home medication at this time. slitter cut off operator took purse away from patient. Notified ERP. 10:03 Reassessment: See triage assessment. General: Appears in no apparent distress. Behavior ld1 is anxious. Neuro: Level of Consciousness is awake, alert, obeys commands, Oriented to person, place, time, situation. 10:04 Reassessment: Pt to CT. ld1 11:09 Reassessment: Patient appears in no apparent distress at this time. No changes from ld1 previously documented assessment. Patient and/or family updated on plan of care and expected duration. Pain level reassessed. Vital Signs: 10:01 BP 156 / 82; Pulse 82; Resp 18; Pulse Ox 100% on R/A; Pain 9/10; ld1 10:03 Height 5 ft. 3 in. ; Pain 9/10; ld1 10:03 Temp 97.9(TE); ld1 11:00 BP 157 / 83; Pulse 79; Resp 18; Pulse Ox 100% on R/A; me1 11:00 BP 111 / 99; Pulse 90; Resp 17; Pulse Ox 100% on R/A; me1 10:01 Pain Scale: Adult ld1 10:03 Pain Scale: Adult ld1 ED Course: 09:24 Patient arrived in ED. ld1 09:25 Modesto Renteria MD is Attending Physician. [facility] 09:27 Arm band placed on right wrist. ld1 09:28 Triage completed. ld1 10:00 Urinalysis w/ reflexes Sent. ld1 10:00 Comprehensive Metabolic Panel Sent. ld1 10:00 CBC with Diff Sent. ld1 10:01 Patient has correct armband on for positive identification. Placed in gown. Bed in low ld1 position. Call light in reach. Side rails up X2. clinical research monitor on. Pulse ox on. NIBP on. Door closed. Noise minimized. Warm blanket given. slitter cut off operator at bedside. Assisted with bedpan. 10:01 No provider procedures requiring assistance completed. Inserted saline lock: 22 gauge ld1 in right antecubital area, using aseptic technique. Blood collected. 10:12 CT Lumbar Spine Wo Con In Process Unspecified. EDMS 10:12 Thor[address] Spine WO Cont CT In Process Unspecified. EDMS 11:09 Neris Freire, COLLETTE is Primary Nurse. ld1 11:41 Seth Norman MD is Referral Physician. [facility] 11:42 Hans Corbin DO is Referral Physician. [facility] 12:19 Provided Education on: POC. Verbalized understanding. . me1 12:19 IV discontinued, intact, bleeding controlled, No redness/swelling at site. Pressure me1 dressing applied. Administered Medications: 10:00 Drug: NS 0.9% IV 500 ml IV at bolus once Route: IV; Rate: bolus; Site: right ld1 antecubital; 12:17 Follow up: IV Status: Completed infusion me1 10:00 Drug: fentaNYL (PF) IVP 50 mcg IVP once Route: IVP; Site: right antecubital; ld1 12:17 Follow up: Response: No adverse reaction me1 10:00 Drug: Ondansetron IVP 4 mg IVP once; over 2 minutes Route: IVP; Site: right antecubital;ld1 12:17 Follow up: Response: No adverse reaction me1 12:17 Drug: Decadron - Dexamethasone IVP 10 mg IVP once Route: IVP; Site: right antecubital; me1 12:20 Follow up: Response: No adverse reaction me1 Medication: 10:01 VIS not applicable for this client. ld1 Outcome: 11:44 Discharge ordered by . [facility] 12:19 Discharged to home via wheelchair, with family, me1 12:19 Condition: stable 12:19 Discharge instructions given to patient, family, Instructed on discharge instructions, follow up and referral plans. medication usage, Demonstrated understanding of instructions, follow-up care, medications, Prescriptions given X 2, 12:20 Patient left the ED. me1 Signatures: Dispatcher [employer] EDModesto Rodriguez MD MD cha Sims, Lauren RN RN ld1 Indira Baker RN RN me1
[2023-03-29] MEDS ORDERED: dexAMETHasone 10 MG/ML VIAL ONE (12:20)
[2023-03-29 12:27] VITALS: O2SAT 100
[2023-03-29 12:28] VITALS: TEMP 97.9
[2023-03-29 12:30] VITALS: BP 111/99
== END 2023-03-29 12:20 | disposition home or self-care (01) ==
LOC: ER 09:22
DX: M54.50 Low back pain, unspecified (principal); S22.070S Wedge compression fracture of T9-T10 vertebra, sequela; M48.04 Spinal stenosis, thoracic region; I10 Essential (primary) hypertension; Z88.5 Allergy status to narcotic agent
CPT/HCPCS: 96361; 85025; 36415; 81003; 80053; 72131; 72128; 96375; 96374; 99285; J3010; J1100; J2405; J7040

== ENCOUNTER 2023-04-03 16:21 | Emergency (ER) | payer OTHER ==
--- OUTSIDE RECORDS SUMMARY | 2023-04-03 16:27 | XMS REPORT | Continuity of Care Document ---
Author Name Unknown Address [address] [facility] [address] [place] [address] [facility] thconnect Address [address] [facility] [place] [address] [address] Care Court Orderly Name Role Phone JERICHO MACDONALDAbi Diamond Primary Care Physician UnavailDequan Harvey Attending Clinician Unavailable BARNEY BRAVO Attending Clinician UnavailDAVID Hoorwitz Attending Clinician Unavailable David Ma DO Attending Clinician [phone] Doctor Unassigned, [place] Attending Clinician U Yady Ramírez Attending Clinician UnavailYAMIL Giang Attending Clinician UnavailVanda Mcdowell Attending Clinician [phone] Whitney Scott RN Attending Clinician UnavailVANDA Rodrigues Attending Clinician Unavailab Lorenz, [facility] Pob I Attending Clinician Barney Vences MD Attending Clinician [phone] Only, Adc Test Attending Clinician Unavailable Pob, [facility] Lab Main Attending Clinician BARNEY Montoya Admitting Clinician Yady Alberts Admitting Clinician Emil mosqueda Physician, No Primary or Family Admitting Clinic inderjit Bravo MD, Barney Ward Admitting Clinician Payers Payer Name Policy Type Policy Number Effective Date Expirati on Date Source [employer] MED[employer]ARE ADV [id number] 1 00:00:00 Allergies, Adverse Reactions, Alerts Allergy Name Allergy Type Status Severity Reaction(s) Onset Date Inactive Date Treating Clinician Comments Source MORPHINE DRUG INGREDI Active Hallucinates 10-17 00:00: 00 [facility] Morphine Propensi ty to adverse reaction s Active Hallucinatio ns 10-17 00:00: 00 [facility] NO KNOWN ALLERGIE S Drug Class Active [facility] Social History Social Habit Start Date Stop Date Quantity Comments Source Sexual orientation U [facility] Exposure to SARS-CoV-2 (event) Not sure [facility] History of Social function 2019-11-24 00:00:00 2019-11-24 00:00:00 [facility] Tobacco use and exposure 2019-10-18 00:00:00 2019-10-18 00:00:00 Smokeless tobacco non-user [facility] Sex Assigned At 1945 00:00:00 1945 00:00:00 [facility] Smoking Status Start Date Stop Date Source Never smoked tobacco [facility] Medications Ordered Medication Name Filled Medication Name Start Date Stop Date Current Medication? Ordering Clinician Indication Dosage Frequency Signature (SIG) Comments Components Source HYDROcodone -acetaminop hen (NORCO) 10-325 mg tablet 1 tablet 2022-04 18:45: 00 03-25 18:12 :00 No 1{tbl} 1 tablet, Oral, ONCE, 1 dose, On Fri03/25/23 at 1245, Routine [facility] zolpidem 10 mg tablet 11-23 18:58: 33 Yes 10mg Take 10 mg by mouth at bedtime as needed for Insomnia. [facility] ramipril (ALTACE) 5 mg capsule 11-23 18:58: 33 Yes 5mg Take 5 mg by mouth 2 (two) times daily. [facility] rosuvastati n (CRESTOR) 10 mg tablet 11-23 18:58: 33 Yes 10mg Take 10 mg by mouth at bedtime. [facility] levomefolat e-algal oil (DEPLIN, ALGAL OIL,) 15-90.314 mg Cap 11-23 18:58: 33 Yes 1{capsu le} Take 1 capsule by mouth daily. [facility] levothyroxi ne 50 mcg tablet 11-23 18:58: 33 Yes .05mg Take 0.05 mg by mouth every morning. [facility] oxybutynin chloride 5 mg tablet 11-23 18:58: 33 Yes 5mg Take 5 mg by mouth daily. [facility] FLUoxetine (PROZAC) 20 mg capsule 11-23 18:58: 33 Yes 20mg Take 20 mg by mouth 3 (three) times daily. [facility] raloxifene (EVISTA) 60 mg tablet 11-23 18:58: 33 Yes 60mg Take 60 mg by mouth daily. [facility] alendronate 70 mg tablet 11-23 18:58: 33 Yes 70mg Take 70 mg by mouth weekly. [facility] levocetiriz ine (XYZAL) 5 mg tablet 11-23 18:58: 33 Yes 5mg Take 5 mg by mouth every evening. [facility] zolpidem 10 mg tablet 11-23 18:58: 33 Yes 10mg Take 10 mg by mouth at bedtime as needed for Insomnia. [facility] ramipril (ALTACE) 5 mg capsule 11-23 18:58: 33 Yes 5mg Take 5 mg by mouth 2 (two) times daily. [facility] rosuvastati n (CRESTOR) 10 mg tablet 11-23 18:58: 33 Yes 10mg Take 10 mg by mouth at bedtime. [facility] levomefolat e-algal oil (DEPLIN, ALGAL OIL,) 15-90.314 mg Cap 11-23 18:58: 33 Yes 1{capsu le} Take 1 capsule by mouth daily. [facility] levothyroxi ne 50 mcg tablet 11-23 18:58: 33 Yes .05mg Take 0.05 mg by mouth every morning. [facility] oxybutynin chloride 5 mg tablet 11-23 18:58: 33 Yes 5mg Take 5 mg by mouth daily. [facility] FLUoxetine (PROZAC) 20 mg capsule 11-23 18:58: 33 Yes 20mg Take 20 mg by mouth 3 (three) times daily. [facility] raloxifene (EVISTA) 60 mg tablet 11-23 18:58: 33 Yes 60mg Take 60 mg by mouth daily. [facility] alendronate 70 mg tablet 11-23 18:58: 33 Yes 70mg Take 70 mg by mouth weekly. [facility] levocetiriz ine (XYZAL) 5 mg tablet 11-23 18:58: 33 Yes 5mg Take 5 mg by mouth every evening. [facility] zolpidem 10 mg tablet 11-23 18:58: 33 Yes 10mg Take 10 mg by mouth at bedtime as needed for Insomnia. [facility] ramipril (ALTACE) 5 mg capsule 11-23 18:58: 33 Yes 5mg Take 5 mg by mouth 2 (two) times daily. [facility] rosuvastati n (CRESTOR) 10 mg tablet 11-23 18:58: 33 Yes 10mg Take 10 mg by mouth at bedtime. [facility] levomefolat e-algal oil (DEPLIN, ALGAL OIL,) 15-90.314 mg Cap 11-23 18:58: 33 Yes 1{capsu le} Take 1 capsule by mouth daily. [facility] levothyroxi ne 50 mcg tablet 11-23 18:58: 33 Yes .05mg Take 0.05 mg by mouth every morning. [facility] oxybutynin chloride 5 mg tablet 11-23 18:58: 33 Yes 5mg Take 5 mg by mouth daily. [facility] FLUoxetine (PROZAC) 20 mg capsule 11-23 18:58: 33 Yes 20mg Take 20 mg by mouth 3 (three) times daily. [facility] raloxifene (EVISTA) 60 mg tablet 11-23 18:58: 33 Yes 60mg Take 60 mg by mouth daily. [facility] alendronate 70 mg tablet 11-23 18:58: 33 Yes 70mg Take 70 mg by mouth weekly. [facility] levocetiriz ine (XYZAL) 5 mg tablet 11-23 18:58: 33 Yes 5mg Take 5 mg by mouth every evening. [facility] zolpidem 10 mg tablet 11-23 18:58: 33 Yes 10mg Take 10 mg by mouth at bedtime as needed for Insomnia. [facility] ramipril (ALTACE) 5 mg capsule 11-23 18:58: 33 Yes 5mg Take 5 mg by mouth 2 (two) times daily. [facility] rosuvastati n (CRESTOR) 10 mg tablet 11-23 18:58: 33 Yes 10mg Take 10 mg by mouth at bedtime. [facility] levomefolat e-algal oil (DEPLIN, ALGAL OIL,) 15-90.314 mg Cap 11-23 18:58: 33 Yes 1{capsu le} Take 1 capsule by mouth daily. [facility] levothyroxi ne 50 mcg tablet 11-23 18:58: 33 Yes .05mg Take 0.05 mg by mouth every morning. [facility] oxybutynin chloride 5 mg tablet 11-23 18:58: 33 Yes 5mg Take 5 mg by mouth daily. [facility] FLUoxetine (PROZAC) 20 mg capsule 11-23 18:58: 33 Yes 20mg Take 20 mg by mouth 3 (three) times daily. [facility] raloxifene (EVISTA) 60 mg tablet 11-23 18:58: 33 Yes 60mg Take 60 mg by mouth daily. [facility] alendronate 70 mg tablet 11-23 18:58: 33 Yes 70mg Take 70 mg by mouth weekly. [facility] levocetiriz ine (XYZAL) 5 mg tablet 11-23 18:58: 33 Yes 5mg Take 5 mg by mouth every evening. [facility] zolpidem 10 mg tablet 11-23 18:58: 33 Yes 10mg Take 10 mg by mouth at bedtime as needed for Insomnia. [facility] ramipril (ALTACE) 5 mg capsule 11-23 18:58: 33 Yes 5mg Take 5 mg by mouth 2 (two) times daily. [facility] rosuvastati n (CRESTOR) 10 mg tablet 11-23 18:58: 33 Yes 10mg Take 10 mg by mouth at bedtime. [facility] levomefolat e-algal oil (DEPLIN, ALGAL OIL,) 15-90.314 mg Cap 11-23 18:58: 33 Yes 1{capsu le} Take 1 capsule by mouth daily. [facility] levothyroxi ne 50 mcg tablet 11-23 18:58: 33 Yes .05mg Take 0.05 mg by mouth every morning. [facility] oxybutynin chloride 5 mg tablet 11-23 18:58: 33 Yes 5mg Take 5 mg by mouth daily. [facility] FLUoxetine (PROZAC) 20 mg capsule 11-23 18:58: 33 Yes 20mg Take 20 mg by mouth 3 (three) times daily. [facility] raloxifene (EVISTA) 60 mg tablet 11-23 18:58: 33 Yes 60mg Take 60 mg by mouth daily. [facility] alendronate 70 mg tablet 11-23 18:58: 33 Yes 70mg Take 70 mg by mouth weekly. [facility] levocetiriz ine (XYZAL) 5 mg tablet 11-23 18:58: 33 Yes 5mg Take 5 mg by mouth every evening. [facility] zolpidem 10 mg tablet 11-23 18:58: 33 Yes 10mg Take 10 mg by mouth at bedtime as needed for Insomnia. [facility] ramipril (ALTACE) 5 mg capsule 11-23 18:58: 33 Yes 5mg Take 5 mg by mouth 2 (two) times daily. [facility] rosuvastati n (CRESTOR) 10 mg tablet 11-23 18:58: 33 Yes 10mg Take 10 mg by mouth at bedtime. [facility] levomefolat e-algal oil (DEPLIN, ALGAL OIL,) 15-90.314 mg Cap 11-23 18:58: 33 Yes 1{capsu le} Take 1 capsule by mouth daily. [facility] levothyroxi ne 50 mcg tablet 11-23 18:58: 33 Yes .05mg Take 0.05 mg by mouth every morning. [facility] oxybutynin chloride 5 mg tablet 11-23 18:58: 33 Yes 5mg Take 5 mg by mouth daily. [facility] FLUoxetine (PROZAC) 20 mg capsule 11-23 18:58: 33 Yes 20mg Take 20 mg by mouth 3 (three) times daily. [facility] raloxifene (EVISTA) 60 mg tablet 11-23 18:58: 33 Yes 60mg Take 60 mg by mouth daily. [facility] alendronate 70 mg tablet 11-23 18:58: 33 Yes 70mg Take 70 mg by mouth weekly. [facility] levocetiriz ine (XYZAL) 5 mg tablet 11-23 18:58: 33 Yes 5mg Take 5 mg by mouth every evening. [facility] lactated ringers IV infusion 1,000 mL 11-23 18:45: 00 Yes 1000mL at 75 mL/hr, 1,000 mL, IV Infusion, CONTINUOUS , Starting Fri11/24/19 at 1345, Until Discontinu ed, Routine, PACU [facility] sodium chloride (NS) injection 11-23 18:04: 00 Yes PRN, Starting Fri11/24/19 at 1304, Until Discontinu ed, Routine, [facility] neomycin-po lymyxin-dex amethasone (MAXITROL) 3.5 mg/g-10,000 unit/g-0.1 % ophthalmic ointment 11-23 18:04: 00 Yes PRN, Starting Fri11/24/19 at 1304, Until Discontinu ed, Routine, Intra-op [facility] water for irrigation irrigation solution 11-23 17:58: 00 Yes PRN, Starting Fri11/24/19 at 1258, Until Discontinu ed, Routine, Intra-op [facility] Hyaluronida se, Human Recomb. (HYLENEX) injection 11-23 16:57: 00 Yes PRN, Starting Fri11/24/19 at 1157, Until Discontinu ed, Routine, Intra-op [facility] gentamicin injection 11-23 16:56: 00 Yes PRN, Starting Fri11/24/19 at 1156, Until Discontinu ed, MAKENNA, Intra-op [facility] eye block syringe 11 mL 11-23 16:55: 00 Yes PRN, Starting Fri11/24/19 at 1155, Until Discontinu ed, Intra-op [facility] EPINEPHrine 1:1,000 (1 mg/mL) (ADRENALIN) injection 11-23 16:54: 00 Yes PRN, Starting Fri11/24/19 at 1154, Until Discontinu ed, Routine, Intra-op [facility] DUOVISC (DUOVISC VISCO ELASTIC) 3 %-4 %(0.5 mL) 1 % (0.55 mL) intraocular injection 11-23 16:54: 00 Yes PRN, Starting Fri11/24/19 at 1154, Until Discontinu ed, Routine, Intra-op [facility] dexamethaso ne (DECADRON PHOSPHATE) injection 11-23 16:54: 00 Yes PRN, Starting Fri11/24/19 at 1154, Until Discontinu ed, Routine, Intra-op [facility] ceFAZolin (ANCEF) injection 11-23 16:54: 00 Yes PRN, Starting Fri11/24/19 at 1154, Until Discontinu ed, MAKENNA, Intra-op [facility] carbachoL (MIOSTAT) 0.01 % intraocular injection 11-23 16:54: 00 Yes PRN, Starting Fri11/24/19 at 1154, Until Discontinu ed, Routine, Intra-op [facility] balanced salt irrig soln comb1 (BSS PLUS) ophthalmic solution 500 mL bag 11-23 16:53: 00 Yes PRN, Starting Fri11/24/19 at 1153, Until Discontinu ed, Routine, Intra-op [facility] mydriatic #5 ophthalmic solution 0.5 mL syringe 11-23 15:15: 00 11-23 15:26 :00 No .5mL 0.5 mL, Left Eye, ONCE, 1 dose, Fri11/24/19 at 1015, Routine [facility] lactated ringers IV infusion 1,000 mL 11-23 15:15: 11-23 15:26 :00 No 1000mL at 20 mL/hr, 1,000 mL, IV Infusion, ONCE, 1 dose, Fri11/24/19 at 1015, Routine, DSU Pre-op [facility] zolpidem 10 mg tablet 11-23 13:58: 33 Yes 10mg Take 10 mg by mouth at bedtime as needed for Insomnia. [facility] ramipril (ALTACE) 5 mg capsule 11-23 13:58: 33 Yes 5mg Take 5 mg by mouth 2 (two) times daily. [facility] rosuvastati n (CRESTOR) 10 mg tablet 11-23 13:58: 33 Yes 10mg Take 10 mg by mouth at bedtime. [facility] levomefolat e-algal oil (DEPLIN, ALGAL OIL,) 15-90.314 mg Cap 11-23 13:58: 33 Yes 1{capsu le} Take 1 capsule by mouth daily. [facility] levothyroxi ne 50 mcg tablet 11-23 13:58: 33 Yes .05mg Take 0.05 mg by mouth every morning. [facility] oxybutynin chloride 5 mg tablet 11-23 13:58: 33 Yes 5mg Take 5 mg by mouth daily. [facility] FLUoxetine (PROZAC) 20 mg capsule 11-23 13:58: 33 Yes 20mg Take 20 mg by mouth 3 (three) times daily. [facility] raloxifene (EVISTA) 60 mg tablet 11-23 13:58: 33 Yes 60mg Take 60 mg by mouth daily. [facility] alendronate 70 mg tablet 11-23 13:58: 33 Yes 70mg Take 70 mg by mouth weekly. [facility] levocetiriz ine (XYZAL) 5 mg tablet 11-23 13:58: 33 Yes 5mg Take 5 mg by mouth every evening. [facility] zolpidem 10 mg tablet 11-23 13:58: 33 Yes 10mg Take 10 mg by mouth at bedtime as needed for Insomnia. [facility] ramipril (ALTACE) 5 mg capsule 11-23 13:58: 33 Yes 5mg Take 5 mg by mouth 2 (two) times daily. [facility] rosuvastati n (CRESTOR) 10 mg tablet 11-23 13:58: 33 Yes 10mg Take 10 mg by mouth at bedtime. [facility] levomefolat e-algal oil (DEPLIN, ALGAL OIL,) 15-90.314 mg Cap 11-23 13:58: 33 Yes 1{capsu le} Take 1 capsule by mouth daily. [facility] levothyroxi ne 50 mcg tablet 11-23 13:58: 33 Yes .05mg Take 0.05 mg by mouth every morning. [facility] oxybutynin chloride 5 mg tablet 11-23 13:58: 33 Yes 5mg Take 5 mg by mouth daily. [facility] FLUoxetine (PROZAC) 20 mg capsule 11-23 13:58: 33 Yes 20mg Take 20 mg by mouth 3 (three) times daily. [facility] raloxifene (EVISTA) 60 mg tablet 11-23 13:58: 33 Yes 60mg Take 60 mg by mouth daily. [facility] alendronate 70 mg tablet 11-23 13:58: 33 Yes 70mg Take 70 mg by mouth weekly. [facility] levocetiriz ine (XYZAL) 5 mg tablet 11-23 13:58: 33 Yes 5mg Take 5 mg by mouth every evening. [facility] zolpidem 10 mg tablet 11-21 22:38: 50 Yes 10mg Take 10 mg by mouth at bedtime as needed for Insomnia. [facility] ramipril (ALTACE) 5 mg capsule 11-21 22:38: 50 Yes 5mg Take 5 mg by mouth 2 (two) times daily. [facility] rosuvastati n (CRESTOR) 10 mg tablet 11-21 22:38: 50 Yes 10mg Take 10 mg by mouth at bedtime. [facility] levomefolat e-algal oil (DEPLIN, ALGAL OIL,) 15-90.314 mg Cap 11-21 22:38: 50 Yes 1{capsu le} Take 1 capsule by mouth daily. [facility] levothyroxi ne 50 mcg tablet 11-21 22:38: 50 Yes .05mg Take 0.05 mg by mouth every morning. [facility] oxybutynin chloride 5 mg tablet 11-21 22:38: 50 Yes 5mg Take 5 mg by mouth daily. [facility] FLUoxetine (PROZAC) 20 mg capsule 11-21 22:38: 50 Yes 20mg Take 20 mg by mouth 3 (three) times daily. [facility] raloxifene (EVISTA) 60 mg tablet 11-21 22:38: 50 Yes 60mg Take 60 mg by mouth daily. [facility] alendronate 70 mg tablet 11-21 22:38: 50 Yes 70mg Take 70 mg by mouth weekly. [facility] levocetiriz ine (XYZAL) 5 mg tablet 11-21 22:38: 50 Yes 5mg Take 5 mg by mouth every evening. [facility] zolpidem 10 mg tablet 10-20 14:43: 08 Yes 10mg Take 10 mg by mouth at bedtime as needed for Insomnia. [facility] ramipril (ALTACE) 5 mg capsule 10-20 14:43: 08 Yes 5mg Take 5 mg by mouth 2 (two) times daily. [facility] rosuvastati n (CRESTOR) 10 mg tablet 10-20 14:43: 08 Yes 10mg Take 10 mg by mouth at bedtime. [facility] levomefolat e-algal oil (DEPLIN, ALGAL OIL,) 15-90.314 mg Cap 10-20 14:43: 08 Yes 1{capsu le} Take 1 capsule by mouth daily. [facility] levothyroxi ne 50 mcg tablet 10-20 14:43: 08 Yes .05mg Take 0.05 mg by mouth every morning. [facility] oxybutynin chloride 5 mg tablet 10-20 14:43: 08 Yes 5mg Take 5 mg by mouth daily. [facility] FLUoxetine (PROZAC) 20 mg capsule 10-20 14:43: 08 Yes 20mg Take 20 mg by mouth 3 (three) times daily. [facility] raloxifene (EVISTA) 60 mg tablet 10-20 14:43: 08 Yes 60mg Take 60 mg by mouth daily. [facility] alendronate 70 mg tablet 10-20 14:43: 08 Yes 70mg Take 70 mg by mouth weekly. [facility] levocetiriz ine (XYZAL) 5 mg tablet 10-20 14:43: 08 Yes 5mg Take 5 mg by mouth every evening. [facility] zolpidem 10 mg tablet 10-20 14:43: 08 Yes 10mg Take 10 mg by mouth at bedtime as needed for Insomnia. [facility] ramipril (ALTACE) 5 mg capsule 10-20 14:43: 08 Yes 5mg Take 5 mg by mouth 2 (two) times daily. [facility] rosuvastati n (CRESTOR) 10 mg tablet 10-20 14:43: 08 Yes 10mg Take 10 mg by mouth at bedtime. [facility] levomefolat e-algal oil (DEPLIN, ALGAL OIL,) 15-90.314 mg Cap 10-20 14:43: 08 Yes 1{capsu le} Take 1 capsule by mouth daily. [facility] levothyroxi ne 50 mcg tablet 10-20 14:43: 08 Yes .05mg Take 0.05 mg by mouth every morning. [facility] oxybutynin chloride 5 mg tablet 10-20 14:43: 08 Yes 5mg Take 5 mg by mouth daily. [facility] FLUoxetine (PROZAC) 20 mg capsule 10-20 14:43: 08 Yes 20mg Take 20 mg by mouth 3 (three) times daily. [facility] raloxifene (EVISTA) 60 mg tablet 10-20 14:43: 08 Yes 60mg Take 60 mg by mouth daily. [facility] alendronate 70 mg tablet 10-20 14:43: 08 Yes 70mg Take 70 mg by mouth weekly. [facility] levocetiriz ine (XYZAL) 5 mg tablet 10-20 14:43: 08 Yes 5mg Take 5 mg by mouth every evening. [facility] lactated ringers IV infusion 1,000 mL 10-19 15:45: 00 Yes 1000mL at 75 mL/hr, 1,000 mL, IV Infusion, CONTINUOUS , Starting Fri10/20/19 at 1045, Until Discontinu ed, Routine, PACU [facility] lactated ringers IV infusion 1,000 mL 10-19 14:30: 00 Yes 1000mL at 50 mL/hr, 1,000 mL, IV Infusion, CONTINUOUS , Starting Fri10/20/19 at 0930, Until Discontinu ed, Routine, DSU Pre-op [facility] water for irrigation irrigation solution 10-19 13:36: 00 Yes PRN, Starting Fri10/20/19 at 0836, Until Discontinu ed, Routine, Intra-op [facility] sodium chloride (NS) injection 10-19 13:35: 00 Yes PRN, Starting Fri10/20/19 at 0835, Until Discontinu ed, Routine, Intra-op [facility] neomycin-po lymyxin-dex amethasone (MAXITROL) 3.5 mg/g-10,000 unit/g-0.1 % ophthalmic ointment 10-19 13:35: 00 Yes PRN, Starting Fri10/20/19 at 0835, Until Discontinu ed, Routine, Intra-op [facility] Hyaluronida se, Human Recomb. (HYLENEX) injection 10-19 13:35: 00 Yes PRN, Starting Fri10/20/19 at 0835, Until Discontinu ed, Routine, Intra-op [facility] gentamicin injection 10-19 13:35: 00 Yes PRN, Starting Fri10/20/19 at 0835, Until Discontinu ed, MAKENNA, Intra-op [facility] eye block syringe 11 mL 10-19 13:35: 00 Yes PRN, Starting Fri10/20/19 at 0835, Until Discontinu ed, Intra-op [facility] EPINEPHrine 1:1,000 (1 mg/mL) (ADRENALIN) injection 10-19 13:34: 00 Yes PRN, Starting Fri10/20/19 at 0834, Until Discontinu ed, Routine, Intra-op [facility] DUOVISC (DUOVISC VISCO ELASTIC) 3 %-4 %(0.5 mL) 1 % (0.55 mL) intraocular injection 10-19 13:34: 00 Yes PRN, Starting Fri10/20/19 at 0834, Until Discontinu ed, Routine, Intra-op [facility] dexamethaso ne (DECADRON PHOSPHATE) injection 10-19 13:33: 00 Yes PRN, Starting Fri10/20/19 at 0833, Until Discontinu ed, Routine, Intra-op [facility] ceFAZolin (ANCEF) injection 10-19 13:33: 00 Yes PRN, Starting Fri10/20/19 at 0833, Until Discontinu ed, MAKENNA, Intra-op [facility] carbachoL (MIOSTAT) 0.01 % intraocular injection 10-19 13:33: 00 Yes PRN, Starting Fri10/20/19 at 0833, Until Discontinu ed, Routine, Intra-op [facility] balanced salt irrig soln comb1 (BSS PLUS) ophthalmic solution 500 mL bag 10-19 13:32: 00 Yes PRN, Starting Fri10/20/19 at 0832, Until Discontinu ed, Routine, Intra-op [facility] mydriatic #5 ophthalmic solution 0.5 mL syringe 10-19 13:30: 00 10-19 13:22 :00 No .5mL 0.5 mL, Right Eye, ONCE, 1 dose, Fri10/20/19 at 0830, Routine [facility] alendronate 70 mg tablet 10-17 15:58: 10 Yes 70mg Take 70 mg by mouth weekly. [facility] levocetiriz ine (XYZAL) 5 mg tablet 10-17 15:58: 10 Yes 5mg Take 5 mg by mouth every evening. [facility] ramipril (ALTACE) 5 mg capsule 10-17 15:58: 09 Yes 5mg Take 5 mg by mouth 2 (two) times daily. [facility] rosuvastati n (CRESTOR) 10 mg tablet 10-17 15:58: 09 Yes 10mg Take 10 mg by mouth at bedtime. [facility] levomefolat e-algal oil (DEPLIN, ALGAL OIL,) 15-90.314 mg Cap 10-17 15:58: 09 Yes 1{capsu le} Take 1 capsule by mouth daily. [facility] levothyroxi ne 50 mcg tablet 10-17 15:58: 09 Yes .05mg Take 0.05 mg by mouth every morning. [facility] oxybutynin chloride 5 mg tablet 10-17 15:58: 09 Yes 5mg Take 5 mg by mouth daily. [facility] FLUoxetine (PROZAC) 20 mg capsule 10-17 15:58: 09 Yes 20mg Take 20 mg by mouth 3 (three) times daily. [facility] raloxifene (EVISTA) 60 mg tablet 10-17 15:58: 09 Yes 60mg Take 60 mg by mouth daily. [facility] zolpidem 10 mg tablet 10-17 15:58: 08 Yes 10mg Take 10 mg by mouth at bedtime as needed for Insomnia. [facility] Vital Signs Vital Name Observation Time Observation Value Comments Rachael gunderson Systolic blood pressure 2023-03-25 17:04:00 95 mm[Hg] [facility] Diastolic blood pressure 2023-03-25 17:04:00 73 mm[Hg] [facility] Heart rate 2023-03-25 17:04:00 99 /min [facility] Body temperature 2023-03-25 17:04:00 37.28 [facility] Respiratory rate 2023-03-25 17:04:00 16 /min [facility] Body height 2023-03-25 17:04:00 167.6 cm [facility] Body weight 2023-03-25 17:04:00 68.04 kg [facility] BMI 2023-03-25 17:04:00 24.21 kg/m2 [facility] Oxygen saturation in Arterial blood by Pulse oximetry 2023-03-25 17:04:00 99 /min [facility] Systolic blood pressure 2019-11-24 18:35:00 136 mm[Hg] [facility] Diastolic blood pressure 2019-11-24 18:35:00 67 mm[Hg] [facility] Heart rate 2019-11-24 18:35:00 71 /min [facility] Respiratory rate 2019-11-24 18:35:00 19 /min [facility] Oxygen saturation in Arterial blood by Pulse oximetry 2019-11-24 18:35:00 98 /min [facility] Body temperature 2019-11-24 18:25:00 36.17 [facility] Body height 2019-11-22 22:30:00 167.6 cm [facility] Body weight 2019-11-22 22:30:00 72.576 kg [facility] BMI 2019-11-22 22:30:00 25.82 kg/m2 [facility] Systolic blood pressure 2019-11-24 18:35:00 136 mm[Hg] [facility] Diastolic blood pressure 2019-11-24 18:35:00 67 mm[Hg] [facility] Heart rate 2019-11-24 18:35:00 71 /min [facility] Respiratory rate 2019-11-24 18:35:00 19 /min [facility] Oxygen saturation in Arterial blood by Pulse oximetry 2019-11-24 18:35:00 98 /min [facility] Body temperature 2019-11-24 18:25:00 36.17 [facility] Body height 2019-11-22 22:30:00 167.6 cm [facility] Body weight 2019-11-22 22:30:00 72.576 kg [facility] BMI 2019-11-22 22:30:00 25.82 kg/m2 [facility] Systolic blood pressure 2019-10-20 15:41:00 121 mm[Hg] [facility] Diastolic blood pressure 2019-10-20 15:41:00 66 mm[Hg] [facility] Body temperature 2019-10-20 15:41:00 37.06 [facility] Respiratory rate 2019-10-20 15:41:00 20 /min [facility] Oxygen saturation in Arterial blood by Pulse oximetry 2019-10-20 15:41:00 100 /min [facility] Heart rate 2019-10-20 15:22:00 66 /min [facility] Body height 2019-10-18 15:45:00 167.6 cm [facility] Body weight 2019-10-18 15:45:00 72.576 kg [facility] BMI 2019-10-18 15:45:00 25.82 kg/m2 [facility] Systolic blood pressure 2019-10-20 15:41:00 121 mm[Hg] [facility] Diastolic blood pressure 2019-10-20 15:41:00 66 mm[Hg] [facility] Body temperature 2019-10-20 15:41:00 37.06 Bere [facility] Respiratory rate 2019-10-20 15:41:00 20 /min [facility] Oxygen saturation in Arterial blood by Pulse oximetry 2019-10-20 15:41:00 100 /min [facility] Heart rate 2019-10-20 15:22:00 66 /min [facility] Body height 2019-10-18 15:45:00 167.6 cm [facility] Body weight 2019-10-18 15:45:00 72.576 kg [facility] BMI 2019-10-18 15:45:00 25.82 kg/m2 [facility] Procedures Procedure Date / Time Performed Performing Clinician Source ASSIGNMENT OF BENEFITS 2023-03-25 19:02:24 Doctor [place]assigned, [place] [facility] CONSENT/REFUSAL FOR DIAGNOSI S AND TREATMENT 2023-03-25 16:32:13 Doctor [place]assigned, [place] [facility] DAY SURGERY - ADC 2019-11-24 05:01:00 Doctor Unassigned, [place] [facility] CONSENT/REFUSAL FOR DIAGNOSI S AND TREATMENT 2019-11-23 14:30:27 Doctor Unassigned, [place] [facility] ASSIGNMENT OF BENEFITS 2019-11-23 14:29:17 Doctor Unassigned, [place] [facility] CONSENT/REFUSAL FOR DIAGNOSI S AND TREATMENT 2019-11-17 16:52:25 Doctor Unassigned, [place] [facility] ASSIGNMENT OF BENEFITS 2019-11-17 16:51:57 Doctor Unassigned, [place] [facility] CONSENT/REFUSAL FOR DIAGNOSI S AND TREATMENT 2019-11-17 16:51:24 Doctor Unassigned, [place] [facility] ASSIGNMENT OF BENEFITS 2019-11-17 16:50:57 Doctor Unassigned, [place] [facility] PHYSICIAN ORDERS 2019-11-17 05:01:00 Doctor Unassigned, [place] [facility] PHACOEMULSIFICATION OF CATARACT WITH INTRAOCULAR LENS IMPLANT 2019-10-20 14:58:00 Barney Bravo [facility] PATIENT QUESTIONNAIRE 2019-10-20 05:01:00 Doctor Unassigned, [place] [facility] DAY SURGERY - ADC 2019-10-20 05:01:00 Doctor Unassigned, [place] [facility] COVID-19 (ID NOW RAPID TESTING) 2019-10-19 15:10:00 Barney Bravo [facility] NOTICE OF BILLING PRACTICES FOR MEDICARE PATIENTS 2019-10-15 17:37:32 Doctor [place]assigned[place] [facility] PATIENT FINANCIAL POLICY 2019-10-15 17:05:49 Doctor Unassigned, [place] [facility] NO SHOW OR MISSED APPOINTMEN T POLICY ACKNOWLEDGEMENT 2019-10-15 17:05:23 Doctor Unassigned, [place] [facility] NOTICE OF PRIVACY PRACTICES 2019-10-15 17:05:08 Doctor Unassigned, [place] [facility] CONSENT/REFUSAL FOR DIAGNOSI S AND TREATMENT 2019-10-15 17:04:51 Doctor Unassigned, [place] [facility] CONSENT/REFUSAL FOR DIAGNOSI S AND TREATMENT 2019-10-15 17:04:33 Doctor Unassigned, [place] [facility] ASSIGNMENT OF BENEFITS 2019-10-15 17:04:18 Doctor Unassigned, [place] [facility] ASSIGNMENT OF BENEFITS 2019-10-15 17:04:02 Doctor Unassigned, [place] [facility] Encounters Start Date/Time End Date/Time Encounter Type Admission Type Attending [facility] Facility Care Department Encounter ID Source 2023-01-12 15:10:00 [facility] [id number] [facility] 2023-01-08 12:15:00 Outpatient Torres [facility] [id number] [facility] 2022-12-06 11:05:00 Outpatient Macdonald [facility] [id number] [facility] 2022-05-08 10:57:02 Outpatient Macdonald, Dequan [facility] [id number] [facility] 2022-04-12 09:08:02 Outpatient Macdonald, Dequan STLMLC ST[facility] [id number] [facility] 2022-01-31 11:26:02 Outpatient Macdonald, Dequan STLMLC STLMLC [id number] [facility] 2022-01-25 09:46:01 Outpatient Macdonald, Dequan STLMLC STLMLC [facility] 2021-08-22 10:19:02 Outpatient Macdonald, Dequan STLMLC STLMLC [facility] 2021-05-31 09:49:01 Outpatient Macdonald, Dequan STLMLC STLMLC [facility] 2021-05-23 14:11:54 Outpatient Macdonald, Dequan STLMLC STLMLC [id number] [facility] 2021-05-23 13:55:47 Outpatient Macdonald, Dequan STLMLC STLMLC [facility] 2021-05-23 13:20:25 Outpatient Macdonald, Dequan STLMLC STLMLC [id number] [facility] 2021-05-23 13:19:55 Outpatient Macdonald, Dequan STLMLC STLMLC 28 [facility] 2021-05-23 13:19:14 Outpatient Macdonald, Dequan STLMLC STLMLC 25 [facility] 2021-05-23 12:41:44 Outpatient Macdonald, Dequan STLMLC STLMLC 18 [facility] 2021-05-23 12:31:34 Outpatient Macdonald, Dequan STLMLC STLMLC [id number] [facility] 2021-02-23 07:58:51 Outpatient BARNEY [facility]ENCE [facility] [id number] [facility] 2021-02-23 01:51:41 Outpatient BARNEY [facility]ENCE [facility] [id number] [facility] 2023-03-25 11:06:00 2023-03-25 13:31:00 Emergency X SINGER DAVID [facility] ERT [id number] [facility] 2023-03-25 11:06:00 2023-03-25 13:31:00 Emergency Singer David [facility] 1.840.114 350.1.13.10 4.2.7.2.686 [id number] [facility] 2023-03-25 00:00:00 2023-03-25 00:00:00 Orders Only [place]assigned[place] [facility] 1.840.114 350.1.13.10 4.2.7.2.686 [id number] [facility] 2022-04-01 12:00:00 2022-04-01 12:00:00 Outpatient Yady Kiser [facility] [id number] [facility] 2021-03-28 12:00:00 2021-03-28 12:00:00 Outpatient Yady Kiser [facility] [id number] [facility] 2020-06-20 14:30:00 2020-06-20 14:30:00 Outpatient YAMIL VINCENT [facility] [id number] [facility] 2020-05-30 00:00:00 2020-05-30 00:00:00 Telephone Vanda Loja [facility] 1.840.114 350.1.13.10 4.2.7.2.686 [id number] [facility] 2020-05-27 00:00:00 2020-05-27 00:00:00 Nurse Triage Whitney Scott [facility] 1.2.840.114 350.1.13.10 4.2.7.2.686 [id number] [facility] 2020-05-27 00:00:00 2020-05-27 00:00:00 Nurse Triage Karime Scotta Ayaka [facility] [id number] 350.1.13.10 4.2.7.2.686 [id number] 2020-05-26 10:20:00 2020-05-26 10:20:00 Outpatient R [facility] [id number] [facility] 2020-05-25 19:00:00 2020-05-25 19:00:00 Outpatient R VANDA LOJA [facility] [id number] [facility] 2020-05-25 18:25:25 2020-05-25 18:45:25 Laboratory Only Lab, [facility]anda [facility] 1.840.114 350.1.13.10 4.2.7.2.686 [id number] [facility] 2020-05-25 18:25:25 2020-05-25 18:45:25 Laboratory Only Lab, [facility] [id number] 350.1.13.10 4.2.7.2.686 [id number] 2020-05-25 00:00:00 2020-05-25 00:00:00 Letter (Out) Doctor Unassigned[place] [facility] 1.2.840.114 350.1.13.10 4.2.7.2.686 [id number] [facility] 2020-05-25 00:00:00 2020-05-25 00:00:00 Letter (Out) Doctor Unassigned, [place] [facility] 1.2.840.114 350.1.13.10 4.2.7.2.686 [id number] 2020-01-07 12:00:00 2020-01-07 12:00:00 Outpatient Yady Kiser [facility] [id number] [facility] 2019-11-24 09:50:00 2019-11-24 13:50:00 Hospital Encounter [place] Barney Sylvia [facility] 1.2.840.114 350.1.13.10 4.2.7.2.686 [id number] [facility] 2019-11-24 09:50:00 2019-11-24 13:50:00 Hospital Encounter [place] Barney Sylvia [facility] 1.2.840.114 350.1.13.10 4.2.7.2.686 [id number] 2019-11-24 00:00:00 2019-11-24 00:00:00 Orders Only Doctor Unassigned, [place] [facility] 1.2.840.114 350.1.13.10 4.2.7.2.686 [id number] [facility] 2019-11-24 00:00:00 2019-11-24 00:00:00 Orders Only Doctor Unassigned, [place] [facility] 1.2.840.114 350.1.13.10 4.2.7.2.686 [id number] 2019-11-23 10:00:00 2019-11-23 10:00:00 Outpatient R BARNEY BRAVO [facility] [id number] [facility] 2019-11-23 09:30:39 2019-11-23 09:45:39 Laboratory Only Only, Adc Test Barney Bravo [facility] 1.2.840.114 350.1.13.10 4.2.7.2.686 [id number] [facility] 2019-11-23 09:30:39 2019-11-23 09:45:39 Laboratory Only Only, Adc Test [facility] 1.2.840.114 350.1.13.10 4.2.7.2.686 [id number] 2019-11-17 12:15:00 2019-11-17 12:15:00 Outpatient R [facility] [id number] [facility] 2019-11-17 11:59:38 2019-11-17 12:14:38 [employer] Visit [place], Adc Lab Main Barney Bravo [facility] Building 1.2.840.114 350.1.13.10 4.2.7.2.686 [id number] [facility] 2019-11-17 11:59:38 2019-11-17 12:14:38 [employer] Messenger Visit [facility], Adc Lab Main [facility] 1.2.840.114 350.1.13.10 4.2.7.2.686 [id number] 2019-10-20 08:07:29 2019-10-20 11:20:00 Hospital Encounter Barney Bravo [facility] [place] 1.2.840.114 350.1.13.10 4.2.7.2.686 [id number] [facility] 2019-10-20 08:07:29 2019-10-20 11:20:00 Hospital Encounter Barney Bravo [facility] [place] 1.2.840.114 350.1.13.10 4.2.7.2.686 [id number] 2019-10-19 10:15:00 2019-10-19 10:15:00 Outpatient R BARNEY BRAVO [facility] [id number] [facility] 2019-10-19 09:57:46 2019-10-19 10:12:46 Laboratory Only Only, Adc Test Barney Bravo [facility] 1.2.840.114 350.1.13.10 4.2.7.2.686 [id number] [facility] 2019-10-19 09:57:46 2019-10-19 10:12:46 Laboratory Only Only, Adc Test [facility] 1.2.840.114 350.1.13.10 4.2.7.2.686 [id number] 2019-10-15 12:00:00 2019-10-15 12:00:00 Outpatient BARNEY LAWRENCE [facility] [id number] [facility] Results Test Description Test Time Test Comments Results Result Co mments Source [facility]
[2023-04-03 16:44] LABS: Absolute Lymphocytes (CBC) 1.2 K/uL (0.7-4.9); Hematocrit 42.4 % (36.0-45.0); Lymphocytes % 13.5 % (15.3-44.8); MCV 95.8 fL (80-100); MPV 7.4 fL (7.6-11.3); Platelets 300 thou/uL (152-406); RBC Red Blood Cell Count 4.42 M/uL (3.86-4.86)
[2023-04-03] MEDS ORDERED: FLEET ENEMA ADULT PR ONE (16:45)
[2023-04-03 17:01] LABS: Albumin 3.5 g/dL (3.4-5.0); Bilirubin Total 0.4 mg/dL (0.2-1.0); Potassium 3.5 mEq/L (3.5-5.1)
[2023-04-03 17:16] LABS: Urine Bacteria None Seen /HPF (<20); Urine Mucus Slight /HPF (None Seen); Urine RBC <5 /HPF (None Seen)
[2023-04-03 17:25] LABS: Specific Gravity 1.012 (1.005-1.030); Urine Bilirubin NEGATIVE (Negative); Urine Blood Negative (Negative); Urine Clarity Clear (Clear); Urine Color Light-Yellow (Yellow); Urine Glucose NEGATIVE (Negative); Urine Protein NEGATIVE (Negative); Urine Urobilinogen Normal (Normal); Urine pH 7.5 (5.0-7.0)
--- NOTE | 2023-04-03 18:19 | RAD REPORT ---
EXAM DESCRIPTION: CT - Abdomen Pelvis Wo Contrast - 04/03/2023 5:11 pm CLINICAL HISTORY: CONSTIPATION COMPARISON: Abdomen Pelvis W Contrast dated 05/29/2020; Spine Lumbar Wo Con dated 03/29/2023; Thoraci c Spine W/o Cont dated 03/29/2023 TECHNIQUE: Thin cut axial CT imaging of the abdomen and pelvis was performed without IV contrast. Mu ltiplanar reformats were generated and reviewed. All CT scans are performed using dose optimization technique as appropriate and may include automated exposure control or mA/KV adjustment according to patient size. FINDINGS: No suspicious findings in the lung bases. The liver, spleen, and pancreas show no suspicious findings. Left adrenal 1.6 cm nodule is stable. Ga llbladder and biliary tree are also without suspicious finding. Symmetric renal contour, without suspicious parenchymal findings within limits of noncontrast techniq ue. Right lower renal pole 2.2 cm cystic lesion is stable. No evidence of radiopaque calculi or hydr oureteronephrosis. Laparoscopic band in place, with stable positioning of the reservoir along the central anterior abdom inal wall right of midline. No dilated bowel loops or bowel wall thickening. Mild colonic diverticulo sis. No free air, free fluid or inflammatory stranding. No hernia, mass or bulky lymphadenopathy. The urinary bladder is decompressed limiting evaluation. . No suspicious bony findings. Stable severe compression deformity at T10. IMPRESSION: No acute intra-abdominal process. Stable findings as above.
--- NOTE | 2023-04-03 18:29 | ER ---
Nurse's Notes [facility] Name: Mia Mayer Age: 77 yrs Sex: Female : 1945 Arrival Date: 04/03/2023 Time: 16:21 Bed 2 Private MD: Diagnosis: Constipation, unspecified Presentation: 04/03 16:23 Chief complaint: Patient states: she had a small bowel movement yesterday but has been kc6 struggling with constipation. tried an enema and manual disimpaction at home with no success. Coronavirus screen: At this time, the client does not indicate any symptoms associated with coronavirus-19. Ebola Screen: No symptoms or risks identified at this time. Initial Sepsis Screen: Does the patient meet any 2 criteria? No. Patient's initial sepsis screen is negative. Does the patient have a suspected source of infection? No. Patient's initial sepsis screen is negative. Risk Assessment: Do you want to hurt yourself or someone else? Patient reports no desire to harm self or others. Onset of symptoms was April 03, 2023. 16:23 Method Of Arrival: EMS: [facility] 6 16:23 Acuity: KIM 3 kc6 Triage Assessment: 16:26 General: Appears in no apparent distress. uncomfortable, Behavior is cooperative, kc6 appropriate for age, agitated. Pain: Complains of pain in buttocks. EENT: No signs and/or symptoms were reported regarding the EENT system. Neuro: Level of Consciousness is awake, alert, obeys commands, Oriented to person, place, time, situation, Appropriate for age. Cardiovascular: Capillary refill < 3 seconds. Respiratory: Airway is patent Trachea midline Respiratory effort is even, unlabored, Respiratory pattern is regular, symmetrical. GI: Reports constipation, Patient currently denies nausea, vomiting. : No signs and/or symptoms were reported regarding the genitourinary system. Derm: No signs and/or symptoms reported regarding the dermatologic system. Skin is intact, is healthy with good turgor, Skin is pink, warm \T\ dry. Musculoskeletal: No signs and/or symptoms reported regarding the musculoskeletal system. Circulation, motion, and sensation intact. Capillary refill < 3 seconds, Range of motion: intact in all extremities. Historical: - Allergies: 16:26 Morphine; kc6 - PMHx: 16:26 depressive disorder; Hypercholesterolemia; Hypertensive disorder; Hypothyroidism; kc6 - PSHx: 16:26 toe surgery; kc6 - Immunization history:: Adult Immunizations not up to date. - Social history:: Smoking status: Patient denies any tobacco usage or history of. Screenin:27 [facility] ED Fall Risk Assessment (Adult) History of falling in the last 3 months, kc6 including since admission No falls in past 3 months (0 pts) Confusion or Disorientation No (0 pts) Intoxicated or Sedated No (0 pts) Impaired Gait No (0 pts) Mobility Assist Device Used No (0 pt) Altered Elimination No (0 pt) Score/Fall Risk Level 0 - 2 = Low Risk. Abuse screen: Denies threats or abuse. Denies injuries from another. Nutritional screening: No deficits noted. Tuberculosis screening: No symptoms or risk factors identified. Assessment: 16:27 Reassessment: please see triage assessment. kc6 18:00 Reassessment: No changes from previously documented assessment. Patient and/or family mb9 updated on plan of care and expected duration. Pain level reassessed. Patient is alert, oriented x 3, equal unlabored respirations, skin warm/dry/pink. 18:28 Reassessment: pt able to have BM. ERP notified. mb9 Vital Signs: 16:23 BP 144 / 68; Pulse 85; Resp 17 S; Temp 97.8(O); Pulse Ox 100% on R/A; Weight 68.04 kg kc6 (R); Height 5 ft. 6 in. (R); 18:00 BP 101 / 64; Pulse 79; Resp 18; Pulse Ox 96% on R/A; mb9 16:23 Body Mass Index 24.21 (68.04 kg, 167.64 cm) kc6 ED Course: 16:23 Patient arrived in ED. kc6 16:24 Lola Macdonald MD is Attending Physician. sp3 16:26 Triage completed. kc6 16:26 Arm band placed on. kc6 16:27 Patient has correct armband on for positive identification. Bed in low position. Call kc6 light in reach. Side rails up X2. Client placed on continuous cardiac and pulse oximetry monitoring. NIBP monitoring applied. 16:27 Patient maintains SpO2 saturation greater than 95% on room air. kc6 16:37 Breneman, Kerri, RN is Primary Nurse. mb9 16:37 Inserted saline lock: 18 gauge in right antecubital area, using aseptic technique. mb9 16:37 CBC with Diff Sent. mb9 16:37 CMP Sent. mb9 16:37 Lipase Sent. mb9 17:00 Straight cath inserted, using sterile technique, 14 Fr. Specimen obtained. Returned kc6 clear yellow urine. Patient tolerated poorly. 17:13 CT Abd/Pelvis - Without Contrast In Process Unspecified. EDMS 17:57 Modesto Low PA is PHCP. cp 18:50 No provider procedures requiring assistance completed. IV discontinued, intact, kc6 bleeding controlled, No redness/swelling at site. Pressure dressing applied. Administered Medications: 17:16 Drug: Fleet Enema MT 133 ml MT once; may repeat once Route: MT; mb9 18:50 Follow up: Response: No adverse reaction kc6 Medication: 18:51 VIS not applicable for this client. kc6 Outcome: 18:28 Discharge ordered by MD. cp 18:50 Discharged to home ambulatory, kc6 18:50 Condition: improved 18:50 Discharge instructions given to patient, Instructed on discharge instructions, follow up and referral plans. medication usage, Demonstrated understanding of instructions, follow-up care, medications, Prescriptions given X 2, 18:51 Patient left the ED. kc6 Signatures: Dispatcher [employer] EDMD Modesto Low PA PA cp Lola Macdonald MD MD sp3 Yuliya Ellsworth RN RN kc6 Homa Driscoll RN RN mb9
--- NOTE | 2023-04-03 18:29 | EDPHYS ---
Physician Documentation [facility] Name: Mia Mayer Age: 77 yrs Sex: Female : 1945 Arrival Date: 04/03/2023 Time: 16:21 Bed 2 Private MD: ED Physician Lola Macdonald Historical: - Allergies: 04/03 16:26 Morphine; kc6 - PMHx: 16:26 depressive disorder; Hypercholesterolemia; Hypertensive disorder; Hypothyroidism; kc6 - PSHx: 16:26 toe surgery; kc6 - Immunization history:: Adult Immunizations not up to date. - Social history:: Smoking status: Patient denies any tobacco usage or history of. Vital Signs: 16:23 BP 144 / 68; Pulse 85; Resp 17 S; Temp 97.8(O); Pulse Ox 100% on R/A; Weight 68.04 kg kc6 (R); Height 5 ft. 6 in. (R); 18:00 BP 101 / 64; Pulse 79; Resp 18; Pulse Ox 96% on R/A; mb9 16:23 Body Mass Index 24.21 (68.04 kg, 167.64 cm) kc6 MDM: 16:36 Patient medically screened. sp3 04/03 16:25 Order name: CBC with Diff; Complete Time: 17:28 sp3 04/03 18:25 Interpretation: Reviewed. cp 04/03 16:25 Order name: CMP; Complete Time: 17:28 sp3 04/03 16:25 Order name: Lipase; Complete Time: 17:28 sp3 04/03 16:25 Order name: Urinalysis w/ reflexes; Complete Time: 17:28 sp3 04/03 16:25 Order name: CT Abd/Pelvis - Without Contrast; Complete Time: 18:24 sp3 04/03 16:25 Order name: IV Saline Lock; Complete Time: 16:37 sp3 04/03 16:25 Order name: Labs collected and sent; Complete Time: 16:37 sp3 Administered Medications: 17:16 Drug: Fleet Enema AR 133 ml AR once; may repeat once Route: AR; mb9 18:50 Follow up: Response: No adverse reaction kc6 Disposition Summary: 04/03/23 18:28 Discharge Ordered Notes: Location: Home cp Problem: new cp Symptoms: have improved cp Condition: Stable cp Diagnosis - Constipation, unspecified cp Followup: cp - With: Private Physician - When: 2 - 3 days - Reason: Recheck today's complaints Discharge Instructions: - Discharge Summary Sheet cp - Constipation, Adult cp - Hemorrhoids cp Forms: - Medication Reconciliation Form cp - Thank You Letter cp - Antibiotic Education cp - Prescription Opioid Use cp - Patient Portal Instructions cp - Leadership Thank You Letter cp Prescriptions: - Proctocort 30 mg Rectal suppository - insert 1 suppository RECTAL route every 12 hours as needed for hemorrhoids; 20 cp suppository; Refills: 0, Product Selection Permitted - Golytely [id number] -5.86 gram Oral Recon Soln - take 240 milliliter ORAL route once; 240 milliliter; Refills: 0, Product cp Selection Permitted Signatures: Dispatcher [employer] EDMS Modesto Low PA PA cp Lola Macdonald MD MD sp3 Yuliya Ellsworth RN RN kc6 Homa Driscoll RN RN mb9
[2023-04-03 19:00] VITALS: TEMP 97.8
[2023-04-03 19:05] VITALS: BP 101/64; O2SAT 96
== END 2023-04-03 18:51 | disposition home or self-care (01) ==
LOC: ER 16:21
DX: K59.00 Constipation, unspecified (principal); Z88.5 Allergy status to narcotic agent
CPT/HCPCS: 36415; 51702; 74176; 80053; 81001; 83690; 85025; 99285

== ENCOUNTER → 2023-04-20 | Emergency (ER) | payer OTHER ==
[~2023-04-20] MED LIST: DICYCLOMINE HCL 10 MG CAP ONE; FAMOTIDINE 20 MG/2 ML VIAL IV ONE; FENTANYL CITR 100 MCG/2 ML ONE; NA CHLORIDE 0.9% 1,000 ML ONE; ONDANSETRON 4 MG/2 ML VIAL ONE
--- OUTSIDE RECORDS SUMMARY | 2023-04-20 17:48 | XMS REPORT | Continuity of Care Document ---
Author Name Unknown Address [address] [facility] [address] [place] [address] [facility] thconnect Address [address] [facility] [place] [address] Care Team Providers Care Dedicated Regional Driver Name Role Phone DEQUAN MACDONALD Primary Care Physician Unavailab Dequan Azar Attending Clinician Unavailable BARNEY BRAVO Attending Clinician UnavailDAVID Horowitz Attending Clinician Unavailable David Ma DO Attending Clinician [phone] Doctor Unassigned, [place] Attending Clinician U JOY black MA Attending Clinician Unavailable Yady Huynh Attending Clinician UnavailYAMIL Giang Attending Clinician UnavailVanda Mcdowell Attending Clinician Tyler MURDOCK, Whitney Marley Attending Clinician Unavaila VANDA Washburn Attending Clinician Unavailab Chelsey Lorenz [facility] Pob I Attending Clinician UnavailBarney Rapp MD Attending Clinician Only, Adc Test Attending Clinician Unavailable Pob, Adc Lab Main Attending Clinician UnavailBARNEY Bradford Admitting Clinician Unavailab RIA Dubon Admitting Clinician Unavailab Yady Veliz Admitting Clinician Unavaila panda Physician, No Primary or Family Admitting Clinic inderjittamara Bravo MD, Barney Ward Admitting Clinician [phone] Payers Payer Name Policy Type Policy Number Effective Date Expirati on Date Source [employer] MED[employer]ARE ADV [id number] 1 00:00:00 Allergies, Adverse Reactions, Alerts Allergy Name Allergy Type Status Severity Reaction(s) Onset Date Inactive Date Treating Clinician Comments Source MORPHINE DRUG INGREDI Active Hallucinates 10-17 00:00: 00 [facility] Morphine Propensi ty to adverse reaction s Active Hallucinatio ns 10-17 00:00: 00 [facility] NO KNOWN ALLERGIE S Drug Class Active [facility] Social History Social Habit Start Date Stop Date Quantity Comments Source [facility] to SARS-CoV-2 (event) Not sure [facility] History of Social function 2019-11-24 00:00:00 2019-11-24 00:00:00 [facility] Tobacco use and exposure 2019-10-18 00:00:00 2019-10-18 00:00:00 Smokeless tobacco non-user [facility] Sex Assigned At 1945 00:00:00 1945 00:00:00 [facility] Smoking Status Start Date Stop Date Source Never smoked tobacco [facility] Medications Ordered Medication Name Filled Medication Name Start Date Stop Date Current Medication? Ordering Clinician Indication Dosage Frequency Signature (SIG) Comments Components Source HYDROcodone -acetaminop hen (NORCO) 10-325 mg tablet 1 tablet 2022-04 18:45: 00 03-25 18:12 :00 No 1{tbl} 1 tablet, Oral, ONCE, 1 dose, On Fri03/25/23 at 1245, Routine [facility] zolpidem 10 mg tablet 11-23 18:58: 33 Yes 10mg Take 10 mg by mouth at bedtime as needed for Insomnia. [facility] ramipril (ALTACE) 5 mg capsule 11-23 18:58: 33 Yes 5mg Take 5 mg by mouth 2 (two) times daily. [facility] rosuvastati n (CRESTOR) 10 mg tablet 11-23 18:58: 33 Yes 10mg Take 10 mg by mouth at bedtime. [facility] levomefolat e-algal oil (DEPLIN, ALGAL OIL,) 15-90.314 mg Cap 11-23 18:58: 33 Yes 1{capsu le} Take 1 capsule by mouth daily. [facility] levothyroxi ne 50 mcg tablet 11-23 18:58: 33 Yes .05mg Take 0.05 mg by mouth every morning. [facility] oxybutynin chloride 5 mg tablet 11-23 18:58: 33 Yes 5mg Take 5 mg by mouth daily. [facility] FLUoxetine (PROZAC) 20 mg capsule 11-23 18:58: 33 Yes 20mg Take 20 mg by mouth 3 (three) times daily. [facility] raloxifene (EVISTA) 60 mg tablet 11-23 18:58: 33 Yes 60mg Take 60 mg by mouth daily. [facility] alendronate 70 mg tablet 11-23 18:58: 33 Yes 70mg Take 70 mg by mouth weekly. [facility] levocetiriz ine (XYZAL) 5 mg tablet 11-23 18:58: 33 Yes 5mg Take 5 mg by mouth every evening. [facility] zolpidem 10 mg tablet 11-23 18:58: 33 Yes 10mg Take 10 mg by mouth at bedtime as needed for Insomnia. [facility] ramipril (ALTACE) 5 mg capsule 11-23 18:58: 33 Yes 5mg Take 5 mg by mouth 2 (two) times daily. [facility] rosuvastati n (CRESTOR) 10 mg tablet 11-23 18:58: 33 Yes 10mg Take 10 mg by mouth at bedtime. [facility] levomefolat e-algal oil (DEPLIN, ALGAL OIL,) 15-90.314 mg Cap 11-23 18:58: 33 Yes 1{capsu le} Take 1 capsule by mouth daily. [facility] levothyroxi ne 50 mcg tablet 11-23 18:58: 33 Yes .05mg Take 0.05 mg by mouth every morning. [facility] oxybutynin chloride 5 mg tablet 11-23 18:58: 33 Yes 5mg Take 5 mg by mouth daily. [facility] FLUoxetine (PROZAC) 20 mg capsule 11-23 18:58: 33 Yes 20mg Take 20 mg by mouth 3 (three) times daily. [facility] raloxifene (EVISTA) 60 mg tablet 11-23 18:58: 33 Yes 60mg Take 60 mg by mouth daily. [facility] alendronate 70 mg tablet 11-23 18:58: 33 Yes 70mg Take 70 mg by mouth weekly. [facility] levocetiriz ine (XYZAL) 5 mg tablet 11-23 18:58: 33 Yes 5mg Take 5 mg by mouth every evening. [facility] zolpidem 10 mg tablet 11-23 18:58: 33 Yes 10mg Take 10 mg by mouth at bedtime as needed for Insomnia. [facility] ramipril (ALTACE) 5 mg capsule 11-23 18:58: 33 Yes 5mg Take 5 mg by mouth 2 (two) times daily. [facility] rosuvastati n (CRESTOR) 10 mg tablet 11-23 18:58: 33 Yes 10mg Take 10 mg by mouth at bedtime. [facility] levomefolat e-algal oil (DEPLIN, ALGAL OIL,) 15-90.314 mg Cap 11-23 18:58: 33 Yes 1{capsu le} Take 1 capsule by mouth daily. [facility] levothyroxi ne 50 mcg tablet 11-23 18:58: 33 Yes .05mg Take 0.05 mg by mouth every morning. [facility] oxybutynin chloride 5 mg tablet 11-23 18:58: 33 Yes 5mg Take 5 mg by mouth daily. [facility] FLUoxetine (PROZAC) 20 mg capsule 11-23 18:58: 33 Yes 20mg Take 20 mg by mouth 3 (three) times daily. [facility] raloxifene (EVISTA) 60 mg tablet 11-23 18:58: 33 Yes 60mg Take 60 mg by mouth daily. [facility] alendronate 70 mg tablet 11-23 18:58: 33 Yes 70mg Take 70 mg by mouth weekly. [facility] levocetiriz ine (XYZAL) 5 mg tablet 11-23 18:58: 33 Yes 5mg Take 5 mg by mouth every evening. [facility] zolpidem 10 mg tablet 11-23 18:58: 33 Yes 10mg Take 10 mg by mouth at bedtime as needed for Insomnia. [facility] ramipril (ALTACE) 5 mg capsule 11-23 18:58: 33 Yes 5mg Take 5 mg by mouth 2 (two) times daily. [facility] rosuvastati n (CRESTOR) 10 mg tablet 11-23 18:58: 33 Yes 10mg Take 10 mg by mouth at bedtime. [facility] levomefolat e-algal oil (DEPLIN, ALGAL OIL,) 15-90.314 mg Cap 11-23 18:58: 33 Yes 1{capsu le} Take 1 capsule by mouth daily. [facility] levothyroxi ne 50 mcg tablet 11-23 18:58: 33 Yes .05mg Take 0.05 mg by mouth every morning. [facility] oxybutynin chloride 5 mg tablet 11-23 18:58: 33 Yes 5mg Take 5 mg by mouth daily. [facility] FLUoxetine (PROZAC) 20 mg capsule 11-23 18:58: 33 Yes 20mg Take 20 mg by mouth 3 (three) times daily. [facility] raloxifene (EVISTA) 60 mg tablet 11-23 18:58: 33 Yes 60mg Take 60 mg by mouth daily. [facility] alendronate 70 mg tablet 11-23 18:58: 33 Yes 70mg Take 70 mg by mouth weekly. [facility] levocetiriz ine (XYZAL) 5 mg tablet 11-23 18:58: 33 Yes 5mg Take 5 mg by mouth every evening. [facility] zolpidem 10 mg tablet 11-23 18:58: 33 Yes 10mg Take 10 mg by mouth at bedtime as needed for Insomnia. [facility] ramipril (ALTACE) 5 mg capsule 11-23 18:58: 33 Yes 5mg Take 5 mg by mouth 2 (two) times daily. [facility] rosuvastati n (CRESTOR) 10 mg tablet 11-23 18:58: 33 Yes 10mg Take 10 mg by mouth at bedtime. [facility] levomefolat e-algal oil (DEPLIN, ALGAL OIL,) 15-90.314 mg Cap 11-23 18:58: 33 Yes 1{capsu le} Take 1 capsule by mouth daily. [facility] levothyroxi ne 50 mcg tablet 11-23 18:58: 33 Yes .05mg Take 0.05 mg by mouth every morning. [facility] oxybutynin chloride 5 mg tablet 11-23 18:58: 33 Yes 5mg Take 5 mg by mouth daily. [facility] FLUoxetine (PROZAC) 20 mg capsule 11-23 18:58: 33 Yes 20mg Take 20 mg by mouth 3 (three) times daily. [facility] raloxifene (EVISTA) 60 mg tablet 11-23 18:58: 33 Yes 60mg Take 60 mg by mouth daily. [facility] alendronate 70 mg tablet 11-23 18:58: 33 Yes 70mg Take 70 mg by mouth weekly. [facility] levocetiriz ine (XYZAL) 5 mg tablet 11-23 18:58: 33 Yes 5mg Take 5 mg by mouth every evening. [facility] zolpidem 10 mg tablet 11-23 18:58: 33 Yes 10mg Take 10 mg by mouth at bedtime as needed for Insomnia. [facility] ramipril (ALTACE) 5 mg capsule 11-23 18:58: 33 Yes 5mg Take 5 mg by mouth 2 (two) times daily. [facility] rosuvastati n (CRESTOR) 10 mg tablet 11-23 18:58: 33 Yes 10mg Take 10 mg by mouth at bedtime. [facility] levomefolat e-algal oil (DEPLIN, ALGAL OIL,) 15-90.314 mg Cap 11-23 18:58: 33 Yes 1{capsu le} Take 1 capsule by mouth daily. [facility] levothyroxi ne 50 mcg tablet 11-23 18:58: 33 Yes .05mg Take 0.05 mg by mouth every morning. [facility] oxybutynin chloride 5 mg tablet 11-23 18:58: 33 Yes 5mg Take 5 mg by mouth daily. [facility] FLUoxetine (PROZAC) 20 mg capsule 11-23 18:58: 33 Yes 20mg Take 20 mg by mouth 3 (three) times daily. [facility] raloxifene (EVISTA) 60 mg tablet 11-23 18:58: 33 Yes 60mg Take 60 mg by mouth daily. [facility] alendronate 70 mg tablet 11-23 18:58: 33 Yes 70mg Take 70 mg by mouth weekly. [facility] levocetiriz ine (XYZAL) 5 mg tablet 11-23 18:58: 33 Yes 5mg Take 5 mg by mouth every evening. [facility] lactated ringers IV infusion 1,000 mL 11-23 18:45: 00 Yes 1000mL at 75 mL/hr, 1,000 mL, IV Infusion, CONTINUOUS , Starting Fri11/24/19 at 1345, Until Discontinu ed, Routine, [facility]U [facility] sodium chloride (NS) injection 11-23 18:04: 00 Yes PRN, Starting Fri11/24/19 at 1304, Until Discontinu ed, Routine, Intra-op [facility] neomycin-po lymyxin-dex amethasone (MAXITROL) 3.5 mg/g-10,000 unit/g-0.1 % ophthalmic ointment 11-23 18:04: 00 Yes PRN, Starting Fri11/24/19 at 1304, Until Discontinu ed, Routine, Intra-op [facility] water for irrigation irrigation solution 11-23 17:58: 00 Yes PRN, Starting Fri11/24/19 at 1258, Until Discontinu ed, Routine, Intra-op [facility] Hyaluronida se, Human Recomb. (HYLENEX) injection 11-23 16:57: 00 Yes PRN, Starting Fri11/24/19 at 1157, Until Discontinu ed, Routine, Intra-op [facility] gentamicin injection 11-23 16:56: 00 Yes PRN, Starting Fri11/24/19 at 1156, Until Discontinu ed, MAKENNA, Intra-op [facility] eye block syringe 11 mL 11-23 16:55: 00 Yes PRN, Starting Fri11/24/19 at 1155, Until Discontinu ed, Intra-op [facility] EPINEPHrine 1:1,000 (1 mg/mL) (ADRENALIN) injection 11-23 16:54: 00 Yes PRN, Starting Fri11/24/19 at 1154, Until Discontinu ed, Routine, Intra-op [facility] DUOVISC (DUOVISC VISCO ELASTIC) 3 %-4 %(0.5 mL) 1 % (0.55 mL) intraocular injection 11-23 16:54: 00 Yes PRN, Starting Fri11/24/19 at 1154, Until Discontinu ed, Routine, Intra-op [facility] dexamethaso ne (DECADRON PHOSPHATE) injection 11-23 16:54: 00 Yes PRN, Starting Fri11/24/19 at 1154, Until Discontinu ed, Routine, Intra-op [facility] ceFAZolin (ANCEF) injection 11-23 16:54: 00 Yes PRN, Starting Fri11/24/19 at 1154, Until Discontinu ed, MAKENNA, Intra-op [facility] carbachoL (MIOSTAT) 0.01 % intraocular injection 11-23 16:54: 00 Yes PRN, Starting Fri11/24/19 at 1154, Until Discontinu ed, Routine, Intra-op [facility] balanced salt irrig soln comb1 (BSS PLUS) ophthalmic solution 500 mL bag 11-23 16:53: 00 Yes PRN, Starting Fri11/24/19 at 1153, Until Discontinu ed, Routine, Intra-op [facility] mydriatic #5 ophthalmic solution 0.5 mL syringe 11-23 15:15: 00 11-23 15:26 :00 No .5mL 0.5 mL, Left Eye, ONCE, 1 dose, Fri11/24/19 at 1015, Routine [facility] lactated ringers IV infusion 1,000 mL 11-23 15:15: 11-23 15:26 :00 No 1000mL at 20 mL/hr, 1,000 mL, IV Infusion, ONCE, 1 dose, Fri11/24/19 at 1015, Routine, DSU Pre-op [facility] zolpidem 10 mg tablet 11-23 13:58: 33 Yes 10mg Take 10 mg by mouth at bedtime as needed for Insomnia. [facility] ramipril (ALTACE) 5 mg capsule 11-23 13:58: 33 Yes 5mg Take 5 mg by mouth 2 (two) times daily. [facility] rosuvastati n (CRESTOR) 10 mg tablet 11-23 13:58: 33 Yes 10mg Take 10 mg by mouth at bedtime. [facility] levomefolat e-algal oil (DEPLIN, ALGAL OIL,) 15-90.314 mg Cap 11-23 13:58: 33 Yes 1{capsu le} Take 1 capsule by mouth daily. [facility] levothyroxi ne 50 mcg tablet 11-23 13:58: 33 Yes .05mg Take 0.05 mg by mouth every morning. [facility] oxybutynin chloride 5 mg tablet 11-23 13:58: 33 Yes 5mg Take 5 mg by mouth daily. [facility] FLUoxetine (PROZAC) 20 mg capsule 11-23 13:58: 33 Yes 20mg Take 20 mg by mouth 3 (three) times daily. [facility] raloxifene (EVISTA) 60 mg tablet 11-23 13:58: 33 Yes 60mg Take 60 mg by mouth daily. [facility] alendronate 70 mg tablet 11-23 13:58: 33 Yes 70mg Take 70 mg by mouth weekly. [facility] levocetiriz ine (XYZAL) 5 mg tablet 11-23 13:58: 33 Yes 5mg Take 5 mg by mouth every evening. [facility] zolpidem 10 mg tablet 11-23 13:58: 33 Yes 10mg Take 10 mg by mouth at bedtime as needed for Insomnia. [facility] ramipril (ALTACE) 5 mg capsule 11-23 13:58: 33 Yes 5mg Take 5 mg by mouth 2 (two) times daily. [facility] rosuvastati n (CRESTOR) 10 mg tablet 11-23 13:58: 33 Yes 10mg Take 10 mg by mouth at bedtime. [facility] levomefolat e-algal oil (DEPLIN, ALGAL OIL,) 15-90.314 mg Cap 11-23 13:58: 33 Yes 1{capsu le} Take 1 capsule by mouth daily. [facility] levothyroxi ne 50 mcg tablet 11-23 13:58: 33 Yes .05mg Take 0.05 mg by mouth every morning. [facility] oxybutynin chloride 5 mg tablet 11-23 13:58: 33 Yes 5mg Take 5 mg by mouth daily. [facility] FLUoxetine (PROZAC) 20 mg capsule 11-23 13:58: 33 Yes 20mg Take 20 mg by mouth 3 (three) times daily. [facility] raloxifene (EVISTA) 60 mg tablet 11-23 13:58: 33 Yes 60mg Take 60 mg by mouth daily. [facility] alendronate 70 mg tablet 11-23 13:58: 33 Yes 70mg Take 70 mg by mouth weekly. [facility] levocetiriz ine (XYZAL) 5 mg tablet 11-23 13:58: 33 Yes 5mg Take 5 mg by mouth every evening. [facility] zolpidem 10 mg tablet 11-21 22:38: 50 Yes 10mg Take 10 mg by mouth at bedtime as needed for Insomnia. [facility] ramipril (ALTACE) 5 mg capsule 11-21 22:38: 50 Yes 5mg Take 5 mg by mouth 2 (two) times daily. [facility] rosuvastati n (CRESTOR) 10 mg tablet 11-21 22:38: 50 Yes 10mg Take 10 mg by mouth at bedtime. [facility] levomefolat e-algal oil (DEPLIN, ALGAL OIL,) 15-90.314 mg Cap 11-21 22:38: 50 Yes 1{capsu le} Take 1 capsule by mouth daily. [facility] levothyroxi ne 50 mcg tablet 11-21 22:38: 50 Yes .05mg Take 0.05 mg by mouth every morning. [facility] oxybutynin chloride 5 mg tablet 11-21 22:38: 50 Yes 5mg Take 5 mg by mouth daily. [facility] FLUoxetine (PROZAC) 20 mg capsule 11-21 22:38: 50 Yes 20mg Take 20 mg by mouth 3 (three) times daily. [facility] raloxifene (EVISTA) 60 mg tablet 11-21 22:38: 50 Yes 60mg Take 60 mg by mouth daily. [facility] alendronate 70 mg tablet 11-21 22:38: 50 Yes 70mg Take 70 mg by mouth weekly. [facility] levocetiriz ine (XYZAL) 5 mg tablet 11-21 22:38: 50 Yes 5mg Take 5 mg by mouth every evening. [facility] zolpidem 10 mg tablet 10-20 14:43: 08 Yes 10mg Take 10 mg by mouth at bedtime as needed for Insomnia. [facility] ramipril (ALTACE) 5 mg capsule 10-20 14:43: 08 Yes 5mg Take 5 mg by mouth 2 (two) times daily. [facility] rosuvastati n (CRESTOR) 10 mg tablet 10-20 14:43: 08 Yes 10mg Take 10 mg by mouth at bedtime. [facility] levomefolat e-algal oil (DEPLIN, ALGAL OIL,) 15-90.314 mg Cap 10-20 14:43: 08 Yes 1{capsu le} Take 1 capsule by mouth daily. [facility] levothyroxi ne 50 mcg tablet 10-20 14:43: 08 Yes .05mg Take 0.05 mg by mouth every morning. [facility] oxybutynin chloride 5 mg tablet 10-20 14:43: 08 Yes 5mg Take 5 mg by mouth daily. [facility] FLUoxetine (PROZAC) 20 mg capsule 10-20 14:43: 08 Yes 20mg Take 20 mg by mouth 3 (three) times daily. [facility] raloxifene (EVISTA) 60 mg tablet 10-20 14:43: 08 Yes 60mg Take 60 mg by mouth daily. [facility] alendronate 70 mg tablet 10-20 14:43: 08 Yes 70mg Take 70 mg by mouth weekly. [facility] levocetiriz ine (XYZAL) 5 mg tablet 10-20 14:43: 08 Yes 5mg Take 5 mg by mouth every evening. [facility] zolpidem 10 mg tablet 10-20 14:43: 08 Yes 10mg Take 10 mg by mouth at bedtime as needed for Insomnia. [facility] ramipril (ALTACE) 5 mg capsule 10-20 14:43: 08 Yes 5mg Take 5 mg by mouth 2 (two) times daily. [facility] rosuvastati n (CRESTOR) 10 mg tablet 10-20 14:43: 08 Yes 10mg Take 10 mg by mouth at bedtime. [facility] levomefolat e-algal oil (DEPLIN, ALGAL OIL,) 15-90.314 mg Cap 10-20 14:43: 08 Yes 1{capsu le} Take 1 capsule by mouth daily. [facility] levothyroxi ne 50 mcg tablet 10-20 14:43: 08 Yes .05mg Take 0.05 mg by mouth every morning. [facility] oxybutynin chloride 5 mg tablet 10-20 14:43: 08 Yes 5mg Take 5 mg by mouth daily. [facility] FLUoxetine (PROZAC) 20 mg capsule 10-20 14:43: 08 Yes 20mg Take 20 mg by mouth 3 (three) times daily. [facility] raloxifene (EVISTA) 60 mg tablet 10-20 14:43: 08 Yes 60mg Take 60 mg by mouth daily. [facility] alendronate 70 mg tablet 10-20 14:43: 08 Yes 70mg Take 70 mg by mouth weekly. [facility] levocetiriz ine (XYZAL) 5 mg tablet 10-20 14:43: 08 Yes 5mg Take 5 mg by mouth every evening. [facility] lactated ringers IV infusion 1,000 mL 10-19 15:45: 00 Yes 1000mL at 75 mL/hr, 1,000 mL, IV Infusion, CONTINUOUS , Starting Fri10/20/19 at 1045, Until Discontinu ed, Routine, PACU [facility] lactated ringers IV infusion 1,000 mL 10-19 14:30: 00 Yes 1000mL at 50 mL/hr, 1,000 mL, IV Infusion, CONTINUOUS , Starting Fri10/20/19 at 0930, Until Discontinu ed, Routine, DSU Pre-op [facility] water for irrigation irrigation solution 10-19 13:36: 00 Yes PRN, Starting Fri10/20/19 at 0836, Until Discontinu ed, Routine, Intra-op [facility] sodium chloride (NS) injection 10-19 13:35: 00 Yes PRN, Starting Fri10/20/19 at 0835, Until Discontinu ed, Routine, Intra-op [facility] neomycin-po lymyxin-dex amethasone (MAXITROL) 3.5 mg/g-10,000 unit/g-0.1 % ophthalmic ointment 10-19 13:35: 00 Yes PRN, Starting Fri10/20/19 at 0835, Until Discontinu ed, Routine, Intra-op [facility] Hyaluronida se, Human Recomb. (HYLENEX) injection 10-19 13:35: 00 Yes PRN, Starting Fri10/20/19 at 0835, Until Discontinu ed, Routine, Intra-op [facility] gentamicin injection 10-19 13:35: 00 Yes PRN, Starting Fri10/20/19 at 0835, Until Discontinu ed, MAKENNA, Intra-op [facility] eye block syringe 11 mL 10-19 13:35: 00 Yes PRN, Starting Fri10/20/19 at 0835, Until Discontinu ed, Intra-op [facility] EPINEPHrine 1:1,000 (1 mg/mL) (ADRENALIN) injection 10-19 13:34: 00 Yes PRN, Starting Fri10/20/19 at 0834, Until Discontinu ed, Routine, Intra-op [facility] DUOVISC (DUOVISC VISCO ELASTIC) 3 %-4 %(0.5 mL) 1 % (0.55 mL) intraocular injection 10-19 13:34: 00 Yes PRN, Starting Fri10/20/19 at 0834, Until Discontinu ed, Routine, Intra-op [facility] dexamethaso ne (DECADRON PHOSPHATE) injection 10-19 13:33: 00 Yes PRN, Starting Fri10/20/19 at 0833, Until Discontinu ed, Routine, Intra-op [facility] ceFAZolin (ANCEF) injection 10-19 13:33: 00 Yes PRN, Starting Fri10/20/19 at 0833, Until Discontinu ed, MAKENNA, Intra-op [facility] carbachoL (MIOSTAT) 0.01 % intraocular injection 10-19 13:33: 00 Yes PRN, Starting Fri10/20/19 at 0833, Until Discontinu ed, Routine, Intra-op [facility] balanced salt irrig soln comb1 (BSS PLUS) ophthalmic solution 500 mL bag 10-19 13:32: 00 Yes PRN, Starting Fri10/20/19 at 0832, Until Discontinu ed, Routine, Intra-op [facility] mydriatic #5 ophthalmic solution 0.5 mL syringe 10-19 13:30: 00 10-19 13:22 :00 No .5mL 0.5 mL, Right Eye, ONCE, 1 dose, Fri10/20/19 at 0830, Routine [facility] alendronate 70 mg tablet 10-17 15:58: 10 Yes 70mg Take 70 mg by mouth weekly. [facility] levocetiriz ine (XYZAL) 5 mg tablet 10-17 15:58: 10 Yes 5mg Take 5 mg by mouth every evening. [facility] ramipril (ALTACE) 5 mg capsule 10-17 15:58: 09 Yes 5mg Take 5 mg by mouth 2 (two) times daily. [facility] rosuvastati n (CRESTOR) 10 mg tablet 10-17 15:58: 09 Yes 10mg Take 10 mg by mouth at bedtime. [facility] levomefolat e-algal oil (DEPLIN, ALGAL OIL,) 15-90.314 mg Cap 10-17 15:58: 09 Yes 1{capsu le} Take 1 capsule by mouth daily. [facility] levothyroxi ne 50 mcg tablet 10-17 15:58: 09 Yes .05mg Take 0.05 mg by mouth every morning. [facility] oxybutynin chloride 5 mg tablet 10-17 15:58: 09 Yes 5mg Take 5 mg by mouth daily. [facility] FLUoxetine (PROZAC) 20 mg capsule 10-17 15:58: 09 Yes 20mg Take 20 mg by mouth 3 (three) times daily. [facility] raloxifene (EVISTA) 60 mg tablet 10-17 15:58: 09 Yes 60mg Take 60 mg by mouth daily. [facility] zolpidem 10 mg tablet 10-17 15:58: 08 Yes 10mg Take 10 mg by mouth at bedtime as needed for Insomnia. [facility] Vital Signs Vital Name Observation Time Observation Value Comments S ourpaul Systolic blood pressure 2023-03-25 17:04:00 95 mm[Hg] [facility] Diastolic blood pressure 2023-03-25 17:04:00 73 mm[Hg] [facility] Heart rate 2023-03-25 17:04:00 99 /min [facility] Body temperature 2023-03-25 17:04:00 37.28 Bere [facility] Respiratory rate 2023-03-25 17:04:00 16 /min [facility] Body height 2023-03-25 17:04:00 167.6 cm [facility] Body weight 2023-03-25 17:04:00 68.04 kg [facility] BMI 2023-03-25 17:04:00 24.21 kg/m2 [facility] Oxygen saturation in Arterial blood by Pulse oximetry 2023-03-25 17:04:00 99 /min [facility] Systolic blood pressure 2019-11-24 18:35:00 136 mm[Hg] [facility] Diastolic blood pressure 2019-11-24 18:35:00 67 mm[Hg] [facility] Heart rate 2019-11-24 18:35:00 71 /min [facility] Respiratory rate 2019-11-24 18:35:00 19 /min [facility] Oxygen saturation in Arterial blood by Pulse oximetry 2019-11-24 18:35:00 98 /min [facility] Body temperature 2019-11-24 18:25:00 36.17 [facility] Body height 2019-11-22 22:30:00 167.6 cm [facility] Body weight 2019-11-22 22:30:00 72.576 kg [facility] BMI 2019-11-22 22:30:00 25.82 kg/m2 [facility] Systolic blood pressure 2019-11-24 18:35:00 136 mm[Hg] [facility] Diastolic blood pressure 2019-11-24 18:35:00 67 mm[Hg] [facility] Heart rate 2019-11-24 18:35:00 71 /min [facility] Respiratory rate 2019-11-24 18:35:00 19 /min [facility] Oxygen saturation in Arterial blood by Pulse oximetry 2019-11-24 18:35:00 98 /min [facility] Body temperature 2019-11-24 18:25:00 36.17 Bere [facility] Body height 2019-11-22 22:30:00 167.6 cm [facility] Body weight 2019-11-22 22:30:00 72.576 kg [facility] BMI 2019-11-22 22:30:00 25.82 kg/m2 [facility] Systolic blood pressure 2019-10-20 15:41:00 121 mm[Hg] [facility] Diastolic blood pressure 2019-10-20 15:41:00 66 mm[Hg] [facility] Body temperature 2019-10-20 15:41:00 37.06 [facility] Respiratory rate 2019-10-20 15:41:00 20 /min [facility] Oxygen saturation in Arterial blood by Pulse oximetry 2019-10-20 15:41:00 100 /min [facility] Heart rate 2019-10-20 15:22:00 66 /min [facility] Body height 2019-10-18 15:45:00 167.6 cm [facility] Body weight 2019-10-18 15:45:00 72.576 kg [facility] BMI 2019-10-18 15:45:00 25.82 kg/m2 [facility] Systolic blood pressure 2019-10-20 15:41:00 121 mm[Hg] [facility] Diastolic blood pressure 2019-10-20 15:41:00 66 mm[Hg] [facility] Body temperature 2019-10-20 15:41:00 37.06 Bere [facility] Respiratory rate 2019-10-20 15:41:00 20 /min [facility] Oxygen saturation in Arterial blood by Pulse oximetry 2019-10-20 15:41:00 100 /min [facility] Heart rate 2019-10-20 15:22:00 66 /min [facility] Body height 2019-10-18 15:45:00 167.6 cm [facility] Body weight 2019-10-18 15:45:00 72.576 kg [facility] BMI 2019-10-18 15:45:00 25.82 kg/m2 [facility] Procedures Procedure Date / Time Performed Performing Clinician Source ASSIGNMENT OF BENEFITS 2023-03-25 19:02:24 Doctor Unassigned, [place] [facility] CONSENT/REFUSAL FOR DIAGNOSI S AND TREATMENT 2023-03-25 16:32:13 Doctor Unassigned, [place] [facility] DAY SURGERY - ADC 2019-11-24 05:01:00 Doctor Unassigned, [place] [facility] CONSENT/REFUSAL FOR DIAGNOSI S AND TREATMENT 2019-11-23 14:30:27 Doctor Unassigned, [place] [facility] ASSIGNMENT OF BENEFITS 2019-11-23 14:29:17 Doctor Unassigned, [place] [facility] CONSENT/REFUSAL FOR DIAGNOSI S AND TREATMENT 2019-11-17 16:52:25 Doctor Unassigned, [place] [facility] ASSIGNMENT OF BENEFITS 2019-11-17 16:51:57 Doctor Unassigned, [place] [facility] CONSENT/REFUSAL FOR DIAGNOSI S AND TREATMENT 2019-11-17 16:51:24 Doctor Unassigned, [place] [facility] ASSIGNMENT OF BENEFITS 2019-11-17 16:50:57 Doctor Unassigned, [place] [facility] PHYSICIAN ORDERS 2019-11-17 05:01:00 Doctor Unassigned, [place] [facility] PHACOEMULSIFICATION OF CATARACT WITH INTRAOCULAR LENS IMPLANT 2019-10-20 14:58:00 Barney Bravo [facility] PATIENT QUESTIONNAIRE 2019-10-20 05:01:00 Doctor Unassigned, [place] [facility] DAY SURGERY - ADC 2019-10-20 05:01:00 Doctor Unassigned, [place] [facility] COVID-19 (ID NOW RAPID TESTING) 2019-10-19 15:10:00 Barney Bravo [facility] NOTICE OF BILLING PRACTICES FOR MEDICARE PATIENTS 2019-10-15 17:37:32 Doctor Unassigned, [place] [facility] PATIENT FINANCIAL POLICY 2019-10-15 17:05:49 Doctor Unassigned, [place] [facility] NO SHOW OR MISSED APPOINTMEN T POLICY ACKNOWLEDGEMENT 2019-10-15 17:05:23 Doctor Unassigned, [place] [facility] NOTICE OF PRIVACY PRACTICES 2019-10-15 17:05:08 Doctor Unassigned, [place] [facility] CONSENT/REFUSAL FOR DIAGNOSI S AND TREATMENT 2019-10-15 17:04:51 Doctor Unassigned, [place] [facility] CONSENT/REFUSAL FOR DIAGNOSI S AND TREATMENT 2019-10-15 17:04:33 Doctor Unassigned, [place] [facility] ASSIGNMENT OF BENEFITS 2019-10-15 17:04:18 Doctor Unassigned, [place] [facility] ASSIGNMENT OF BENEFITS 2019-10-15 17:04:02 Doctor Unassigned, [place] [facility] Encounters Start Date/Time End Date/Time Encounter Type Admission Type Attending [facility] Care Facility Care Department Encounter ID Source 2023-04-18 12:02:00 Outpatient Dequan Macdonald [facility] [id number] [facility] 2023-01-12 15:10:00 [facility] [id number] [facility] 2023-01-08 12:15:00 Outpatient Macdonald, Dequan [facility] [id number] [facility] 2022-12-06 11:05:00 Outpatient Macdonald, Dequan [facility] [id number] [facility] 2022-05-08 10:57:02 Outpatient Macdonald, Dequan [facility] [id number] [facility] 2022-04-12 09:08:02 Outpatient Macdonald, Dequan [facility] [id number] [facility] 2022-01-31 11:26:02 Outpatient Macdonald, Dequan [facility] ST[facility] [id number] [facility] 2022-01-25 09:46:01 Outpatient Macdonald, Dequan [facility] [id number] [facility] 2021-08-22 10:19:02 Outpatient Macdonald, Dequan [facility] [id number] [facility] 2021-05-31 09:49:01 Outpatient Macdonald, Dequan [facility] [id number] [facility] 2021-05-23 14:11:54 Outpatient Macdonald, Dequan [facility] [id number] [facility] 2021-05-23 13:55:47 Outpatient Macdonald, Dequan [facility] [id number] [facility] 2021-05-23 13:20:25 Outpatient Macdonald, Dequan [facility] ST[facility] [id number] [facility] 2021-05-23 13:19:55 Outpatient Macdonald, Dequan [facility] STL[facility] [id number] [facility] 2021-05-23 13:19:14 Outpatient MacdonaldDequan toussaint [facility] [id number] [facility] 2021-05-23 12:41:44 Outpatient MacdonaldDequan toussaint STANTON[facility] [id number] [facility] 2021-05-23 12:31:34 Outpatient Mac[facility]onaldDequan tous[facility]aint [facility] [id number] [facility] 2021-02-23 07:58:51 Outpatient R BARNEY BRAVO [facility] [id number] [facility] 2021-02-23 01:51:41 Outpatient BARNEY LAWRENCE [facility] [id number] [facility] 2023-03-25 11:06:00 2023-03-25 13:31:00 Emergency X SINGER DAVID [facility] [id number] [facility] 2023-03-25 11:06:00 2023-03-25 13:31:00 Emergency Singer David [facility] 1.2.840.114 350.1.13.10 4.2.7.2.686 [id number] [facility] 2023-03-25 00:00:00 2023-03-25 00:00:00 Orders Only Doctor Unassigned, [place] [facility] 1.2.840.114 350.1.13.10 4.2.7.2.686 [id number] [facility] 2023-03-23 20:26:00 2023-03-24 15:03:00 Emergency E JOY CALDERON [facility] [id number] [facility] 2022-04-01 12:00:00 2022-04-01 12:00:00 Outpatient Yady Kiser [id number] [facility] 2021-03-28 12:00:00 2021-03-28 12:00:00 Outpatient Yady Kiser [id number] [facility] 2020-06-20 14:30:00 2020-06-20 14:30:00 Outpatient R YAMIL GUTIERREZ [facility] [id number] [facility] 2020-05-30 00:00:00 2020-05-30 00:00:00 Telephone Vanda Loja [facility] 1..114 350.1.13.10 4.2.7.2.686 [id number] [facility] 2020-05-27 00:00:00 2020-05-27 00:00:00 Nurse Triage [facility] 1..114 350.1.13.10 4.2.7.2.686 [id number] [facility] 2020-05-27 00:00:00 2020-05-27 00:00:00 Nurse Triage [facility] 1..114 350.1.13.10 4.2.7.2.686 [id number] 2020-05-26 10:20:00 2020-05-26 10:20:00 Outpatient R [facility] [id number] [facility] 2020-05-25 19:00:00 2020-05-25 19:00:00 Outpatient R VANDA LOJA [facility] [id number] [facility] 2020-05-25 18:25:25 2020-05-25 18:45:25 Laboratory Only Lab, Adc Fam Pob I Vanda Loja [facility] Office Building One .114 350.1.13.10 4.2.7.2.686 [id number] [facility] 2020-05-25 18:25:25 2020-05-25 18:45:25 Laboratory Only Lab, Adc [facility] Office Building One 1.2.840.114 350.1.13.10 4.2.7.2.686 [id number] 2020-05-25 00:00:00 2020-05-25 00:00:00 Letter (Out) Doctor Unassigned, [place] [facility] 1.2.840.114 350.1.13.10 4.2.7.2.686 [id number] [facility] 2020-05-25 00:00:00 2020-05-25 00:00:00 Letter (Out) Doctor Unassigned, [place] [facility] 1.2.840.114 350.1.13.10 4.2.7.2.686 [id number] 2020-01-07 12:00:00 2020-01-07 12:00:00 Outpatient Yady Kiser [facility] [id number] [facility] 2019-11-24 09:50:00 2019-11-24 13:50:00 Hospital Encounter BrinkleyBarney [facility] 1.2.840.114 350.1.13.10 4.2.7.2.686 [id number] [facility] 2019-11-24 09:50:00 2019-11-24 13:50:00 Hospital Encounter BrinkleyBarney [facility] 1.2.840.114 350.1.13.10 4.2.7.2.686 [id number] 2019-11-24 00:00:00 2019-11-24 00:00:00 Orders Only Doctor Unassigned, [place] [facility] 1.2.840.114 350.1.13.10 4.2.7.2.686 [id number] [facility] 2019-11-24 00:00:00 2019-11-24 00:00:00 Orders Only Doctor Unassigned, [place] [facility] 1.2.840.114 350.1.13.10 4.2.7.2.686 [id number] 2019-11-23 10:00:00 2019-11-23 10:00:00 Outpatient R BARNEY BRAVO [facility] [id number] [facility] 2019-11-23 09:30:39 2019-11-23 09:45:39 Laboratory Only Only, Adc Test Barney Bravo [facility] 1.2.840.114 350.1.13.10 4.2.7.2.686 [id number] [facility] 2019-11-23 09:30:39 2019-11-23 09:45:39 Laboratory Only Only, Adc Test [facility] 1.2.840.114 350.1.13.10 4.2.7.2.686 [id number] 2019-11-17 12:15:00 2019-11-17 12:15:00 Outpatient R [facility] [id number] [facility] 2019-11-17 11:59:38 2019-11-17 12:14:38 Health Technician Hearing Visit Pob, Adc Lab Main Barney Bravo [facility] Building 1.2.840.114 350.1.13.10 4.2.7.2.686 [id number] [facility] 2019-11-17 11:59:38 2019-11-17 12:14:38 Health Technician Hearing Visit Po, Adc Lab Main [facility] 1.2.840.114 350.1.13.10 4.2.7.2.686 [id number] 2019-10-20 08:07:29 2019-10-20 11:20:00 Hospital Encounter Barney Bravo [facility] 1.2.840.114 350.1.13.10 4.2.7.2.686 [id number] [facility] 2019-10-20 08:07:29 2019-10-20 11:20:00 Hospital Encounter Barney Bravo [facility] 1.2.840.114 350.1.13.10 4.2.7.2.686 [id number] 2019-10-19 10:15:00 2019-10-19 10:15:00 Outpatient BARNEY LAWRENCE [facility] [id number] [facility] 2019-10-19 09:57:46 2019-10-19 10:12:46 Laboratory Only Only, Adc Test Barney Bravo [facility] 1.2.840.114 350.1.13.10 4.2.7.2.686 [id number] [facility] 2019-10-19 09:57:46 2019-10-19 10:12:46 Laboratory Only Only, Adc Test [facility] 1.2.840.114 350.1.13.10 4.2.7.2.686 [id number] 2019-10-15 12:00:00 2019-10-15 12:00:00 Outpatient BARNEY LAWRENCE [facility] [id number] [facility] Results Test Description Test Time Test Comments Results Result Co mments Source [facility]
[2023-04-20 19:47] LABS: Absolute Lymphocytes (CBC) 1.4 K/uL (0.7-4.9); Lymphocytes % 11.6 % (15.3-44.8); MCV 94.9 fL (80-100); MPV 7.2 fL (7.6-11.3); Platelets 254 thou/uL (152-406); RBC Red Blood Cell Count 4.63 M/uL (3.86-4.86)
[2023-04-20 19:57] LABS: Albumin 3.6 g/dL (3.4-5.0); Bilirubin Total 0.7 mg/dL (0.2-1.0); Potassium 3.3 mEq/L (3.5-5.1); Protein, Total 7.7 g/dL (6.4-8.2)
--- NOTE | 2023-04-20 20:02 | ER ---
Nurse's Notes [facility] Name: Mia Mayer Age: 77 yrs Sex: Female : 1945 Arrival Date: 04/20/2023 Time: 17:44 Bed IW10 Private MD: Diagnosis: Diarrhea, unspecified Presentation: 04/20 18:03 Chief complaint: Patient states: PATIENT STATES TODAY HAS ABD PAIN, N/V DIARRHEA. db STATES FEELS DEHYDRATED. Coronavirus screen: Vaccine status: Patient reports receiving the 2nd dose of the covid vaccine. Client denies travel out of the [place] in the last 14 days. At this time, the client does not indicate any symptoms associated with coronavirus-19. Ebola Screen: Patient negative for fever greater than or equal to 101.5 degrees Fahrenheit, and additional compatible Ebola Virus Disease symptoms Patient denies exposure to infectious person. Patient denies travel to an Ebola-affected area in the 21 days before illness onset. No symptoms or risks identified at this time. Initial Sepsis Screen: Does the patient meet any 2 criteria? No. Patient's initial sepsis screen is negative. Does the patient have a suspected source of infection? No. Patient's initial sepsis screen is negative. Risk Assessment: Do you want to hurt yourself or someone else? Patient reports no desire to harm self or others. Onset of symptoms was April 20, 2023. 18:03 Method Of Arrival: Ambulatory db 18:03 Acuity: KIM 3 db Triage Assessment: 18:05 General: Appears in no apparent distress. comfortable, Behavior is calm, cooperative. db Pain: Complains of pain in abdomen. Neuro: Level of Consciousness is awake, alert, obeys commands, Oriented to person, place, time, situation. GI: Reports lower abdominal pain, diarrhea, nausea, vomiting. Historical: - Allergies: 18:05 Morphine; db - PMHx: 18:05 depressive disorder; Hypercholesterolemia; Hypertensive disorder; Hypothyroidism; db - PSHx: 18:05 toe surgery; db - Immunization history:: Adult Immunizations unknown. - Social history:: Smoking status: Patient denies any tobacco usage or history of. Screenin:02 [facility] ED Fall Risk Assessment (Adult) Score/Fall Risk Level 0 - 2 = Low Risk. Abuse as6 screen: Denies threats or abuse. Denies injuries from another. Nutritional screening: No deficits noted. Tuberculosis screening: No symptoms or risk factors identified. Vital Signs: 18:03 BP 118 / 76; Pulse 18; Resp 18; Temp 97.5; Pulse Ox 100% ; Weight 68.04 kg; Height 5 db ft. 6 in. ; 18:03 Body Mass Index 24.21 (68.04 kg, 167.64 cm) db ED Course: 17:46 Patient arrived in ED. im 17:50 Marcie Tenorio PA-C is PHCP. sb4 17:50 Prince Jernigan MD is Attending Physician. sb4 18:05 Triage completed. db 18:06 Arm band placed on Patient placed in waiting room. db 19:27 Inserted saline lock: 22 gauge in right antecubital area, using aseptic technique. cm10 Blood collected. 20:02 No provider procedures requiring assistance completed. IV discontinued, intact, as6 bleeding controlled, No redness/swelling at site. Pressure dressing applied. 20:03 Call light in reach. Provided Education on: follow up. as6 Administered Medications: 20:02 Not Given (Patient Refused): ns 0.9% 1000 ml IV at 1 bolus Per protocol; 1000 mL bolus as6 20:02 Not Given (Patient Refused): ativan0.5 mg IVP once as6 20:02 Not Given (Patient Refused): loperamide4 mg PO once as6 Medication: 20:03 VIS not applicable for this client. as6 Outcome: 20:02 Discharge ordered by . sb4 20:10 Discharged to home ambulatory, as6 20:10 Condition: stable 20:10 Discharge instructions given to patient, Instructed on discharge instructions, follow up and referral plans. Demonstrated understanding of instructions, follow-up care, 20:11 Patient left the ED. as6 Signatures: Matty Hartley RN COLLETTE as6 Maxine Heredia, RN Marcie Prado PA-C PA-C sb4 Alessandra Casanova Clarissa, RN RN cm10
--- NOTE | 2023-04-20 20:02 | EDPHYS ---
Physician Documentation [facility] Name: Mia Mayer Age: 77 yrs Sex: Female : 1945 Arrival Date: 04/20/2023 Time: 17:44 Bed IW10 Private MD: ED Physician Prince Jernigan HPI: 04/20 18:16 This 77 yrs old Female presents to ER via Ambulatory with complaints of Abdominal Pain, sb4 diarrhea, dehydration. 18:16 The patient presents with abdominal pain in the lower abdomen. Onset: The sb4 symptoms/episode began/occurred this morning. The symptoms do not radiate. Associated signs and symptoms: Pertinent positives: diarrhea, nausea, Pertinent negatives: blood in stools, dysuria, fever, hematuria, vomiting. The patient has not experienced similar symptoms in the past. patient believes she is dehydrated. has been having diarrhea all day. reports lower abdominal pain and bilateral leg cramping. denies any blood in stools, vomiting, fever, URI symptoms. Historical: - Allergies: 18:05 Morphine; db - PMHx: 18:05 depressive disorder; Hypercholesterolemia; Hypertensive disorder; Hypothyroidism; db - PSHx: 18:05 toe surgery; db - Immunization history:: Adult Immunizations unknown. - Social history:: Smoking status: Patient denies any tobacco usage or history of. ROS: 18:16 Constitutional: Negative for fever, chills, and weight loss, sb4 18:16 Abdomen/GI: Positive for abdominal pain, diarrhea, 18:16 All other systems are negative, Exam: 18:16 Constitutional: This is a well developed, well nourished patient who is awake, alert, sb4 and in no acute distress. Head/Face: Normocephalic, atraumatic. Eyes: Extra-ocular motions intact. Periorbital areas with no swelling, redness, or edema. ENT: Mucous membranes moist. Cardiovascular: Regular rate and rhythm with a normal S1 and S2. Respiratory: Lungs have equal breath sounds bilaterally, clear to auscultation and percussion. No rales, rhonchi or wheezes noted. No increased work of breathing, no retractions or nasal flaring. Abdomen/GI: Soft, non-tender, no distension. Skin: Warm, dry with normal turgor. Normal color with no rashes, no lesions, and no evidence of cellulitis. MS/ Extremity: Pulses equal, no cyanosis. Neurovascular intact. Full, normal range of motion. Vital Signs: 18:03 BP 118 / 76; Pulse 18; Resp 18; Temp 97.5; Pulse Ox 100% ; Weight 68.04 kg; Height 5 db ft. 6 in. ; 18:03 Body Mass Index 24.21 (68.04 kg, 167.64 cm) db MDM: 18:07 Patient medically screened. sb4 18:16 Differential diagnosis: diverticulitis, gastritis, non-specific abd pain, Peptic Ulcer sb4 Disease, urinary tract infection, gastroenteritis, colitis, dehydration, hypokalemia. 20:01 Data reviewed: vital signs, nurses notes, lab test result(s), and as a result, I will sb4 discharge patient. Test considered but Not performed: CT: patient left before could be completed. Care significantly affected by the following chronic conditions: Hypertension. ED course: patient did not want to wait anymore. she requested IV to be taken out and left before receiving treatment. . 04/20 18:13 Order name: CBC with Diff; Complete Time: 20:00 sb4 04/20 18:13 Order name: CMP; Complete Time: 19:58 sb4 04/20 18:13 Order name: Lipase; Complete Time: 19:58 sb4 04/20 18:13 Order name: Urinalysis w/ reflexes; Complete Time: 20:11 sb4 04/20 20:11 Order name: Urine Culture EDIN 04/20 18:13 Order name: IV Saline Lock; Complete Time: 19:27 sb4 04/20 18:13 Order name: Labs collected and sent; Complete Time: 19:27 sb4 Administered Medications: 20:02 Not Given (Patient Refused): ns 0.9% 1000 ml IV at 1 bolus Per protocol; 1000 mL bolus as6 20:02 Not Given (Patient Refused): ativan0.5 mg IVP once as6 20:02 Not Given (Patient Refused): loperamide4 mg PO once as6 Disposition: 04/21 07:06 Co-signature as Attending Physician, Prince Jernigan MD I reviewed the patient's care rt provided by the Advanced Practice Provider and agree with the diagnosis and treatment plan. Disposition Summary: 04/20/23 20:02 Discharge Ordered Notes: Location: Home sb4 Problem: new sb4 Symptoms: are unchanged sb4 Condition: Stable sb4 Diagnosis - Diarrhea, unspecified sb4 Followup: sb4 - With: Emergency Department - When: As needed - Reason: Trouble breathing, Worsening of condition Forms: - Medication Reconciliation Form sb4 - Thank You Letter sb4 - Antibiotic Education sb4 - Prescription Opioid Use sb4 - Patient Portal Instructions sb4 - Leadership Thank You Letter sb4 Signatures: Dispatcher [employer] Maxine Jaquez, RN RN Marcie Garcia PA-C PA-C sb4 Prince Jernigan MD MD rt Matty Hartley RN as6 Corrections: (The following items were deleted from the chart) 04/20 20:11 18:14 Abdomen Pelvis W Con+CT.RAD.BRZ ordered. LUPILLO WESLEY
[2023-04-20 20:06] LABS: Specific Gravity 1.006 (1.005-1.030); Urine Bacteria <20 /HPF (<20); Urine Bilirubin NEGATIVE (Negative); Urine Blood Negative (Negative); Urine Clarity Extremely Turbid (Clear); Urine Color Light-Yellow (Yellow); Urine Glucose NEGATIVE (Negative); Urine Protein NEGATIVE (Negative); Urine Urobilinogen Normal (Normal); Urine WBC Clump Rare /HPF (None Seen)
[2023-04-20 21:30] VITALS: BP 118/76; TEMP 97.5; O2SAT 100
== END ==
LOC: ER 17:44
DX: R19.7 Diarrhea, unspecified (principal); R10.30 Lower abdominal pain, unspecified; Z88.5 Allergy status to narcotic agent
CPT/HCPCS: 36415; 80053; 81001; 83690; 85025; 87086; 87088; 99283

== ENCOUNTER → 2023-04-22 | Emergency (ER) | payer OTHER ==
--- OUTSIDE RECORDS SUMMARY | 2023-04-22 10:03 | XMS REPORT | Continuity of Care Document ---
Author Name Unknown Address [address] [facility] [address] [place] [address] [facility] thconnect Address [address] [facility] [place] [address] Care Team Providers Care Sausage Tier Name Role Phone DEQUAN MACDONALD Primary Care Physician UnavailDequan Harvey Attending Clinician Unavailable BARNEY BRAVO Attending Clinician UnavailDAVID Horowitz Attending Clinician Unavailable David Ma DO Attending Clinician [phone] Doctor Unassigned, [place] Attending Clinician JOY Jang MA Attending Clinician Unavailable Yady Huynh Attending Clinician UnavailYAMIL Giang Attending Clinician UnavailVanda Mcdowell Attending Clinician Tyler MURDOCK, Whitney Marley Attending Clinician Unavaila VANDA Washburn Attending Clinician Unavailab hCelsey Lorenz [facility] Attending Clinician UnavailBarney Rapp MD Attending Clinician [phone] Only, Adc Test Attending Clinician Unavailable Pob, [facility] Main Attending Clinician UnavailBARNEY Bradford Admitting Clinician Unavailab RIA Dubon Admitting Clinician Unavailab Yady Veliz Admitting Clinician Unavaila panda Physician, No Primary or Family Admitting Clinic inderjittamara Bravo MD, Barney Ward Admitting Clinician [phone] Payers Payer Name Policy Type Policy Number Effective Date Expirati on Date Source [employer] MED[employer] ADV [id number] 1 00:00:00 Allergies, Adverse Reactions, Alerts Allergy Name Allergy Type Status Severity Reaction(s) Onset Date Inactive Date Treating Clinician Comments Source MORPHINE DRUG INGREDI Active Hallucinates 10-17 00:00: 00 [facility] Morphine Propensi ty to adverse reaction s Active Hallucinatio ns 10-17 00:00: 00 [facility] NO KNOWN ALLERGIE S Drug Class Active [facility] Social History Social Habit Start Date Stop Date Quantity Comments [facility] SARS-CoV-2 (event) Not sure [facility] History of Social function 2019-11-24 00:00:00 2019-11-24 00:00:00 [facility] Tobacco use and exposure 2019-10-18 00:00:00 2019-10-18 00:00:00 Smokeless tobacco non-user [facility] Sex Assigned At 1945 00:00:00 1945 00:00:00 [facility] Smoking Status Start Date Stop Date Source Never smoked tobacco [facility] Medications Ordered Medication Name Filled Medication Name Start Date Stop Date Current Medication? Ordering Clinician Indication Dosage Frequency Signature (SIG) Comments Components Source HYDROcodone -acetaminop hen (NORCO) 10-325 mg tablet 1 tablet 2022-04 18:45: 00 03-25 18:12 :00 No 1{tbl} 1 tablet, Oral, ONCE, 1 dose, On Fri03/25/23 at 1245, Routine [facility] zolpidem 10 mg tablet 11-23 18:58: 33 Yes 10mg Take 10 mg by mouth at bedtime as needed for Insomnia. [facility] ramipril (ALTACE) 5 mg capsule 11-23 18:58: 33 Yes 5mg Take 5 mg by mouth 2 (two) times daily. [facility] rosuvastati n (CRESTOR) 10 mg tablet 11-23 18:58: 33 Yes 10mg Take 10 mg by mouth at bedtime. [facility] levomefolat e-algal oil (DEPLIN, ALGAL OIL,) 15-90.314 mg Cap 11-23 18:58: 33 Yes 1{capsu le} Take 1 capsule by mouth daily. [facility] levothyroxi ne 50 mcg tablet 11-23 18:58: 33 Yes .05mg Take 0.05 mg by mouth every morning. [facility] oxybutynin chloride 5 mg tablet 11-23 18:58: 33 Yes 5mg Take 5 mg by mouth daily. [facility] FLUoxetine (PROZAC) 20 mg capsule 11-23 18:58: 33 Yes 20mg Take 20 mg by mouth 3 (three) times daily. [facility] raloxifene (EVISTA) 60 mg tablet 11-23 18:58: 33 Yes 60mg Take 60 mg by mouth daily. [facility] alendronate 70 mg tablet 11-23 18:58: 33 Yes 70mg Take 70 mg by mouth weekly. [facility] levocetiriz ine (XYZAL) 5 mg tablet 11-23 18:58: 33 Yes 5mg Take 5 mg by mouth every evening. [facility] zolpidem 10 mg tablet 11-23 18:58: 33 Yes 10mg Take 10 mg by mouth at bedtime as needed for Insomnia. [facility] ramipril (ALTACE) 5 mg capsule 11-23 18:58: 33 Yes 5mg Take 5 mg by mouth 2 (two) times daily. [facility] rosuvastati n (CRESTOR) 10 mg tablet 11-23 18:58: 33 Yes 10mg Take 10 mg by mouth at bedtime. [facility] levomefolat e-algal oil (DEPLIN, ALGAL OIL,) 15-90.314 mg Cap 11-23 18:58: 33 Yes 1{capsu le} Take 1 capsule by mouth daily. [facility] levothyroxi ne 50 mcg tablet 11-23 18:58: 33 Yes .05mg Take 0.05 mg by mouth every morning. [facility] oxybutynin chloride 5 mg tablet 11-23 18:58: 33 Yes 5mg Take 5 mg by mouth daily. [facility] FLUoxetine (PROZAC) 20 mg capsule 11-23 18:58: 33 Yes 20mg Take 20 mg by mouth 3 (three) times daily. [facility] raloxifene (EVISTA) 60 mg tablet 11-23 18:58: 33 Yes 60mg Take 60 mg by mouth daily. [facility] alendronate 70 mg tablet 11-23 18:58: 33 Yes 70mg Take 70 mg by mouth weekly. [facility] levocetiriz ine (XYZAL) 5 mg tablet 11-23 18:58: 33 Yes 5mg Take 5 mg by mouth every evening. [facility] zolpidem 10 mg tablet 11-23 18:58: 33 Yes 10mg Take 10 mg by mouth at bedtime as needed for Insomnia. [facility] ramipril (ALTACE) 5 mg capsule 11-23 18:58: 33 Yes 5mg Take 5 mg by mouth 2 (two) times daily. [facility] rosuvastati n (CRESTOR) 10 mg tablet 11-23 18:58: 33 Yes 10mg Take 10 mg by mouth at bedtime. [facility] levomefolat e-algal oil (DEPLIN, ALGAL OIL,) 15-90.314 mg Cap 11-23 18:58: 33 Yes 1{capsu le} Take 1 capsule by mouth daily. [facility] levothyroxi ne 50 mcg tablet 11-23 18:58: 33 Yes .05mg Take 0.05 mg by mouth every morning. [facility] oxybutynin chloride 5 mg tablet 11-23 18:58: 33 Yes 5mg Take 5 mg by mouth daily. [facility] FLUoxetine (PROZAC) 20 mg capsule 11-23 18:58: 33 Yes 20mg Take 20 mg by mouth 3 (three) times daily. [facility] raloxifene (EVISTA) 60 mg tablet 11-23 18:58: 33 Yes 60mg Take 60 mg by mouth daily. [facility] alendronate 70 mg tablet 11-23 18:58: 33 Yes 70mg Take 70 mg by mouth weekly. [facility] levocetiriz ine (XYZAL) 5 mg tablet 11-23 18:58: 33 Yes 5mg Take 5 mg by mouth every evening. [facility] zolpidem 10 mg tablet 11-23 18:58: 33 Yes 10mg Take 10 mg by mouth at bedtime as needed for Insomnia. [facility] ramipril (ALTACE) 5 mg capsule 11-23 18:58: 33 Yes 5mg Take 5 mg by mouth 2 (two) times daily. [facility] rosuvastati n (CRESTOR) 10 mg tablet 11-23 18:58: 33 Yes 10mg Take 10 mg by mouth at bedtime. [facility] levomefolat e-algal oil (DEPLIN, ALGAL OIL,) 15-90.314 mg Cap 11-23 18:58: 33 Yes 1{capsu le} Take 1 capsule by mouth daily. [facility] levothyroxi ne 50 mcg tablet 11-23 18:58: 33 Yes .05mg Take 0.05 mg by mouth every morning. [facility] oxybutynin chloride 5 mg tablet 11-23 18:58: 33 Yes 5mg Take 5 mg by mouth daily. [facility] FLUoxetine (PROZAC) 20 mg capsule 11-23 18:58: 33 Yes 20mg Take 20 mg by mouth 3 (three) times daily. [facility] raloxifene (EVISTA) 60 mg tablet 11-23 18:58: 33 Yes 60mg Take 60 mg by mouth daily. [facility] alendronate 70 mg tablet 11-23 18:58: 33 Yes 70mg Take 70 mg by mouth weekly. [facility] levocetiriz ine (XYZAL) 5 mg tablet 11-23 18:58: 33 Yes 5mg Take 5 mg by mouth every evening. [facility] zolpidem 10 mg tablet 11-23 18:58: 33 Yes 10mg Take 10 mg by mouth at bedtime as needed for Insomnia. [facility] ramipril (ALTACE) 5 mg capsule 11-23 18:58: 33 Yes 5mg Take 5 mg by mouth 2 (two) times daily. [facility] rosuvastati n (CRESTOR) 10 mg tablet 11-23 18:58: 33 Yes 10mg Take 10 mg by mouth at bedtime. [facility] levomefolat e-algal oil (DEPLIN, ALGAL OIL,) 15-90.314 mg Cap 11-23 18:58: 33 Yes 1{capsu le} Take 1 capsule by mouth daily. [facility] levothyroxi ne 50 mcg tablet 11-23 18:58: 33 Yes .05mg Take 0.05 mg by mouth every morning. [facility] oxybutynin chloride 5 mg tablet 11-23 18:58: 33 Yes 5mg Take 5 mg by mouth daily. [facility] FLUoxetine (PROZAC) 20 mg capsule 11-23 18:58: 33 Yes 20mg Take 20 mg by mouth 3 (three) times daily. [facility] raloxifene (EVISTA) 60 mg tablet 11-23 18:58: 33 Yes 60mg Take 60 mg by mouth daily. [facility] alendronate 70 mg tablet 11-23 18:58: 33 Yes 70mg Take 70 mg by mouth weekly. [facility] levocetiriz ine (XYZAL) 5 mg tablet 11-23 18:58: 33 Yes 5mg Take 5 mg by mouth every evening. [facility] zolpidem 10 mg tablet 11-23 18:58: 33 Yes 10mg Take 10 mg by mouth at bedtime as needed for Insomnia. [facility] ramipril (ALTACE) 5 mg capsule 11-23 18:58: 33 Yes 5mg Take 5 mg by mouth 2 (two) times daily. [facility] rosuvastati n (CRESTOR) 10 mg tablet 11-23 18:58: 33 Yes 10mg Take 10 mg by mouth at bedtime. [facility] levomefolat e-algal oil (DEPLIN, ALGAL OIL,) 15-90.314 mg Cap 11-23 18:58: 33 Yes 1{capsu le} Take 1 capsule by mouth daily. [facility] levothyroxi ne 50 mcg tablet 11-23 18:58: 33 Yes .05mg Take 0.05 mg by mouth every morning. [facility] oxybutynin chloride 5 mg tablet 11-23 18:58: 33 Yes 5mg Take 5 mg by mouth daily. [facility] FLUoxetine (PROZAC) 20 mg capsule 11-23 18:58: 33 Yes 20mg Take 20 mg by mouth 3 (three) times daily. [facility] raloxifene (EVISTA) 60 mg tablet 11-23 18:58: 33 Yes 60mg Take 60 mg by mouth daily. [facility] alendronate 70 mg tablet 11-23 18:58: 33 Yes 70mg Take 70 mg by mouth weekly. [facility] levocetiriz ine (XYZAL) 5 mg tablet 11-23 18:58: 33 Yes 5mg Take 5 mg by mouth every evening. [facility] lactated ringers IV infusion 1,000 mL 11-23 18:45: 00 Yes 1000mL at 75 mL/hr, 1,000 mL, IV Infusion, CONTINUOUS , Starting Fri11/24/19 at 1345, Until Discontinu ed, Routine, [facility]U [facility] sodium chloride (NS) injection 11-23 18:04: 00 Yes PRN, Starting Fri11/24/19 at 1304, Until Discontinu ed, Routine, Intra-op [facility] neomycin-po lymyxin-dex amethasone (MAXITROL) 3.5 mg/g-10,000 unit/g-0.1 % ophthalmic ointment 11-23 18:04: 00 Yes PRN, Starting Fri11/24/19 at 1304, Until Discontinu ed, Routine, Intra-op [facility] water for irrigation irrigation solution 11-23 17:58: 00 Yes PRN, Starting Fri11/24/19 at 1258, Until Discontinu ed, Routine, Intra-op [facility] Hyaluronida se, Human Recomb. (HYLENEX) injection 11-23 16:57: 00 Yes PRN, Starting Fri11/24/19 at 1157, Until Discontinu ed, Routine, Intra-op [facility] gentamicin injection 11-23 16:56: 00 Yes PRN, Starting Fri11/24/19 at 1156, Until Discontinu ed, MAKENNA, Intra-op [facility] eye block syringe 11 mL 11-23 16:55: 00 Yes PRN, Starting Fri11/24/19 at 1155, Until Discontinu ed, Intra-op [facility] EPINEPHrine 1:1,000 (1 mg/mL) (ADRENALIN) injection 11-23 16:54: 00 Yes PRN, Starting Fri11/24/19 at 1154, Until Discontinu ed, Routine, Intra-op [facility] DUOVISC (DUOVISC VISCO ELASTIC) 3 %-4 %(0.5 mL) 1 % (0.55 mL) intraocular injection 11-23 16:54: 00 Yes PRN, Starting Fri11/24/19 at 1154, Until Discontinu ed, Routine, Intra-op [facility] dexamethaso ne (DECADRON PHOSPHATE) injection 11-23 16:54: 00 Yes PRN, Starting Fri11/24/19 at 1154, Until Discontinu ed, Routine, Intra-op [facility] ceFAZolin (ANCEF) injection 11-23 16:54: 00 Yes PRN, Starting Fri11/24/19 at 1154, Until Discontinu ed, MAKENNA, Intra-op [facility] carbachoL (MIOSTAT) 0.01 % intraocular injection 11-23 16:54: 00 Yes PRN, Starting Fri11/24/19 at 1154, Until Discontinu ed, Routine, Intra-op [facility] balanced salt irrig soln comb1 (BSS PLUS) ophthalmic solution 500 mL bag 11-23 16:53: 00 Yes PRN, Starting Fri11/24/19 at 1153, Until Discontinu ed, Routine, Intra-op [facility] mydriatic #5 ophthalmic solution 0.5 mL syringe 11-23 15:15: 00 11-23 15:26 :00 No .5mL 0.5 mL, Left Eye, ONCE, 1 dose, Fri11/24/19 at 1015, Routine [facility] lactated ringers IV infusion 1,000 mL 11-23 15:15: 11-23 15:26 :00 No 1000mL at 20 mL/hr, 1,000 mL, IV Infusion, ONCE, 1 dose, Fri11/24/19 at 1015, Routine, DSU Pre-op [facility] zolpidem 10 mg tablet 11-23 13:58: 33 Yes 10mg Take 10 mg by mouth at bedtime as needed for Insomnia. [facility] ramipril (ALTACE) 5 mg capsule 11-23 13:58: 33 Yes 5mg Take 5 mg by mouth 2 (two) times daily. [facility] rosuvastati n (CRESTOR) 10 mg tablet 11-23 13:58: 33 Yes 10mg Take 10 mg by mouth at bedtime. [facility] levomefolat e-algal oil (DEPLIN, ALGAL OIL,) 15-90.314 mg Cap 11-23 13:58: 33 Yes 1{capsu le} Take 1 capsule by mouth daily. [facility] levothyroxi ne 50 mcg tablet 11-23 13:58: 33 Yes .05mg Take 0.05 mg by mouth every morning. [facility] oxybutynin chloride 5 mg tablet 11-23 13:58: 33 Yes 5mg Take 5 mg by mouth daily. [facility] FLUoxetine (PROZAC) 20 mg capsule 11-23 13:58: 33 Yes 20mg Take 20 mg by mouth 3 (three) times daily. [facility] raloxifene (EVISTA) 60 mg tablet 11-23 13:58: 33 Yes 60mg Take 60 mg by mouth daily. [facility] alendronate 70 mg tablet 11-23 13:58: 33 Yes 70mg Take 70 mg by mouth weekly. [facility] levocetiriz ine (XYZAL) 5 mg tablet 11-23 13:58: 33 Yes 5mg Take 5 mg by mouth every evening. [facility] zolpidem 10 mg tablet 11-23 13:58: 33 Yes 10mg Take 10 mg by mouth at bedtime as needed for Insomnia. [facility] ramipril (ALTACE) 5 mg capsule 11-23 13:58: 33 Yes 5mg Take 5 mg by mouth 2 (two) times daily. [facility] rosuvastati n (CRESTOR) 10 mg tablet 11-23 13:58: 33 Yes 10mg Take 10 mg by mouth at bedtime. [facility] levomefolat e-algal oil (DEPLIN, ALGAL OIL,) 15-90.314 mg Cap 11-23 13:58: 33 Yes 1{capsu le} Take 1 capsule by mouth daily. [facility] levothyroxi ne 50 mcg tablet 11-23 13:58: 33 Yes .05mg Take 0.05 mg by mouth every morning. [facility] oxybutynin chloride 5 mg tablet 11-23 13:58: 33 Yes 5mg Take 5 mg by mouth daily. [facility] FLUoxetine (PROZAC) 20 mg capsule 11-23 13:58: 33 Yes 20mg Take 20 mg by mouth 3 (three) times daily. [facility] raloxifene (EVISTA) 60 mg tablet 11-23 13:58: 33 Yes 60mg Take 60 mg by mouth daily. [facility] alendronate 70 mg tablet 11-23 13:58: 33 Yes 70mg Take 70 mg by mouth weekly. [facility] levocetiriz ine (XYZAL) 5 mg tablet 11-23 13:58: 33 Yes 5mg Take 5 mg by mouth every evening. [facility] zolpidem 10 mg tablet 11-21 22:38: 50 Yes 10mg Take 10 mg by mouth at bedtime as needed for Insomnia. [facility] ramipril (ALTACE) 5 mg capsule 11-21 22:38: 50 Yes 5mg Take 5 mg by mouth 2 (two) times daily. [facility] rosuvastati n (CRESTOR) 10 mg tablet 11-21 22:38: 50 Yes 10mg Take 10 mg by mouth at bedtime. [facility] levomefolat e-algal oil (DEPLIN, ALGAL OIL,) 15-90.314 mg Cap 11-21 22:38: 50 Yes 1{capsu le} Take 1 capsule by mouth daily. [facility] levothyroxi ne 50 mcg tablet 11-21 22:38: 50 Yes .05mg Take 0.05 mg by mouth every morning. [facility] oxybutynin chloride 5 mg tablet 11-21 22:38: 50 Yes 5mg Take 5 mg by mouth daily. [facility] FLUoxetine (PROZAC) 20 mg capsule 11-21 22:38: 50 Yes 20mg Take 20 mg by mouth 3 (three) times daily. [facility] raloxifene (EVISTA) 60 mg tablet 11-21 22:38: 50 Yes 60mg Take 60 mg by mouth daily. [facility] alendronate 70 mg tablet 11-21 22:38: 50 Yes 70mg Take 70 mg by mouth weekly. [facility] levocetiriz ine (XYZAL) 5 mg tablet 11-21 22:38: 50 Yes 5mg Take 5 mg by mouth every evening. [facility] zolpidem 10 mg tablet 10-20 14:43: 08 Yes 10mg Take 10 mg by mouth at bedtime as needed for Insomnia. [facility] ramipril (ALTACE) 5 mg capsule 10-20 14:43: 08 Yes 5mg Take 5 mg by mouth 2 (two) times daily. [facility] rosuvastati n (CRESTOR) 10 mg tablet 10-20 14:43: 08 Yes 10mg Take 10 mg by mouth at bedtime. [facility] levomefolat e-algal oil (DEPLIN, ALGAL OIL,) 15-90.314 mg Cap 10-20 14:43: 08 Yes 1{capsu le} Take 1 capsule by mouth daily. [facility] levothyroxi ne 50 mcg tablet 10-20 14:43: 08 Yes .05mg Take 0.05 mg by mouth every morning. [facility] oxybutynin chloride 5 mg tablet 10-20 14:43: 08 Yes 5mg Take 5 mg by mouth daily. [facility] FLUoxetine (PROZAC) 20 mg capsule 10-20 14:43: 08 Yes 20mg Take 20 mg by mouth 3 (three) times daily. [facility] raloxifene (EVISTA) 60 mg tablet 10-20 14:43: 08 Yes 60mg Take 60 mg by mouth daily. [facility] alendronate 70 mg tablet 10-20 14:43: 08 Yes 70mg Take 70 mg by mouth weekly. [facility] levocetiriz ine (XYZAL) 5 mg tablet 10-20 14:43: 08 Yes 5mg Take 5 mg by mouth every evening. [facility] zolpidem 10 mg tablet 10-20 14:43: 08 Yes 10mg Take 10 mg by mouth at bedtime as needed for Insomnia. [facility] ramipril (ALTACE) 5 mg capsule 10-20 14:43: 08 Yes 5mg Take 5 mg by mouth 2 (two) times daily. [facility] rosuvastati n (CRESTOR) 10 mg tablet 10-20 14:43: 08 Yes 10mg Take 10 mg by mouth at bedtime. [facility] levomefolat e-algal oil (DEPLIN, ALGAL OIL,) 15-90.314 mg Cap 10-20 14:43: 08 Yes 1{capsu le} Take 1 capsule by mouth daily. [facility] levothyroxi ne 50 mcg tablet 10-20 14:43: 08 Yes .05mg Take 0.05 mg by mouth every morning. [facility] oxybutynin chloride 5 mg tablet 10-20 14:43: 08 Yes 5mg Take 5 mg by mouth daily. [facility] FLUoxetine (PROZAC) 20 mg capsule 10-20 14:43: 08 Yes 20mg Take 20 mg by mouth 3 (three) times daily. [facility] raloxifene (EVISTA) 60 mg tablet 10-20 14:43: 08 Yes 60mg Take 60 mg by mouth daily. [facility] alendronate 70 mg tablet 10-20 14:43: 08 Yes 70mg Take 70 mg by mouth weekly. [facility] levocetiriz ine (XYZAL) 5 mg tablet 10-20 14:43: 08 Yes 5mg Take 5 mg by mouth every evening. [facility] lactated ringers IV infusion 1,000 mL 10-19 15:45: 00 Yes 1000mL at 75 mL/hr, 1,000 mL, IV Infusion, CONTINUOUS , Starting Fri10/20/19 at 1045, Until Discontinu ed, Routine, PACU [facility] lactated ringers IV infusion 1,000 mL 10-19 14:30: 00 Yes 1000mL at 50 mL/hr, 1,000 mL, IV Infusion, CONTINUOUS , Starting Fri10/20/19 at 0930, Until Discontinu ed, Routine, DSU Pre-op [facility] water for irrigation irrigation solution 10-19 13:36: 00 Yes PRN, Starting Fri10/20/19 at 0836, Until Discontinu ed, Routine, Intra-op [facility] sodium chloride (NS) injection 10-19 13:35: 00 Yes PRN, Starting Fri10/20/19 at 0835, Until Discontinu ed, Routine, Intra-op [facility] neomycin-po lymyxin-dex amethasone (MAXITROL) 3.5 mg/g-10,000 unit/g-0.1 % ophthalmic ointment 10-19 13:35: 00 Yes PRN, Starting Fri10/20/19 at 0835, Until Discontinu ed, Routine, Intra-op [facility] Hyaluronida se, Human Recomb. (HYLENEX) injection 10-19 13:35: 00 Yes PRN, Starting Fri10/20/19 at 0835, Until Discontinu ed, Routine, Intra-op [facility] gentamicin injection 10-19 13:35: 00 Yes PRN, Starting Fri10/20/19 at 0835, Until Discontinu ed, MAKENNA, Intra-op [facility] eye block syringe 11 mL 10-19 13:35: 00 Yes PRN, Starting Fri10/20/19 at 0835, Until Discontinu ed, Intra-op [facility] EPINEPHrine 1:1,000 (1 mg/mL) (ADRENALIN) injection 10-19 13:34: 00 Yes PRN, Starting Fri10/20/19 at 0834, Until Discontinu ed, Routine, Intra-op [facility] DUOVISC (DUOVISC VISCO ELASTIC) 3 %-4 %(0.5 mL) 1 % (0.55 mL) intraocular injection 10-19 13:34: 00 Yes PRN, Starting Fri10/20/19 at 0834, Until Discontinu ed, Routine, Intra-op [facility] dexamethaso ne (DECADRON PHOSPHATE) injection 10-19 13:33: 00 Yes PRN, Starting Fri10/20/19 at 0833, Until Discontinu ed, Routine, Intra-op [facility] ceFAZolin (ANCEF) injection 10-19 13:33: 00 Yes PRN, Starting Fri10/20/19 at 0833, Until Discontinu ed, MAKENNA, Intra-op [facility] carbachoL (MIOSTAT) 0.01 % intraocular injection 10-19 13:33: 00 Yes PRN, Starting Fri10/20/19 at 0833, Until Discontinu ed, Routine, Intra-op [facility] balanced salt irrig soln comb1 (BSS PLUS) ophthalmic solution 500 mL bag 10-19 13:32: 00 Yes PRN, Starting Fri10/20/19 at 0832, Until Discontinu ed, Routine, Intra-op [facility] mydriatic #5 ophthalmic solution 0.5 mL syringe 10-19 13:30: 00 10-19 13:22 :00 No .5mL 0.5 mL, Right Eye, ONCE, 1 dose, Fri10/20/19 at 0830, Routine [facility] alendronate 70 mg tablet 10-17 15:58: 10 Yes 70mg Take 70 mg by mouth weekly. [facility] levocetiriz ine (XYZAL) 5 mg tablet 10-17 15:58: 10 Yes 5mg Take 5 mg by mouth every evening. [facility] ramipril (ALTACE) 5 mg capsule 10-17 15:58: 09 Yes 5mg Take 5 mg by mouth 2 (two) times daily. [facility] rosuvastati n (CRESTOR) 10 mg tablet 10-17 15:58: 09 Yes 10mg Take 10 mg by mouth at bedtime. [facility] levomefolat e-algal oil (DEPLIN, ALGAL OIL,) 15-90.314 mg Cap 10-17 15:58: 09 Yes 1{capsu le} Take 1 capsule by mouth daily. [facility] levothyroxi ne 50 mcg tablet 10-17 15:58: 09 Yes .05mg Take 0.05 mg by mouth every morning. [facility] oxybutynin chloride 5 mg tablet 10-17 15:58: 09 Yes 5mg Take 5 mg by mouth daily. [facility] FLUoxetine (PROZAC) 20 mg capsule 10-17 15:58: 09 Yes 20mg Take 20 mg by mouth 3 (three) times daily. [facility] raloxifene (EVISTA) 60 mg tablet 10-17 15:58: 09 Yes 60mg Take 60 mg by mouth daily. [facility] zolpidem 10 mg tablet 10-17 15:58: 08 Yes 10mg Take 10 mg by mouth at bedtime as needed for Insomnia. [facility] Vital Signs Vital Name Observation Time Observation Value Comments S ourpaul Systolic blood pressure 2023-03-25 17:04:00 95 mm[Hg] [facility] Diastolic blood pressure 2023-03-25 17:04:00 73 mm[Hg] [facility] Heart rate 2023-03-25 17:04:00 99 /min [facility] Body temperature 2023-03-25 17:04:00 37.28 Bere [facility] Respiratory rate 2023-03-25 17:04:00 16 /min [facility] Body height 2023-03-25 17:04:00 167.6 cm [facility] Body weight 2023-03-25 17:04:00 68.04 kg [facility] BMI 2023-03-25 17:04:00 24.21 kg/m2 [facility] Oxygen saturation in Arterial blood by Pulse oximetry 2023-03-25 17:04:00 99 /min [facility] Systolic blood pressure 2019-11-24 18:35:00 136 mm[Hg] [facility] Diastolic blood pressure 2019-11-24 18:35:00 67 mm[Hg] [facility] Heart rate 2019-11-24 18:35:00 71 /min [facility] [place] [facility] Respiratory rate 2019-11-24 18:35:00 19 /min [facility] Oxygen saturation in Arterial blood by Pulse oximetry 2019-11-24 18:35:00 98 /min [facility] Body temperature 2019-11-24 18:25:00 36.17 [facility] Body height 2019-11-22 22:30:00 167.6 cm [facility] Body weight 2019-11-22 22:30:00 72.576 kg [facility] BMI 2019-11-22 22:30:00 25.82 kg/m2 [facility] Systolic blood pressure 2019-11-24 18:35:00 136 mm[Hg] [facility] Diastolic blood pressure 2019-11-24 18:35:00 67 mm[Hg] [facility] Heart rate 2019-11-24 18:35:00 71 /min [facility] Respiratory rate 2019-11-24 18:35:00 19 /min [facility] Oxygen saturation in Arterial blood by Pulse oximetry 2019-11-24 18:35:00 98 /min [facility] Body temperature 2019-11-24 18:25:00 36.17 Bere [facility] Body height 2019-11-22 22:30:00 167.6 cm [facility] Body weight 2019-11-22 22:30:00 72.576 kg [facility] BMI 2019-11-22 22:30:00 25.82 kg/m2 [facility] Systolic blood pressure 2019-10-20 15:41:00 121 mm[Hg] [facility] Diastolic blood pressure 2019-10-20 15:41:00 66 mm[Hg] [facility] Body temperature 2019-10-20 15:41:00 37.06 [facility] Respiratory rate 2019-10-20 15:41:00 20 /min [facility] Oxygen saturation in Arterial blood by Pulse oximetry 2019-10-20 15:41:00 100 /min [facility] Heart rate 2019-10-20 15:22:00 66 /min [facility] [place] [facility] Body height 2019-10-18 15:45:00 167.6 cm [facility] Body weight 2019-10-18 15:45:00 72.576 kg [facility] BMI 2019-10-18 15:45:00 25.82 kg/m2 [facility] Systolic blood pressure 2019-10-20 15:41:00 121 mm[Hg] [facility] Diastolic blood pressure 2019-10-20 15:41:00 66 mm[Hg] [facility] Body temperature 2019-10-20 15:41:00 37.06 Bere [facility] Respiratory rate 2019-10-20 15:41:00 20 /min [facility] Oxygen saturation in Arterial blood by Pulse oximetry 2019-10-20 15:41:00 100 /min [facility] Heart rate 2019-10-20 15:22:00 66 /min [facility] [place] [facility] Body height 2019-10-18 15:45:00 167.6 cm [facility] Body weight 2019-10-18 15:45:00 72.576 kg [facility] BMI 2019-10-18 15:45:00 25.82 kg/m2 [facility] Procedures Procedure Date / Time Performed Performing Clinician Source ASSIGNMENT OF BENEFITS 2023-03-25 19:02:24 Doctor Unassigned, [place] [facility] CONSENT/REFUSAL FOR DIAGNOSI S AND TREATMENT 2023-03-25 16:32:13 Doctor Unassigned, [place] [facility] DAY SURGERY - ADC 2019-11-24 05:01:00 Doctor Unassigned, [place] [facility] CONSENT/REFUSAL FOR DIAGNOSI S AND TREATMENT 2019-11-23 14:30:27 Doctor Unassigned, [place] [facility] ASSIGNMENT OF BENEFITS 2019-11-23 14:29:17 Doctor Unassigned, [place] [facility] CONSENT/REFUSAL FOR DIAGNOSI S AND TREATMENT 2019-11-17 16:52:25 Doctor Unassigned, [place] [facility] ASSIGNMENT OF BENEFITS 2019-11-17 16:51:57 Doctor Unassigned, [place] [facility] CONSENT/REFUSAL FOR DIAGNOSI S AND TREATMENT 2019-11-17 16:51:24 Doctor Unassigned, [place] [facility] ASSIGNMENT OF BENEFITS 2019-11-17 16:50:57 Doctor Unassigned, [place] [facility] PHYSICIAN ORDERS 2019-11-17 05:01:00 Doctor Unassigned, [place] [facility] PHACOEMULSIFICATION OF CATARACT WITH INTRAOCULAR LENS IMPLANT 2019-10-20 14:58:00 Barney Bravo [facility] PATIENT QUESTIONNAIRE 2019-10-20 05:01:00 Doctor Unassigned, [place] [facility] DAY SURGERY - ADC 2019-10-20 05:01:00 Doctor Unassigned, [place] [facility] COVID-19 (ID NOW RAPID TESTING) 2019-10-19 15:10:00 Barney Bravo [facility] NOTICE OF BILLING PRACTICES FOR MEDICARE PATIENTS 2019-10-15 17:37:32 Doctor Unassigned, [place] [facility] PATIENT FINANCIAL POLICY 2019-10-15 17:05:49 Doctor Unassigned, [place] [facility] NO SHOW OR MISSED APPOINTMEN T POLICY ACKNOWLEDGEMENT 2019-10-15 17:05:23 Doctor Unassigned, [place] [facility] NOTICE OF PRIVACY PRACTICES 2019-10-15 17:05:08 Doctor Unassigned, [place] [facility] CONSENT/REFUSAL FOR DIAGNOSI S AND TREATMENT 2019-10-15 17:04:51 Doctor Unassigned, [place] [facility] CONSENT/REFUSAL FOR DIAGNOSI S AND TREATMENT 2019-10-15 17:04:33 Doctor Unassigned, [place] [facility] ASSIGNMENT OF BENEFITS 2019-10-15 17:04:18 Doctor Unassigned, [place] [facility] ASSIGNMENT OF BENEFITS 2019-10-15 17:04:02 Doctor Unassigned, [place] [facility] Encounters Start Date/Time End Date/Time Encounter Type Admission Type Attending [facility] Care Facility Care Department Encounter ID Source 2023-04-18 12:02:00 Outpatient Dequan Macdonald [facility] [id number] [facility] 2023-01-12 15:10:00 Outpatient [facility] [id number] [facility] 2023-01-08 12:15:00 Outpatient Macdonald, Dequan [facility] [id number] [facility] 2022-12-06 11:05:00 Outpatient Macdonald, Dequan [facility] [id number] [facility] 2022-05-08 10:57:02 Outpatient Macdonald, Dequan [facility] [id number] [facility] 2022-04-12 09:08:02 Outpatient Macdonald, Dequan [facility] ST[facility] [id number] [facility] 2022-01-31 11:26:02 Outpatient Macdonald, Dequan [facility] [id number] [facility] 2022-01-25 09:46:01 Outpatient Macdonald, Dequan [facility] [id number] [facility] 2021-08-22 10:19:02 Outpatient Macdonald, Dequan [facility] [id number] [facility] 2021-05-31 09:49:01 Outpatient Macdonald, Dequan [facility] [id number] [facility] 2021-05-23 14:11:54 Outpatient Macdonald, Dequan [facility] ST[facility] [id number] [facility] 2021-05-23 13:55:47 Outpatient Macdonald, Dequan [facility] ST[facility] [id number] [facility] 2021-05-23 13:20:25 Outpatient Macdonald, Dequan [facility] ST[facility] [id number] [facility] 2021-05-23 13:19:55 Outpatient Macdonald, Dequan [facility] ST[facility] [id number] [facility] 2021-05-23 13:19:14 Outpatient MacdonaldDequan tous[facility]aint [facility] [id number] [facility] 2021-05-23 12:41:44 Outpatient MacdonaldDequan toussaint [facility] [id number] [facility] 2021-05-23 12:31:34 Outpatient MacdonaldDequan tous[facility]aint [facility] [id number] [facility] 2021-02-23 07:58:51 Outpatient R BARNEY BRAVO [facility] [id number] [facility] 2021-02-23 01:51:41 Outpatient BARNEY LAWRENCE [facility] [id number] [facility] 2023-03-25 11:06:00 2023-03-25 13:31:00 Emergency X SINGER DAVID [facility] [id number] [facility] 2023-03-25 11:06:00 2023-03-25 13:31:00 Emergency Singer David [facility] 1.2.840.114 350.1.13.10 4.2.7.2.686 [id number] [facility] 2023-03-25 00:00:00 2023-03-25 00:00:00 Orders Only Doctor Unassigned, [place] [facility] 1.2.840.114 350.1.13.10 4.2.7.2.686 [id number] [facility] 2023-03-23 20:26:00 2023-03-24 15:03:00 Emergency E JOY CALDERON [facility] [id number] [facility] 2022-04-01 12:00:00 2022-04-01 12:00:00 Outpatient Yady Kiser [id number] [facility] 2021-03-28 12:00:00 2021-03-28 12:00:00 Outpatient Yady Kiser [id number] [facility] 2020-06-20 14:30:00 2020-06-20 14:30:00 Outpatient R YAMIL GUTIERREZ [facility] [id number] [facility] 2020-05-30 00:00:00 2020-05-30 00:00:00 Telephone Vanda Loja [facility] Building 1..114 350.1.13.10 4.2.7.2.686 [id number] [facility] 2020-05-27 00:00:00 2020-05-27 00:00:00 Nurse Triage RUST 1..114 350.1.13.10 4.2.7.2.686 [id number] [facility] 2020-05-27 00:00:00 2020-05-27 00:00:00 Nurse Triage [facility] 1..114 350.1.13.10 4.2.7.2.686 [id number] 2020-05-26 10:20:00 2020-05-26 10:20:00 Outpatient R [facility] [id number] [facility] 2020-05-25 19:00:00 2020-05-25 19:00:00 Outpatient R VANDA LOJA [facility] [id number] [facility] 2020-05-25 18:25:25 2020-05-25 18:45:25 Laboratory Only Lab, Adc Fam Pob I Vanda Loja [facility] Office Building One .114 350.1.13.10 4.2.7.2.686 [id number] [facility] 2020-05-25 18:25:25 2020-05-25 18:45:25 Laboratory Only Lab, Adc [facility] Office Building One 1.2.840.114 350.1.13.10 4.2.7.2.686 [id number] 2020-05-25 00:00:00 2020-05-25 00:00:00 Letter (Out) Doctor Unassigned, [place] [facility] 1.2.840.114 350.1.13.10 4.2.7.2.686 [id number] [facility] 2020-05-25 00:00:00 2020-05-25 00:00:00 Letter (Out) Doctor Unassigned, [place] [facility] 1.2.840.114 350.1.13.10 4.2.7.2.686 [id number] 2020-01-07 12:00:00 2020-01-07 12:00:00 Outpatient Yady Kiser [facility] [id number] [facility] 2019-11-24 09:50:00 2019-11-24 13:50:00 [facility] 1.2.840.114 350.1.13.10 4.2.7.2.686 [id number] [facility] 2019-11-24 09:50:00 2019-11-24 13:50:00 Hospital [place] [facility] 1.2.840.114 350.1.13.10 4.2.7.2.686 [id number] 2019-11-24 00:00:00 2019-11-24 00:00:00 Orders Only Doctor Unassigned, [place] [facility] 1.2.840.114 350.1.13.10 4.2.7.2.686 [id number] [facility] 2019-11-24 00:00:00 2019-11-24 00:00:00 Orders Only Doctor Unassigned, [place] [facility] 1.2.840.114 350.1.13.10 4.2.7.2.686 [id number] 2019-11-23 10:00:00 2019-11-23 10:00:00 Outpatient R BARNEY BRAVO [facility] [id number] [facility] 2019-11-23 09:30:39 2019-11-23 09:45:39 Laboratory Only Only, Adc Test Barney Bravo [facility] 1.2.840.114 350.1.13.10 4.2.7.2.686 [id number] [facility] 2019-11-23 09:30:39 2019-11-23 09:45:39 Laboratory Only Only, Adc Test [facility] 1.2.840.114 350.1.13.10 4.2.7.2.686 [id number] 2019-11-17 12:15:00 2019-11-17 12:15:00 Outpatient R [facility] [id number] [facility] 2019-11-17 11:59:38 2019-11-17 12:14:38 [employer] Visit Pob, Adc Lab Main Barney Bravo [facility] Building 1.2.840.114 350.1.13.10 4.2.7.2.686 [id number] [facility] 2019-11-17 11:59:38 2019-11-17 12:14:38 [employer] De[employer] Visit Po, Adc [facility] 1.2.840.114 350.1.13.10 4.2.7.2.686 [id number] 2019-10-20 08:07:29 2019-10-20 11:20:00 Hospital Encounter Barney Bravo [facility] 1.2.840.114 350.1.13.10 4.2.7.2.686 [id number] [facility] 2019-10-20 08:07:29 2019-10-20 11:20:00 Hospital Encounter Barney Bravo [facility] 1.2.840.114 350.1.13.10 4.2.7.2.686 [id number] 2019-10-19 10:15:00 2019-10-19 10:15:00 Outpatient BARNEY LAWRENCE [facility] [id number] [facility] 2019-10-19 09:57:46 2019-10-19 10:12:46 Laboratory Only Only, Adc Test Barney Bravo [facility] 1.2.840.114 350.1.13.10 4.2.7.2.686 [id number] [facility] 2019-10-19 09:57:46 2019-10-19 10:12:46 Laboratory Only Only, Adc Test [facility] 1.2.840.114 350.1.13.10 4.2.7.2.686 [id number] 2019-10-15 12:00:00 2019-10-15 12:00:00 Outpatient BARNEY LAWRENCE [facility] [id number] [facility] Results Test Description Test Time Test Comments Results Result Co mments Source [facility]
[2023-04-22 11:12] LABS: Absolute Lymphocytes (CBC) 1.4 K/uL (0.7-4.9); Hematocrit 43.9 % (36.0-45.0); Lymphocytes % 12.4 % (15.3-44.8); MCV 94.7 fL (80-100); MPV 7.4 fL (7.6-11.3); Platelets 262 thou/uL (152-406); RBC Red Blood Cell Count 4.64 M/uL (3.86-4.86)
[2023-04-22 11:28] LABS: Albumin 3.5 g/dL (3.4-5.0); Bilirubin Total 0.5 mg/dL (0.2-1.0); Protein, Total 7.3 g/dL (6.4-8.2)
--- NOTE | 2023-04-22 12:47 | RAD REPORT ---
EXAM DESCRIPTION: CT - Abdomen Pelvis W Contrast - 04/22/2023 12:12 pm CLINICAL HISTORY: ABD PAIN COMPARISON: Abdomen Pelvis W Contrast dated 05/29/2020; Abdomen Pelvis Wo Contrast dated 04/03/2023 TECHNIQUE: Thin cut axial CT imaging of the abdomen and pelvis was performed following intravenous a dministration of 100 mL Isovue 300. Multiplanar reformats were generated and reviewed. All CT scans are performed using dose optimization technique as appropriate and may include automated exposure control or mA/KV adjustment according to patient size. FINDINGS: No suspicious findings in the lung bases. The liver, spleen, right adrenal gland, and pancreas show no suspicious findings. Stable left adrenal 1.4 cm nodule. Gallbladder and biliary tree are also without suspicious finding. Symmetric renal function is seen with no hydronephrosis or suspicious renal mass. Right lower pole co rtical 2.2 cm cyst, stable and benign in appearance. Gastric band in place. No dilated bowel loops or bowel wall thickening. No free air, free fluid or in flammatory stranding. No hernia, mass or bulky lymphadenopathy. The urinary bladder is without signif icant finding. No suspicious bony findings. Severe anterior wedge compression deformity at T10, stable in appearance, with minimal prevertebral e trice. IMPRESSION: No acute intra-abdominal process. Stable findings as above.
--- NOTE | 2023-04-22 13:30 | EDPHYS ---
Physician Documentation [facility] Name: Mia Mayer Age: 77 yrs Sex: Female : 1945 Arrival Date: 04/22/2023 Time: 09:58 Bed 15 Private MD: ED Physician Candelario Knowles HPI: 04/22 10:36 This 77 yrs old Female presents to ER via Wheelchair with complaints of Black/Tarry ec2 Stools. 10:36 Patient arrives today due to concern for abdominal cramping along with black stools. ec2 Patient reports that she is been having diarrhea for the past several days, states that the diarrhea has since resolved and noted some black stools today. Patient reports that she had taken some Pepto-Bismol yesterday prior to noticing the black stools. Patient reports some nausea, no vomiting. States that she has been keeping fluids down as well as broth. . Historical: - Allergies: 10:21 Morphine; ll1 - PMHx: 10:21 depressive disorder; Hypercholesterolemia; Hypertensive disorder; Hypothyroidism; ll1 - PSHx: 10:21 toe surgery; ll1 - Immunization history:: Adult Immunizations up to date. - Social history:: Smoking status: Patient denies any tobacco usage or history of. ROS: 10:36 Constitutional: as per hpi ec2 Exam: 10:36 Constitutional: GEN: NAD Head: atraumatic Eyes: EOMI Ears: External ears are ec2 normal. CV: regular rate LUNGS: no respiratory distress ABD: non-distended, soft, not guarding, not rigid SKIN: no evidence of rashes MSK: no evidence of trauma NEURO: moves all extremities equally Vital Signs: 10:25 BP 120 / 79; Pulse 88; Resp 18; Temp 97.5; Pulse Ox 100% ; Weight 68.04 kg; Height 5 ll1 ft. 6 in. ; Pain 10/10; 13:16 BP 157 / 82; Pulse 75; Resp 16; Pulse Ox 100% on R/A; kd3 10:25 Body Mass Index 24.21 (68.04 kg, 167.64 cm) ll1 10:25 Pain Scale: Adult ll1 MDM: 10:34 Patient medically screened. ec2 10:36 Data reviewed: vital signs. ED course: Patient arrives today due to concern for dark ec2 stools. Examination remarkable for well-appearing nontoxic dividual is otherwise in no acute distress. Will obtain lab work, CT imaging, treat the patient's symptoms with crystalloid, Zofran, Bentyl. Currently considering process such as gastroenteritis, viral process, low suspicion for GI bleed given the relation to Pepto-Bismol initiation.. 11:45 ED course: CBC without evidence of anemia, metabolic profile is reassuring without ec2 significant liver abnormalities, lipase is minimally elevated at 94. . 13:04 ED course: CT abdomen pelvis shows no acute intra-abdominal process. Ultimately I ec2 suspect patient is having black stools from the patient's Pepto-Bismol use. I have a low suspicion for variceal bleed or upper GI bleed, patient otherwise hemodynamically stable with no evidence of anemia. Will discharge home and follow-up with primary care doctor.. 13:29 ED course: Of note, daughter expresses concern about drug-seeking behavior, patient ec2 with chronic pains, sees a pain management doctor as well.. 12 10:34 Order name: CBC with Diff; Complete Time: 11:45 ec2 04/22 10:34 Order name: CMP; Complete Time: 11:45 ec2 04/22 10:34 Order name: Lipase; Complete Time: 11:45 ec2 04/22 10:34 Order name: Urinalysis w/ reflexes ec2 04/22 10:34 Order name: CT Abd/Pelvis - IV Contrast Only; Complete Time: 13:03 ec2 04/22 10:34 Order name: IV Saline Lock; Complete Time: 11:07 ec2 04/22 10:34 Order name: Labs collected and sent; Complete Time: 11:07 ec2 Administered Medications: 11:45 Drug: Dicyclomine PO 20 mg PO once Route: PO; kd3 13:49 Follow up: Response: No adverse reaction kd3 11:46 Drug: NS 0.9% IV 1000 ml IV at 1 bolus Per protocol; 1000 mL bolus Route: IV; Rate: 1 kd3 bolus; Site: right antecubital; 13:49 Follow up: IV Status: Completed infusion; IV Intake: 1000ml kd3 11:46 Drug: Famotidine IVP 20 mg IVP once; dilute with 10 mL 0.9% NaCl; give over 2 minutes kd3 Route: IVP; Site: right antecubital; 13:49 Follow up: Response: No adverse reaction kd3 11:46 Drug: Ondansetron IVP 4 mg IVP once; over 2 minutes Route: IVP; Site: right antecubital;kd3 13:50 Follow up: Response: No adverse reaction kd3 12:05 Drug: fentaNYL (PF) IVP 25 mcg IVP once Route: IVP; Site: right antecubital; kd3 13:49 Follow up: Response: No adverse reaction kd3 Disposition Summary: 04/22/23 13:29 Discharge Ordered Notes: Location: Home ec2 Condition: Stable ec2 Diagnosis - Infectious gastroenteritis and colitis, unspecified ec2 Followup: ec2 - With: Private Physician - When: - Reason: Re-evaluation by your physician Followup: ec2 - With: Issa Galan MD - When: - Reason: Recheck today's complaints Discharge Instructions: - Discharge Summary Sheet ec2 - Viral Gastroenteritis, Adult, [id number] ec2 Forms: - Medication Reconciliation Form ec2 - Thank You Letter ec2 - Antibiotic Education ec2 - Prescription Opioid Use ec2 - Patient Portal Instructions ec2 - Leadership Thank You Letter ec2 Signatures: Dispatcher [employer] Manish Roberson RN RN ll1 Heike Chaves RN RN kd3 Candelario Knowles MD MD ec2 Corrections: (The following items were deleted from the chart) 10:38 10:36 ED course: Patient arrives today due to concern for dark stools. Examination ec2 remarkable for well-appearing nontoxic dividual is otherwise in no acute distress. Will obtain lab work, CT imaging, treat the patient's symptoms with crystalloid, Zofran, Bentyl. Currently considering process such as gastroenteritis, viral process, low suspicion for GI bleed given the. ec2
--- NOTE | 2023-04-22 13:30 | ER ---
Nurse's Notes [facility] Name: Mia Mayer Age: 77 yrs Sex: Female : 1945 Arrival Date: 04/22/2023 Time: 09:58 Bed 15 Private MD: Diagnosis: Infectious gastroenteritis and colitis, unspecified Presentation: 04/22 10:25 Chief complaint: Patient states: Still having abdominal pain since her last visit here ll1 2 nights ago. Black, tarry stool this AM. Took pepto yesterday. Coronavirus screen: Client denies travel out of the [place] in the last 14 days. At this time, the client does not indicate any symptoms associated with coronavirus-19. Ebola Screen: Patient denies travel to an Ebola-affected area in the 21 days before illness onset. Initial Sepsis Screen: Does the patient meet any 2 criteria? No. Patient's initial sepsis screen is negative. Does the patient have a suspected source of infection? Yes: Acute abdominal pain. Risk Assessment: Do you want to hurt yourself or someone else? Patient reports no desire to harm self or others. Onset of symptoms was April 22, 2023. 10:25 Method Of Arrival: Wheelchair ll1 10:25 Acuity: KIM 3 ll1 Triage Assessment: 10:30 General: Appears uncomfortable, Behavior is calm, cooperative, appropriate for age. ll1 Pain: Complains of pain in abdomen Pain currently is 10 out of 10 on a pain scale. Neuro: No deficits noted. Cardiovascular: No deficits noted. GI: Reports lower abdominal pain, upper abdominal pain, cramping, diarrhea, nausea, "tarry stool" started today. Historical: - Allergies: 10:21 Morphine; ll1 - PMHx: 10:21 depressive disorder; Hypercholesterolemia; Hypertensive disorder; Hypothyroidism; ll1 - PSHx: 10:21 toe surgery; ll1 - Immunization history:: Adult Immunizations up to date. - Social history:: Smoking status: Patient denies any tobacco usage or history of. Screenin:48 [facility] ED Fall Risk Assessment (Adult) History of falling in the last 3 months, kd3 including since admission No falls in past 3 months (0 pts) Confusion or Disorientation No (0 pts) Intoxicated or Sedated No (0 pts) Impaired Gait No (0 pts) Mobility Assist Device Used No (0 pt) Altered Elimination No (0 pt) Score/Fall Risk Level 0 - 2 = Low Risk Oriented to surroundings. Abuse screen: Denies threats or abuse. Denies injuries from another. Nutritional screening: No deficits noted. Tuberculosis screening: No symptoms or risk factors identified. Assessment: 11:03 Reassessment: No changes from previously documented assessment. Patient and/or family iw updated on plan of care and expected duration. Pain level reassessed. 11:46 General: PT states that her bladder has ruptured. This RN asked if the patient felt kd3 like she needed to urinate. Pt stated that she was unable to urinate. Pt states "They used a catheter yesterday and drained me, cant you just do that?" This Rn agreed to cath the patient in order to drain urine. This RN attempted to cath the patient but when the catheter was advanced, the pt kicked her legs out, pulling the catheter out without a sample. Pt states that she does not want to try a cath again and refuses bladder scan. Pt states "if you don't give me something real for pain in my IV, I will walk out of here. I have been here for 4 hours without any attention. I should have called an ambulance, maybe I would have gotten some attention then." Pt educated regarding pain management and ER procedure. Pt educated regarding use of bladder scan and CT and blood work. Pt is unreceptive to education at this time. . 13:16 General: Pt called this RN into the room needing to be changed because she had wet the kd3 bed. Pt cleaned of incontinence, pt ambulatory in the room while performing bed change. Pt reminded of need for urine. Pt states "I want the name of the doctor here. You need to spill the name and write it down for me". Pt provided with provider name and provided warm blankets for comfort. . 13:26 General: General: Spoke to the Pt's daughter in regard to the patient's behavioral kd3 status since the patient had her spinal fracture. Pt's daughter states that there is a referral in for the patient to have a psychological evaluation. Pt has had bizarre behaviors such and urinating while standing in her hallway at home and having inconstant complaints of being unable to urinate, lower abdominal pain and being unable to walk. Provider notified of the patient's behaviors at home. . Vital Signs: 10:25 BP 120 / 79; Pulse 88; Resp 18; Temp 97.5; Pulse Ox 100% ; Weight 68.04 kg; Height 5 ll1 ft. 6 in. ; Pain 10/10; 13:16 BP 157 / 82; Pulse 75; Resp 16; Pulse Ox 100% on R/A; kd3 10:25 Body Mass Index 24.21 (68.04 kg, 167.64 cm) ll1 10:25 Pain Scale: Adult ll1 ED Course: 10:00 Patient arrived in ED. mr 10:21 Arm band placed on. ll1 10:26 Candelario Knowles MD is Attending Physician. ec2 10:27 Triage completed. ll1 11:02 Inserted saline lock: 22 gauge in right antecubital area, using aseptic technique. iw Blood collected. 11:03 Patient placed in an exam room, on a stretcher. iw 11:26 Heike Chaves, RN is Primary Nurse. kd3 12:14 CT Abd/Pelvis - IV Contrast Only In Process Unspecified. EDMS 13:29 Issa Galan MD is Referral Physician. ec2 13:48 No provider procedures requiring assistance completed. IV discontinued, intact, kd3 bleeding controlled, No redness/swelling at site. Pressure dressing applied. 13:49 Patient has correct armband on for positive identification. Provided Education on: . kd3 Administered Medications: 11:45 Drug: Dicyclomine PO 20 mg PO once Route: PO; kd3 13:49 Follow up: Response: No adverse reaction kd3 11:46 Drug: NS 0.9% IV 1000 ml IV at 1 bolus Per protocol; 1000 mL bolus Route: IV; Rate: 1 kd3 bolus; Site: right antecubital; 13:49 Follow up: IV Status: Completed infusion; IV Intake: 1000ml kd3 11:46 Drug: Famotidine IVP 20 mg IVP once; dilute with 10 mL 0.9% NaCl; give over 2 minutes kd3 Route: IVP; Site: right antecubital; 13:49 Follow up: Response: No adverse reaction kd3 11:46 Drug: Ondansetron IVP 4 mg IVP once; over 2 minutes Route: IVP; Site: right antecubital;kd3 13:50 Follow up: Response: No adverse reaction kd3 12:05 Drug: fentaNYL (PF) IVP 25 mcg IVP once Route: IVP; Site: right antecubital; kd3 13:49 Follow up: Response: No adverse reaction kd3 Medication: 13:49 VIS not applicable for this client. kd3 Intake: 13:49 IV: 1000ml; Total: 1000ml. kd3 Outcome: 13:29 Discharge ordered by . ec2 13:48 Discharged to home ambulatory, kd3 13:48 Condition: stable 13:48 Discharge instructions given to patient, family, Instructed on discharge instructions, follow up and referral plans. Demonstrated understanding of instructions, follow-up care, 13:54 Patient left the ED. kd3 Signatures: Dispatcher [employer] EDMS Homa Anderson, Reg Pillo mr Ritika Romeo, RN COLLETTE iw Manish Bonilla RN RN ll1 Heike Chaves RN RN kd3 Candelario Knowles MD MD ec2 Corrections: (The following items were deleted from the chart) 10:32 10:25 Chief complaint: Patient states: Still having abdominal pain since her last visit ll1 here 2 nights ago. Black, tarry stool this AM. ll1 13:54 13:26 General: kd3 kd3
[2023-04-22 15:02] VITALS: TEMP 97.5; O2SAT 100
[2023-04-22 15:09] VITALS: BP 157/82
== END ==
LOC: ER 09:58
DX: A09 Infectious gastroenteritis and colitis, unspecified (principal); Z88.5 Allergy status to narcotic agent
CPT/HCPCS: 96361; 85025; 36415; 83690; 80053; 74177; 96375; 96374; 99284; Q9967

== ENCOUNTER 2024-02-19 08:42 | Emergency (ER) | payer OTHER ==
[2024-02-19] MEDS ORDERED: NA CHLORIDE 0.9% 1,000 ML ONE (09:30)
[2024-02-19 09:36] LABS: Absolute Basophils 0.1 K/uL (0-0.5); Absolute Lymphocytes (CBC) 0.9 K/uL (0.7-4.9); Absolute Monocytes 0.5 K/uL (0.1-1.3); Absolute Neutrophil 6.5 K/uL (1.8-8.0); Basophils % 0.6 % (0-1.3); Eosinophils % 0.2 % (0-4.4); Hematocrit 40.2 % (36.0-45.0); Hemoglobin 12.9 g/dL (12.0-15.0); Lymphocytes % 11.8 % (15.3-44.8); MCH 29.8 pg (27.0-35.0); MCHC 32.1 g/dL (32.0-36.0); MCV 92.9 fL (80-100); MPV 7.7 fL (7.6-11.3); Monocytes % 6.8 % (3.3-12.3); Neutrophils % 80.6 % (41.7-73.7); Platelets 318 thou/uL (152-406); RBC Red Blood Cell Count 4.33 M/uL (3.86-4.86); Red Cell Distribution Width 14.7 % (12.1-15.2)
[2024-02-19 09:43] LABS: PT Prothrombin Time 11.2 SECONDS (9.4-12.5); PTT, Activated Partial Thromb 34.3 SECONDS (24.3-36.9)
[2024-02-19 10:01] LABS: ALT/SGPT 16 U/L (13-56); AST/SGOT 21 U/L (15-37); Albumin 3.3 g/dL (3.4-5.0); Albumin/Globulin Ratio 0.9 (1.1-1.8); Alkaline Phosphatase 151 U/L (45-117); Anion Gap 12.6 mEq/L (5.0-15.0); BUN Blood Urea Nitrogen 16 mg/dL (7-18); Bicarbonate 21 mEq/L (21-32); Bilirubin Total 0.4 mg/dL (0.2-1.0); Globulin 3.6 g/dL (2.3-3.5); Glomerular Filtration Rate 74 ml/min (=/>90); Glucose Level 106 mg/dL (74-106); Magnesium 2.1 mg/dL (1.6-2.4); NT PRO-BNP 468 pg/mL (<450); Potassium 3.6 mEq/L (3.5-5.1); Protein, Total 6.9 g/dL (6.4-8.2); Sodium Level 138 mEq/L (136-145); Troponin High Sensitivity 11.9 pg/mL (<58.9)
[2024-02-19 10:02] LABS: Bilirubin Direct < 0.2 mg/dL (0-0.2); Bilirubin Indirect, Calculated 0.2 mg/dL (0.2-0.8)
--- NOTE | 2024-02-19 10:07 | RAD REPORT ---
EXAMINATION: ONE VIEW CHEST XR CLINICAL INDICATION: COUGH TECHNIQUE: Frontal chest projection is submitted. Examination is limited by patient positioning and t echnique. COMPARISON: 10/09/2022 FINDINGS: Mild dependent interstitial opacities are seen in both lung bases which are probably chronic. No foca l infiltrate. The heart is upper limit of normal in size. No displaced fractures identified. Thoracic hardware is noted. IMPRESSION: No acute intrathoracic abnormalities.
--- NOTE | 2024-02-19 10:40 | EDPHYS ---
Physician Documentation [facility] Name: Mia Mayer Age: 78 yrs Sex: Female : 1945 Arrival Date: 02/19/2024 Time: 08:42 Bed 8 Private MD: ED Physician Modesto Renteria HPI: 02/18 10:31 This 78 yrs old Female presents to ER via Ambulatory with complaints of nicholas Withdrawals. 10:31 took hydrocodone instead of oxycodone. Onset: The symptoms/episode began/occurred just nicholas prior to arrival, this morning. Severity of symptoms: At their worst the symptoms were mild in the emergency department the symptoms are unchanged. The patient has not experienced similar symptoms in the past. Historical: - Allergies: 09:12 "I don't like morphine"; ss - PMHx: 09:12 depressive disorder; Hypercholesterolemia; Hypertensive disorder; Hypothyroidism; ss - PSHx: 09:12 toe surgery; ss - Immunization history:: Adult Immunizations up to date. - Infectious Disease History:: Denies. - Family history:: not pertinent. - Social history:: Smoking status: Patient denies any tobacco usage or history of. ROS: 10:31 Constitutional: Negative for fever, chills, and weight loss, Eyes: Negative for injury, nicholas pain, redness, and discharge, ENT: Negative for injury, pain, and discharge, Neck: Negative for injury, pain, and swelling, Cardiovascular: Negative for chest pain, palpitations, and edema, Respiratory: Negative for shortness of breath, cough, wheezing, and pleuritic chest pain, Abdomen/GI: Negative for abdominal pain, nausea, vomiting, diarrhea, and constipation, Back: Negative for injury and pain, : Negative for injury, bleeding, discharge, and swelling, MS/Extremity: Negative for injury and deformity, Skin: Negative for injury, rash, and discoloration, Psych: Negative for depression, anxiety, suicide ideation, homicidal ideation, and hallucinations, Allergy/Immunology: Negative for hives, rash, and allergies, Endocrine: Negative for neck swelling, polydipsia, polyuria, polyphagia, and marked weight changes, Hematologic/Lymphatic: Negative for swollen nodes, abnormal bleeding, and unusual bruising, 10:31 Neuro: Positive for dizziness, anxious, Exam: 10:31 Constitutional: This is a well developed, well nourished patient who is awake, alert, nicholas and in no acute distress. Head/Face: Normocephalic, atraumatic. Eyes: Pupils equal round and reactive to light, extra-ocular motions intact. Lids and lashes normal. Conjunctiva and sclera are non-icteric and not injected. Cornea within normal limits. Periorbital areas with no swelling, redness, or edema. ENT: Nares patent. No nasal discharge, no septal abnormalities noted. Tympanic membranes are normal and external auditory canals are clear. Oropharynx with no redness, swelling, or masses, exudates, or evidence of obstruction, uvula midline. Mucous membranes moist. Neck: Trachea midline, no thyromegaly or masses palpated, and no cervical lymphadenopathy. Supple, full range of motion without nuchal rigidity, or vertebral point tenderness. No Meningismus. Chest/axilla: Normal chest wall appearance and motion. Nontender with no deformity. No lesions are appreciated. Cardiovascular: Regular rate and rhythm with a normal S1 and S2. No gallops, murmurs, or rubs. Normal PMI, no JVD. No pulse deficits. Respiratory: Lungs have equal breath sounds bilaterally, clear to auscultation and percussion. No rales, rhonchi or wheezes noted. No increased work of breathing, no retractions or nasal flaring. Abdomen/GI: Soft, non-tender, with normal bowel sounds. No distension or tympany. No guarding or rebound. No evidence of tenderness throughout. Back: No spinal tenderness. No costovertebral tenderness. Full range of motion. Female : Normal external genitalia. Skin: Warm, dry with normal turgor. Normal color with no rashes, no lesions, and no evidence of cellulitis. MS/ Extremity: Pulses equal, no cyanosis. Neurovascular intact. Full, normal range of motion. Neuro: Awake and alert, GCS 15, oriented to person, place, time, and situation. Cranial nerves II-XII grossly intact. Motor strength 5/5 in all extremities. Sensory grossly intact. Cerebellar exam normal. Normal gait. 10:31 Psych: Behavior/mood is anxious, uncooperative, Affect is animated, Oriented to person, place, time, Patient has no thoughts/intents to harm self or others. Judgement / Insight is normal. 10:40 Back: pain, that is very mild, ROM is painless, normal spinal alignment noted, CVA nicholas tenderness, is absent, vertebral tenderness, is not appreciated, MID THORACIC INCISION HEALING WELL , NO SIGNS OF INFECTION, Vital Signs: 09:08 BP 159 / 92; Pulse 88; Resp 20; Temp 98.2(TE); Pulse Ox 100% on R/A; Weight 68.04 kg; ss Height 5 ft. 6 in. ; Pain 10/10; 10:20 BP 155 / 90; Pulse 84; Resp 17; Pulse Ox 99% on R/A; rs5 09:08 Body Mass Index 24.21 (68.04 kg, 167.64 cm) ss 09:08 Pain Scale: Adult ss Tanna Coma Score: 10:31 Eye Response: spontaneous(4). Motor Response: obeys commands(6). Verbal Response: nicholas oriented(5). Total: 15. MDM: 09:09 Medical Screening Exam initiated nicholas 10:36 Differential Diagnosis altered mental status, sepsis, flu. Data reviewed: vital signs, [facility] nurses notes, lab test result(s), EKG, radiologic studies, plain films. Consideration of Admission/Observation Escalation of care including admission/observation considered. I considered the following discharge prescriptions or medication management in the emergency department Medications were administered in the Emergency Department. See MAR. Independent interpretation of the following test(s) in the Emergency Department EKG: See my EKG interpretation above. Test considered but Not performed: MRI: no mri brain. Care significantly affected by the following chronic conditions: Hypertension, hypothyroid, high cholesterol, depression. 02/18 09:16 Order name: Basic Metabolic Panel; Complete Time: 10:30 [facility] 02/18 09:16 Order name: CBC with Diff; Complete Time: 10:30 [facility] 02/18 09:16 Order name: LFT's; Complete Time: 10:30 [facility] 02/18 09:16 Order name: Magnesium; Complete Time: 10:30 [facility] 02/18 09:16 Order name: NT PRO-BNP; Complete Time: 10:30 [facility] 02/18 09:16 Order name: PT-INR; Complete Time: 10:30 [facility] 02/18 09:16 Order name: Troponin HS; Complete Time: 10:30 [facility] 02/18 09:16 Order name: Acetaminophen; Complete Time: 10:30 [facility] 02/18 09:16 Order name: ETOH Level; Complete Time: 10:30 [facility] 02/18 09:16 Order name: Ptt, Activated; Complete Time: 10:30 [facility] 02/18 09:16 Order name: Salicylate; Complete Time: 10:30 [facility] 02/18 09:16 Order name: XRAY Chest (1 view); Complete Time: 10:30 [facility] 02/18 09:16 Order name: Cardiac monitoring; Complete Time: 09:46 [facility] 02/18 09:16 Order name: IV Saline Lock; Complete Time: 09:46 [facility] 02/18 09:16 Order name: Labs collected and sent; Complete Time: 09:46 [facility] 02/18 09:16 Order name: O2 Per Protocol; Complete Time: 09:46 [facility] 02/18 09:16 Order name: O2 Sat Monitoring; Complete Time: 09:46 [facility] 02/18 09:16 Order name: Suicide Screening ([place]); Complete Time: 09:46 [facility] Administered Medications: 09:46 Drug: NS 0.9% IV 1000 ml IV at 1000 ml once; to be given as a bolus over 60 minutes rs5 Route: IV; Rate: 1000 ml; Site: right antecubital; 10:34 Follow up: Response: No adverse reaction; IV Status: IV converted to saline lock rs5 Disposition Summary: 02/19/24 10:39 Discharge Ordered Notes: Location: Home nicholas Problem: new nicholas Symptoms: have improved nicholas Condition: Stable nicholas Diagnosis - Adverse effect of unspecified drugs, medicaments and biological substances - [facility] HYDROCODONE - Anxiety disorder, unspecified nicholas Followup: nicholas - With: Private Physician - When: 2 - 3 days - Reason: Recheck today's complaints, Continuance of care, Re-evaluation by your physician Discharge Instructions: - Discharge Summary Sheet nicholas - Drug Allergy, [id number] nicholas - Drug Allergy [facility] - Managing Anxiety, Adult [facility] Forms: - Medication Reconciliation Form nicholas - Antibiotic Education nicholas - Prescription Opioid Use [facility] - Patient Portal Instructions [facility] - Leadership Thank You Letter [facility] Signatures: Dispatcher [employer] Modesto Alston MD MD cha Blanchard, Shelby RN RN ss Kurt Reddy RN RN rs5 Corrections: (The following items were deleted from the chart) 09:13 09:12 Allergies: Morphine; [facility]
--- NOTE | 2024-02-19 10:40 | ER ---
Nurse's Notes [facility] Name: Mia Mayer Age: 78 yrs Sex: Female : 1945 Arrival Date: 02/19/2024 Time: 08:42 Bed 8 Private MD: Diagnosis: Adverse effect of unspecified drugs, medicaments and biological substances-HYDROCODONE;Anxiety disorder, unspecified Presentation: 02/18 09:08 Chief complaint: Patient states: "I ran out of pain medicine and they changed it and ss I've only taken one of them, but I don't know if I'm having a reaction to it or what." Pt c/o shakiness, tingling in feet/ hands and/or head that began 10 hours ago. Coronavirus screen: Client denies travel out of the [place] in the last 14 days. Ebola Screen: Patient denies exposure to infectious person. Patient denies travel to an Ebola-affected area in the 21 days before illness onset. Initial Sepsis Screen: Does the patient meet any 2 criteria? No. Patient's initial sepsis screen is negative. Does the patient have a suspected source of infection? No. Patient's initial sepsis screen is negative. Risk Assessment: Do you want to hurt yourself or someone else? Patient reports no desire to harm self or others. Onset of symptoms was February 18, 2024. 09:08 Method Of Arrival: Ambulatory ss 09:08 Acuity: KIM 3 ss Triage Assessment: 09:08 General: Appears uncomfortable, Behavior is anxious. Pain: Complains of pain in back ss Pain currently is 10 out of 10 on a pain scale. Neuro: Level of Consciousness is awake, alert, obeys commands, Oriented to person, place, time, situation. Respiratory: Airway is patent Respiratory effort is even, unlabored. Derm: Skin is pink, warm \\T\\ dry. Historical: - Allergies: 09:12 "I don't like morphine"; ss - PMHx: 09:12 depressive disorder; Hypercholesterolemia; Hypertensive disorder; Hypothyroidism; ss - PSHx: 09:12 toe surgery; ss - Immunization history:: Adult Immunizations up to date. - Infectious Disease History:: Denies. - Family history:: not pertinent. - Social history:: Smoking status: Patient denies any tobacco usage or history of. Screenin:00 [facility] ED Fall Risk Assessment (Adult) History of falling in the last 3 months, rs5 including since admission No falls in past 3 months (0 pts) Confusion or Disorientation No (0 pts) Intoxicated or Sedated No (0 pts) Impaired Gait No (0 pts) Mobility Assist Device Used No (0 pt) Altered Elimination No (0 pt) Score/Fall Risk Level 0 - 2 = Low Risk Oriented to surroundings, Maintained a safe environment. 09:00 Abuse screen: Denies threats or abuse. Nutritional screening: No deficits noted. rs5 Tuberculosis screening: No symptoms or risk factors identified. Assessment: 09:00 General: Appears in no apparent distress. uncomfortable, Behavior is agitated. Pain: rs5 Complains of pain in back Pain currently is 5 out of 10 on a pain scale. Quality of pain is described as aching, Is continuous. Neuro: Level of Consciousness is awake, alert, obeys commands, Oriented to person, place, time, situation. Cardiovascular: Patient's skin is warm and dry. Respiratory: Airway is patent Respiratory effort is even, unlabored, Respiratory pattern is regular, symmetrical. GI: Abdomen is round non-distended, Abd is soft and non tender X 4 quads. : No signs and/or symptoms were reported regarding the genitourinary system. EENT: No signs and/or symptoms were reported regarding the EENT system. Derm: Skin is intact, Skin is pink, warm \\T\\ dry. Musculoskeletal: Range of motion: intact in all extremities. 10:00 Reassessment: Pt states, "I NEED ANOTHER BLANKET AND PAIN MEDICINE NOW, OR ELSE I'M ss LEAVING!!" Pt is noted to be in the stretcher, covered with 3 blankets. No new orders or interventions at this time. 10:32 Reassessment: pt states "I WANT TO LEAVE, IT'S TAKING TO LONG TO GET MY RESULTS!!" rs5 provider notified . Vital Signs: 09:08 BP 159 / 92; Pulse 88; Resp 20; Temp 98.2(TE); Pulse Ox 100% on R/A; Weight 68.04 kg; ss Height 5 ft. 6 in. ; Pain 10/10; 10:20 BP 155 / 90; Pulse 84; Resp 17; Pulse Ox 99% on R/A; rs5 09:08 Body Mass Index 24.21 (68.04 kg, 167.64 cm) ss 09:08 Pain Scale: Adult ss Tanna Coma Score: 10:31 Eye Response: spontaneous(4). Motor Response: obeys commands(6). Verbal Response: nicholas oriented(5). Total: 15. ED Course: 08:44 Patient arrived in ED. mr 09:00 Patient has correct armband on for positive identification. Placed in gown. Bed in low rs5 position. Call light in reach. Side rails up X2. 09:00 No provider procedures requiring assistance completed. rs5 09:03 Kurt Reddy, RN is Primary Nurse. rs5 09:08 Modesto Renteria MD is Attending Physician. [facility] 09:10 Inserted saline lock: 20 gauge in right antecubital area, using aseptic technique. rs5 Blood collected. Flushed with 10 mL NS. 09:12 Triage completed. 09:12 Arm band placed on right wrist. 10:03 XRAY Chest (1 view) In Process Unspecified. EDMS Administered Medications: 09:46 Drug: NS 0.9% IV 1000 ml IV at 1000 ml once; to be given as a bolus over 60 minutes rs5 Route: IV; Rate: 1000 ml; Site: right antecubital; 10:34 Follow up: Response: No adverse reaction; IV Status: IV converted to saline lock rs5 Medication: 09:15 VIS not applicable for this client. rs5 Outcome: 10:39 Discharge ordered by . [facility] 10:40 Discharged to home ambulatory, Pt left prior to receiving discharge packet 10:40 Condition: see nurses notes 10:46 Patient left the ED. rs5 Signatures: Dispatcher [employer] EDMS Modesto Renteria MD MD cha Rivera, Mary, Reg Reg VazquezVandana, RN RN Kurt Reddy, COLLETTE RN rs5 Corrections: (The following items were deleted from the chart) 09:13 09:12 Allergies: Morphine; [facility]
[2024-02-19 16:06] VITALS: BP 159/92; TEMP 98.2; O2SAT 100
== END 2024-02-19 10:46 | disposition home or self-care (01) ==
LOC: ER 08:42
DX: R42 Dizziness and giddiness (principal); T40.2X5A Adverse effect of other opioids, initial encounter; F41.9 Anxiety disorder, unspecified; I10 Essential (primary) hypertension
CPT/HCPCS: 85025; 80048; 36415; 83735; 85610; 80076; 85730; 84484; 83880; 71045; 96360; 99284; 80143; 80179; 82077; J7030

== ENCOUNTER 2024-07-22 02:10 | Emergency (ER) | payer OTHER ==
[2024-07-22] MEDS ORDERED: FENTANYL CITR 100 MCG/2 ML ONE (03:14)
--- NOTE | 2024-07-22 04:43 | EDPHYS ---
Physician Documentation [facility] Name: Mia Mayer Age: 78 yrs Sex: Female : 1945 Arrival Date: 07/22/2024 Time: 02:10 Bed 17 Private MD: Francisco Feliciano ED Physician Martha Romeo HPI: 07/22 03:03 This 78 yrs old Female presents to ER via Wheelchair with complaints of Fall sw6 Injury, Facial Injury, Nose Bleed, Headache. 03:03 Details of fall: The patient fell from seated position, out of a chair. Onset: The sw6 symptoms/episode began/occurred just prior to arrival. Associated injuries: The patient sustained face and nose pain. Severity of symptoms: At their worst the symptoms were moderate, in the emergency department the symptoms are unchanged. The patient has not experienced similar symptoms in the past. The patient presents from home for evaluation after falling out of her recliner chair just prior to arrival and landing on her face. She denies passing out. She does not take any blood thinners. She had some bleeding from her nares bilaterally that has not subsided. She complains of bruising and swelling to her face. She also complains of headache. No medication taken prior to arrival. No arm or leg pain. She did require assistance with getting up from the floor however she has been able to walk since. Here for evaluation.. Historical: - Allergies: 02:36 Morphine; kl - PMHx: 02:36 depressive disorder; Hypercholesterolemia; Hypertensive disorder; Hypothyroidism; kl 02:37 broken back; kl - PSHx: 02:36 toe surgery; kl 02:37 back surgery; kl - Immunization history: Last tetanus immunization: unknown. - Infectious Disease History:: Denies. - Social history:: Smoking status: Patient denies any tobacco usage or history of. Patient uses alcohol, on a daily basis. Patient/guardian denies using street drugs. ROS: 03:03 Cardiovascular: Negative for chest pain, palpitations, and edema, Respiratory: Negative sw6 for shortness of breath, cough, wheezing, and pleuritic chest pain, Abdomen/GI: Negative for abdominal pain, nausea, vomiting, diarrhea, and constipation, 03:03 Constitutional: Positive for Headache, 03:03 Eyes: Negative for blurry vision, 03:03 ENT: Positive for nose bleed, Face pain and swelling, 03:03 Neck: Negative for tenderness, 03:03 All other systems are negative, Exam: 03:03 Cardiovascular: Regular rate and rhythm with a normal S1 and S2. No gallops, murmurs, sw6 or rubs. Normal PMI, no JVD. No pulse deficits. Respiratory: Lungs have equal breath sounds bilaterally, clear to auscultation and percussion. No rales, rhonchi or wheezes noted. No increased work of breathing, no retractions or nasal flaring. Abdomen/GI: Soft, non-tender, with normal bowel sounds. No distension or tympany. No guarding or rebound. No evidence of tenderness throughout. 03:03 Head/face: Noted is ecchymosis, that is moderate, raccoon eye(s), bilaterally, 03:03 Eyes: Extraocular movements: no acute changes, Conjunctiva: normal, 03:03 ENT: Nose: clotted blood, in both nares, Ecchymosis, swelling as well as tenderness to the bridge of the nose., 03:03 Musculoskeletal/extremity: ROM: no acute changes, 03:03 Neuro: Exam negative for focal neuro deficits, Vital Signs: 02:39 BP 169 / 90; Pulse 82; Resp 18; Pulse Ox 97% ; kl 03:45 BP 147 / 86; Pulse 76; Resp 18; Pulse Ox 95% on R/A; br2 03:45 BP 140 / 80; Pulse 70; Resp 18; Temp 97.2; Pulse Ox 96% on R/A; Pain 2/10; br2 03:45 Pain Scale: Adult br2 Blackwell Coma Score: 02:39 Eye Response: spontaneous(4). Motor Response: obeys commands(6). Verbal Response: kl oriented(5). Total: 15. Trauma Score (Adult): 02:39 Eye Response: spontaneous(1); Verbal Response: oriented(1); Motor Response: obeys kl commands(2); Systolic BP: > 89 mm Hg(4); Respiratory Rate: 10 to 29 per min(4); Tanna Score: 15; Trauma Score: 12 MDM: 02:25 Medical Screening Exam initiated 03:03 Differential diagnosis: abrasion, closed head injury, contusion, fracture, laceration, sw6 sprain, strain. Data reviewed: vital signs, nurses notes. 04:39 Data reviewed: radiologic studies. ED course: The patient is doing well here in the ER. sw6 A CT of her head and cervical spine showed no acute traumatic injuries. A CT of her face shows the possibility of a left-sided nasal bone fracture. Spoke with the patient regarding the bruising to her face and that it will worsen over the next day or 2 and then trend downwards on her face as it follows gravity towards her lower jaw and upper neck. She remained stable here in the ER and is okay for discharge home with PCP follow-up.. 07/22 03:03 Order name: CT Facial Bones W/O Con sw6 07/22 03:03 Order name: CT Head C Spine sw6 Administered Medications: 03:36 Drug: fentaNYL (PF) IM 50 mcg IM once Route: IM; Site: right gluteus; br2 04:00 Follow up: Response: No adverse reaction br2 Disposition Summary: 07/22/24 04:42 Discharge Ordered Notes: Location: Home sw6 Condition: Stable sw6 Problem: new sw6 Symptoms: have improved sw6 Diagnosis - Fall on same level, unspecified sw6 - Contusion of nose sw6 - Facial Hematoma sw6 Discharge Instructions: - Discharge Summary Sheet sw6 - Hematoma, [id number] sw6 - Fall Prevention in the Home, Adult sw6 - Nosebleed, Adult, [id number] sw6 Forms: - Medication Reconciliation Form sw6 - Antibiotic Education sw6 - Prescription Opioid Use sw6 - Patient Portal Instructions sw6 - Leadership Thank You Letter sw6 Signatures: Dispatcher [employer] Daniela Roberson, Martha Kumar RN, MD MD sw6 Kallie Garza RN RN br2
--- NOTE | 2024-07-22 04:43 | ER ---
Nurse's Notes [facility] Name: Mia Mayer Age: 78 yrs Sex: Female : 1945 Arrival Date: 07/22/2024 Time: 02:10 Bed 17 Private MD: Francisco Feliciano Diagnosis: Fall on same level, unspecified;Contusion of nose;Facial Hematoma Presentation: 07/22 02:33 Chief complaint: Patient states: fell reports slipped face forward out of recliner at approx 1130pm last evening facial trauma noted also reports back pain denies LOC or blood thinners. Care prior to arrival: None. Mechanism of Injury: Fall same level. 02:33 Acuity: KIM 3 kl 02:33 Method Of Arrival: Wheelchair kl 02:36 Coronavirus screen: Client denies travel out of the [place] in the last 14 days. Ebola br2 Screen: Patient denies exposure to infectious person. Initial Sepsis Screen: Does the patient meet any 2 criteria? No. Patient's initial sepsis screen is negative. Does the patient have a suspected source of infection? No. Patient's initial sepsis screen is negative. Risk Assessment: Do you want to hurt yourself or someone else? Patient reports no desire to harm self or others. Onset of symptoms is unknown. Historical: - Allergies: 02:36 Morphine; kl - PMHx: 02:36 depressive disorder; Hypercholesterolemia; Hypertensive disorder; Hypothyroidism; kl 02:37 broken back; kl - PSHx: 02:36 toe surgery; kl 02:37 back surgery; kl - Immunization history: Last tetanus immunization: unknown. - Infectious Disease History:: Denies. - Social history:: Smoking status: Patient denies any tobacco usage or history of. Patient uses alcohol, on a daily basis. Patient/guardian denies using street drugs. Screenin:[facility] ED Fall Risk Assessment (Adult) History of falling in the last 3 months, br2 including since admission Yes- single mechanical fall (1 pt) Confusion or Disorientation No (0 pts) Intoxicated or Sedated No (0 pts) Impaired Gait No (0 pts) Mobility Assist Device Used No (0 pt) Altered Elimination No (0 pt) Score/Fall Risk Level 0 - 2 = Low Risk Oriented to surroundings. Abuse screen: Denies threats or abuse. Denies injuries from another. Nutritional screening: No deficits noted. Tuberculosis screening: No symptoms or risk factors identified. Primary Survey: 02:38 NO uncontrolled hemorrhage observed. A: The client is awake and alert. The airway is kl patent. Breathing/Chest: Spontaneous respiratory effort, equal unlabored respirations, breath sounds clear bilaterally, regular pattern, symmetrical chest rise and fall. Circulation: No external hemorrhage present. Regular and strong central pulse, skin warm/dry/normal color. Disability Pupils are equal, round, reactive to light and accommodation. Exposure/Environment: A warming method has been applied: A warm blanket has been provided to the patient. Assessment: 02:35 General: Appears uncomfortable, well groomed, Behavior is calm, cooperative. Pain: kl Complains of pain in face. EENT: Nares with bleeding noted. Derm: Bruising that is dark purple, on face. 02:47 Reassessment: Patient and/or family updated on plan of care and expected duration. Pain br2 level reassessed. Patient is alert, oriented x 3, equal unlabored respirations, skin warm/dry/pink. General: Appears uncomfortable, Behavior is calm, cooperative. Pain: Complains of pain in forehead, nose and left side of forehead. Neuro: Irwin Agitation-Sedation Scale (RASS): 0 - Alert and Calm Level of Consciousness is awake, alert, obeys commands, Oriented to person, place, time, situation. Cardiovascular: Capillary refill < 3 seconds. Respiratory: Airway is patent Respiratory effort is even, unlabored, Respiratory pattern is regular, symmetrical. GI: No signs and/or symptoms were reported involving the gastrointestinal system. : No signs and/or symptoms were reported regarding the genitourinary system. EENT: Nares bilaterally DRY BLOOD WITH SUPERFICIAL LACERATION TO BRIDGE OF NOSE. Derm: Bruising that is dark purple, on forehead, nose and left side of forehead. Musculoskeletal: Capillary refill < 3 seconds, Range of motion: intact in all extremities. 02:52 General: Smells of alcohol. br2 03:45 Reassessment: Patient and/or family updated on plan of care and expected duration. Pain br2 level reassessed. Patient is alert, oriented x 3, equal unlabored respirations, skin warm/dry/pink. Patient states feeling better. 05:00 Reassessment: Patient and/or family updated on plan of care and expected duration. Pain br2 level reassessed. Patient is alert, oriented x 3, equal unlabored respirations, skin warm/dry/pink. Patient states feeling better. Patient states symptoms have improved. Vital Signs: 02:39 BP 169 / 90; Pulse 82; Resp 18; Pulse Ox 97% ; kl 03:45 BP 147 / 86; Pulse 76; Resp 18; Pulse Ox 95% on R/A; br2 03:45 BP 140 / 80; Pulse 70; Resp 18; Temp 97.2; Pulse Ox 96% on R/A; Pain 2/10; br2 03:45 Pain Scale: Adult br2 Tanna Coma Score: 02:39 Eye Response: spontaneous(4). Motor Response: obeys commands(6). Verbal Response: kl oriented(5). Total: 15. Trauma Score (Adult): 02:39 Eye Response: spontaneous(1); Verbal Response: oriented(1); Motor Response: obeys kl commands(2); Systolic BP: > 89 mm Hg(4); Respiratory Rate: 10 to 29 per min(4); [place] Score: 15; Trauma Score: 12 ED Course: 02:20 Patient arrived in ED. gm2 02:20 Francisco Feliciano MD is Private Physician. gm2 02:25 Martha Romeo MD is Attending Physician. sw6 02:35 Triage completed. kl 02:35 Arm band placed on right wrist. br2 02:47 Kallie Garza, COLLETTE is Primary Nurse. br2 02:47 Placed in gown. Bed in low position. Call light in reach. Side rails up X 1. Provided br2 Education on: PLAN OF CARE. 03:22 CT Facial Bones W/O Con In Process Unspecified. EDMS 03:22 CT Head C Spine In Process Unspecified. EDMS 03:36 Wound care: to ABRASION TO LEFT CHEEK AND DRY BLOOD IN NOSTRIL CLEANED WITH NORMAL br2 SALINE, PT TOLERATED WELL located on nose was cleaned with with NORMAL SALINE , ice pack applied. Patient tolerated well. 05:10 No provider procedures requiring assistance completed. Patient did not have IV access br2 during this emergency room visit. Administered Medications: 03:36 Drug: fentaNYL (PF) IM 50 mcg IM once Route: IM; Site: right gluteus; br2 04:00 Follow up: Response: No adverse reaction br2 Medication: 05:00 VIS not applicable for this client. br2 Outcome: 04:42 Discharge ordered by . [email or web address] 05:10 Discharged to home via wheelchair, br2 05:10 Condition: improved 05:10 Discharge instructions given to patient, Instructed on discharge instructions, Demonstrated understanding of instructions, follow-up care, Prescriptions given X 05:14 Patient left the ED. br2 Signatures: Dispatcher [employer] EDDaniela Mera, RN Gricelda Tejada 2 Martha Romeo MD MD sw6 Kallie Garza RN RN br2
--- NOTE | 2024-07-22 04:51 | RAD REPORT ---
CLINICAL HISTORY: TRAUMA COMPARISON: None. TECHNIQUE: CT HEAD AND CERVICAL SPINE WITHOUT CONTRAST on 07/22/2024 3:03 AM CDT This exam was performed according to our departmental dose-optimization program, which includes autom ated exposure control, adjustment of the mA and/or kV according to patient size and/or use of iterative reconstruction technique. FINDINGS: Brain: There is no acute hemorrhage, mass effect or midline shift. Wright-white differentiation is pres erved. There is no hydrocephalus. There is no significant volume loss for age. There is a small left frontal scalp contusion. There is a questionable left nasal bone fracture. The calvarium is intact. Orbits and globes are unremarkable. The paranasal sinuses are clear. Mastoid air cells are clear. Cervical Spine: There is no acute fracture. Alignment is anatomic. There is mild narrowing of the C5-6 disc. Vertebral body heights are preserved. Soft tissues are unre markable. IMPRESSION: No acute intracranial findings. No cervical spine fracture. Questionable left nasal bone fracture. Electronically signed by: Salvatore Moore MD 07/22/2024 04:16 AM CDT RP Due to temporary technical issues with the PACS/Sendori reporting system, reports are being hazel d by the in-house radiologist without review as a courtesy to ensure prompt reporting the interpreting radiologist is fully responsible for the content of the report. Transcribed Date/Time: 07/22/2024 4:51 AM
--- NOTE | 2024-07-22 04:51 | RAD REPORT ---
CLINICAL HISTORY: FACIAL PAIN COMPARISON: None. TECHNIQUE: CT MAXILLOFACIAL WITHOUT IV CONTRAST on 07/22/2024 3:03 AM CDT This exam was performed according to our departmental dose-optimization program, which includes autom ated exposure control, adjustment of the mA and/or kV according to patient size and/or use of iterative reconstruction technique. FINDINGS: There is a questionable deformity of the base of the left nasal bone. The paranasal sinuses are clear . Orbits and globes are unremarkable. Mastoid air cells are clear. Temporomandibular joints are intact. There is a small left frontal scalp contusion. IMPRESSION: Questionable left nasal bone fracture. Electronically signed by: Salvatore Moore MD 07/22/2024 04:13 AM CDT RP Due to temporary technical issues with the PACS/[employer] reporting system, reports are being hazel d by the in-house radiologist without review as a courtesy to ensure prompt reporting the interpreting radiologist is fully responsible for the content of the report. Transcribed Date/Time: 07/22/2024 4:50 AM
[2024-07-22 05:24] VITALS: BP 147/86; O2SAT 95
== END 2024-07-22 05:14 | disposition home or self-care (01) ==
LOC: ER 02:10
DX: S00.33XA Contusion of nose, initial encounter (principal); S00.83XA Contusion of other part of head, initial encounter; W18.30XA Fall on same level, unspecified, initial encounter
CPT/HCPCS: 70450; 72125; 70486; 76377; 96372; 99284; J3010

== ENCOUNTER 2025-01-15 10:24 | Emergency (ER) | payer OTHER ==
[2025-01-15] MEDS ORDERED: NA CHLORIDE 0.9% 1,000 ML ONE (10:45)
[2025-01-15 11:04] LABS: Absolute Lymphocytes (CBC) 0.9 K/uL (0.7-4.9); Hematocrit 41.4 % (36.0-45.0); Hemoglobin 13.9 g/dL (12.0-15.0); MCH 31.8 pg (27.0-35.0); MCHC 33.4 g/dL (32.0-36.0); MCV 95.1 fL (80-100); MPV 7.3 fL (7.6-11.3); Nucleated RBC Absolute Count 0.0 (0-0); Nucleated Red Blood Cells % 0.0 % (0-0); RBC Red Blood Cell Count 4.36 M/uL (3.86-4.86); White Blood Count 12.20 thou/uL (4.3-10.9)
[2025-01-15] MEDS ORDERED: LIDOCAINE HCL JELLY 2% 6 ML SYRINGE TOP ONE (11:19)
[2025-01-15 11:22] LABS: ALT/SGPT 18.0 U/L (13-56); AST/SGOT 21.0 U/L (15-37); Albumin 2.8 g/dL (3.4-5.0); Albumin/Globulin Ratio 0.8 (1.1-1.8); Alkaline Phosphatase 385.0 U/L (45-117); Anion Gap 11.2 mEq/L (5.0-15.0); BUN Blood Urea Nitrogen 12.0 mg/dL (7-18); Bilirubin Indirect, Calculated 0.3 mg/dL (0.2-0.8); Globulin 3.4 g/dL (2.3-3.5); Glucose Level 85.0 mg/dL (74-106); Lipase 43.0 U/L (13-75); Potassium 3.2 mEq/L (3.5-5.1)
[2025-01-15 11:54] LABS: Urine Microscopic Reflex YN NO UMIC
[2025-01-15] MEDS ORDERED: KCL 20 MEQ/100 mL IVPB 100 ML IV ONE (12:08)
[2025-01-15] MEDS ORDERED: NA CHLORIDE 0.9% 250 ML ONE (12:09)
--- NOTE | 2025-01-15 12:13 | RAD REPORT ---
EXAM: Right upper quadrant ultrasound. CLINICAL HISTORY: abnl alk phos COMPARISON: None. FINDINGS: Gallbladder: Normal. Bile ducts: No intrahepatic or extrahepatic biliary dilatation. Common bile duct measures 6 mm. Limited imaging of the liver shows no concerning finding. IMPRESSION: Unremarkable exam.
--- NOTE | 2025-01-15 12:27 | RAD REPORT ---
EXAM: CT CHEST, ABDOMEN AND PELVIS WITH CONTRAST CLINICAL INDICATION: chronic back pain, weakness TECHNIQUE: CT chest, abdomen and pelvis was performed, following the administration of contrast, as p er department protocol. Axial, sagittal and coronal reconstructions were obtained. One or more of the following dose reduction techniques were used: Automated exposure control, adjustment of the mA a nd/or kV according to patient size, and/or iterative reconstruction. Unless otherwise specified, incidental findings do not require dedicated imaging follow-up. COMPARISON: No prior exam. FINDINGS: LUNGS: The lungs are mildly emphysematous with linear opacities in both posterior lung bases. PLEURA: No pleural effusion. No pneumothorax. MEDIASTINUM AND LYMPH NODES: No mediastinal mass or fluid collection. Normal size mediastinal, hilar, and axillary lymph nodes. OSSEOUS STRUCTURES AND CHEST WALL: Intact. Multiple compression fractures are seen in the mid thoraci c level with postoperative changes and hardware in place. LIVER: Normal in size and contour. No focal lesion or biliary dilatation. Gallbladder appears distend ed. PANCREAS: No mass, ductal dilation, or sandeep-pancreatic fluid. SPLEEN: Normal size. No focal lesion. ADRENALS: Normal; no mass. KIDNEYS: Normal size and contour. No hydronephrosis. Benign 17 mm cyst medial right kidney. URINARY BLADDER: Normal contour. GASTROINTESTINAL TRACT: No bowel obstruction, free air, significant free fluid or abscess. Gastric banding is noted. APPENDIX: Appendix not visualized, but no inflammatory changes in region of appendix. LYMPH NODES: No lymphadenopathy. MUSCULOSKELETAL: Healing fracture or sclerosis left iliac wing. There is a sclerosis also seen left S I joint. OTHER: Mild superior compression deformity L3 with minimal height loss, age indeterminate. IMPRESSION: No acute abnormalities seen in the chest, abdomen or pelvis. Prominent gallbladder distention.
--- NOTE | 2025-01-15 13:07 | EDPHYS ---
Physician Documentation [facility] Name: Mia Mayer Age: 79 yrs Sex: Female : 1945 Arrival Date: 01/15/2025 Time: 10:22 Bed 14 Private MD: ED Physician Satya Alejo HPI: 01/15 10:44 This 79 yrs old Female presents to ER via EMS with complaints of General Weakness. rn 10:44 Patient states seen multiple times in the last few weeks for generalized weakness and advertising intern pain. Patient denies new fall or trauma. Patient reports very weak, can barely get out of bed, today could not make it to the bathroom and urinated on herself due to weakness and having to use her walker. EMS reports required multiple personnel to assist her out of bed and stand. They did not believe patient could stand on her own or walk. No fever or chills. Unable to get in with PCP. Patient states nightly drinker and last drink was 2 nights ago. Also not eating or drinking much as she is having a lot of difficulty getting out of bed. Reports weakness all over, no bowel or bladder incontinence or retention.. Historical: - Allergies: 10:41 Morphine; db - PMHx: 10:41 depressive disorder; broken back; Hypercholesterolemia; Hypertensive disorder; db Hypothyroidism; - PSHx: 10:41 back surgery; toe surgery; db - Immunization history:: Adult Immunizations unknown. - Infectious Disease History:: Denies. - Social history:: Smoking status: Patient denies any tobacco usage or history of. - Family history:: not pertinent. - Hospitalizations: : No recent hospitalization is reported. ROS: 10:44 Constitutional: Negative for fever, chills, and weight loss, Cardiovascular: Negative rn for chest pain, palpitations, and edema, Respiratory: Negative for shortness of breath, cough, wheezing, and pleuritic chest pain, Abdomen/GI: Negative for abdominal pain, nausea, vomiting, diarrhea, and constipation, Back: Positive for chronic back pain MS/Extremity: Negative for injury and deformity, Neuro: Positive for generalized weakness, no focal weakness or numbness Exam: 10:44 Constitutional: This is a well developed, well nourished patient who is awake, alert, rn and in no acute distress. ENT: Dry mucous membranes Cardiovascular: Regular rate and rhythm. No pulse deficits. Respiratory: No increased work of breathing, no retractions or nasal flaring. Abdomen/GI: Soft, non-tender MS/ Extremity: Pulses equal, no cyanosis Neuro: Awake and alert, GCS 15 16:47 ECG was reviewed by the Attending Physician. rn Vital Signs: 10:25 BP 112 / 73; Pulse 84; Resp 16; Temp 98.6(O); Pulse Ox 95% ; Weight 68.04 kg; Height 5 db ft. 6 in. ; 11:30 BP 153 / 83; Pulse 107; Resp 16; Pulse Ox 98% on R/A; db 12:00 BP 148 / 97; Pulse 82; Resp 16; Pulse Ox 100% ; db 13:00 BP 152 / 86; Pulse 90; Resp 20; Pulse Ox 100% on R/A; db 13:30 BP 162 / 87; Pulse 92; Resp 19; Pulse Ox 97% ; me1 10:25 Body Mass Index 24.21 (68.04 kg, 167.64 cm) db MDM: 10:23 Medical Screening Exam initiated rn 11:16 Historians other than the Patient: Daughter/Son: Had long conversation with daughter on rn the phone, is medical power of slot floor attendant. She called ahead to explain that her feelings are that her mother is searching for pain medication, is bouncing from doctor to doctor to get pain medication. Has chronic pain but does not believe she had a new injury or new symptoms. Daughter states that mother basically just sits and does not nothing physically all day, takes pain medication and drinks and is wasting away. She does not believe anything new is happening but is in agreement to do some testing and hydrate her with IV fluids and see if anything new pops up.. 13:04 Differential Diagnosis Chronic pain syndrome, dehydration, electrolyte disorder. Data rn reviewed: vital signs, nurses notes, lab test result(s), radiologic studies, CT scan, ultrasound, and as a result, I will discharge patient. Consideration of Admission/Observation Escalation of care including admission/observation considered. Escalation considered but given no acute findings and workup and after long discussion with daughter decision made to discharge with pain management follow-up. Independent interpretation of the following test(s) in the Emergency Department CT Scan: My interpretation is CT abdomen pelvis images negative for free air or perforation per my interpretation. Care significantly affected by the following chronic conditions: Hypertension, Hyperlipidemia, chronic pain syndrome. Counseling: I had a detailed discussion with the patient and/or guardian regarding the historical points, exam findings, and any diagnostic results supporting the discharge/admit diagnosis, the presence of at least one elevated blood pressure reading (>120/80) during this emergency department visit, lab results, radiology results, the need for outpatient follow up, to return to the emergency department if symptoms worsen or persist or if there are any questions or concerns that arise at home. Response to treatment: the patient's symptoms have markedly improved after treatment, and as a result, I will discharge patient. Special discussion: I discussed with the patient/guardian in detail that at this point there is no indication for admission to the hospital. It is understood, however, that if the symptoms persist or worsen the patient needs to return immediately for re-evaluation. Based on the history and exam findings, there is no indication for further emergent testing or inpatient evaluation. I discussed with the patient/guardian the need to see the spray ii painter for further evaluation of the symptoms. I discussed with the patient/guardian the need to see the primary care provider for further evaluation of the symptoms. 13:04 ED course: CT abdomen pelvis negative for other than distended gallbladder. Elevated rn alk phos and blood work as well. Ultrasound obtained for further evaluation and does not show any acute abnormality, no gallbladder swelling and specifically no biliary ductal dilatation found. I have personally reviewed all of the results, including but not limited to blood tests and imaging deemed necessary to safely discharge this patient at this time. All results given to and printed out for patient. I personally went over all the results with the patient and answered all questions. Patient will follow-up with PCP and or specialist as discussed. Return precautions given and understood.. 15:21 ED course: Patient had discharge was acting completely normal, was glad that we did not rn find any acute findings or need for admission to the hospital, agree that she was going to take [id number] pain medication and follow-up with pain management. Once patient was discharged she started complaining in the lobby and asking registration for pain medication. I had another long conversation with daughter and daughter is happy that we did not give her any pain medication and has organized caregiver to pick her up. All results went over with patient as well as daughter.. 01/15 10:36 Order name: CBC with Diff; Complete Time: 11:09 rn 01/15 10:36 Order name: Basic Metabolic Panel; Complete Time: 11:43 rn 01/15 10:36 Order name: UA Rfx Fortunato Cult if indicated; Complete Time: 12:48 rn 01/15 10:36 Order name: ETOH Level; Complete Time: 11:43 rn 01/15 10:36 Order name: LFT's; Complete Time: 11:43 rn 01/15 10:36 Order name: Lipase; Complete Time: 11:43 rn 01/15 10:36 Order name: CT Chest, Abdomen, Pelvis - W/Contrast; Complete Time: 12:48 rn 01/15 11:44 Order name: US Abdomen Limited; Complete Time: 12:48 rn 01/15 10:36 Order name: IV Start; Complete Time: 11:01 rn 01/15 10:36 Order name: EKG - Nurse/Tech; Complete Time: 11:21 rn 01/15 10:36 Order name: Cardiac monitoring; Complete Time: 11:21 rn EC:47 Rate is 74 beats/min. Rhythm is regular. QRS [place] is Normal. TN interval is normal. QRS rn interval is normal. QT interval is normal. No Q waves. T waves are Normal. No ST changes noted. Clinical impression: NSR w/ Non-specific ST/T Changes. Interpreted by me. Reviewed by me. Administered Medications: 11:00 Drug: NS 0.9% IV 1000 ml IV at 1000 ml once; to be given as a bolus over 60 minutes db Route: IV; Rate: 1000 ml; Site: right antecubital; 13:03 Follow up: Response: No adverse reaction; IV Status: Completed infusion; IV Intake: db 1000ml 12:58 Drug: Potassium Chloride IV 10 mEq IV at calculated rate once; administer over 1-2 db hours Route: IV; Rate: calculated rate; Site: right antecubital; 14:23 Follow up: IV Status: Completed infusion me1 Disposition Summary: 01/15/25 13:06 Discharge Ordered Notes: Location: Home rn Problem: chronic rn Symptoms: have improved rn Condition: Stable rn Diagnosis - Low back pain rn - Weakness rn - Dehydration rn Followup: rn - With: Chauncey Rincon MD - When: As needed - Reason: Recheck today's complaints, Re-evaluation by your physician Discharge Instructions: - Discharge Summary Sheet rn - Chronic Back Pain rn - Dehydration, Adult rn - Hypokalemia rn Forms: - Medication Reconciliation Form rn - Antibiotic turner machine - Prescription Opioid Use rn - Patient Portal Instructions rn - Leadership Thank You Letter rn Signatures: Dispatcher [employer] aStya Go MD MD rn Benton, Danielle RN Indira Moore RN me1 Corrections: (The following items were deleted from the chart) 10:36 10:36 Chest Abdomen Pelvis W Con+CT.RAD.BRZ ordered. EDFL EDMS
--- NOTE | 2025-01-15 13:07 | ER ---
Nurse's Notes [facility] Name: Mia Mayer Age: 79 yrs Sex: Female : 1945 Arrival Date: 01/15/2025 Time: 10:22 Bed 14 Private MD: Diagnosis: Low back pain;Weakness;Dehydration Presentation: 01/15 10:25 Chief complaint: EMS states: LEFT SHOULDER PAIN STARTED TODAY WHILE TRYING TO GET UP db OUT OF BED. STATES HAS CHRONIC BUTTOCK PAIN. REPORTS OTC MEDICATIONS NOT HELPING. GIVEN 1GM IV TYLENOL BY EMS. Coronavirus screen: Client denies travel out of the [place] in the last 14 days. At this time, the client does not indicate any symptoms associated with coronavirus-19. Ebola Screen: Patient negative for fever greater than or equal to 101.5 degrees Fahrenheit, and additional compatible Ebola Virus Disease symptoms Patient denies exposure to infectious person. Patient denies travel to an Ebola-affected area in the 21 days before illness onset. No symptoms or risks identified at this time. Initial Sepsis Screen: Does the patient meet any 2 criteria? No. Patient's initial sepsis screen is negative. Does the patient have a suspected source of infection? No. Patient's initial sepsis screen is negative. Risk Assessment: Do you want to hurt yourself or someone else? Patient reports no desire to harm self or others. Onset of symptoms was January 15, 2025. 10:25 Method Of Arrival: EMS: [facility] db 10:25 Acuity: KIM 3 db 10:25 Care prior to arrival: IV initiated. 20 GA, in the right antecubital area, Glucose db check: 76. Triage Assessment: 10:25 General: Appears in no apparent distress. comfortable, Behavior is calm, cooperative. db Pain: Complains of pain in back and posterior aspect of left shoulder. Neuro: Level of Consciousness is awake, alert, obeys commands, Oriented to person, place, time, situation. Respiratory: Airway is patent Respiratory effort is even, unlabored, Respiratory pattern is regular, symmetrical. Historical: - Allergies: 10:41 Morphine; db - PMHx: 10:41 depressive disorder; broken back; Hypercholesterolemia; Hypertensive disorder; db Hypothyroidism; - PSHx: 10:41 back surgery; toe surgery; db - Immunization history:: Adult Immunizations unknown. - Infectious Disease History:: Denies. - Social history:: Smoking status: Patient denies any tobacco usage or history of. - Family history:: not pertinent. - Hospitalizations: : No recent hospitalization is reported. Screenin:43 [facility] ED Fall Risk Assessment (Adult) History of falling in the last 3 months, db including since admission No falls in past 3 months (0 pts) Confusion or Disorientation No (0 pts) Intoxicated or Sedated No (0 pts) Impaired Gait Yes (1 pt) Mobility Assist Device Used Yes (1 pt) Altered Elimination No (0 pt) Score/Fall Risk Level 0 - 2 = Low Risk Oriented to surroundings, Maintained a safe environment. Abuse screen: Denies threats or abuse. Denies injuries from another. Nutritional screening: No deficits noted. Tuberculosis screening: No symptoms or risk factors identified. Assessment: 10:42 Reassessment: SEE TRIAGE FOR INITIAL ASSESSMENT. db 11:40 Reassessment: Patient appears in no apparent distress at this time. Patient and/or db family updated on plan of care and expected duration. Pain level reassessed. Patient is alert, oriented x 3, equal unlabored respirations, skin warm/dry/pink. PT CLEANED. BRIEF CHANGED. General: Appears in no apparent distress. comfortable, Behavior is calm, cooperative. Neuro: Level of Consciousness is awake, alert, obeys commands, Oriented to person, place, time, situation. Respiratory: Airway is patent Respiratory effort is even, unlabored, Respiratory pattern is regular, symmetrical. 13:05 Reassessment: Patient appears in no apparent distress at this time. Patient and/or db family updated on plan of care and expected duration. Pain level reassessed. Patient is alert, oriented x 3, equal unlabored respirations, skin warm/dry/pink. 13:09 Reassessment: DC PENDING MEDICATION COMPLETION. db 14:19 Reassessment: Patient requested pain medication at discharge and something for the weekend. Dr Alejo said he is not giving her pain medication that she needs to see pain management. Patient refused to sign discharge papers. Vital Signs: 10:25 BP 112 / 73; Pulse 84; Resp 16; Temp 98.6(O); Pulse Ox 95% ; Weight 68.04 kg; Height 5 db ft. 6 in. ; 11:30 BP 153 / 83; Pulse 107; Resp 16; Pulse Ox 98% on R/A; db 12:00 BP 148 / 97; Pulse 82; Resp 16; Pulse Ox 100% ; db 13:00 BP 152 / 86; Pulse 90; Resp 20; Pulse Ox 100% on R/A; db 13:30 BP 162 / 87; Pulse 92; Resp 19; Pulse Ox 97% ; me1 10:25 Body Mass Index 24.21 (68.04 kg, 167.64 cm) db ED Course: 10:22 Patient arrived in ED. jl7 10:22 Satya Alejo MD is Attending Physician. rn 10:25 Arm band placed on Patient placed in an exam room. db 10:39 Maxine Heredia, COLLETTE is Primary Nurse. db 10:41 Triage completed. db 10:42 Maintain EMS IV. Dressing intact. Good blood return noted. Site clean \T\ dry. Gauge \T\ db site: 20 G RAC. 11:21 EKG done, by compounding pharmacy technician. reviewed by Satya Alejo MD. ts3 11:42 Urine collected: straight cath specimen. Straight cath inserted, using sterile db technique, 14 Fr. Specimen obtained. Patient tolerated well. 12:12 US Abdomen Limited In Process Unspecified. EDMS 12:19 CT Chest, Abdomen, Pelvis - W/Contrast In Process Unspecified. EDMS 13:06 Chauncey Rincon MD is Referral Physician. rn 14:21 No provider procedures requiring assistance completed. IV discontinued, intact, me1 bleeding controlled, No redness/swelling at site. Pressure dressing applied. 14:22 Patient has correct armband on for positive identification. Bed in low position. Call me1 light in reach. Side rails up X2. Provided Education on: POC. Verbalized understanding.. Administered Medications: 11:00 Drug: NS 0.9% IV 1000 ml IV at 1000 ml once; to be given as a bolus over 60 minutes db Route: IV; Rate: 1000 ml; Site: right antecubital; 13:03 Follow up: Response: No adverse reaction; IV Status: Completed infusion; IV Intake: db 1000ml 12:58 Drug: Potassium Chloride IV 10 mEq IV at calculated rate once; administer over 1-2 db hours Route: IV; Rate: calculated rate; Site: right antecubital; 14:23 Follow up: IV Status: Completed infusion me1 Medication: 14:22 VIS not applicable for this client. me1 Intake: 13:03 IV: 1000ml; Total: 1000ml. db Outcome: 13:06 Discharge ordered by . rn 14:21 Discharged to home via wheelchair, patient reports that [employer] will be picking her me1 up. Assisted to and put in lobby. 14:21 Condition: stable 14:21 Discharge instructions given to patient, Instructed on discharge instructions, follow up and referral plans. Demonstrated understanding of instructions, follow-up care, 14:23 Patient left the ED. me1 Signatures: Dispatcher [employer] EDSatya Linares MD MD rn Leal, Jahala, RN RN jl7 Maxine Heredia RN RN db Eddleman, Michelle, RN RN me1 Radha Tam 3
[2025-01-15 14:37] VITALS: TEMP 98.6
[2025-01-15 15:07] VITALS: BP 162/87; O2SAT 97
== END 2025-01-15 14:23 | disposition home or self-care (01) ==
LOC: ER 10:24
DX: R53.1 Weakness (principal); E86.0 Dehydration; M54.50 Low back pain, unspecified; I10 Essential (primary) hypertension; Z88.5 Allergy status to narcotic agent
CPT/HCPCS: 96365; 96361; 85025; 80048; 36415; 80076; 81003; 83690; 71260; 74177; 76705; 51702; 99285; 82077; Q9967; J3480; J7050; J7030

== ENCOUNTER 2025-02-25 10:18 | Emergency (ER) | payer OTHER ==
[2025-02-25 11:05] LABS: Absolute Lymphocytes (CBC) 0.7 K/uL (0.7-4.9); Hematocrit 38.3 % (36.0-45.0); Hemoglobin 12.6 g/dL (12.0-15.0); MCH 31.5 pg (27.0-35.0); MCHC 32.8 g/dL (32.0-36.0); MCV 96.1 fL (80-100); MPV 7.0 fL (7.6-11.3); Nucleated RBC Absolute Count 0.0 (0-0); Nucleated Red Blood Cells % 0.0 % (0-0); RBC Red Blood Cell Count 3.99 M/uL (3.86-4.86); White Blood Count 13.80 thou/uL (4.3-10.9)
[2025-02-25] MEDS ORDERED: NA CHLORIDE 0.9% 500 ML ONE (11:16)
[2025-02-25 11:25] LABS: Anion Gap 7.9 mEq/L (5.0-15.0); BUN Blood Urea Nitrogen 14.0 mg/dL (7-18); Glucose Level 99.0 mg/dL (74-106); Potassium 3.9 mEq/L (3.5-5.1); Troponin High Sensitivity 11.4 pg/mL (<58.9)
--- NOTE | 2025-02-25 12:00 | RAD REPORT ---
EXAMINATION: Head C Spine Mpr Wo Con CLINICAL INDICATION: Female, 79 years old. recurrent falls, head/LUQ/back pain TECHNIQUE: Axial CT images from the skull base to the vertex without intravenous contrast. Axial CT i mages through the cervical spine were obtained without intravenous contrast. Sagittal and coronal reformatted images were created from the data set. Coronal and sagittal reformatted images were creat ed from the data set. One or more of the following dose reduction techniques were used: Automated exposure control, adjustment of the mA and/or kV according to patient size, and/or iterative reconstr uction. Unless otherwise specified, incidental findings do not require dedicated imaging follow-up. [id number]. COMPARISON: 07/22/2024 FINDINGS: Head: INTRACRANIAL: No acute intracranial hemorrhage. No acute large vascular territory infarct. No hydro cephalus. No mass effect or midline shift. Mild chronic small vessel ischemic changes. Mild cerebral atrophy. VASCULATURE: No visualized abnormalities in the arteries or dural venous sinuses. SCALP/SKULL: No calvarial fracture identified. No acute soft tissue abnormality. SINUSES: The visualized paranasal sinuses are mostly clear. No significant mastoid fluid. Cervical spine: ALIGNMENT: The cervical spine has normal alignment without scoliosis or spondylolisthesis. BONE: Vertebral body heights are maintained. No aggressive osseous lesions. DEGENERATIVE: No significant focal degenerative changes. SOFT TISSUE: No significant abnormalities in the soft tissue of the neck. The visualized lung apices are clear. IMPRESSION: No acute intracranial abnormality. No acute fracture or traumatic malalignment of the cervical spine.
--- NOTE | 2025-02-25 12:02 | RAD REPORT ---
EXAM: Chest Abd Pelvis Wo Con CLINICAL INDICATION: Female, 79 years old falls, pain TECHNIQUE: CT chest, abdomen and pelvis was performed, without IV contrast, as per department protoco l. Axial, sagittal and coronal reconstructions were obtained. One or more of the following dose reduction techniques were used: Automated exposure control, adjustment of the mA and/or kV according to the patient size, and/or iterative reconstruction. Unless otherwise specified, incidental findings do not require dedicated imaging follow-up. [id number]. COMPARISON: CT 01/15/2025 FINDINGS: The lack of intravenous contrast limits the sensitivity of this exam for evaluation of solid visceral organs, vascular structures, and retroperitoneum. ---THORAX--- LOWER NECK AND CHEST WALL: Visualized thyroid gland and soft tissues are normal. MEDIASTINUM AND LYMPH NODES: No mediastinal mass or fluid collection. Normal size mediastinal, hilar, and axillary lymph nodes. THORACIC AORTA: No thoracic aortic aneurysm. PULMONARY ARTERIES: Caliber is within normal limits. HEART: Normal heart size. No coronary calcifications. No significant pericardial effusion. LUNGS AND AIRWAYS: Dependent atelectasis. Mild nonspecific ground glass opacities in the right middle lobe and lingula. No evidence of pneumonia or pulmonary edema. No suspicious and/or stable pulmonary nodules. PLEURA: No pleural effusion. No pneumothorax. ---ABDOMEN/PELVIS--- UPPER GI: Gastric banding. LIVER: No significant focal abnormality. GALLBLADDER/BILE DUCTS: No biliary ductal dilatation.? PANCREAS: No mass, ductal dilation, or sandeep-pancreatic fluid. SPLEEN: Unremarkable. ADRENALS: Left adrenal thickening. KIDNEYS AND URETERS: No hydronephrosis. Low density and/or too small to characterize renal lesions w hich are statistically benign. No renal calculi. No ureteral calculi. ABDOMINAL AORTA AND OTHER VESSELS: Normal caliber aorta and IVC. PERITONEUM: No abnormal free fluid. No free air. LYMPH NODES: No pathologic lymphadenopathy. ABDOMINAL WALL: Unremarkable SMALL BOWEL/COLON: Small bowel has normal course and caliber. No colonic wall thickening or pericolon ic inflammatory changes. URINARY BLADDER: Underdistended but grossly unremarkable. REPRODUCTIVE ORGANS: No pathologic process. ---COMBINED--- MUSCULOSKELETAL: Fusion hardware at T8-T12. The change at T10. Unchanged superior endplate fracture a t L3.L5 compression fracture with less than 20% loss of height.. The L5 compression deformity is new from prior. Subacute. Inferior pubic ramus fracture. Probable bilateral subacute pubic symphysis fractures and subacute sacral fractures which are probably insufficiency type. Subacute left iliac bone fracture. ADDITIONAL FINDINGS: None. IMPRESSION: New L5 compression fracture with less than 20% loss of height. Nondisplaced acute right anterior fift h rib fracture. Subacute pelvic fractures which are new since 01/15/2025. Other incidental findings as noted above.
--- NOTE | 2025-02-25 12:03 | RAD REPORT ---
EXAM: Chest Single View HISTORY: 79 years Female TRAUMA COMPARISON: No prior exams FINDINGS: LUNGS/PLEURA: The lungs are clear. No pleural effusions or pneumothorax. No pulmonary edema. CARDIAC/MEDIASTINUM: The cardiac silhouette is within normal limits. UPPER ABDOMEN: No significant abnormality. BONES: No acute abnormality. Fusion hardware in the lower thoracic spine. LINES/TUBES/OTHER: N/A IMPRESSION: No evidence of acute cardiopulmonary disease.
[2025-02-25 12:14] LABS: Blood Morphology Comment NOT SEEN (NOT SEEN); White Blood Cell Scan OK (OK)
[2025-02-25 12:23] LABS: Urine Microscopic Reflex YN NO UMIC
--- NOTE | 2025-02-25 13:36 | ER ---
Nurse's Notes [facility] Name: Mia Mayer Age: 79 yrs Sex: Female : 1945 Arrival Date: 02/25/2025 Time: :18 Bed 8 Private MD: Diagnosis: Fracture of one rib, right side;Multiple fractures of pelvis without disruption of pelvic ring, initial encounter for closed fracture;Other fracture of fifth lumbar vertebra, initial encounter for closed fracture-20% compression fracture Presentation: 02/25 10:39 Chief complaint: Patient states: pt recently has had an influx of falls over the last kb4 week, caregiver reports pt starting gabapentin last week. Care prior to arrival: None. Mechanism of Injury: Fall. 10:39 Acuity: KIM 3 kb4 10:39 Method Of Arrival: Ambulatory kb4 10:41 Coronavirus screen: At this time, unable to obtain information related to travel kb4 outside the [place] Ebola Screen: No symptoms or risks identified at this time. Initial Sepsis Screen: Does the patient meet any 2 criteria? No. Patient's initial sepsis screen is negative. Does the patient have a suspected source of infection? No. Patient's initial sepsis screen is negative. Risk Assessment: Do you want to hurt yourself or someone else? Patient reports no desire to harm self or others. Onset of symptoms was February 21, 2025. Historical: - Allergies: 10:25 Morphine; ll1 - PMHx: 10:25 broken back; depressive disorder; Hypercholesterolemia; Hypertensive disorder; ll1 Hypothyroidism; - PSHx: 10:25 back surgery; toe surgery; ll1 - Immunization history:: Adult Immunizations up to date. - Infectious Disease History:: Denies. - Family history:: not pertinent. - Hospitalizations: : No recent hospitalization is reported. - Social history:: Smoking status: unknown. Screenin:[address] [facility] ED Fall Risk Assessment (Adult) History of falling in the last 3 months, kb4 including since admission Yes- physiologic fall (2 pts) Confusion or Disorientation No (0 pts) Intoxicated or Sedated No (0 pts) Impaired Gait Yes (1 pt) Mobility Assist Device Used Yes (1 pt) Altered Elimination Yes (1 pt) Score/Fall Risk Level 3 or more points = High Risk Oriented to surroundings, Maintained a safe environment, Educated pt \T\ family on fall prevention, incl call for assistance when getting out of bed, Hourly rounding (assess needs \T\ fall precautionary measures) done. Abuse screen: Denies threats or abuse. Denies injuries from another. Nutritional screening: No deficits noted. Tuberculosis screening: No symptoms or risk factors identified. Assessment: 11:00 Reassessment: Patient and/or family updated on plan of care and expected duration. Pain kb4 level reassessed. Patient is alert, oriented x 3, equal unlabored respirations, skin warm/dry/pink. 12:33 General: Appears in no apparent distress. comfortable, Behavior is calm, cooperative. kb4 Pain: Denies pain. Neuro: Level of Consciousness is awake, alert, obeys commands, Oriented to person, place, time, situation. Cardiovascular: Patient's skin is warm and dry. Respiratory: Airway is patent Respiratory effort is even, unlabored, Respiratory pattern is regular, symmetrical. Derm: Skin is pink, warm \T\ dry. 12:34 Pain: Complains of pain in back, lower back Pain currently is 2 out of 10 on a pain kb4 scale. 13:19 Reassessment: Patient and/or family updated on plan of care and expected duration. Pain kb4 level reassessed. Patient is alert, oriented x 3, equal unlabored respirations, skin warm/dry/pink. 14:18 Reassessment: Patient and/or family updated on plan of care and expected duration. Pain kb4 level reassessed. Patient is alert, oriented x 3, equal unlabored respirations, skin warm/dry/pink. Patient states feeling better. Vital Signs: 10:41 BP 100 / 77; Pulse 96; Resp 18; Temp 97.9; Pulse Ox 99% on R/A; Weight 68.04 kg; Height kb4 5 ft. 6 in. ; Pain 0/10; 12:24 BP 109 / 58; Pulse 53; Resp 15; Pulse Ox 98% on R/A; hb 13:18 BP 103 / 57; Pulse 92; Resp 16; Pulse Ox 96% on R/A; kb4 14:17 BP 124 / 71; Pulse 89; Resp 16; Pulse Ox 99% on R/A; kb4 10:41 Body Mass Index 24.21 (68.04 kg, 167.64 cm) kb4 10:41 Pain Scale: Adult kb4 ED Course: 10:21 Patient arrived in ED. al6 10:24 Arm band placed on Patient placed in an exam room, on a stretcher. ll1 10:25 rGazyna Daily, RN is Primary Nurse. kb4 10:25 Satya Alejo MD is Attending Physician. rn 10:41 Triage completed. kb4 11:00 Inserted saline lock: 20 gauge in right antecubital area, using aseptic technique. kb4 11:22 Chest Abd Pelvis Wo Con In Process Unspecified. EDMS 11:22 Head C Spine Mpr Wo Con In Process Unspecified. EDMS 11:44 XRAY Chest (1 view) In Process Unspecified. EDMS 12:35 Patient has correct armband on for positive identification. kb4 13:34 Jose J Cornell MD is Referral Physician. rn 14:19 Provided Education on: d/c. kb4 14:19 No provider procedures requiring assistance completed. IV discontinued, intact, kb4 bleeding controlled, No redness/swelling at site. Pressure dressing applied. Administered Medications: 11:43 Drug: NS 0.9% IV 500 ml IV at bolus once; to be given as a bolus over 30 minutes Route: kb4 IV; Rate: bolus; Site: right antecubital; 13:19 Follow up: Response: No adverse reaction kb4 14:00 Follow up: Response: No adverse reaction; IV Status: Completed infusion aa5 Medication: 14:20 VIS not applicable for this client. kb4 Outcome: 13:35 Discharge ordered by . rn 14:19 Discharged to home via wheelchair, with caregiver kb4 14:19 Condition: good 14:19 Discharge instructions given to patient, Instructed on discharge instructions, follow up and referral plans. Demonstrated understanding of instructions, follow-up care, 14:20 Patient left the ED. kb4 Signatures: Dispatcher [employer] EDMS Satya Alejo MD MD rn Calderon, Audri, RN RN aa5 Steph Gabriel, Manish Adame RN, RN RN ll1 Vernell Edwards al6 Grazyna Daily, COLLETTE MURDOCK kb4
--- NOTE | 2025-02-25 13:36 | EDPHYS ---
Physician Documentation [facility] Name: Mia Mayer Age: 79 yrs Sex: Female : 1945 Arrival Date: 02/25/2025 Time: :18 Bed 8 Private MD: ED Physician Satya Alejo HPI: 02/25 13:31 This 79 yrs old Female presents to ER via Ambulatory with complaints of Fall Injury. rn 13:31 Patient reports seen here for fall recently, has fallen a few more times since then. rn Patient was found on the ground today by caregiver. Patient reports lower back pain and pelvic pain. No fever or chills. No vomiting or diarrhea. No shortness of breath.. Historical: - Allergies: 10:25 Morphine; ll1 - PMHx: 10:25 broken back; depressive disorder; Hypercholesterolemia; Hypertensive disorder; ll1 Hypothyroidism; - PSHx: 10:25 back surgery; toe surgery; ll1 - Immunization history:: Adult Immunizations up to date. - Infectious Disease History:: Denies. - Family history:: not pertinent. - Hospitalizations: : No recent hospitalization is reported. - Social history:: Smoking status: unknown. ROS: 13:31 Constitutional: Negative for fever, chills, and weight loss, Eyes: Negative for injury, rn pain, redness, and discharge, Neck: Negative for injury, pain, and swelling, Cardiovascular: Negative for chest pain, palpitations, and edema, Respiratory: Negative for shortness of breath, cough, wheezing, and pleuritic chest pain, Abdomen/GI: Negative for abdominal pain, nausea, vomiting, diarrhea, and constipation, Back: Positive for lower back pain MS/Extremity: Negative for injury and deformity, Neuro: Positive for generalized weakness and malaise Exam: 13:31 Constitutional: This is a well developed, well nourished patient who is awake, alert, rn and in no acute distress. Head/Face: Normocephalic, atraumatic. ENT: Dry mucous membranes Cardiovascular: Regular rate and rhythm. No pulse deficits. Respiratory: No increased work of breathing, no retractions or nasal flaring. Abdomen/GI: Soft, nontender Back: No focal spinal tenderness MS/ Extremity: Pulses equal, no cyanosis. Neurovascular intact. Full, normal range of motion. Equal circumference. Neuro: Awake and alert, GCS 15, oriented to person, place, time, and situation. Cranial nerves II-XII grossly intact. Motor strength 4/5 in all extremities. Sensory grossly intact. 13:44 ECG was reviewed by the Attending Physician. rn Vital Signs: 10:41 BP 100 / 77; Pulse 96; Resp 18; Temp 97.9; Pulse Ox 99% on R/A; Weight 68.04 kg; Height kb4 5 ft. 6 in. ; Pain 0/10; 12:24 BP 109 / 58; Pulse 53; Resp 15; Pulse Ox 98% on R/A; hb 13:18 BP 103 / 57; Pulse 92; Resp 16; Pulse Ox 96% on R/A; kb4 14:17 BP 124 / 71; Pulse 89; Resp 16; Pulse Ox 99% on R/A; kb4 10:41 Body Mass Index 24.21 (68.04 kg, 167.64 cm) kb4 10:41 Pain Scale: Adult kb4 MDM: 10:25 Medical Screening Exam initiated rn 13:31 Differential diagnosis: abrasion, closed head injury, contusion, fracture, multiple attorney, sprain, strain. Data reviewed: vital signs, nurses notes, lab test result(s), radiologic studies, CT scan, and as a result, I will discharge patient. Independent interpretation of the following test(s) in the Emergency Department CT Scan: My interpretation is CT head images negative for acute hemorrhage per my interpretation. imaging analyst: rate is 92 beats/min, Rhythm is normal sinus rhythm, regular, with no ectopy, Interpretation: normal rate, normal rhythm. Care significantly affected by the following chronic conditions: Hypertension. Counseling: I had a detailed discussion with the patient and/or guardian regarding the historical points, exam findings, and any diagnostic results supporting the discharge/admit diagnosis, lab results, radiology results, the need for outpatient follow up, to return to the emergency department if symptoms worsen or persist or if there are any questions or concerns that arise at home. Special discussion: I discussed with the patient/guardian in detail that at this point there is no indication for admission to the hospital. It is understood, however, that if the symptoms persist or worsen the patient needs to return immediately for re-evaluation. Based on the history and exam findings, there is no indication for further emergent testing or inpatient evaluation. I discussed with the patient/guardian the need to see the primary care provider for further evaluation of the symptoms. ED course: Images show subacute fractures of right fifth rib, L5 vertebral body, pelvic fractures. Caregiver states fell last week and thinks that is when she did it. Stable vital signs. Patient already getting physical therapy at home. No indication for emergent admission or surgery at this time. I have personally reviewed all of the results, including but not limited to blood tests and imaging deemed necessary to safely discharge this patient at this time. All results given to and printed out for patient. I personally went over all the results with the patient and answered all questions. Patient will follow-up with PCP and or specialist as discussed. Return precautions given and understood.. 02/25 10:53 Order name: Basic Metabolic Panel; Complete Time: 11:59 kb4 02/25 10:53 Order name: CBC with Diff; Complete Time: 13:30 kb4 02/25 10:53 Order name: Troponin HS; Complete Time: 11:59 kb4 02/25 11:07 Order name: UA Rfx Fortunato Cult if indicated; Complete Time: 13:30 rn 02/25 11:08 Order name: Protime (+inr) rn 02/25 11:08 Order name: Ptt, Activated rn 02/25 11:11 Order name: CBC Smear Scan; Complete Time: 13:30 EDMS 02/25 10:53 Order name: XRAY Chest (1 view); Complete Time: 12:10 kb4 02/25 11:11 Order name: Chest Abd Pelvis Wo Con; Complete Time: 12:10 EDMS 02/25 11:12 Order name: Head C Spine Mpr Wo Con; Complete Time: 12:10 EDMS 02/25 10:53 Order name: EKG; Complete Time: 10:53 kb4 02/25 10:53 Order name: Cardiac monitoring; Complete Time: 11:26 kb4 02/25 10:53 Order name: EKG - Nurse/Tech; Complete Time: 11:43 kb4 02/25 10:53 Order name: IV Saline Lock; Complete Time: 10:53 kb4 02/25 10:53 Order name: Labs collected and sent; Complete Time: 10:53 kb4 02/25 10:53 Order name: O2 Per Protocol; Complete Time: 10:53 kb4 02/25 10:53 Order name: O2 Sat Monitoring; Complete Time: 10:53 kb4 EC:44 Rate is 85 beats/min. Rhythm is regular. QRS interval is normal. QT interval is normal. rn No Q waves. T waves are Normal. No ST changes noted. Clinical impression: NSR w/ Non-specific ST/T Changes. Interpreted by me. Reviewed by me. Administered Medications: 11:43 Drug: NS 0.9% IV 500 ml IV at bolus once; to be given as a bolus over 30 minutes Route: kb4 IV; Rate: bolus; Site: right antecubital; 13:19 Follow up: Response: No adverse reaction kb4 14:00 Follow up: Response: No adverse reaction; IV Status: Completed infusion aa5 Disposition Summary: 02/25/25 13:35 Discharge Ordered Notes: Location: Home rn Problem: new rn Symptoms: have improved rn Condition: Stable rn Diagnosis - Fracture of one rib, right side rn - Multiple fractures of pelvis without disruption of pelvic ring, initial encounter rn for closed fracture - Other fracture of fifth lumbar vertebra, initial encounter for closed fracture - rn 20% compression fracture Followup: rn - With: Jose J Cornell MD - When: 5 - 6 days - Reason: Recheck today's complaints, Re-evaluation by your physician Discharge Instructions: - Discharge Summary Sheet rn - Spinal Compression Fracture rn - Simple Pelvic Fracture, Adult rn - Rib Fracture rn Forms: - Medication Reconciliation Form rn - Antibiotic international tax manager - Prescription Opioid Use rn - Patient Portal Instructions rn - Leadership Thank You Letter rn Signatures: Dispatcher [employer] EDMS Satya Alejo MD MD rn Lewis, Lynsay RN RN ll1 Grazyna Daily RN RN ivan4 Saba Cornelius RN aa5 Corrections: (The following items were deleted from the chart) 11:08 11:08 Head C Spine Cap Wo Con+CT.RAD.BRZ ordered. EDMS EDMS 11:08 11:08 UA Rfx Fortunato Cult if indicated+U.LAB.BRZ ordered. EDMS EDMS
[2025-02-25 14:30] VITALS: TEMP 97.9
[2025-02-25 14:33] VITALS: BP 124/71; O2SAT 99
== END 2025-02-25 14:20 | disposition home or self-care (01) ==
LOC: ER 10:18
DX: S32.050A Wedge compression fracture of fifth lumbar vertebra, initial encounter for closed fracture (principal); S22.31XA Fracture of one rib, right side, initial encounter for closed fracture; S32.82XA Multiple fractures of pelvis without disruption of pelvic ring, initial encounter for closed fracture; W18.30XA Fall on same level, unspecified, initial encounter
CPT/HCPCS: 96361; 85025; 80048; 36415; 81003; 84484; 70450; 71250; 72125; 74176; 71045; 96360; 99284; J7040